=== PATIENT | female | born 1980 | race Caucasian/White ===

== ENCOUNTER → 2020-07-01 18:57 | Outpatient (CLI) | payer BC, SELFPAY ==
[2020-07-03 16:15] LABS: Covid-19 Nasal PCR Sendout UK Not Detected
== END ==
PROVIDERS: PCP Nurse Practitioner; Visit Provider Nurse Practitioner
DX: Z03.818 Encounter for observation for suspected exposure to other biological agents ruled out (principal)
CPT/HCPCS: U0003

== ENCOUNTER → 2020-08-29 10:41 | Outpatient (CLI) | payer BC, SELFPAY ==
[2020-08-29 11:18] LABS: Basophils % 0.4 % (0.1-2.0); Eosinophils # 0.1 K/mm3 (0.0-0.4); Eosinophils % 2.3 % (0.1-12.0); Hematocrit 31.6 % (37.0-47.0); Hemoglobin 10.5 g/dL (12.2-16.2); Lymphocytes # 1.4 K/mm3 (0.7-4.5); Lymphocytes % 35.5 % (10-50); Mean Corpuscular HGB Conc 33.3 g/dL (31.8-35.4); Mean Corpuscular Hemoglobin 38.8 pg (27.0-31.2); Mean Corpuscular Volume 116.6 fl (81-99); Mean Platelet Volume 9.8 fl (7.4-10.4); Monocytes # 0.3 K/mm3 (0.1-1.0); Monocytes % 6.9 % (1.7-9.3); Neutrophils # 2.1 K/mm3 (1.8-7.8); Neutrophils % 54.9 % (37.0-80.0); Platelet Count 67 K/mm3 (142-424); Red Blood Count 2.71 M/mm3 (4.20-5.40); Red Cell Distribution Width 16.5 % (11.5-17.5); White Blood Count 3.8 K/mm3 (4.8-10.8)
== END ==
PROVIDERS: PCP Family Medicine; Visit Provider Family Medicine
DX: Z03.818 Encounter for observation for suspected exposure to other biological agents ruled out (principal)
CPT/HCPCS: 36415; 85025; U0003

== ENCOUNTER → 2020-09-09 18:20 | Outpatient (CLI) | payer BC, SELFPAY | PROVIDERS: PCP Nurse Practitioner; Visit Provider Nurse Practitioner | DX: Z03.818 Encounter for observation for suspected exposure to other biological agents ruled out (principal) | CPT/HCPCS: U0003 ==

== ENCOUNTER → 2020-09-13 12:14 | Outpatient (CLI) | payer BC, SELFPAY ==
[2020-09-13 15:19] LABS: Basophils % 0.3 % (0.1-2.0); Eosinophils % 0.9 % (0.1-12.0); Hematocrit 29.1 % (37.0-47.0); Lymphocytes # 1.2 K/mm3 (0.7-4.5); Lymphocytes % 61.6 % (10-50); Mean Corpuscular HGB Conc 34.4 g/dL (31.8-35.4); Mean Corpuscular Hemoglobin 39.4 pg (27.0-31.2); Mean Corpuscular Volume 114.4 fl (81-99); Monocytes # 0.3 K/mm3 (0.1-1.0); Monocytes % 12.8 % (1.7-9.3); Neutrophils # 0.5 K/mm3 (1.8-7.8); Neutrophils % 24.4 % (37.0-80.0); Platelet Count 54 K/mm3 (142-424); Red Blood Count 2.55 M/mm3 (4.20-5.40); Red Cell Distribution Width 16.7 % (11.5-17.5)
[2020-09-13 15:44] LABS: MANUAL DIFFERENTIAL MANUAL DIFFERENTIAL (MANUAL DIFF)
[2020-09-13 16:22] LABS: Eosinophils % 2 % (0-3); Lymphocytes % 62 % (10-50); Macrocytosis 2+; Monocytes % 11 % (2-9); Neutrophils % 25 % (42-76); Platelet Estimate Marked Decrease; Total Cells Counted 100
== END ==
PROVIDERS: PCP Nurse Practitioner; Visit Provider Nurse Practitioner
DX: Z20.828 Contact with and (suspected) exposure to other viral communicable diseases (principal); U07.1 COVID-19
CPT/HCPCS: 36415; 85007; 85025; 87275; 87276; U0003

== ENCOUNTER → 2020-11-04 10:25 | Outpatient (CLI) | payer BC, SELFPAY ==
--- NOTE | 2020-11-04 10:32 | XR_ITS ---
PROCEDURE: XR LUMBAR SPINE MIN 4V CLINICAL INDICATION: RT SIDED LOW BAKC PAIN W/ RIGHT SIDED SCIATICA COMPARISON: No exams were available for comparison FINDINGS: No fracture or dislocation. No lytic or blastic change. There is normal mineralization. There is mild lumbar curvature convex right. The disc spaces are well preserved. No significant degenerative change. Other findings:None. IMPRESSION: Minimal lumbar curvature convex right otherwise negative Dictated by: Pepe Fernandez MD 11/04/2020 16:58 Pepe Fernandez MD in [place] 11/04/2020 16:58
== END ==
PROVIDERS: PCP Nurse Practitioner; Visit Provider Nurse Practitioner
DX: M54.41 Lumbago with sciatica, right side (principal)
CPT/HCPCS: 72110

== ENCOUNTER → 2021-01-23 16:59 | Outpatient (CLI) | payer BC, SELFPAY ==
[2021-01-23 18:31] LABS: Basophils % 0.3 % (0.1-2.0); Eosinophils % 1.2 % (0.1-12.0); Lymphocytes # 1.6 K/mm3 (0.7-4.5); Lymphocytes % 58.5 % (10-50); Mean Corpuscular HGB Conc 34.2 g/dL (31.8-35.4); Mean Platelet Volume 9.1 fl (7.4-10.4); Monocytes # 0.1 K/mm3 (0.1-1.0); Monocytes % 3.7 % (1.7-9.3); Neutrophils % 36.3 % (37.0-80.0); Red Cell Distribution Width 18.7 % (11.5-17.5); White Blood Count 2.8 K/mm3 (4.8-10.8)
[2021-01-23 18:32] LABS: Mean Corpuscular Hemoglobin 41.1 pg (27.0-31.2)
[2021-01-23 18:38] LABS: Hematocrit 15.5 % (37.0-47.0); MANUAL DIFFERENTIAL MANUAL DIFFERENTIAL (MANUAL DIFF); Platelet Count 35 K/mm3 (142-424)
[2021-01-23 18:43] LABS: Hemoglobin 5.3 g/dL (12.2-16.2)
[2021-01-23 19:57] LABS: Eosinophils % 1 % (0-3); Lymphocytes % 54 % (10-50); Macrocytosis 2+; Monocytes % 7 % (2-9); Neutrophils % 37 % (42-76); Platelet Estimate Marked Decrease; Total Cells Counted 100
== END ==
PROVIDERS: PCP Nurse Practitioner; Visit Provider Nurse Practitioner
DX: Z20.822 Contact with and (suspected) exposure to COVID-19 (principal); D64.9 Anemia, unspecified
CPT/HCPCS: 36415; 85007; 85025; U0003

== ENCOUNTER 2021-01-23 19:29 | Inpatient (IN) | payer BC, SELFPAY ==
[2021-01-23 19:31] VITALS: BP 155/75; PULSE 93; RESP 16; TEMP 37; O2SAT 97; BMI 34.7
[2021-01-23 20:05] LABS: Basophils % 0.1 % (0.1-2.0); Eosinophils # 0.1 K/mm3 (0.0-0.4); Eosinophils % 1.8 % (0.1-12.0); Lymphocytes # 1.7 K/mm3 (0.7-4.5); Lymphocytes % 50.7 % (10-50); Mean Corpuscular HGB Conc 35.8 g/dL (31.8-35.4); Monocytes # 0.1 K/mm3 (0.1-1.0); Monocytes % 3.4 % (1.7-9.3); Neutrophils # 1.5 K/mm3 (1.8-7.8); Neutrophils % 43.9 % (37.0-80.0); Red Blood Count 1.32 M/mm3 (4.20-5.40); Red Cell Distribution Width 18.6 % (11.5-17.5); White Blood Count 3.3 K/mm3 (4.8-10.8)
[2021-01-23 20:06] LABS: Chloride 109 mmol/L (98-107); Potassium 4.1 mmoL/L (3.5-5.1); Sodium 138 mmol/L (136-145)
[2021-01-23 20:07] LABS: Mean Corpuscular Hemoglobin 42.6 pg (27.0-31.2)
[2021-01-23 20:08] LABS: Hematocrit 15.7 % (37.0-47.0); Platelet Count 31 K/mm3 (142-424)
[2021-01-23 20:09] LABS: Alanine Aminotransferase 33 U/L (12-78); Albumin Level 4.5 g/dl (3.5-5.0); Albumin/Globulin Ratio 1.7 (1.1-1.8); Alkaline Phosphatase 75 U/L (38-126); Anion Gap 9.1 mEq/L (5-15); Aspartate Amino Transferase 32 U/L (14-36); Bilirubin,Total 0.5 mg/dl (0.2-1.3); Blood Urea Nitrogen 19 mg/dl (7-17); Carbon Dioxide 24 mmol/L (22.0-30.0); Creatinine Clearance Estimated 102 mL/min (50-200); Estimated Glomerular Filt Rate 61 ml/min (>60); GFR (African American) 74 ML/MIN (>60); Globulin 2.6 g/dL (1.3-3.2); Total Protein,Serum 7.1 g/dl (6.3-8.2)
[2021-01-23 20:10] LABS: Calcium 9.4 mg/dl (8.4-10.2); Glucose 114 mg/dl (74-100)
[2021-01-23 20:13] LABS: Hemoglobin 5.6 g/dL (12.2-16.2)
--- NOTE | 2021-01-23 20:14 | PC.NURSE ---
Dr. Cai notified of critical Hg, Hct, and platelet.
--- NOTE | 2021-01-23 20:15 | HMH.EDRECH ---
ED Disposition Clinical Impression: Pancytopenia Anemia Qualifiers: Anemia type: unspecified type Qualified Code(s): D64.9 - Anemia, unspecified Disposition: Admitted as Observation Condition on Discharge: Good - Critical Care Critical Care Time: No Attestation: On 01/23/21, the high probability of a clinically significant, sudden or life threatening deterioration of the following system(s) required my full and direct attention, intervention and personal management. The time I documented below is in addition to time spent performing reported procedures but includes the following listed in this critical care notation. Medical Decision Making - Medical Records Medical records reviewed: Yes: I reviewed the patient's medical records. - Jaren Inquiry Pt receiving controlled substance: No Vital Signs: 01/23/21 19:31 01/23/21 20:20 01/23/21 22:03 Temperature 98.6 F Temperature Source Oral Pulse Rate 86 Pulse Rate [Right] 93 H Respiratory Rate 16 16 Blood Pressure 122/44 L Blood Pressure [Right Arm] 155/75 H Blood Pressure Mean 77 Blood Pressure Mean [Right Arm] 101 02 Sat by Pulse Oximetry 97 94 L 100 Oxygen Delivery Method Room Air Room Air - Lab Data Lab results reviewed: Yes: I reviewed the patient's lab results. Lab Results 01/23/21 19:50: WBC 3.3 L, RBC 1.32 L*, Hgb 5.6 L*, Hct 15.7 L*, MCV 119.0 H, MCH 42.6 H*, MCHC 35.8 H, RDW 18.6 H, Plt Count 31 L*, MPV 11.0 H, Neut % (Auto) 43.9, Lymph % (Auto) 50.7 H, [place] % (Auto) 3.4, Eos % (Auto) 1.8, Baso % (Auto) 0.1, Neut # (Auto) 1.5 L, Lymph # (Auto) 1.7, [place] # (Auto) 0.1, Eos # (Auto) 0.1, Baso # (Auto) 0.0 01/23/21 19:50: Sodium 138, Potassium 4.1, Chloride 109 H, Carbon Dioxide 24, Anion Gap 9.1, BUN 19 H, Creatinine 1.00, Estimated Creat Clear 102, Estimated GFR 61, Est GFR ( Amer) 74, Glucose 114 H, Calcium 9.4, Total Bilirubin 0.5, AST 32, ALT 33, Alkaline Phosphatase 75, Total Protein 7.1, Albumin 4.5, Globulin 2.6, Albumin/Globulin Ratio 1.7 01/23/21 19:50: Serum HCG, Qual Negative 01/23/21 19:50: ESR > 140 H 01/23/21 19:50: C-Reactive Protein 2.3, Procalcitonin 0.122 01/23/21 21:50: Urine Color Yellow, Urine Appearance Clear, Urine pH 6.5, Ur Specific [place] 1.010, Urine Protein Negative, Urine Glucose (UA) Negative, Urine Ketones Negative, Urine Blood Negative, Urine Nitrate Negative, Urine Bilirubin Negative, Urine Urobilinogen 0.2, Ur Leukocyte Esterase Negative Result diagrams: 01/23/21 19:50 01/23/21 19:50 Orders (Tests/Meds): ED MEDICATIONS Generic Name Dose Route Start Last Admin Trade Name Freq PRN Reason Stop Dose Admin Sodium Chloride 1,000 mls @ 999 mls/hr 01/23/21 20:00 01/23/21 19:55 Sod Chlor 0.9% 1000ml Bag IV 01/23/21 21:00 999 mls/hr .[id number] KEVIN Administration Discontinued Medications Generic Name Dose Route Start Last Admin Trade Name Freq PRN Reason Stop Dose Admin Iopamidol 75 ml 01/23/21 21:19 01/23/21 21:20 Iopamidol-370 (76%);100ml Bottle IV 01/23/21 21:20 75 ml ONCE ONE Administration Sodium Chloride 10 ml 01/23/21 21:19 01/23/21 21:20 Sodium Chloride 0.9% 10ml Syr (Rad Only) IV 01/23/21 21:20 10 ml ONCE ONE Administration ORDERS Category Date Time Status CT abdomen pelvis w con Stat Cat Scan 01/23/21 20:[address] chest w con Stat Cat Scan 01/23/21 20:34 Taken Folate Routine Lab 01/23/21 19:50 Received Peripheral Smear Review Routine Lab 01/23/21 19:50 Received UA [Urinalysis and Microscopic] Stat Lab 01/23/21 21:50 Results Vitamin B12 Routine Lab 01/23/21 19:50 Received - CT Data CT Scan: Abdomen, Pelvis, Chest Time Received: 22:[address] Reviewed: Yes: I have reviewed the patient's CT results Preliminary Findings: Normal/NAD - Physician Consults Physician Consulted: ana Reason -: Admission Medical Decision Narrative: has abn cbc and elevated esr and will need eval by dr harrison and transfusion Recheck HPI
[2021-01-23 20:20] VITALS: O2SAT 94
--- NOTE | 2021-01-23 20:32 | CT_ITS ---
PROCEDURE: CT ABDOMEN PELVIS W CON CLINICAL INDICATION: low H H COMPARISON: No exams were available for comparison TECHNIQUE: IV Contrast: 75ML Isovue 370 Oral Contrast None Axial images obtained with sagittal and coronal reformats. All CT scans at the facility use one or more dose reduction, viz: automated exposure control, ma/kV adjustment per patient size (including targeted exams where dose is matched to indication, i.e. head), or iterative reconstruction technique. FINDINGS: LOWER THORAX: Visualized lung bases are clear. ABDOMEN & PELVIS: The liver, spleen, pancreas, adrenal glands, and kidneys show no acute finding. No intestinal obstruction or free air. No evidence of appendicitis or diverticulitis. Bilateral adnexal hypodense lesions noted measuring 4.9 x 2.6 centimeters on the left and 3.1 times 2.8 centimeters on the right, likely represents ovarian in origin. There is evidence of increased vascularity of the pelvis with the multiple tortuous vessels noted. The uterus appears unremarkable. No free fluid or free intraperitoneal air. No other pelvic mass, abnormal fluid collection, or focal inflammatory change of the pelvis. No acute bony anomalies. The abdominal aorta and its branches are unremarkable. Visualized lumbar spine is unremarkable. IMPRESSION: No acute intra-abdominal abnormality. Multiple focal bilateral adnexal hypodense lesions are noted, measuring up to 4.9 centimeters on the right, may represent bilateral adrenal cysts. Other pathologies including hydrosalpinx cannot be excluded. Increased vascularity is noted in the pelvis with multiple surgical tortuous vessels, raises the concern for pelvic congestion in correct clinical context. If clinically indicated, ultrasound of the pelvis should be considered for further evaluation. Dictated by: Mahogany Mora 01/24/2021 09:01 Mahogany Mroa in [place] 01/24/2021 09:01
--- NOTE | 2021-01-23 20:34 | CT_ITS ---
PROCEDURE: CT CHEST W CON CLINCAL INDICATION: low H H COMPARISON: CT CT ABDOMEN PELVIS W CON from 01/23/2021 TECHNIQUE: IV Contrast: 75ml Isovue 370 Axial images obtained with sagittal and coronal reformats. All CT scans at the facility use one or more dose reduction, viz: automated exposure control, ma/kV adjustment per patient size (including targeted exams where dose is matched to indication, i.e. head), or iterative reconstruction technique. FINDINGS: HEART AND MEDIASTINAL STRUCTURES: The heart size is normal. No pericardial effusions. The thoracic aorta is unremarkable. Minor stranding is noted in the anterior mediastinum, may represent thymic remnant. No significant mediastinal or hilar adenopathy. LUNGS AND PLEURAL SPACES: No focal consolidation, pleural effusions or pneumothorax. The lungs are clear. The central tracheobronchial tree is patent. No suspicious lung nodules are noted. BONY STRUCTURES: No acute bony abnormalities apparent. UPPER ABDOMEN: Visualized upper abdominal solid organs demonstrate no focal abnormality. There is heterogeneous enhancement of the spleen, likely secondary to the phase of IV contrast. No focal lesions are noted. Small hiatus hernia is noted. ADDITIONAL FINDINGS: The visualized thyroid gland is unremarkable. IMPRESSION: No acute intrathoracic findings. Small hiatus hernia. Dictated by: Mahogany Mora 01/24/2021 09:12 Mahogany Mora in [place] 01/24/2021 09:12
[2021-01-23 20:43] LABS: HCG Qualitative, Serum Negative (Negative)
--- NOTE | 2021-01-23 20:53 | PC.NURSE ---
pt to radiology
[2021-01-23 21:08] LABS: C-Reactive Protein 2.3 mg/L (0-4)
--- NOTE | 2021-01-23 21:13 | PC.NURSE ---
return from radiology
[2021-01-23 21:21] LABS: Procalcitonin 0.122 ng/mL (0.0-2.0)
[2021-01-23 21:30] LABS: Erythrocyte Sedimentation Rate > 140 mm/hr (0-20)
--- NOTE | 2021-01-23 21:57 | PC.NURSE ---
paged dr perez @ this time
[2021-01-23 21:59] LABS: Microscopic, Urine URINE MICROSCOPIC (MICROSCOPIC)
[2021-01-23 22:00] LABS: Appearance,Urine CLEAR (Clear); Bilirubin,Urine Negative (Negative); Blood, Urine Negative (Negative); Color,Urine YELLOW (Yellow); Glucose,Urine (UA) Negative (Negative); Ketones,Urine Negative (Negative); Leukocyte Esterase,Urine Negative (Negative); Nitrate,Urine Negative (Negative); PH,Urine 6.5 (5.0-8.5); Protein,Urine Negative (Negative); Urobilinogen,Urine 0.2 EU/dl (0.2)
--- NOTE | 2021-01-23 22:00 | PC.NURSE ---
dr ortiz on phone with dr perez @ this time
[2021-01-23 22:03] VITALS: BP 122/44; PULSE 86; PULSE 87; RESP 16; O2SAT 100; O2SAT 97
[2021-01-23 22:28] VITALS: BP 122/74; PULSE 100; RESP 16; TEMP 36.7; O2SAT 97
[2021-01-23 22:30] VITALS: PULSE 109; O2SAT 98
[2021-01-23 22:46] VITALS: BP 116/46; PULSE 83; RESP 16; TEMP 36.8; O2SAT 100; BMI 34.9
--- NOTE | 2021-01-23 22:48 | PC.NURSE ---
PT ARRIVED TO FLOOR VIA WHEELCHAIR @ 2003
[2021-01-23 23:19] LABS: Bacteria,Urine Trace /lpf; WBC,Urine Occasional #/hpf (0-3)
[2021-01-23 23:21] LABS: Vitamin B12 330 pg/mL (239-931)
[2021-01-24] VITALS (49 sets, daily range): BP systolic 91–128; BP diastolic 37–87; PULSE 56–93; RESP 12–20; TEMP 36.7–37.1; O2SAT 93–100; BMI 35.2
--- NOTE | 2021-01-24 05:49 | PC.NURSE ---
Pt. denies dizziness and pain. Reported soa with activity and occasionally when lying flat. One episode of nausea noted; tx with zofran; effectiveness reported. Pt. tolerating blood administration well, receiving third unit at this time.
--- NOTE | 2021-01-24 07:20 | P.CONPHA_ITS ---
[facility] Pharmacy VTE Monitoring - Patient Demographics Admission date: 01/24/21 Report Date: 01/24/21 Time: 07:20 Allergies/Adverse Reactions: Patient Allergies codeine Allergy (Verified 01/23/21 22:55) latex Allergy (Verified 01/23/21 22:55) Height: 1.57 m Weight: 191.5 kg Patient Problems: Current Active Problems Pancytopenia (Acute) Anemia (Acute) - VTE Risk Labs: VTE Related Lab Results Hgb 5.6 g/dL (12.2-16.2) L* 01/23/21 19:50 Hct 15.7 % (37.0-47.0) L* 01/23/21 19:50 Plt Count 31 K/mm3 (142-424) L* 01/23/21 19:50 BUN 19 mg/dl (7-17) H 01/23/21 19:50 Creatinine 1.00 mg/dl (0.52-1.04) 01/23/21 19:50 Estimated Creat Clear 102 mL/min (50-200) 01/23/21 19:50 Was VTE Risk Assessment Performed: Yes VTE Score: 5 VTE Risk Level: Low Risk Clinical Trial Participant: No - Prophylaxis VTE Prophylaxis Ordered?: Yes Types of VTE Prophylaxis: TEDS Knee High
[2021-01-24 07:51] LABS: Basophils % 0.2 % (0.1-2.0); Eosinophils % 1.2 % (0.1-12.0); Lymphocytes # 1.7 K/mm3 (0.7-4.5); Lymphocytes % 64.7 % (10-50); Mean Corpuscular HGB Conc 34.8 g/dL (31.8-35.4); Mean Corpuscular Hemoglobin 35.2 pg (27.0-31.2); Mean Corpuscular Volume 100.9 fl (81-99); Mean Platelet Volume 10.3 fl (7.4-10.4); Monocytes # 0.1 K/mm3 (0.1-1.0); Monocytes % 4.9 % (1.7-9.3); Neutrophils # 0.8 K/mm3 (1.8-7.8); Red Blood Count 2.21 M/mm3 (4.20-5.40); White Blood Count 2.6 K/mm3 (4.8-10.8)
[2021-01-24 07:53] LABS: Hematocrit 22.3 % (37.0-47.0); MANUAL DIFFERENTIAL MANUAL DIFFERENTIAL (MANUAL DIFF); Platelet Count 22 K/mm3 (142-424)
[2021-01-24 08:20] LABS: Anion Gap 8.1 mEq/L (5-15); Blood Urea Nitrogen 12 mg/dl (7-17); Carbon Dioxide 22 mmol/L (22.0-30.0); Chloride 111 mmol/L (98-107); Creatinine Clearance Estimated 81 mL/min (50-200); Estimated Glomerular Filt Rate 93 ml/min (>60); GFR (African American) 112 ML/MIN (>60); Glucose 90 mg/dl (74-100); Potassium 4.1 mmoL/L (3.5-5.1); Sodium 137 mmol/L (136-145)
[2021-01-24 08:22] LABS: Calcium 8.4 mg/dl (8.4-10.2)
--- NOTE | 2021-01-24 08:28 | HMH.HP ---
*Admission Date: 01/24/21 <AustinRaeShannan - 01/24/21 09:00> *Chief complaint: Fatigue <Shannan Austin - 01/24/21 09:00> *History of present illness: Ms. Ayala is a 40-year-old female with a history of allergies, restless leg syndrome, GERD, and vitamin D deficiency who has not felt well since having Covid infection in August 2020. She states she felt tired all the time but felt this was due to her illness but also due to taking care of all her family members who also had Covid. She has not felt much better. She is sometimes short of breath. She had a telehealth visit yesterday 01/23/2021 complaining of right ear pain. She states she had had a flight to [place] for a and felt this had something to do with her ear discomfort. She could hear her heart beating in her ears. She also noted shortness of breath and a headache with pressure sensation. She denies any nausea, vomiting, diarrhea, constipation, hematemesis, hematochezia, and melena. She does state that her last few periods have been late and heavy. With this telehealth visit she was sent to the ER for lab work CBC revealed hemoglobin of 5.6 and hematocrit of 15.7 with a white blood cell count of 3300 and a platelet count of 31,000. Blood chemistries revealed normal renal function and potassium of 4.1. Vitamin B-12 is low normal at 330. Folate is 11.2. Liver function studies are all normal. Patient has received 3 units of packed red blood cells during the night. She does feel a little bit better this a.m.. Hgb is 7.8 and hct reported at 22.3 with a platelet count of 22,000. White blood cell count remains low at 2.6. Chest CT abdominal/pelvis CT results are pending <Shannan Austin - 01/24/21 09:11> [facility] History Medical History: Reports:: Gastroesophageal Reflux Disease(GERD) Denies:: Anxiety, Cancer, Chronic Obstructive Pulmonary Disease (COPD), Diabetes Mellitus Type 1, Diabetes Mellitus Type 2, MRSA, Palpitations <Shannan Austin 01/24/21 09:00> *Have you ever received a pneumonia vaccine?: No <Shannan Austin 01/24/21 09:00> *Have you received a flu vaccine this season?: Yes <NormanShannan 01/24/21 09:00> Other Medical History: Reports: Anemia, Sinus Problems <Shannan Austin 01/24/21 09:00> Other Surgeries: Yes: Colonoscopy <Shannan Austin 01/24/21 09:00> Amputation: No <Shannan Austin 01/24/21 09:00> - *Social History Last grade of school completed: Advanced degree <Shannan Austin 01/24/21 09:00> Smoking Status: Never smoker <Shannan Austin 01/24/21 09:00> Alcohol Intake: never <Shannan Austin 01/24/21 09:00> *Occupational Status:: employed <Shannan Austin 01/24/21 09:00> Household Members: spouse, family, children <Shannan Austin 01/24/21 09:00> *Travel in the last 8 weeks: Inside the [place] <Shannan Austin 01/24/21 09:00> Family Hx:: Coronary Artery Disease, Heart Attack, Hyperlipidemia, Hypertension <Shannan Austin 01/24/21 09:00> RN IV THERAPY history: no Abnormal Uterine Bleeding, no dysfunctional uterine bleed <Shannan Austin 01/24/21 09:00> Review of Systems - Constitutional Reports fatigue, Reports headache(s), Reports weakness, Denies fever(s) <Shannan Austin 01/24/21 09:00> - Eyes Denies change in vision <Shannan Austin 01/24/21 09:00> - ENT Reports ear pain (Right), Denies sore throat <Shannan Austin 01/24/21 09:00> - *Cardiovascular Reports shortness of breath, Denies chest pain, Denies generalized swelling, Denies irregular heart rhythm, Denies leg swelling <Shannan Austin 01/24/21 09:00> Comments: She has noted an increase in her heart rate <Shannan Asutin 01/24/21 09:00> - *Respiratory Reports shortness of breath, Denies chest congestion, Denies cough <Shannan Austin 01/24/21 09:00> - *Gastrointestinal Reports heartburn, Denies abdominal pain, Denies bloating, Denies change in bowel habits, Denies change in stools, Denies coffee ground vomit, Denies constipation, Denies vomiting blood, Denies
[2021-01-24 08:45] LABS: Anisocytosis 1+; Lymphocytes % 67 % (10-50); Macrocytosis 1+; Monocytes % 4 % (2-9); Neutrophils % 29 % (42-76); Platelet Estimate Marked Decrease; Total Cells Counted 100
[2021-01-24 08:59] LABS: Hemoglobin 7.8 g/dL (12.2-16.2)
[2021-01-24 09:25] LABS: Reticulocyte % (Auto) 2.3 % (0.9-3.2)
[2021-01-24 09:44] LABS: Lactate Dehydrogenase 266 U/L (313-618); Uric Acid 4.1 mg/dl (2.5-6.2)
[2021-01-24 11:02] LABS: INR 0.87 (0.9-1.1); Prothrombin Time 10.4 seconds (10.1-12.5)
[2021-01-24 11:03] LABS: Activated Partial Thrombo Time 24.3 seconds (22.8-30.6)
--- NOTE | 2021-01-24 16:47 | PC.NURSE ---
Pt has been pleasant this shift. Lung sounds CTA. Active bowel sounds in all 4 quads. Pt has had x2 units of PRBC's this shift and has tolerated well w/ no SOA, pain, or changes in vital signs. VSS. Family has remained at bedside this shift. No other acute changes or complaints at this time.
[2021-01-24 17:06] LABS: Hematocrit 29.9 % (37.0-47.0)
[2021-01-24 17:40] LABS: Hemoglobin 10.2 g/dL (12.2-16.2)
[2021-01-25 04:00] VITALS: BP 114/67; PULSE 57; RESP 16; TEMP 36.6; O2SAT 99
[2021-01-25 05:28] VITALS: BMI 35.7
[2021-01-25 06:34] LABS: Basophils % 0.3 % (0.1-2.0); Eosinophils # 0.1 K/mm3 (0.0-0.4); Eosinophils % 1.7 % (0.1-12.0); Hematocrit 29.4 % (37.0-47.0); Lymphocytes # 1.5 K/mm3 (0.7-4.5); Lymphocytes % 51.3 % (10-50); Mean Corpuscular Hemoglobin 33.3 pg (27.0-31.2); Mean Platelet Volume 9.6 fl (7.4-10.4); Monocytes # 0.1 K/mm3 (0.1-1.0); Monocytes % 4.7 % (1.7-9.3); Neutrophils # 1.2 K/mm3 (1.8-7.8); Neutrophils % 41.9 % (37.0-80.0); Red Cell Distribution Width 23.3 % (11.5-17.5)
[2021-01-25 07:07] LABS: Platelet Count 23 K/mm3 (142-424)
[2021-01-25 07:08] LABS: MANUAL DIFFERENTIAL MANUAL DIFFERENTIAL (MANUAL DIFF)
[2021-01-25 08:00] VITALS: BP 115/71; PULSE 58; RESP 16; TEMP 36.9; O2SAT 99
--- NOTE | 2021-01-25 08:05 | HMH.ACPN2 ---
<Shannan Austin - Last Filed: 01/25/21 08:05> Internal Medicine - PN: Subj *Date: 01/25/21 *Time: 08:05 Interval history: Has received a total of 5 units of packed red blood cells. She states she slept some during the night. She is eating okay. Bowels have moved. She is voiding QS. She denies shortness of breath, chest pain and dizziness. She is ambulating in the room. She has had no nausea, vomiting or diarrhea. She states she is due to start her period today., Hemoglobin this morning is 10 with hematocrit of 24.9. Platelet count remains low at 23,000. White blood cell count is 3000. Exam Vital signs and Labs for Last 24 Hours: Temp Pulse Resp BP Pulse Ox 97.8 F 57 L 16 114/67 99 01/25/21 04:00 01/25/21 04:00 01/25/21 04:00 01/25/21 04:00 01/25/21 04:00 Laboratory Results - last 24 hr 01/23/21 22:25: Blood Type O Positive, Antibody Screen Negative, Crossmatch (AHG) See Detail 01/24/21 07:32: Hgb 7.8 L* D, Total Counted 100, Neutrophils % (Manual) 29 L, Lymphocytes % (Manual) 67 H, Monocytes % (Manual) 4, Platelet Estimate Marked decrease, Anisocytosis 1+, Macrocytosis 1+ 01/24/21 07:32: Sodium 137, Potassium 4.1, Chloride 111 H, Carbon Dioxide 22, Anion Gap 8.1, BUN 12 D, Creatinine 0.70 D, Estimated Creat Clear 81, Estimated GFR 93, Est GFR ( Amer) 112 D, Glucose 90 D, Calcium 8.4 D 01/24/21 07:32: Retic Count (auto) 2.3 01/24/21 07:32: Uric Acid 4.1, Lactate Dehydrogenase 266 L 01/24/21 10:04: PT 10.4, INR 0.87 L, APTT 24.3 01/24/21 16:58: Hgb 10.2 L D, Hct 29.9 L 01/25/21 06:24: WBC 3.0 L, RBC 3.00 L D, Hgb 10.0 L, Hct 29.4 L, MCV 98.0, MCH 33.3 H, MCHC 34.0, RDW 23.3 H, Plt Count 23 L*, MPV 9.6, Neut % (Auto) 41.9, Lymph % (Auto) 51.3 H, [place] % (Auto) 4.7, Eos % (Auto) 1.7, Baso % (Auto) 0.3, Neut # (Auto) 1.2 L, Lymph # (Auto) 1.5, [place] # (Auto) 0.1, Eos # (Auto) 0.1, Baso # (Auto) 0.0 I & O for Last 24 hours: Intake & Output 01/22/21 01/23/21 01/24/21 01/25/21 11:59 11:59 11:59 11:59 Intake Total 2608 / 2608 3127 / 3127 Output Total 300 / 300 Balance 2308 / 2308 3127 / 3127 Weight 191 lb 5 oz 194 lb 6 oz - Constitutional no acute distress Comments: Appears comfortable - *Routine Respiratory Exam Present: CTA bilaterally (Anteriorly and posteriorly) - *Routine Cardiovascular Exam Present: RRR (60/min) - *Routine Abdominal Exam Present: soft, normoactive bowel sounds. Absent: tenderness, distended - *Routine Extremities Exam Absent: edema, calf tenderness - *Routine Skin Exam Present: dry, warm. Absent: pallor (Improved color today) - *Routine Neurological Exam Present: alert, oriented X3 Assessment and Plan (1) Pancytopenia Status: Acute Category: Medical Code(s): D61.818 - Other pancytopenia (2) GERD (gastroesophageal reflux disease) Status: Acute Category: Medical Code(s): K21.9 - Gastro-esophageal reflux disease without esophagitis - Assessment and plan all Dx Assessment and Plan for all problems:: Scheduled to see hematology. We will continue to monitor. <Jeremy Daniel - Last Filed: 01/25/21 13:35> Internal Medicine - PN: Subj *Date: 01/25/21 *Time: 13:32 Exam Vital signs and Labs for Last 24 Hours: Temp Pulse Resp BP Pulse Ox 98.4 F 58 L 16 115/71 99 01/25/21 08:00 01/25/21 08:00 01/25/21 08:00 01/25/21 08:00 01/25/21 08:00 Laboratory Results - last 24 hr 01/23/21 22:25: Blood Type O Positive, Antibody Screen Negative, Crossmatch (AH) See Detail 01/24/21 16:58: Hgb 10.2 L D, Hct 29.9 L 01/25/21 06:24: WBC 3.0 L, RBC 3.00 L D, Hgb 10.0 L, Hct 29.4 L, MCV 98.0, MCH 33.3 H, MCHC 34.0, RDW 23.3 H, Plt Count 23 L*, MPV 9.6, Neut % (Auto) 41.9, Lymph % (Auto) 51.3 H, [place] % (Auto) 4.7, Eos % (Auto) 1.7, Baso % (Auto) 0.3, Neut # (Auto) 1.2 L, Lymph # (Auto) 1.5, [place] # (Auto) 0.1, Eos # (Auto) 0.1, Baso # (Auto) 0.0, Total Counted 100, Neutrophils % (Manual) 60, Lymphocytes % (Manual) 38
[2021-01-25 08:27] LABS: Anisocytosis 1+; Lymphocytes % 38 % (10-50); Monocytes % 2 % (2-9); Neutrophils % 60 % (42-76); Platelet Estimate Marked Decrease; Total Cells Counted 100
--- NOTE | 2021-01-25 08:41 | US_ITS ---
PROCEDURE: US TRANSVAGINAL CLINICAL INDICATION: adenexal masses COMPARISON: CT CT ABDOMEN PELVIS W CON from 01/23/2021 FINDINGS: Bilateral adnexal tortuous anechoic and hypoechoic lesions are noted, raises the concern for hydrosalpinx. Septated complex cysts should be considered. The largest of these on the left measures approximately 3.9 x 2.3 centimeters. The left ovary is not identified separate to the anechoic lesion. UTERUS: 8.2 x 5cmx 4cm with a combined endometrial thickness of 11.8mm RIGHT OVARY: 3cmx [id number] with a volume of 13.2ml. There is a focal anechoic lesion with internal septations noted in the right adnexa measuring up to 3.4 centimeters. No evidence of free fluid in the pelvis. IMPRESSION: Tortuous anechoic and hypoechoic lesions in the bilateral adnexa, worse on the left, concerning for hydrosalpinx. Complex ovarian cysts should be considered. Close follow-up is recommended. Dictated by: Mahogany Mora 01/25/2021 12:01 Mahogany Mora in [place] 01/25/2021 12:01
--- NOTE | 2021-01-25 10:16 | PC.NURSE ---
Called and spoke to Rhonda at Dr. Daniel's office and requested something for GERD, as pt does have a hx of gerd and is having c/o of it now. Awaiting cb at this time as Dr. Campos is application designer for Dr. Daniel. [id number].
--- NOTE | 2021-01-25 11:09 | PC.NURSE ---
Pt down for ultrasound at this time.
[2021-01-25 13:09] VITALS: BMI 35.6
--- NOTE | 2021-01-25 13:45 | PC.NURSE ---
Pt is off floor at 1315 and back at this time.
--- NOTE | 2021-01-25 14:44 | PC.NURSE ---
Called and spoke with Dena in RE to request for occult stool.
[2021-01-25 16:00] VITALS: BP 109/50; PULSE 62; RESP 16; TEMP 36.8; O2SAT 95
--- NOTE | 2021-01-25 16:05 | PC.NURSE ---
Received order for occult stool per Sadie donis APRN. Sent specimen to lab.
[2021-01-25 18:00] LABS: Occult Blood,Stool Positive (Negative)
--- NOTE | 2021-01-25 18:56 | PC.NURSE ---
Pt alert and oriented x 4. NAD at this time. RR even and unlabored. Only c/o has been a trent and prn tylenol was given and successful. Abd lg and distended, pt denies pain at this time. Have paged Dr. Campos at this time, r/t positive occult stool. No acute notable bleeding. S1,S2. CB in reach. VSS.
--- NOTE | 2021-01-25 19:25 | PC.NURSE ---
Made Dr. Campos aware of positive occult stool. NNO.
[2021-01-25 20:00] VITALS: BP 121/65; PULSE 62; RESP 20; TEMP 36.9; O2SAT 98
[2021-01-25 22:01] LABS: Peripheral Smear Review Scanned Result
[2021-01-26 04:00] VITALS: BP 118/65; PULSE 56; RESP 16; TEMP 36.6; O2SAT 98
[2021-01-26 05:02] VITALS: BMI 35.9
--- NOTE | 2021-01-26 05:26 | PC.NURSE ---
Pt rested comfortably throughout the night, however woke up suddenly with GALVAN, patient also labile and tearful citing wants to go home and be with family. GAve Tylenol 650 mg for GALVAN 0-10 = 7. Patient has Consult with Dr. Servin this am. Will continue to monitor for any acute changes
[2021-01-26 06:48] LABS: Basophils % 0.2 % (0.1-2.0); Eosinophils % 1.2 % (0.1-12.0); Hematocrit 28.7 % (37.0-47.0); Hemoglobin 9.7 g/dL (12.2-16.2); Lymphocytes # 1.2 K/mm3 (0.7-4.5); Lymphocytes % 42.9 % (10-50); Mean Corpuscular HGB Conc 33.9 g/dL (31.8-35.4); Mean Corpuscular Hemoglobin 33.7 pg (27.0-31.2); Mean Corpuscular Volume 99.5 fl (81-99); Mean Platelet Volume 10.5 fl (7.4-10.4); Monocytes # 0.2 K/mm3 (0.1-1.0); Monocytes % 6.4 % (1.7-9.3); Neutrophils # 1.4 K/mm3 (1.8-7.8); Neutrophils % 49.2 % (37.0-80.0); Red Blood Count 2.89 M/mm3 (4.20-5.40); Red Cell Distribution Width 22.9 % (11.5-17.5); White Blood Count 2.8 K/mm3 (4.8-10.8)
[2021-01-26 07:02] LABS: Platelet Count 22 K/mm3 (142-424)
[2021-01-26 07:19] VITALS: BP 119/59; PULSE 59; RESP 17; TEMP 36.7; O2SAT 99
--- NOTE | 2021-01-26 08:35 | HMH.ACPN2 ---
<Lashell Bowen - Last Filed: 01/26/21 08:35> Internal Medicine - PN: Subj *Date: 01/26/21 *Time: 08:35 Interval history: Patient denies any pain today. She states she slept better last night. She was able to tolerate a diet. Her H&H is down slightly today at 9.7 and 28.7. Her stool for blood is positive. Exam Vital signs and Labs for Last 24 Hours: Temp Pulse Resp BP Pulse Ox 98.0 F 59 L 17 119/59 L 99 01/26/21 07:19 01/26/21 07:19 01/26/21 07:19 01/26/21 07:19 01/26/21 07:19 Laboratory Results - last 24 hr 01/25/21 11:53: Stool Occult Blood Positive A 01/26/21 06:00: WBC 2.8 L, RBC 2.89 L, Hgb 9.7 L, Hct 28.7 L, MCV 99.5 H, MCH 33.7 H, MCHC 33.9, RDW 22.9 H, Plt Count 22 L*, MPV 10.5 H, Neut % (Auto) 49.2, Lymph % (Auto) 42.9, [place] % (Auto) 6.4, Eos % (Auto) 1.2, Baso % (Auto) 0.2, Neut # (Auto) 1.4 L, Lymph # (Auto) 1.2, [place] # (Auto) 0.2, Eos # (Auto) 0.0, Baso # (Auto) 0.0 I & O for Last 24 hours: Intake & Output 01/23/21 01/24/21 01/25/21 01/26/21 11:59 11:59 11:59 11:59 Intake Total 2608 / 2608 3487 / 3487 2378 / 2378 Output Total 300 / 300 Balance 2308 / 2308 3487 / 3487 2378 / 2378 Weight 191 lb 5 oz 194 lb 6 oz 195 lb 2 oz - Constitutional no acute distress - *Routine Respiratory Exam Present: CTA bilaterally - *Routine Cardiovascular Exam Present: RRR - *Routine Abdominal Exam Present: soft, normoactive bowel sounds. Absent: tenderness - *Routine Extremities Exam Absent: cyanosis, clubbing, edema - *Routine Skin Exam Present: warm. Absent: rash - *Routine Neurological Exam Present: alert, oriented X3 Assessment and Plan (1) Pancytopenia Status: Acute Category: Medical Code(s): D61.818 - Other pancytopenia (2) GERD (gastroesophageal reflux disease) Status: Acute Category: Medical Code(s): K21.9 - Gastro-esophageal reflux disease without esophagitis (3) Adnexal mass Status: Acute Category: Medical Code(s): N94.89 - Other specified conditions associated with female genital organs and menstrual cycle - Assessment and plan all Dx Assessment and Plan for all problems:: Transvaginal U/S showed tortuous anechoic and hypoechoic lesions in the bilateral adnexa, worse on the left, concerning for hydrosalpinx. Complex ovarian cysts should be considered. Close follow-up is recommended. She is scheduled to see hematology today. Will discuss further care with Dr. Daniel. <Jeremy Daniel - Last Filed: 01/27/21 08:15> Internal Medicine - PN: Subj *Date: 01/27/21 *Time: 08:15 Exam Vital signs and Labs for Last 24 Hours: Temp Pulse Resp BP Pulse Ox 98.0 F 59 L 17 119/59 L 99 01/26/21 07:19 01/26/21 07:19 01/26/21 07:19 01/26/21 07:19 01/26/21 07:19 I & O for Last 24 hours: Intake & Output 01/24/21 01/25/21 01/26/21 01/27/21 11:59 11:59 11:59 11:59 Intake Total 2608 / 2608 3487 / 3487 2378 / 2378 Output Total 300 / 300 Balance 2308 / 2308 3487 / 3487 2378 / 2378 Weight 191 lb 5 oz 194 lb 6 oz 195 lb 2 oz Assessment and Plan (1) Pancytopenia Status: Acute Category: Medical Code(s): D61.818 - Other pancytopenia (2) GERD (gastroesophageal reflux disease) Status: Acute Category: Medical Code(s): K21.9 - Gastro-esophageal reflux disease without esophagitis (3) Adnexal mass Status: Acute Category: Medical Code(s): N94.89 - Other specified conditions associated with female genital organs and menstrual cycle - Assessment and plan all Dx Assessment and Plan for all problems:: Patient seen and examined this AM. Awaiting Hem/Onc recommendations.
--- NOTE | 2021-01-26 11:15 | PC.NURSE ---
Called and spoke with [facility]'s EMS and requested [facility] per Dr. harrison, EMS is going to call me back with status. Will call report to [facility]. Pt is alert and oriented x 4. RR even and unlabored. CB in reach and at bedside. Pt is very emotional and tearful. Pt states she is also in the middle of the adoption process and is very emotional when speaking about it. Pt states she is also on period and is bleeding heavily- requiring super plus tampon changes frequently. Dr. Harrison made aware of this as well. VSS currently.
--- NOTE | 2021-01-26 11:42 | PC.NURSE ---
Pt is requesting to go to [facility] via private vehicle, is able to transport, called and spoke with Nabor in Dr. Servin's office to confirm she was ok with that. Pt does have an accepting bed and this RN has called report to Baldemar at [facility].
--- NOTE | 2021-01-26 12:18 | HMH.CONS ---
*Admission Date: 01/24/21 *History of present illness: 40 yo wf presented to hospital on 01/23/2021 with fatigue. noted to have pancytopenia. hgb was 5.2, wbc ws around 3 and plts were in 30K range. she has received about 5 units of prbc. peripheral smear does not demonstrate blasts. she started her period yesterday and today it is very heavy. prior was not bleeding. she has felt fatigued and sob. on review of prior labs she was noted to have milder pancytopenia in jun. she had covid in august. denies si/sx of infection. she does not drink alcohol. is present. [facility] History Medical History: Reports:: Gastroesophageal Reflux Disease(GERD) Denies:: Anxiety, Cancer, Chronic Obstructive Pulmonary Disease (COPD), Diabetes Mellitus Type 1, Diabetes Mellitus Type 2, MRSA, Palpitations *Have you ever received a pneumonia vaccine?: No *Have you received a flu vaccine this season?: Yes Other Medical History: Reports: Anemia, Sinus Problems Other Surgeries: Yes: Colonoscopy Amputation: No - *Social History Last grade of school completed: Advanced degree Smoking Status: Never smoker Alcohol Intake: never *Occupational Status:: employed Household Members: spouse, family, children *Travel in the last 8 weeks: Inside the [place] - Psychiatric History Pschychiatric History:: Denies:: Anxiety Family Hx:: Coronary Artery Disease, Heart Attack, Hyperlipidemia, Hypertension SOCIAL WORK JOB TITLES history: no Abnormal Uterine Bleeding, no dysfunctional uterine bleed Review of Systems - Constitutional Reports headache(s), Reports lack of energy - *Neurologic Reports headache(s), Reports weakness, Denies abnormal walking, Denies seizure-like activity, Denies dizziness, Denies localized weakness, Denies tingling/numbness/burning sensations Meds Home Medications Medication Instructions Recorded Confirmed Type Omeprazole/Sodium Bicarbonate 1 each PO DAILY PRN 01/23/21 01/23/21 History [Zegerid Otc 20-1,100 mg Cap] Fluticasone Propionate 1 spr NOSTRIL-B DAILY 01/24/21 01/24/21 History Montelukast Sodium [Singulair 10mg 10 mg PO PM 01/24/21 01/24/21 History tablet] Allergies Allergy/AdvReac Type Severity Reaction Status Date / Time codeine Allergy Verified 01/23/21 22:55 latex Allergy Verified 01/23/21 22:55 Exam Vital signs and Labs for Last 24 Hours: Temp Pulse Resp BP Pulse Ox 98.0 F 59 L 17 119/59 L 99 01/26/21 07:19 01/26/21 07:19 01/26/21 07:19 01/26/21 07:19 01/26/21 07:19 Laboratory Results - last 24 hr 01/25/21 11:53: Stool Occult Blood Positive A 01/26/21 06:00: WBC 2.8 L, RBC 2.89 L, Hgb 9.7 L, Hct 28.7 L, MCV 99.5 H, MCH 33.7 H, MCHC 33.9, RDW 22.9 H, Plt Count 22 L*, MPV 10.5 H, Neut % (Auto) 49.2, Lymph % (Auto) 42.9, [place] % (Auto) 6.4, Eos % (Auto) 1.2, Baso % (Auto) 0.2, Neut # (Auto) 1.4 L, Lymph # (Auto) 1.2, [place] # (Auto) 0.2, Eos # (Auto) 0.0, Baso # (Auto) 0.0 I & O for Last 24 hours: Intake & Output 01/24/21 01/25/21 01/26/21 01/27/21 11:59 11:59 11:59 11:59 Intake Total 2608 / 2608 3487 / 3487 2378 / 2378 Output Total 300 / 300 Balance 2308 / 2308 3487 / 3487 2378 / 2378 Weight 191 lb 5 oz 194 lb 6 oz 195 lb 2 oz Internal Medicine - CN: Reslt - Labs CBC & Chem 7: 01/26/21 06:00 01/24/21 07:32 Labs: Short CBC 01/26/21 Range/Units 06:00 WBC 2.8 L (4.8-10.8) K/mm3 Hgb 9.7 L (12.2-16.2) g/dL Hct 28.7 L (37.0-47.0) % Plt Count 22 L* (142-424) K/mm3 Assessment and Plan (1) Pancytopenia Status: Acute Category: Medical Code(s): D61.818 - Other pancytopenia (2) GERD (gastroesophageal reflux disease) Status: Acute Category: Medical Code(s): K21.9 - Gastro-esophageal reflux disease without esophagitis (3) Adnexal mass Status: Acute Category: Medical Code(s): N94.89 - Other specified conditions associated with female genital organs and menstrual cycle - Assessment and plan all Dx Assessment and
--- NOTE | 2021-01-27 13:02 | HMH.DCSUM ---
General - General Admission date:: 01/23/21 Discharge date: 01/26/21 HPI HPI: Ms. Ayala is a 40-year-old female with a history of allergies, restless leg syndrome, GERD, and vitamin D deficiency who has not felt well since having Covid infection in August 2020. She states she felt tired all the time but felt this was due to her illness but also due to taking care of all her family members who also had Covid. She has not felt much better. She is sometimes short of breath. She had a telehealth visit yesterday 01/23/2021 complaining of right ear pain. She states she had had a flight to [place] for a and felt this had something to do with her ear discomfort. She could hear her heart beating in her ears. She also noted shortness of breath and a headache with pressure sensation. She denies any nausea, vomiting, diarrhea, constipation, hematemesis, hematochezia, and melena. She does state that her last few periods have been late and heavy. With this telehealth visit she was sent to the ER for lab work. CBC revealed hemoglobin of 5.6 and hematocrit of 15.7 with a white blood cell count of 3300 and a platelet count of 31,000. Blood chemistries revealed normal renal function and potassium of 4.1. Vitamin B-12 is low normal at 330. Folate is 11.2. Liver function studies are all normal. Patient has received 3 units of packed red blood cells during the night. She does feel a little bit better this a.m.. Hgb is 7.8 and hct reported at 22.3 with a platelet count of 22,000. White blood cell count remains low at 2.6. Chest CT abdominal/pelvis CT results are pending Hospital Course Hospital Course: The patient's abdominal/pelvic CT showed multiple focal bilateral adnexal hypodense lesions representing bilateral cysts. There was increased vascularity in the pelvis with multiple surgical tortuous vessels raising the concern for pelvic congestion. Radiology recommended a pelvic ultrasound. She also had a chest CT which showed nothing acute. She had a pelvic ultrasound showing torturous lesions in the bilateral adnexa worse on the left concerning for hydrosalpinx. Complex ovarian cyst were considered and radiology recommended close follow-up. The patient felt better after her transfusion. She was given 2 additional units of packed red blood cells and Dr. Servin was consulted. Her hemoglobin increased to 10 and her hematocrit increased to 24.9 with 5 units of packed red blood cells. Her platelet count remains low at 23,000. Her H&H did decrease slightly by 01/26/2021 and her stool for blood was positive. She was seen in consultation by Dr. Servin who was concerned about a primary bone marrow process. She recommended transfer to a larger center with 24/7 hematology care as she felt she would need an immediate bone marrow biopsy. She preferred to be transferred to [facility] and these arrangements were made and she was transferred. Objective Vital signs: Temp Pulse Resp BP Pulse Ox 98.0 F 59 L 17 119/59 L 99 01/26/21 07:19 01/26/21 07:19 01/26/21 07:19 01/26/21 07:19 01/26/21 07:19 Narrative: - Constitutional no acute distress - *Routine Respiratory Exam Present: CTA bilaterally - *Routine Cardiovascular Exam Present: RRR - *Routine Abdominal Exam Present: soft, normoactive bowel sounds. Absent: tenderness - *Routine Extremities Exam Absent: cyanosis, clubbing, edema - *Routine Skin Exam Present: warm. Absent: rash - *Routine Neurological Exam Present: alert, oriented X3 DS: Diagnosis - Discharge Diagnosis (1) Pancytopenia Status: Acute (2) GERD (gastroesophageal reflux disease) Status: Acute (3) Adnexal mass Status: Acute Discharge Plan - Patient Discharge Instructions ACTIVITY: Continue current activity DIET: continue same diet Patient Instructions: Anemia, DI for Bone Marrow Biopsy, DI for Pancytopenia Forms: Transfer Record - Follow up Plan Disposition: [facility]
== END 2021-01-26 12:30 | disposition short-term general hospital (02) | DRG 810 ==
LOC: ER 21:57 → 2ND 22:18
PROVIDERS: Emergency Medicine; Nurse Practitioner Family; Admitting Provider Family Medicine; Emergency Provider Emergency Medicine; PCP Family Medicine; Visit Provider Family Medicine
DX: D61.818 Other pancytopenia (principal); K21.9 Gastro-esophageal reflux disease without esophagitis; R19.00 Intra-abdominal and pelvic swelling, mass and lump, unspecified site; R19.5 Other fecal abnormalities; Z86.16 Personal history of COVID-19; Z88.5 Allergy status to narcotic agent; Z91.040 Latex allergy status
CPT/HCPCS: 36415; 71260; 74177; 76830; 80048; 80053; 81001; 82272; 82607; 82746; 83615; 84145; 84550; 84703; 85007; 85014; 85018; 85025; 85044; 85610; 85651; 85730; 86140; 86850; 99284; G0328; J2405; P9016; Q9967

== ENCOUNTER → 2021-08-27 11:30 | Outpatient (CLI) | payer BC, SELFPAY ==
[2021-08-27 11:53] LABS: Adenovirus,PCR Not Detected (NotDetected); Bordetella Pertussis Not Detected (NotDetected); Chlamydophila Pneumoniae, PCR Not Detected (NotDetected); Coronavirus 19, PCR Not Detected (NotDetected); Coronavirus 229E Not Detected (NotDetected); Coronavirus NL63 Not Detected (NotDetected); Coronavirus OC43 Not Detected (NotDetected); Coronovirus HKU1,PCR Not Detected (NotDetected); Human Metapneumovirus Not Detected (NotDetected); Influenza A, PCR Not Detected (NotDetected); Influenza AH1, 2009 Not Detected (NotDetected); Influenza AH1, PCR Not Detected (NotDetected); Influenza AH3,PCR Not Detected (NotDetected); Influenza B, PCR Not Detected (NotDetected); Mycoplasma Pneumoniae, PCR Not Detected (NotDetected); Parainfluenza 1, PCR Not Detected (NotDetected); Parainfluenza 2, PCR Not Detected (NotDetected); Parainfluenza 3, PCR Not Detected (NotDetected); Parainfluenza 4, PCR Not Detected (NotDetected); Respiratory Syncytial Virus Not Detected (NotDetected); Rhinovirus/Enterovirus Not Detected (NotDetected)
== END ==
PROVIDERS: PCP Family Medicine; Visit Provider Family Medicine
DX: Z20.822 Contact with and (suspected) exposure to COVID-19 (principal)
CPT/HCPCS: 87581; 87632; 87798; C9803; U0003; U0005

== ENCOUNTER → 2021-11-04 10:23 | Outpatient (CLI) | payer BC, SELFPAY | PROVIDERS: PCP Family Medicine; Visit Provider Nurse Practitioner | DX: Z20.822 Contact with and (suspected) exposure to COVID-19 (principal) | CPT/HCPCS: C9803; U0003; U0005 ==

== ENCOUNTER 2021-11-25 19:02 | Emergency (ER) | payer BC, SELFPAY ==
[2021-11-25 19:25] VITALS: BP 123/66; PULSE 110; RESP 24; TEMP 37.3; O2SAT 96; BMI 36.7
--- NOTE | 2021-11-25 19:30 | HMH.EDUTC ---
[facility] Disposition Clinical Impression: Viral syndrome, Exposure to COVID-19 virus Disposition: Home, Self-Care Condition on Discharge: Good Instructions: DI for Viral Syndrome, DI for COVID-19 (Suspected or Confirmed ), Preventing the Spread of Coronavirus Discharge Instructions Additional Instructions: Drink plenty of fluids. Follow up with your regular doctor. GO TO THE ER FOR ANY WORSENING SYMPTOMS Quarantine until you know the results of your covid-19 test. Notify your school or workplace of your results and follow their instructions regarding return to work/school. Referrals: Jeremy Daniel MD [Primary Care Provider] - Time of Disposition: 19:37 Medical Decision Making - Medical Records Medical records reviewed: No: I reviewed the patient's medical records. - Jaren Inquiry Pt receiving controlled substance: No Vital Signs: 11/25/21 19:25 Temperature 99.2 F Temperature Source Oral Pulse Rate [Left] 110 H Respiratory Rate 24 Blood Pressure [Right Arm] 123/66 Blood Pressure Mean [Right Arm] 85 02 Sat by Pulse Oximetry 96 - Lab Data Lab results reviewed: Yes: I reviewed the patient's lab results. Orders (Tests/Meds): ORDERS Category Date Time Status Full Resp Panel w/COVID ([facility]) Routine Lab 11/25/21 19:19 Received Medical Decision Narrative: She states that she is here to get a pcr covid-19 test. She wants to be treated by her pcp at [facility] or her physicians at [facility]. She refuses any more work up at this time. She states that she has no immunity, so she wants to get out of this hospital [facility]ardo before she catches something else. [facility] HPI - General Stated complaint: covid test, soa Time Seen by Provider: 11/25/21 19:30 - History of Present Illness Provider Complaint: She states that she has been feeling bad since yesterday. She has a history of aplastic anemia. She is followed by her primary care physician at [facility] and she sees a hemotologist at [facility]. She states that she has called the physician ironworker foreman for her pcp and she was told to come in to get a covid-19 test. She denies any shortness of breath. She does have a slight cough. She has nasal congestion and nasal drainage also. - Related Data Home Medications Medication Instructions Recorded Confirmed Omeprazole/Sodium Bicarbonate 1 each PO DAILY PRN 01/23/21 01/23/21 [Zegerid Otc 20-1,100 mg Cap] Fluticasone Propionate 1 spr NOSTRIL-B DAILY 01/24/21 01/24/21 Montelukast Sodium [Singulair 10mg 10 mg PO PM 01/24/21 01/24/21 tablet] Allergies Allergy/AdvReac Type Severity Reaction Status Date / Time aspartame Allergy Verified 11/25/21 19:32 codeine Allergy Verified 01/23/21 22:55 latex Allergy Verified 01/23/21 22:55 steroids Allergy Uncoded 11/25/21 19:32 [facility] History - Hepatitis A Screen Attestation statement:: This patient has been screened for Hepatitis A risk factors. I have reviewed the patient's past medical history: Yes Medical History: Reports:: Gastroesophageal Reflux Disease(GERD) Denies:: Anxiety, Cancer, Chronic Obstructive Pulmonary Disease (COPD), Diabetes Mellitus Type 1, Diabetes Mellitus Type 2, MRSA, Palpitations Other Medical History: Reports: Anemia, Sinus Problems Other Surgeries: Yes: Colonoscopy Amputation: No - Social History Smoking Status: Never smoker Alcohol Intake: never Occupational Status: employed Household Members: spouse, family, children - Psychiatric History Pschychiatric History:: Denies:: Anxiety Family Hx:: Coronary Artery Disease, Heart Attack, Hyperlipidemia, Hypertension GEOMETRY PROFESSOR history: no Abnormal Uterine Bleeding, no dysfunctional uterine bleed ROS Obtained: Yes All systems reviewed & no additional complaints - Constitutional Constitutional: Denies chills, Denies fever(s), Reports poor appetite, Reports malaise - Eyes Eyes: Denies eye discharge - ENT Ears, Nose, Mouth, and
[2021-11-25 19:40] LABS: Adenovirus,PCR Not Detected (NotDetected); Bordetella Pertussis Not Detected (NotDetected); Chlamydophila Pneumoniae, PCR Not Detected (NotDetected); Coronavirus 229E Not Detected (NotDetected); Coronavirus NL63 Not Detected (NotDetected); Coronavirus OC43 Not Detected (NotDetected); Coronovirus HKU1,PCR Not Detected (NotDetected); Human Metapneumovirus Not Detected (NotDetected); Influenza A, PCR Not Detected (NotDetected); Influenza AH1, 2009 Not Detected (NotDetected); Influenza AH1, PCR Not Detected (NotDetected); Influenza AH3,PCR Not Detected (NotDetected); Influenza B, PCR Not Detected (NotDetected); Mycoplasma Pneumoniae, PCR Not Detected (NotDetected); Parainfluenza 1, PCR Not Detected (NotDetected); Parainfluenza 2, PCR Not Detected (NotDetected); Parainfluenza 3, PCR Not Detected (NotDetected); Parainfluenza 4, PCR Not Detected (NotDetected); Respiratory Syncytial Virus Not Detected (NotDetected); Rhinovirus/Enterovirus Not Detected (NotDetected)
[2021-11-25 19:56] VITALS: BP 123/66; PULSE 110; RESP 24; TEMP 37.3
[2021-11-25 20:59] LABS: Coronavirus 19, PCR Detected (NotDetected)
--- NOTE | 2021-11-26 09:05 | PC.NURSE ---
informed patient that she is positive
== END 2021-11-25 19:57 | disposition home or self-care (01) ==
PROVIDERS: Emergency Provider Nurse Practitioner Family; PCP Family Medicine
DX: U07.1 COVID-19 (principal); B34.9 Viral infection, unspecified; K21.9 Gastro-esophageal reflux disease without esophagitis
CPT/HCPCS: 87581; 87632; 87798; 99202; C9803; G0463; U0003; U0005

== ENCOUNTER → 2021-12-11 10:53 | Outpatient (CLI) | payer BC, SELFPAY ==
--- NOTE | 2021-12-11 10:59 | XR_ITS ---
FINAL REPORT CLINICAL HISTORY: COVID 2 weeks ago. felt worse this weekend. coughing, soa FINDINGS: The heart size is normal. The mediastinum is normal. There is no focal infiltrate or edema. There are no pleural effusions. There is no pneumothorax. There is no osseous abnormality. IMPRESSION: No acute cardiopulmonary process Reviewed, Interpreted and Dictated by Jorge Mitchell III, MD Transcribed by Bj Manzano Authenticated by Jorge Mitchell III, MD on 12/11/2021 12:19:56 PM [facility]
[2021-12-11 11:22] LABS: Adenovirus,PCR Not Detected (NotDetected); Bordetella Pertussis Not Detected (NotDetected); Chlamydophila Pneumoniae, PCR Not Detected (NotDetected); Coronavirus 229E Not Detected (NotDetected); Coronavirus NL63 Not Detected (NotDetected); Coronovirus HKU1,PCR Not Detected (NotDetected); Human Metapneumovirus Not Detected (NotDetected); Influenza A, PCR Not Detected (NotDetected); Influenza AH1, 2009 Not Detected (NotDetected); Influenza AH1, PCR Not Detected (NotDetected); Influenza AH3,PCR Not Detected (NotDetected); Influenza B, PCR Not Detected (NotDetected); Mycoplasma Pneumoniae, PCR Not Detected (NotDetected); Parainfluenza 1, PCR Not Detected (NotDetected); Parainfluenza 2, PCR Not Detected (NotDetected); Parainfluenza 3, PCR Not Detected (NotDetected); Parainfluenza 4, PCR Not Detected (NotDetected); Respiratory Syncytial Virus Not Detected (NotDetected); Rhinovirus/Enterovirus Not Detected (NotDetected)
[2021-12-11 13:41] LABS: Strep Scrn Group A (Rapid) Negative (Negative)
[2021-12-11 16:43] LABS: Coronavirus OC43 Detected (NotDetected)
[2021-12-11 19:13] LABS: Basophils # 0.1 K/mm3 (0-0.2); Basophils % 2.9 % (0.1-2.0); Eosinophils # 0.1 K/mm3 (0.0-0.4); Eosinophils % 2.2 % (0.1-12.0); Hemoglobin 8.2 g/dL (12.2-16.2); Lymphocytes # 0.9 K/mm3 (0.7-4.5); Lymphocytes % 30.7 % (10-50); Mean Corpuscular HGB Conc 34.3 g/dL (31.8-35.4); Mean Corpuscular Hemoglobin 38.9 pg (27.0-31.2); Mean Corpuscular Volume 113.2 fl (81-99); Mean Platelet Volume 12.2 fl (7.4-10.4); Monocytes # 0.2 K/mm3 (0.1-1.0); Monocytes % 5.4 % (1.7-9.3); Neutrophils # 1.8 K/mm3 (1.8-7.8); Neutrophils % 58.8 % (37.0-80.0); Platelet Count 51 K/mm3 (142-424); Red Blood Count 2.12 M/mm3 (4.20-5.40); Red Cell Distribution Width 22.8 % (11.5-17.5)
== END ==
PROVIDERS: PCP Family Medicine; Visit Provider Nurse Practitioner
DX: U07.1 COVID-19 (principal); J02.9 Acute pharyngitis, unspecified
CPT/HCPCS: 36415; 71045; 85025; 87430; 87486; 87581; 87632; 87798

== ENCOUNTER → 2022-01-15 11:31 | Outpatient (CLI) | payer BC, SELFPAY ==
[2022-01-15 12:06] LABS: Adenovirus,PCR Not Detected (NotDetected); Coronavirus NL63 Not Detected (NotDetected); Coronavirus OC43 Not Detected (NotDetected); Coronovirus HKU1,PCR Not Detected (NotDetected); Human Metapneumovirus Not Detected (NotDetected); Influenza A, PCR Not Detected (NotDetected); Influenza AH1, 2009 Not Detected (NotDetected); Influenza AH1, PCR Not Detected (NotDetected); Influenza AH3,PCR Not Detected (NotDetected); Influenza B, PCR Not Detected (NotDetected); Parainfluenza 1, PCR Not Detected (NotDetected); Parainfluenza 2, PCR Not Detected (NotDetected); Rhinovirus/Enterovirus Not Detected (NotDetected)
[2022-01-15 12:07] LABS: Bordetella Pertussis Not Detected (NotDetected); Chlamydophila Pneumoniae, PCR Not Detected (NotDetected); Coronavirus 19, PCR Not Detected (NotDetected); Mycoplasma Pneumoniae, PCR Not Detected (NotDetected); Parainfluenza 3, PCR Not Detected (NotDetected); Parainfluenza 4, PCR Not Detected (NotDetected); Respiratory Syncytial Virus Not Detected (NotDetected)
[2022-01-15 15:22] LABS: Basophils % 0.6 % (0.1-2.0); Eosinophils % 1.4 % (0.1-12.0); Hematocrit 25.6 % (37.0-47.0); Hemoglobin 8.9 g/dL (12.2-16.2); Lymphocytes # 1.1 K/mm3 (0.7-4.5); Mean Corpuscular HGB Conc 34.9 g/dL (31.8-35.4); Mean Corpuscular Hemoglobin 37.2 pg (27.0-31.2); Mean Corpuscular Volume 106.5 fl (81-99); Mean Platelet Volume 11.4 fl (7.4-10.4); Monocytes # 0.2 K/mm3 (0.1-1.0); Monocytes % 9.4 % (1.7-9.3); Neutrophils # 0.5 K/mm3 (1.8-7.8); Neutrophils % 27.7 % (37.0-80.0); Red Cell Distribution Width 23.8 % (11.5-17.5); White Blood Count 1.7 K/mm3 (4.8-10.8)
[2022-01-15 15:30] LABS: Platelet Count 48 K/mm3 (142-424)
[2022-01-15 15:33] LABS: MANUAL DIFFERENTIAL MANUAL DIFFERENTIAL (MANUAL DIFF)
[2022-01-15 15:36] LABS: Lymphocytes % 70 % (10-50); Monocytes % 4 % (2-9); Neutrophils % 26 % (42-76); Platelet Estimate Marked Decrease; Total Cells Counted 100
[2022-01-15 15:37] LABS: Anisocytosis 3+; Macrocytosis 2+; Stomatocytes 2+
[2022-01-15 16:09] LABS: Coronavirus 229E Detected (NotDetected)
== END ==
PROVIDERS: PCP Family Medicine; Visit Provider Nurse Practitioner
DX: U07.1 COVID-19 (principal)
CPT/HCPCS: 36415; 85007; 85025; 87581; 87632; 87798; C9803; U0003; U0005

== ENCOUNTER → 2022-03-29 11:25 | Outpatient (CLI) | payer BC, SELFPAY ==
[2022-03-29 11:55] LABS: Microscopic, Urine URINE MICROSCOPIC (MICROSCOPIC)
[2022-03-29 12:41] LABS: Appearance,Urine CLEAR (Clear); Bilirubin,Urine Negative (Negative); Blood, Urine Negative (Negative); Color,Urine YELLOW (Yellow); Glucose,Urine (UA) Negative (Negative); Ketones,Urine Negative (Negative); Leukocyte Esterase,Urine Negative (Negative); Nitrate,Urine Negative (Negative); PH,Urine 5.5 (5.0-8.5); Protein,Urine Negative (Negative); Urobilinogen,Urine 0.2 EU/dl (0.2)
[2022-03-29 12:54] LABS: WBC,Urine Occasional #/hpf (0-3)
[2022-03-29 12:55] LABS: Bacteria,Urine Trace /lpf
== END ==
PROVIDERS: PCP Family Medicine; Visit Provider Nurse Practitioner
DX: R19.7 Diarrhea, unspecified (principal); N39.0 Urinary tract infection, site not specified; B96.20 Unspecified Escherichia coli [E. coli] as the cause of diseases classified elsewhere
CPT/HCPCS: 81001; 87086; 87088; 87186

== ENCOUNTER → 2022-04-23 14:01 | Outpatient (CLI) | payer BC, SELFPAY | PROVIDERS: PCP Family Medicine; Visit Provider Nurse Practitioner | DX: Z71.3 Dietary counseling and surveillance (principal); R63.5 Abnormal weight gain ==

== ENCOUNTER 2022-06-12 09:12 | Outpatient (CLI) | payer BC, SELFPAY ==
[2022-06-12 09:17] VITALS: BMI 35.9
[2022-06-12 09:40] LABS: Basophils % 1.2 % (0.1-2.0); Eosinophils # 0.1 K/mm3 (0.0-0.4); Hematocrit 29.3 % (37.0-47.0); Hemoglobin 9.3 g/dL (12.2-16.2); Lymphocytes # 1.2 K/mm3 (0.7-4.5); Lymphocytes % 32.8 % (10-50); Mean Corpuscular HGB Conc 31.7 g/dL (31.8-35.4); Mean Corpuscular Hemoglobin 39.7 pg (27.0-31.2); Mean Platelet Volume 10.7 fl (7.4-10.4); Monocytes # 0.4 K/mm3 (0.1-1.0); Monocytes % 10.8 % (1.7-9.3); Neutrophils % 53.2 % (37.0-80.0); Platelet Count 80 K/mm3 (142-424); Red Blood Count 2.34 M/mm3 (4.20-5.40); White Blood Count 3.7 K/mm3 (4.8-10.8)
[2022-06-12 09:48] LABS: Chloride 106 mmol/L (98-107); Potassium 4.5 mmoL/L (3.5-5.1); Sodium 134 mmol/L (136-145)
[2022-06-12 09:51] LABS: Alanine Aminotransferase 273 U/L (12-78); Albumin Level 4.3 g/dl (3.5-5.0); Albumin/Globulin Ratio 1.4 (1.1-1.8); Alkaline Phosphatase 53 U/L (38-126); Anion Gap 9.5 mEq/L (5-15); Aspartate Amino Transferase 117 U/L (14-36); Bilirubin,Total 1.5 mg/dl (0.2-1.3); Blood Urea Nitrogen 18 mg/dl (7-17); Carbon Dioxide 23 mmol/L (22.0-30.0); Creatinine Clearance Estimated 107 mL/min (50-200); Estimated Glomerular Filt Rate 61 ml/min (>60); GFR (African American) 74 ML/MIN (>60); Total Protein,Serum 7.3 g/dl (6.3-8.2)
--- NOTE | 2022-06-12 09:51 | PC.NURSE ---
CBC drawn at 09, no replacement blood products needed. pt given f/u appt.
[2022-06-12 09:52] LABS: Calcium 9.2 mg/dl (8.4-10.2); Glucose 103 mg/dl (74-100)
[2022-06-12 11:50] LABS: Reticulocyte % (Auto) 2.8 % (0.9-3.2)
== END 2022-06-12 09:48 | disposition home or self-care (01) ==
LOC: INF 09:13
PROVIDERS: PCP Family Medicine; Visit Provider Internal Medicine Medical Oncology
DX: C75.0 Malignant neoplasm of parathyroid gland (principal)
CPT/HCPCS: 36415; 80053; 85025; 85044

== ENCOUNTER 2022-06-21 13:34 | Outpatient (CLI) | payer BC, SELFPAY ==
[2022-06-21 13:42] VITALS: BMI 35.7
[2022-06-21 14:23] LABS: Alanine Aminotransferase 237 U/L (12-78); Albumin Level 3.9 g/dl (3.5-5.0); Albumin/Globulin Ratio 1.4 (1.1-1.8); Alkaline Phosphatase 54 U/L (38-126); Anion Gap 9.1 mEq/L (5-15); Aspartate Amino Transferase 121 U/L (14-36); Blood Urea Nitrogen 14 mg/dl (7-17); Carbon Dioxide 23 mmol/L (22.0-30.0); Chloride 108 mmol/L (98-107); Creatinine Clearance Estimated 118 mL/min (50-200); Estimated Glomerular Filt Rate 69 ml/min (>60); GFR (African American) 83 ML/MIN (>60); Globulin 2.7 g/dL (1.3-3.2); Glucose 120 mg/dl (74-100); Potassium 4.1 mmoL/L (3.5-5.1); Sodium 136 mmol/L (136-145); Total Protein,Serum 6.6 g/dl (6.3-8.2)
[2022-06-21 14:31] LABS: Basophils % 0.3 % (0.1-2.0); Hematocrit 23.9 % (37.0-47.0); Hemoglobin 7.9 g/dL (12.2-16.2); Lymphocytes # 1.2 K/mm3 (0.7-4.5); Lymphocytes % 38.4 % (10-50); Mean Corpuscular HGB Conc 32.9 g/dL (31.8-35.4); Mean Corpuscular Volume 122.6 fl (81-99); Mean Platelet Volume 10.8 fl (7.4-10.4); Monocytes # 0.2 K/mm3 (0.1-1.0); Monocytes % 6.8 % (1.7-9.3); Neutrophils # 1.6 K/mm3 (1.8-7.8); Neutrophils % 53.5 % (37.0-80.0); Platelet Count 76 K/mm3 (142-424); Red Blood Count 1.95 M/mm3 (4.20-5.40); Red Cell Distribution Width 19.9 % (11.5-17.5); Reticulocyte % (Auto) 3.6 % (0.9-3.2)
[2022-06-21 14:33] LABS: Mean Corpuscular Hemoglobin 40.4 pg (27.0-31.2)
== END 2022-06-21 13:50 | disposition home or self-care (01) ==
LOC: INF 13:35
PROVIDERS: PCP Family Medicine; Visit Provider Internal Medicine Medical Oncology
DX: D64.9 Anemia, unspecified (principal); D61.818 Other pancytopenia
CPT/HCPCS: 36415; 80053; 85025; 85044

== ENCOUNTER 2022-06-28 15:16 | Outpatient (CLI) | payer BC, SELFPAY ==
[2022-06-28 15:20] VITALS: BMI 35.9
--- NOTE | 2022-06-28 15:25 | PC.NURSE ---
1525-collected labs via peripheral stick; pt will wait for results.
[2022-06-28 15:37] LABS: Basophils % 0.2 % (0.1-2.0); Eosinophils % 1.4 % (0.1-12.0); Hematocrit 22.8 % (37.0-47.0); Hemoglobin 7.6 g/dL (12.2-16.2); Lymphocytes # 1.3 K/mm3 (0.7-4.5); Lymphocytes % 43.2 % (10-50); Mean Corpuscular HGB Conc 33.1 g/dL (31.8-35.4); Mean Corpuscular Volume 123.5 fl (81-99); Mean Platelet Volume 10.9 fl (7.4-10.4); Monocytes # 0.2 K/mm3 (0.1-1.0); Neutrophils # 1.5 K/mm3 (1.8-7.8); Neutrophils % 48.3 % (37.0-80.0); Platelet Count 68 K/mm3 (142-424); Red Blood Count 1.85 M/mm3 (4.20-5.40); Red Cell Distribution Width 19.5 % (11.5-17.5); Reticulocyte % (Auto) 3.4 % (0.9-3.2); White Blood Count 3.1 K/mm3 (4.8-10.8)
[2022-06-28 15:39] LABS: Mean Corpuscular Hemoglobin 40.9 pg (27.0-31.2)
--- NOTE | 2022-06-28 15:45 | PC.NURSE ---
1545-left message for to see if she wants to give 1 unit of blood to symptomatic patient.will wait for call back.
[2022-06-28 15:48] LABS: Chloride 107 mmol/L (98-107); Potassium 4.5 mmoL/L (3.5-5.1); Sodium 138 mmol/L (136-145)
[2022-06-28 15:51] LABS: Alanine Aminotransferase 198 U/L (12-78); Albumin Level 4.1 g/dl (3.5-5.0); Albumin/Globulin Ratio 1.5 (1.1-1.8); Alkaline Phosphatase 49 U/L (38-126); Aspartate Amino Transferase 114 U/L (14-36); Bilirubin,Total 0.7 mg/dl (0.2-1.3); Blood Urea Nitrogen 19 mg/dl (7-17); Creatinine Clearance Estimated 107 mL/min (50-200); Estimated Glomerular Filt Rate 61 ml/min (>60); GFR (African American) 74 ML/MIN (>60); Globulin 2.7 g/dL (1.3-3.2); Glucose 100 mg/dl (74-100); Total Protein,Serum 6.8 g/dl (6.3-8.2)
[2022-06-28 16:30] LABS: Anion Gap 12.5 mEq/L (5-15); Carbon Dioxide 23 mmol/L (22.0-30.0)
--- NOTE | 2022-06-28 16:34 | PC.NURSE ---
1634-notified my ok to give 1 unit prbc irradiated.
--- NOTE | 2022-06-28 16:35 | PC.NURSE ---
1435-daniel dow from lab here to witness type and cross.
== END 2022-06-28 16:36 | disposition home or self-care (01) ==
LOC: INF 15:17
PROVIDERS: PCP Family Medicine; Visit Provider Internal Medicine Medical Oncology
DX: D61.818 Other pancytopenia (principal)
CPT/HCPCS: 36415; 80053; 85025; 85044; 86850

== ENCOUNTER 2022-06-30 09:01 | Outpatient (CLI) | payer BC, SELFPAY ==
[2022-06-30] VITALS (11 sets, daily range): BP systolic 117–161; BP diastolic 52–78; PULSE 75–85; RESP 18–20; TEMP 36.9–37.1; O2SAT 99–100
== END 2022-06-30 12:40 | disposition home or self-care (01) ==
LOC: INF 09:02
PROVIDERS: PCP Family Medicine; Visit Provider Internal Medicine Medical Oncology
DX: D61.818 Other pancytopenia (principal); D64.9 Anemia, unspecified
CPT/HCPCS: 36430; P9016

== ENCOUNTER 2022-07-05 15:25 | Outpatient (CLI) | payer BC, SELFPAY ==
[2022-07-05 15:28] VITALS: BMI 35.9
--- NOTE | 2022-07-05 15:33 | PC.NURSE ---
john abird collected labs via peripheral stick;will wait on results.
[2022-07-05 15:41] LABS: Basophils % 0.6 % (0.1-2.0); Eosinophils # 0.1 K/mm3 (0.0-0.4); Eosinophils % 1.4 % (0.1-12.0); Hematocrit 27.8 % (37.0-47.0); Hemoglobin 9.4 g/dL (12.2-16.2); Lymphocytes # 1.4 K/mm3 (0.7-4.5); Lymphocytes % 43.5 % (10-50); Mean Corpuscular Hemoglobin 38.8 pg (27.0-31.2); Mean Corpuscular Volume 114.2 fl (81-99); Mean Platelet Volume 10.8 fl (7.4-10.4); Monocytes # 0.3 K/mm3 (0.1-1.0); Monocytes % 8.2 % (1.7-9.3); Neutrophils # 1.5 K/mm3 (1.8-7.8); Neutrophils % 46.3 % (37.0-80.0); Platelet Count 69 K/mm3 (142-424); Red Blood Count 2.43 M/mm3 (4.20-5.40); White Blood Count 3.3 K/mm3 (4.8-10.8)
--- NOTE | 2022-07-05 15:48 | PC.NURSE ---
1548-labs good per standing order;pt ok to d/c home
[2022-07-05 15:50] LABS: Alanine Aminotransferase 201 U/L (12-78); Albumin/Globulin Ratio 1.5 (1.1-1.8); Alkaline Phosphatase 53 U/L (38-126); Anion Gap 8.3 mEq/L (5-15); Aspartate Amino Transferase 105 U/L (14-36); Bilirubin,Total 0.6 mg/dl (0.2-1.3); Blood Urea Nitrogen 17 mg/dl (7-17); Calcium 8.9 mg/dl (8.4-10.2); Carbon Dioxide 26 mmol/L (22.0-30.0); Chloride 106 mmol/L (98-107); Creatinine Clearance Estimated 107 mL/min (50-200); Estimated Glomerular Filt Rate 61 ml/min (>60); GFR (African American) 74 ML/MIN (>60); Globulin 2.7 g/dL (1.3-3.2); Glucose 86 mg/dl (74-100); Potassium 4.3 mmoL/L (3.5-5.1); Reticulocyte % (Auto) 2.6 % (0.9-3.2); Sodium 136 mmol/L (136-145); Total Protein,Serum 6.7 g/dl (6.3-8.2)
== END 2022-07-05 15:48 | disposition home or self-care (01) ==
LOC: INF 15:26
PROVIDERS: PCP Family Medicine; Visit Provider Internal Medicine Medical Oncology
DX: D61.818 Other pancytopenia (principal)
CPT/HCPCS: 36415; 80053; 85025; 85044

== ENCOUNTER 2022-07-12 15:12 | Outpatient (CLI) | payer BC, SELFPAY ==
[2022-07-12 15:15] VITALS: BMI 35.9
--- NOTE | 2022-07-12 15:30 | PC.NURSE ---
Pt here for weekly lab draw. Venipuncture performed to pt's rt ac, blood obtained for labs and specimens sent to lab for analysis. Pt to await results of labs prior to d/c to determine poc.
[2022-07-12 15:41] LABS: Basophils % 0.4 % (0.1-2.0); Chloride 106 mmol/L (98-107); Eosinophils % 1.3 % (0.1-12.0); Hematocrit 26.1 % (37.0-47.0); Hemoglobin 8.9 g/dL (12.2-16.2); Lymphocytes # 1.4 K/mm3 (0.7-4.5); Lymphocytes % 46.3 % (10-50); Mean Corpuscular Hemoglobin 39.4 pg (27.0-31.2); Mean Corpuscular Volume 115.9 fl (81-99); Mean Platelet Volume 10.6 fl (7.4-10.4); Monocytes # 0.3 K/mm3 (0.1-1.0); Monocytes % 8.4 % (1.7-9.3); Neutrophils # 1.3 K/mm3 (1.8-7.8); Neutrophils % 43.6 % (37.0-80.0); Platelet Count 72 K/mm3 (142-424); Red Blood Count 2.25 M/mm3 (4.20-5.40); Red Cell Distribution Width 20.6 % (11.5-17.5); Reticulocyte % (Auto) 2.9 % (0.9-3.2); Sodium 136 mmol/L (136-145)
[2022-07-12 15:42] LABS: Potassium 4.7 mmoL/L (3.5-5.1)
[2022-07-12 15:44] LABS: Alanine Aminotransferase 201 U/L (12-78); Albumin/Globulin Ratio 1.6 (1.1-1.8); Alkaline Phosphatase 55 U/L (38-126); Anion Gap 9.7 mEq/L (5-15); Aspartate Amino Transferase 122 U/L (14-36); Bilirubin,Total 0.4 mg/dl (0.2-1.3); Blood Urea Nitrogen 17 mg/dl (7-17); Calcium 8.6 mg/dl (8.4-10.2); Carbon Dioxide 25 mmol/L (22.0-30.0); Creatinine Clearance Estimated 107 mL/min (50-200); Estimated Glomerular Filt Rate 61 ml/min (>60); GFR (African American) 74 ML/MIN (>60); Globulin 2.5 g/dL (1.3-3.2); Glucose 91 mg/dl (74-100); Total Protein,Serum 6.5 g/dl (6.3-8.2)
== END 2022-07-12 15:50 | disposition home or self-care (01) ==
PROVIDERS: PCP Family Medicine; Visit Provider Internal Medicine Medical Oncology
DX: D61.818 Other pancytopenia (principal); Z45.2 Encounter for adjustment and management of vascular access device
CPT/HCPCS: 36415; 80053; 85025; 85044

== ENCOUNTER 2022-07-19 14:25 | Outpatient (CLI) | payer BC, SELFPAY ==
[2022-07-19 14:30] VITALS: BMI 35.9
[2022-07-19 14:44] LABS: Basophils % 0.9 % (0.1-2.0); Eosinophils % 1.3 % (0.1-12.0); Hematocrit 25.6 % (37.0-47.0); Hemoglobin 8.7 g/dL (12.2-16.2); Lymphocytes # 1.2 K/mm3 (0.7-4.5); Lymphocytes % 37.2 % (10-50); Mean Corpuscular HGB Conc 33.9 g/dL (31.8-35.4); Mean Corpuscular Hemoglobin 39.4 pg (27.0-31.2); Mean Corpuscular Volume 116.1 fl (81-99); Mean Platelet Volume 10.1 fl (7.4-10.4); Monocytes # 0.3 K/mm3 (0.1-1.0); Neutrophils # 1.7 K/mm3 (1.8-7.8); Neutrophils % 52.5 % (37.0-80.0); Platelet Count 76 K/mm3 (142-424); Red Cell Distribution Width 20.3 % (11.5-17.5); Reticulocyte % (Auto) 3.1 % (0.9-3.2); White Blood Count 3.3 K/mm3 (4.8-10.8)
[2022-07-19 14:49] LABS: Chloride 103 mmol/L (98-107); Potassium 4.2 mmoL/L (3.5-5.1); Sodium 137 mmol/L (136-145)
[2022-07-19 14:52] LABS: Alanine Aminotransferase 256 U/L (12-78); Albumin Level 4.1 g/dl (3.5-5.0); Albumin/Globulin Ratio 1.6 (1.1-1.8); Alkaline Phosphatase 57 U/L (38-126); Anion Gap 13.2 mEq/L (5-15); Aspartate Amino Transferase 171 U/L (14-36); Bilirubin,Total 0.3 mg/dl (0.2-1.3); Blood Urea Nitrogen 14 mg/dl (7-17); Calcium 8.7 mg/dl (8.4-10.2); Carbon Dioxide 25 mmol/L (22.0-30.0); Creatinine Clearance Estimated 107 mL/min (50-200); Estimated Glomerular Filt Rate 61 ml/min (>60); GFR (African American) 74 ML/MIN (>60); Globulin 2.5 g/dL (1.3-3.2); Glucose 94 mg/dl (74-100); Total Protein,Serum 6.6 g/dl (6.3-8.2)
--- NOTE | 2022-07-19 15:05 | PC.NURSE ---
Addendum entered by Krupa Posadas RN 07/19/22 15:06: 1435-collected labs via peripheral stick; pt to oncology appointment. Original Note: [id number]
== END 2022-07-19 14:35 | disposition home or self-care (01) ==
LOC: INF 14:26
PROVIDERS: PCP Family Medicine; Visit Provider Internal Medicine Medical Oncology
DX: D61.818 Other pancytopenia (principal)
CPT/HCPCS: 36415; 80053; 85025; 85044

== ENCOUNTER 2022-07-26 15:29 | Outpatient (CLI) | payer BC, SELFPAY ==
[2022-07-26 15:34] VITALS: BMI 35.9
--- NOTE | 2022-07-26 15:35 | PC.NURSE ---
1535-collected labs via peripheral stick;pt will wait on results to make sure she doesn't need a blood transfusion.
[2022-07-26 15:49] LABS: Chloride 105 mmol/L (98-107); Potassium 4.5 mmoL/L (3.5-5.1); Sodium 139 mmol/L (136-145)
[2022-07-26 15:50] LABS: Basophils % 1.1 % (0.1-2.0); Eosinophils % 1.1 % (0.1-12.0); Hematocrit 25.2 % (37.0-47.0); Hemoglobin 8.6 g/dL (12.2-16.2); Lymphocytes # 1.1 K/mm3 (0.7-4.5); Lymphocytes % 41.5 % (10-50); Mean Corpuscular Hemoglobin 39.7 pg (27.0-31.2); Mean Corpuscular Volume 116.5 fl (81-99); Mean Platelet Volume 9.7 fl (7.4-10.4); Monocytes # 0.2 K/mm3 (0.1-1.0); Monocytes % 8.5 % (1.7-9.3); Neutrophils # 1.3 K/mm3 (1.8-7.8); Neutrophils % 47.8 % (37.0-80.0); Platelet Count 70 K/mm3 (142-424); Red Blood Count 2.16 M/mm3 (4.20-5.40); Red Cell Distribution Width 20.1 % (11.5-17.5); White Blood Count 2.7 K/mm3 (4.8-10.8)
[2022-07-26 15:52] LABS: Alanine Aminotransferase 298 U/L (12-78); Albumin Level 4.1 g/dl (3.5-5.0); Albumin/Globulin Ratio 1.8 (1.1-1.8); Alkaline Phosphatase 53 U/L (38-126); Anion Gap 12.5 mEq/L (5-15); Aspartate Amino Transferase 190 U/L (14-36); Bilirubin,Total 0.2 mg/dl (0.2-1.3); Blood Urea Nitrogen 14 mg/dl (7-17); Calcium 8.3 mg/dl (8.4-10.2); Carbon Dioxide 26 mmol/L (22.0-30.0); Creatinine Clearance Estimated 152 mL/min (50-200); Estimated Glomerular Filt Rate 92 ml/min (>60); GFR (African American) 111 ML/MIN (>60); Globulin 2.3 g/dL (1.3-3.2); Glucose 86 mg/dl (74-100); Total Protein,Serum 6.4 g/dl (6.3-8.2)
--- NOTE | 2022-07-26 15:53 | PC.NURSE ---
1553-pt ok to d/c home lab work is good per standing order.
== END 2022-07-26 15:53 | disposition home or self-care (01) ==
LOC: INF 15:30
PROVIDERS: PCP Family Medicine; Visit Provider Internal Medicine Medical Oncology
DX: D64.9 Anemia, unspecified (principal)
CPT/HCPCS: 36415; 80053; 85025; 85044

== ENCOUNTER 2022-08-02 15:26 | Outpatient (CLI) | payer BC, SELFPAY ==
[2022-08-02 15:31] VITALS: BMI 35.9
--- NOTE | 2022-08-02 15:35 | PC.NURSE ---
1535-collected labs via venipuncture stick; will wait on results.
[2022-08-02 15:44] LABS: Basophils % 0.7 % (0.1-2.0); Eosinophils % 1.1 % (0.1-12.0); Hematocrit 23.8 % (37.0-47.0); Lymphocytes # 1.3 K/mm3 (0.7-4.5); Lymphocytes % 39.8 % (10-50); Mean Corpuscular HGB Conc 33.7 g/dL (31.8-35.4); Mean Corpuscular Hemoglobin 39.5 pg (27.0-31.2); Mean Corpuscular Volume 117.2 fl (81-99); Mean Platelet Volume 11.6 fl (7.4-10.4); Monocytes # 0.3 K/mm3 (0.1-1.0); Monocytes % 7.5 % (1.7-9.3); Neutrophils # 1.7 K/mm3 (1.8-7.8); Neutrophils % 50.9 % (37.0-80.0); Platelet Count 68 K/mm3 (142-424); Red Blood Count 2.03 M/mm3 (4.20-5.40); Red Cell Distribution Width 20.1 % (11.5-17.5); Reticulocyte % (Auto) 2.6 % (0.9-3.2); White Blood Count 3.3 K/mm3 (4.8-10.8)
[2022-08-02 15:50] LABS: Chloride 103 mmol/L (98-107); Sodium 136 mmol/L (136-145)
[2022-08-02 15:53] LABS: Alanine Aminotransferase 164 U/L (12-78); Albumin Level 4.1 g/dl (3.5-5.0); Albumin/Globulin Ratio 1.6 (1.1-1.8); Alkaline Phosphatase 53 U/L (38-126); Aspartate Amino Transferase 87 U/L (14-36); Bilirubin,Total 0.2 mg/dl (0.2-1.3); Blood Urea Nitrogen 14 mg/dl (7-17); Calcium 8.9 mg/dl (8.4-10.2); Carbon Dioxide 25 mmol/L (22.0-30.0); Creatinine Clearance Estimated 152 mL/min (50-200); Estimated Glomerular Filt Rate 92 ml/min (>60); GFR (African American) 111 ML/MIN (>60); Globulin 2.5 g/dL (1.3-3.2); Glucose 94 mg/dl (74-100); Total Protein,Serum 6.6 g/dl (6.3-8.2)
--- NOTE | 2022-08-02 15:54 | PC.NURSE ---
1554- pt d/c home she does not require any blood products; hgb 8.0
== END 2022-08-02 15:54 | disposition home or self-care (01) ==
LOC: INF 15:27
PROVIDERS: PCP Family Medicine; Visit Provider Internal Medicine Medical Oncology
DX: D64.9 Anemia, unspecified (principal)
CPT/HCPCS: 36415; 80053; 85025; 85044

== ENCOUNTER 2022-08-07 14:53 | Outpatient (CLI) | payer BC, SELFPAY ==
[2022-08-07 14:56] VITALS: BMI 35.9
--- NOTE | 2022-08-07 15:02 | PC.NURSE ---
1502-COLLECTED LABS VIA PERIPHERAL STICK;PT WILL WAIT ON RESULTS
[2022-08-07 15:31] LABS: Basophils % 0.3 % (0.1-2.0); Eosinophils % 0.9 % (0.1-12.0); Hematocrit 22.7 % (37.0-47.0); Lymphocytes # 1.2 K/mm3 (0.7-4.5); Lymphocytes % 36.3 % (10-50); Mean Corpuscular HGB Conc 35.1 g/dL (31.8-35.4); Mean Corpuscular Volume 118.4 fl (81-99); Mean Platelet Volume 9.9 fl (7.4-10.4); Monocytes # 0.3 K/mm3 (0.1-1.0); Monocytes % 7.8 % (1.7-9.3); Neutrophils # 1.8 K/mm3 (1.8-7.8); Neutrophils % 54.6 % (37.0-80.0); Platelet Count 70 K/mm3 (142-424); Red Blood Count 1.92 M/mm3 (4.20-5.40); White Blood Count 3.3 K/mm3 (4.8-10.8)
[2022-08-07 15:32] LABS: Mean Corpuscular Hemoglobin 41.5 pg (27.0-31.2)
[2022-08-07 15:33] LABS: Alanine Aminotransferase 99 U/L (12-78); Albumin Level 3.9 g/dl (3.5-5.0); Albumin/Globulin Ratio 1.7 (1.1-1.8); Alkaline Phosphatase 66 U/L (38-126); Anion Gap 11.1 mEq/L (5-15); Aspartate Amino Transferase 61 U/L (14-36); Bilirubin,Total 0.3 mg/dl (0.2-1.3); Blood Urea Nitrogen 16 mg/dl (7-17); Calcium 8.6 mg/dl (8.4-10.2); Carbon Dioxide 24 mmol/L (22.0-30.0); Chloride 103 mmol/L (98-107); Creatinine Clearance Estimated 133 mL/min (50-200); Estimated Glomerular Filt Rate 79 ml/min (>60); GFR (African American) 95 ML/MIN (>60); Globulin 2.3 g/dL (1.3-3.2); Glucose 90 mg/dl (74-100); Potassium 4.1 mmoL/L (3.5-5.1); Sodium 134 mmol/L (136-145); Total Protein,Serum 6.2 g/dl (6.3-8.2)
[2022-08-07 15:41] LABS: Reticulocyte % (Auto) 2.7 % (0.9-3.2)
--- NOTE | 2022-08-07 16:00 | PC.NURSE ---
NEFTALI ALAN HERE TO WITNESS TYPE AND SCREEN.
--- NOTE | 2022-08-07 16:05 | PC.NURSE ---
1605-PT D/C HOME AND TO RETURN TOMORROW FOR 1 UNIT OF PRBCS FOR SYMPTOMATIC ANEMIA WITH SHORTNESS OF BREATH AND WEAKNESS
== END 2022-08-07 16:05 | disposition home or self-care (01) ==
LOC: INF 14:54
PROVIDERS: PCP Family Medicine; Visit Provider Internal Medicine Medical Oncology
DX: D64.9 Anemia, unspecified (principal)
CPT/HCPCS: 36415; 80053; 85025; 85044; 86850

== ENCOUNTER 2022-08-08 09:21 | Outpatient (CLI) | payer BC, SELFPAY ==
[2022-08-08] VITALS (11 sets, daily range): BP systolic 108–144; BP diastolic 55–71; PULSE 77–86; RESP 18–85; TEMP 36.2–36.4; O2SAT 97–99
--- NOTE | 2022-08-08 10:10 | PC.NURSE ---
1010-tar froze during original start time;had to contact mis;in order to chart on tar had to change times.
== END 2022-08-08 12:48 | disposition home or self-care (01) ==
PROVIDERS: PCP Family Medicine; Visit Provider Internal Medicine Medical Oncology
DX: D64.9 Anemia, unspecified (principal)
CPT/HCPCS: 36430; P9016

== ENCOUNTER 2022-08-13 15:57 | Outpatient (CLI) | payer BC, SELFPAY ==
[2022-08-13 16:03] VITALS: BMI 35.9
--- NOTE | 2022-08-13 16:06 | PC.NURSE ---
1604-collected labs via peripheral stick; pt d/c home and will call with results
[2022-08-13 19:36] LABS: Basophils % 0.3 % (0.1-2.0); Eosinophils % 0.8 % (0.1-12.0); Hematocrit 26.3 % (37.0-47.0); Lymphocytes # 1.4 K/mm3 (0.7-4.5); Lymphocytes % 39.8 % (10-50); Mean Corpuscular HGB Conc 34.2 g/dL (31.8-35.4); Mean Corpuscular Hemoglobin 38.3 pg (27.0-31.2); Mean Corpuscular Volume 112.1 fl (81-99); Mean Platelet Volume 11.3 fl (7.4-10.4); Monocytes # 0.3 K/mm3 (0.1-1.0); Monocytes % 7.4 % (1.7-9.3); Neutrophils # 1.8 K/mm3 (1.8-7.8); Neutrophils % 51.7 % (37.0-80.0); Platelet Count 75 K/mm3 (142-424); Red Blood Count 2.35 M/mm3 (4.20-5.40); Red Cell Distribution Width 22.4 % (11.5-17.5); Reticulocyte % (Auto) 3.8 % (0.9-3.2); White Blood Count 3.5 K/mm3 (4.8-10.8)
[2022-08-13 19:37] LABS: Chloride 104 mmol/L (98-107)
[2022-08-13 19:38] LABS: Potassium 3.9 mmoL/L (3.5-5.1); Sodium 135 mmol/L (136-145)
[2022-08-13 19:40] LABS: Blood Urea Nitrogen 15 mg/dl (7-17); Creatinine Clearance Estimated 152 mL/min (50-200); Estimated Glomerular Filt Rate 92 ml/min (>60); GFR (African American) 111 ML/MIN (>60)
[2022-08-13 19:41] LABS: Alanine Aminotransferase 80 U/L (12-78); Albumin Level 3.8 g/dl (3.5-5.0); Albumin/Globulin Ratio 1.5 (1.1-1.8); Alkaline Phosphatase 54 U/L (38-126); Anion Gap 9.9 mEq/L (5-15); Aspartate Amino Transferase 66 U/L (14-36); Bilirubin,Total 0.2 mg/dl (0.2-1.3); Calcium 8.6 mg/dl (8.4-10.2); Carbon Dioxide 25 mmol/L (22.0-30.0); Globulin 2.6 g/dL (1.3-3.2); Glucose 96 mg/dl (74-100); Total Protein,Serum 6.4 g/dl (6.3-8.2)
== END 2022-08-13 16:09 | disposition home or self-care (01) ==
LOC: LAB 15:58
PROVIDERS: PCP Family Medicine; Visit Provider Internal Medicine Medical Oncology
DX: D64.9 Anemia, unspecified (principal)
CPT/HCPCS: 36415; 80053; 85025; 85044

== ENCOUNTER 2022-08-22 15:50 | Outpatient (CLI) | payer BC, SELFPAY ==
[2022-08-22 15:54] VITALS: BMI 35.9
--- NOTE | 2022-08-22 15:58 | PC.NURSE ---
1558-collected labs via peripheral stick.
[2022-08-22 16:12] LABS: Basophils % 0.3 % (0.1-2.0); Eosinophils % 0.4 % (0.1-12.0); Hematocrit 25.9 % (37.0-47.0); Hemoglobin 8.9 g/dL (12.2-16.2); Lymphocytes # 1.5 K/mm3 (0.7-4.5); Lymphocytes % 41.9 % (10-50); Mean Corpuscular HGB Conc 34.2 g/dL (31.8-35.4); Mean Corpuscular Hemoglobin 38.5 pg (27.0-31.2); Mean Corpuscular Volume 112.5 fl (81-99); Mean Platelet Volume 10.7 fl (7.4-10.4); Monocytes # 0.2 K/mm3 (0.1-1.0); Monocytes % 5.7 % (1.7-9.3); Neutrophils # 1.9 K/mm3 (1.8-7.8); Neutrophils % 51.8 % (37.0-80.0); Platelet Count 64 K/mm3 (142-424); Red Cell Distribution Width 22.1 % (11.5-17.5); Reticulocyte % (Auto) 3.5 % (0.9-3.2); White Blood Count 3.6 K/mm3 (4.8-10.8)
--- NOTE | 2022-08-22 16:15 | PC.NURSE ---
1615-pt ready for d/c home for hgb 8.9; to return next week for repeat blood draw.
[2022-08-22 16:16] LABS: Alanine Aminotransferase 64 U/L (12-78); Albumin Level 3.7 g/dl (3.5-5.0); Albumin/Globulin Ratio 1.5 (1.1-1.8); Alkaline Phosphatase 65 U/L (38-126); Anion Gap 13.3 mEq/L (5-15); Aspartate Amino Transferase 60 U/L (14-36); Bilirubin,Total 0.3 mg/dl (0.2-1.3); Blood Urea Nitrogen 17 mg/dl (7-17); Calcium 8.4 mg/dl (8.4-10.2); Carbon Dioxide 24 mmol/L (22.0-30.0); Chloride 103 mmol/L (98-107); Creatinine Clearance Estimated 152 mL/min (50-200); Estimated Glomerular Filt Rate 92 ml/min (>60); GFR (African American) 111 ML/MIN (>60); Globulin 2.5 g/dL (1.3-3.2); Glucose 89 mg/dl (74-100); Potassium 4.3 mmoL/L (3.5-5.1); Sodium 136 mmol/L (136-145); Total Protein,Serum 6.2 g/dl (6.3-8.2)
== END 2022-08-22 16:15 | disposition home or self-care (01) ==
LOC: INF 15:51
PROVIDERS: PCP Family Medicine; Visit Provider Internal Medicine Medical Oncology
DX: D64.9 Anemia, unspecified (principal)
CPT/HCPCS: 36415; 80053; 85025; 85044

== ENCOUNTER → 2022-09-03 13:21 | Outpatient (CLI) | payer BC, SELFPAY ==
[2022-09-03 13:48] LABS: Adenovirus,PCR Not Detected (NotDetected); Bordetella Pertussis Not Detected (NotDetected); Chlamydophila Pneumoniae, PCR Not Detected (NotDetected); Coronavirus 19, PCR Not Detected (NotDetected); Coronavirus 229E Not Detected (NotDetected); Coronavirus NL63 Not Detected (NotDetected); Coronavirus OC43 Not Detected (NotDetected); Coronovirus HKU1,PCR Not Detected (NotDetected); Human Metapneumovirus Not Detected (NotDetected); Influenza A, PCR Not Detected (NotDetected); Influenza AH1, 2009 Not Detected (NotDetected); Influenza AH1, PCR Not Detected (NotDetected); Influenza AH3,PCR Not Detected (NotDetected); Influenza B, PCR Not Detected (NotDetected); Mycoplasma Pneumoniae, PCR Not Detected (NotDetected); Parainfluenza 1, PCR Not Detected (NotDetected); Parainfluenza 2, PCR Not Detected (NotDetected); Parainfluenza 3, PCR Not Detected (NotDetected); Parainfluenza 4, PCR Not Detected (NotDetected); Respiratory Syncytial Virus Not Detected (NotDetected)
[2022-09-03 14:03] LABS: Basophils % 0.3 % (0.1-2.0); Eosinophils % 0.3 % (0.1-12.0); Hematocrit 23.9 % (37.0-47.0); Hemoglobin 8.1 g/dL (12.2-16.2); Lymphocytes # 1.1 K/mm3 (0.7-4.5); Lymphocytes % 37.8 % (10-50); Mean Corpuscular HGB Conc 33.8 g/dL (31.8-35.4); Mean Corpuscular Hemoglobin 38.2 pg (27.0-31.2); Mean Corpuscular Volume 113.1 fl (81-99); Mean Platelet Volume 10.2 fl (7.4-10.4); Monocytes # 0.2 K/mm3 (0.1-1.0); Monocytes % 8.1 % (1.7-9.3); Neutrophils # 1.5 K/mm3 (1.8-7.8); Neutrophils % 53.5 % (37.0-80.0); Platelet Count 66 K/mm3 (142-424); Red Blood Count 2.11 M/mm3 (4.20-5.40); Red Cell Distribution Width 22.1 % (11.5-17.5); White Blood Count 2.8 K/mm3 (4.8-10.8)
[2022-09-03 16:55] LABS: Rhinovirus/Enterovirus Detected (NotDetected)
== END ==
PROVIDERS: PCP Family Medicine; Visit Provider Family Medicine
DX: Z20.822 Contact with and (suspected) exposure to COVID-19 (principal); B34.1 Enterovirus infection, unspecified
CPT/HCPCS: 36415; 85025; 87581; 87632; 87798; C9803; U0003; U0005

== ENCOUNTER 2022-09-04 10:54 | Outpatient (CLI) | payer BC, SELFPAY ==
[2022-09-04 10:57] VITALS: BMI 35.7
[2022-09-04 11:20] LABS: Alanine Aminotransferase 55 U/L (12-78); Albumin Level 3.9 g/dl (3.5-5.0); Albumin/Globulin Ratio 1.5 (1.1-1.8); Alkaline Phosphatase 57 U/L (38-126); Anion Gap 14.2 mEq/L (5-15); Aspartate Amino Transferase 55 U/L (14-36); Bilirubin,Total 0.4 mg/dl (0.2-1.3); Blood Urea Nitrogen 11 mg/dl (7-17); Calcium 9.7 mg/dl (8.4-10.2); Carbon Dioxide 23 mmol/L (22.0-30.0); Chloride 102 mmol/L (98-107); Creatinine Clearance Estimated 151 mL/min (50-200); Estimated Glomerular Filt Rate 92 ml/min (>60); GFR (African American) 111 ML/MIN (>60); Globulin 2.6 g/dL (1.3-3.2); Glucose 111 mg/dl (74-100); Lactate Dehydrogenase 235 U/L (313-618); Potassium 4.2 mmoL/L (3.5-5.1); Sodium 135 mmol/L (136-145); Total Protein,Serum 6.5 g/dl (6.3-8.2)
[2022-09-04 11:21] LABS: Eosinophils % 0.6 % (0.1-12.0); Hematocrit 24.8 % (37.0-47.0); Hemoglobin 8.4 g/dL (12.2-16.2); Lymphocytes % 32.5 % (10-50); Mean Corpuscular HGB Conc 33.8 g/dL (31.8-35.4); Mean Corpuscular Volume 115.4 fl (81-99); Mean Platelet Volume 10.2 fl (7.4-10.4); Monocytes # 0.2 K/mm3 (0.1-1.0); Monocytes % 7.1 % (1.7-9.3); Neutrophils # 1.9 K/mm3 (1.8-7.8); Neutrophils % 59.7 % (37.0-80.0); Platelet Count 64 K/mm3 (142-424); Red Blood Count 2.15 M/mm3 (4.20-5.40); Red Cell Distribution Width 21.8 % (11.5-17.5); Reticulocyte % (Auto) 2.9 % (0.9-3.2); White Blood Count 3.2 K/mm3 (4.8-10.8)
== END 2022-09-04 11:15 | disposition home or self-care (01) ==
LOC: INF 10:54
PROVIDERS: PCP Family Medicine; Visit Provider Internal Medicine Medical Oncology
DX: D61.818 Other pancytopenia (principal)
CPT/HCPCS: 36415; 80053; 83615; 85025; 85044

== ENCOUNTER 2022-09-13 16:02 | Outpatient (CLI) | payer BC, SELFPAY ==
[2022-09-13 16:07] VITALS: BMI 35.7
--- NOTE | 2022-09-13 16:12 | PC.NURSE ---
PT ARRIVED TODAY FOR LABS TO BE DRAWN FOR APPT TOMORROW WITH DANIEL; LABS DRAWN AND SENT TO LAB; WE WILL FOLLOW UP ON LABS TOMORROW AT APPT
[2022-09-13 16:20] LABS: Basophils % 0.2 % (0.1-2.0); Eosinophils % 1.1 % (0.1-12.0); Hematocrit 23.1 % (37.0-47.0); Hemoglobin 7.4 g/dL (12.2-16.2); Lymphocytes # 1.6 K/mm3 (0.7-4.5); Lymphocytes % 44.7 % (10-50); Mean Corpuscular HGB Conc 31.8 g/dL (31.8-35.4); Mean Corpuscular Hemoglobin 37.6 pg (27.0-31.2); Monocytes # 0.2 K/mm3 (0.1-1.0); Monocytes % 5.4 % (1.7-9.3); Neutrophils # 1.8 K/mm3 (1.8-7.8); Neutrophils % 48.7 % (37.0-80.0); Platelet Count 84 K/mm3 (142-424); Red Blood Count 1.96 M/mm3 (4.20-5.40); Red Cell Distribution Width 22.4 % (11.5-17.5); Reticulocyte % (Auto) 3.9 % (0.9-3.2); White Blood Count 3.6 K/mm3 (4.8-10.8)
[2022-09-13 16:24] LABS: Chloride 103 mmol/L (98-107)
[2022-09-13 16:25] LABS: Potassium 3.9 mmoL/L (3.5-5.1); Sodium 135 mmol/L (136-145)
[2022-09-13 16:27] LABS: Alanine Aminotransferase 50 U/L (12-78); Alkaline Phosphatase 46 U/L (38-126); Aspartate Amino Transferase 52 U/L (14-36); Bilirubin,Total 0.4 mg/dl (0.2-1.3); Blood Urea Nitrogen 15 mg/dl (7-17); Creatinine Clearance Estimated 177 mL/min (50-200); Estimated Glomerular Filt Rate 110 ml/min (>60); GFR (African American) 133 ML/MIN (>60)
[2022-09-13 16:28] LABS: Albumin Level 3.9 g/dl (3.5-5.0); Albumin/Globulin Ratio 1.6 (1.1-1.8); Anion Gap 11.9 mEq/L (5-15); Calcium 9.1 mg/dl (8.4-10.2); Carbon Dioxide 24 mmol/L (22.0-30.0); Globulin 2.5 g/dL (1.3-3.2); Glucose 98 mg/dl (74-100); Total Protein,Serum 6.4 g/dl (6.3-8.2)
== END 2022-09-13 16:16 | disposition home or self-care (01) ==
LOC: INF 16:03
PROVIDERS: PCP Family Medicine; Visit Provider Internal Medicine Medical Oncology
DX: D61.818 Other pancytopenia (principal)
CPT/HCPCS: 36415; 80053; 85025; 85044

== ENCOUNTER 2022-09-14 14:18 | Outpatient (CLI) | payer BC, SELFPAY ==
[2022-09-14 14:56] VITALS: BMI 35.4
== END 2022-09-14 14:24 | disposition home or self-care (01) ==
LOC: INF 14:19
PROVIDERS: PCP Family Medicine; Visit Provider Internal Medicine Medical Oncology
DX: D61.818 Other pancytopenia (principal)
CPT/HCPCS: 36415; 86850

== ENCOUNTER 2022-09-15 07:28 | Outpatient (CLI) | payer BC, SELFPAY ==
[2022-09-15] VITALS (8 sets, daily range): BP systolic 111–129; BP diastolic 40–65; PULSE 79–86; RESP 18–20; TEMP 36.6–36.9; O2SAT 99–100; BMI 35.8
--- NOTE | 2022-09-15 09:38 | PC.NURSE ---
Pt not agreeable to stay for the 1 hour post infusion v/s.
== END 2022-09-15 09:35 | disposition home or self-care (01) ==
LOC: LAB 07:30 → INF 08:36
PROVIDERS: PCP Family Medicine; Visit Provider Internal Medicine Medical Oncology
DX: D61.818 Other pancytopenia (principal); D64.9 Anemia, unspecified
CPT/HCPCS: 36430; P9016

== ENCOUNTER → 2022-09-15 09:10 | Outpatient (CLI) | payer BC, SELFPAY | PROVIDERS: Visit Provider Internal Medicine Medical Oncology | DX: D61.818 Other pancytopenia (principal) ==

== ENCOUNTER 2022-09-27 15:51 | Outpatient (CLI) | payer BC, SELFPAY ==
[2022-09-27 15:54] VITALS: BMI 35.4
--- NOTE | 2022-09-27 15:57 | PC.NURSE ---
pt here today to have blood drawn for labs as ordered per md. venipunture performed using butterfly needle per Elizabeth Casanova RN to pt's lt ac. site secured with 2x2 gauze and coban once needle was withdrawn.
[2022-09-27 16:15] LABS: Basophils % 0.3 % (0.1-2.0); Eosinophils % 0.2 % (0.1-12.0); Hemoglobin 8.1 g/dL (12.2-16.2); Lymphocytes # 1.5 K/mm3 (0.7-4.5); Lymphocytes % 48.3 % (10-50); Mean Corpuscular HGB Conc 33.5 g/dL (31.8-35.4); Mean Corpuscular Hemoglobin 38.2 pg (27.0-31.2); Mean Corpuscular Volume 113.9 fl (81-99); Mean Platelet Volume 10.1 fl (7.4-10.4); Monocytes # 0.2 K/mm3 (0.1-1.0); Monocytes % 5.1 % (1.7-9.3); Neutrophils # 1.4 K/mm3 (1.8-7.8); Neutrophils % 46.3 % (37.0-80.0); Platelet Count 79 K/mm3 (142-424); Red Blood Count 2.11 M/mm3 (4.20-5.40); Red Cell Distribution Width 21.2 % (11.5-17.5); Reticulocyte % (Auto) 2.5 % (0.9-3.2); White Blood Count 3.1 K/mm3 (4.8-10.8)
[2022-09-27 16:33] LABS: Chloride 107 mmol/L (98-107); Potassium 3.8 mmoL/L (3.5-5.1); Sodium 136 mmol/L (136-145)
[2022-09-27 16:36] LABS: Alanine Aminotransferase 56 U/L (12-78); Albumin Level 3.8 g/dl (3.5-5.0); Albumin/Globulin Ratio 1.6 (1.1-1.8); Alkaline Phosphatase 50 U/L (38-126); Anion Gap 7.8 mEq/L (5-15); Aspartate Amino Transferase 48 U/L (14-36); Bilirubin,Total 0.3 mg/dl (0.2-1.3); Blood Urea Nitrogen 13 mg/dl (7-17); Carbon Dioxide 25 mmol/L (22.0-30.0); Creatinine Clearance Estimated 117 mL/min (50-200); Estimated Glomerular Filt Rate 69 ml/min (>60); GFR (African American) 83 ML/MIN (>60); Globulin 2.4 g/dL (1.3-3.2); Total Protein,Serum 6.2 g/dl (6.3-8.2)
[2022-09-27 16:37] LABS: Calcium 9.3 mg/dl (8.4-10.2); Glucose 74 mg/dl (74-100)
== END 2022-09-27 16:15 | disposition home or self-care (01) ==
LOC: INF 15:52
PROVIDERS: PCP Family Medicine; Visit Provider Internal Medicine Medical Oncology
DX: D61.818 Other pancytopenia (principal)
CPT/HCPCS: 36415; 80053; 85025; 85044

== ENCOUNTER 2022-10-02 15:24 | Outpatient (CLI) | payer BC, SELFPAY ==
[2022-10-02 15:30] VITALS: BMI 35.4
[2022-10-02 15:50] LABS: Basophils % 0.3 % (0.1-2.0); Chloride 108 mmol/L (98-107); Eosinophils % 0.4 % (0.1-12.0); Hematocrit 22.3 % (37.0-47.0); Hemoglobin 7.5 g/dL (12.2-16.2); Lymphocytes # 1.3 K/mm3 (0.7-4.5); Lymphocytes % 44.6 % (10-50); Mean Corpuscular HGB Conc 33.5 g/dL (31.8-35.4); Mean Corpuscular Hemoglobin 38.3 pg (27.0-31.2); Mean Corpuscular Volume 114.3 fl (81-99); Mean Platelet Volume 10.5 fl (7.4-10.4); Monocytes # 0.2 K/mm3 (0.1-1.0); Monocytes % 5.7 % (1.7-9.3); Neutrophils # 1.4 K/mm3 (1.8-7.8); Platelet Count 74 K/mm3 (142-424); Potassium 3.6 mmoL/L (3.5-5.1); Red Blood Count 1.96 M/mm3 (4.20-5.40); Red Cell Distribution Width 20.8 % (11.5-17.5); Reticulocyte % (Auto) 3.1 % (0.9-3.2); Sodium 133 mmol/L (136-145); White Blood Count 2.9 K/mm3 (4.8-10.8)
[2022-10-02 15:53] LABS: Alanine Aminotransferase 58 U/L (12-78); Albumin Level 3.6 g/dl (3.5-5.0); Albumin/Globulin Ratio 1.4 (1.1-1.8); Alkaline Phosphatase 46 U/L (38-126); Anion Gap 4.6 mEq/L (5-15); Aspartate Amino Transferase 56 U/L (14-36); Bilirubin,Total 0.2 mg/dl (0.2-1.3); Blood Urea Nitrogen 14 mg/dl (7-17); Carbon Dioxide 24 mmol/L (22.0-30.0); Creatinine Clearance Estimated 150 mL/min (50-200); Estimated Glomerular Filt Rate 92 ml/min (>60); GFR (African American) 111 ML/MIN (>60); Globulin 2.5 g/dL (1.3-3.2); Total Protein,Serum 6.1 g/dl (6.3-8.2)
[2022-10-02 15:54] LABS: Glucose 106 mg/dl (74-100)
== END 2022-10-02 15:35 | disposition home or self-care (01) ==
LOC: INF 15:25
PROVIDERS: PCP Family Medicine; Visit Provider Internal Medicine Medical Oncology
DX: D61.818 Other pancytopenia (principal); D64.9 Anemia, unspecified
CPT/HCPCS: 36415; 80053; 85025; 85044; 86850

== ENCOUNTER 2022-10-04 08:52 | Outpatient (CLI) | payer BC, SELFPAY ==
[2022-10-04] VITALS (10 sets, daily range): BP systolic 116–143; BP diastolic 63–77; PULSE 74–86; RESP 16–18; TEMP 36.3–36.6; O2SAT 98–100
== END 2022-10-04 12:15 | disposition home or self-care (01) ==
LOC: INF 08:53
PROVIDERS: PCP Family Medicine; Visit Provider Internal Medicine Medical Oncology
DX: D61.818 Other pancytopenia (principal); D64.9 Anemia, unspecified
CPT/HCPCS: 36430; P9016

== ENCOUNTER 2022-10-11 14:23 | Outpatient (CLI) | payer BC, SELFPAY ==
[2022-10-11 14:30] VITALS: BMI 35.4
[2022-10-11 14:58] LABS: Alanine Aminotransferase 54 U/L (12-78); Albumin/Globulin Ratio 1.7 (1.1-1.8); Alkaline Phosphatase 52 U/L (38-126); Anion Gap 8.8 mEq/L (5-15); Aspartate Amino Transferase 50 U/L (14-36); Bilirubin,Total 0.3 mg/dl (0.2-1.3); Blood Urea Nitrogen 19 mg/dl (7-17); Calcium 9.2 mg/dl (8.4-10.2); Carbon Dioxide 26 mmol/L (22.0-30.0); Chloride 107 mmol/L (98-107); Creatinine Clearance Estimated 117 mL/min (50-200); Estimated Glomerular Filt Rate 69 ml/min (>60); GFR (African American) 83 ML/MIN (>60); Globulin 2.4 g/dL (1.3-3.2); Glucose 101 mg/dl (74-100); Potassium 3.8 mmoL/L (3.5-5.1); Sodium 138 mmol/L (136-145); Total Protein,Serum 6.4 g/dl (6.3-8.2)
[2022-10-11 15:01] LABS: Basophils % 0.6 % (0.1-2.0); Eosinophils % 0.5 % (0.1-12.0); Hematocrit 25.6 % (37.0-47.0); Hemoglobin 8.9 g/dL (12.2-16.2); Lymphocytes # 1.4 K/mm3 (0.7-4.5); Lymphocytes % 45.1 % (10-50); Mean Corpuscular HGB Conc 34.7 g/dL (31.8-35.4); Mean Corpuscular Hemoglobin 36.4 pg (27.0-31.2); Mean Platelet Volume 9.2 fl (7.4-10.4); Monocytes # 0.2 K/mm3 (0.1-1.0); Neutrophils # 1.5 K/mm3 (1.8-7.8); Neutrophils % 47.8 % (37.0-80.0); Platelet Count 82 K/mm3 (142-424); Red Blood Count 2.44 M/mm3 (4.20-5.40); Red Cell Distribution Width 22.6 % (11.5-17.5); Reticulocyte % (Auto) 3.4 % (0.9-3.2); White Blood Count 3.1 K/mm3 (4.8-10.8)
== END 2022-10-11 14:48 | disposition home or self-care (01) ==
LOC: INF 14:23
PROVIDERS: PCP Family Medicine; Visit Provider Internal Medicine Medical Oncology
DX: D61.818 Other pancytopenia (principal)
CPT/HCPCS: 36415; 80053; 85025; 85044

== ENCOUNTER 2022-10-18 11:45 | Outpatient (CLI) | payer BC, SELFPAY ==
[2022-10-18 11:52] VITALS: BMI 35.8
[2022-10-18 12:04] LABS: Basophils % 0.3 % (0.1-2.0); Eosinophils % 0.4 % (0.1-12.0); Hematocrit 24.9 % (37.0-47.0); Hemoglobin 8.4 g/dL (12.2-16.2); Lymphocytes # 1.1 K/mm3 (0.7-4.5); Mean Corpuscular HGB Conc 33.6 g/dL (31.8-35.4); Mean Corpuscular Hemoglobin 36.5 pg (27.0-31.2); Mean Corpuscular Volume 108.5 fl (81-99); Mean Platelet Volume 11.6 fl (7.4-10.4); Monocytes # 0.1 K/mm3 (0.1-1.0); Monocytes % 5.5 % (1.7-9.3); Neutrophils # 1.3 K/mm3 (1.8-7.8); Neutrophils % 50.8 % (37.0-80.0); Platelet Count 76 K/mm3 (142-424); Red Cell Distribution Width 22.5 % (11.5-17.5); White Blood Count 2.6 K/mm3 (4.8-10.8)
[2022-10-18 12:12] LABS: Chloride 109 mmol/L (98-107); Potassium 3.8 mmoL/L (3.5-5.1); Reticulocyte % (Auto) 3.4 % (0.9-3.2); Sodium 136 mmol/L (136-145)
[2022-10-18 12:15] LABS: Alanine Aminotransferase 46 U/L (12-78); Albumin Level 3.6 g/dl (3.5-5.0); Albumin/Globulin Ratio 1.5 (1.1-1.8); Alkaline Phosphatase 42 U/L (38-126); Anion Gap 8.8 mEq/L (5-15); Aspartate Amino Transferase 47 U/L (14-36); Bilirubin,Total 0.4 mg/dl (0.2-1.3); Blood Urea Nitrogen 11 mg/dl (7-17); Calcium 8.8 mg/dl (8.4-10.2); Carbon Dioxide 22 mmol/L (22.0-30.0); Creatinine Clearance Estimated 177 mL/min (50-200); Estimated Glomerular Filt Rate 110 ml/min (>60); GFR (African American) 133 ML/MIN (>60); Globulin 2.4 g/dL (1.3-3.2); Glucose 101 mg/dl (74-100)
--- NOTE | 2022-10-18 13:34 | PC.NURSE ---
1150-BLOOD DRAWN USING BUTTERFLY NEEDLE TO CHECK LABS AT THIS TIME.
== END 2022-10-18 11:55 | disposition home or self-care (01) ==
LOC: INF 11:46
PROVIDERS: PCP Family Medicine; Visit Provider Internal Medicine Medical Oncology
DX: D61.818 Other pancytopenia (principal)
CPT/HCPCS: 36415; 80053; 85025; 85044

== ENCOUNTER 2022-10-25 13:50 | Outpatient (CLI) | payer BC, SELFPAY ==
[2022-10-25 14:03] VITALS: BMI 35.7
[2022-10-25 14:22] LABS: Chloride 105 mmol/L (98-107); Potassium 4.1 mmoL/L (3.5-5.1); Sodium 135 mmol/L (136-145)
[2022-10-25 14:25] LABS: Alanine Aminotransferase 57 U/L (12-78); Albumin Level 3.7 g/dl (3.5-5.0); Albumin/Globulin Ratio 1.5 (1.1-1.8); Alkaline Phosphatase 40 U/L (38-126); Anion Gap 9.1 mEq/L (5-15); Aspartate Amino Transferase 59 U/L (14-36); Bilirubin,Total 0.4 mg/dl (0.2-1.3); Blood Urea Nitrogen 13 mg/dl (7-17); Carbon Dioxide 25 mmol/L (22.0-30.0); Creatinine Clearance Estimated 151 mL/min (50-200); Estimated Glomerular Filt Rate 92 ml/min (>60); GFR (African American) 111 ML/MIN (>60); Globulin 2.5 g/dL (1.3-3.2); Total Protein,Serum 6.2 g/dl (6.3-8.2)
[2022-10-25 14:26] LABS: Calcium 8.5 mg/dl (8.4-10.2); Glucose 121 mg/dl (74-100)
[2022-10-25 14:27] LABS: Eosinophils % 0.4 % (0.1-12.0); Hemoglobin 8.1 g/dL (12.2-16.2); Lymphocytes # 1.1 K/mm3 (0.7-4.5); Lymphocytes % 37.3 % (10-50); Mean Corpuscular HGB Conc 33.7 g/dL (31.8-35.4); Mean Corpuscular Volume 109.7 fl (81-99); Mean Platelet Volume 9.2 fl (7.4-10.4); Monocytes # 0.2 K/mm3 (0.1-1.0); Monocytes % 6.9 % (1.7-9.3); Neutrophils # 1.6 K/mm3 (1.8-7.8); Neutrophils % 55.3 % (37.0-80.0); Platelet Count 87 K/mm3 (142-424); Red Blood Count 2.18 M/mm3 (4.20-5.40); Red Cell Distribution Width 22.4 % (11.5-17.5); Reticulocyte % (Auto) 3.2 % (0.9-3.2); White Blood Count 2.9 K/mm3 (4.8-10.8)
--- NOTE | 2022-10-25 16:36 | PC.NURSE ---
1405-BLOOD DRAWN FROM LEFT AC USING BUTTERFLY NEEDLE TO CHECK WEEKLY LABS AT THIS TIME.
== END 2022-10-25 14:38 | disposition home or self-care (01) ==
LOC: INF 13:51
PROVIDERS: PCP Family Medicine; Visit Provider Internal Medicine Medical Oncology
DX: D61.818 Other pancytopenia (principal); Z45.2 Encounter for adjustment and management of vascular access device
CPT/HCPCS: 36415; 80053; 85025; 85044

== ENCOUNTER 2022-10-30 15:27 | Outpatient (CLI) | payer BC, SELFPAY ==
[2022-10-30 15:30] VITALS: BMI 35.7
--- NOTE | 2022-10-30 15:33 | PC.NURSE ---
1533-COLLECTED LABS VIA PERIPHERAL STICK WILL WAIT FOR LABS
[2022-10-30 15:47] LABS: Basophils % 0.7 % (0.1-2.0); Eosinophils % 0.4 % (0.1-12.0); Hematocrit 22.4 % (37.0-47.0); Hemoglobin 7.7 g/dL (12.2-16.2); Lymphocytes # 1.2 K/mm3 (0.7-4.5); Lymphocytes % 39.1 % (10-50); Mean Corpuscular HGB Conc 34.2 g/dL (31.8-35.4); Mean Corpuscular Hemoglobin 36.8 pg (27.0-31.2); Mean Corpuscular Volume 107.5 fl (81-99); Monocytes # 0.1 K/mm3 (0.1-1.0); Monocytes % 4.5 % (1.7-9.3); Neutrophils # 1.6 K/mm3 (1.8-7.8); Neutrophils % 55.3 % (37.0-80.0); Platelet Count 81 K/mm3 (142-424); Red Blood Count 2.08 M/mm3 (4.20-5.40); Red Cell Distribution Width 22.5 % (11.5-17.5); Reticulocyte % (Auto) 3.5 % (0.9-3.2)
[2022-10-30 15:56] LABS: Chloride 108 mmol/L (98-107); Potassium 4.1 mmoL/L (3.5-5.1); Sodium 137 mmol/L (136-145)
[2022-10-30 15:58] LABS: Blood Urea Nitrogen 13 mg/dl (7-17); Creatinine Clearance Estimated 151 mL/min (50-200); Estimated Glomerular Filt Rate 92 ml/min (>60); GFR (African American) 111 ML/MIN (>60)
[2022-10-30 15:59] LABS: Alanine Aminotransferase 51 U/L (12-78); Albumin Level 3.7 g/dl (3.5-5.0); Albumin/Globulin Ratio 1.5 (1.1-1.8); Alkaline Phosphatase 48 U/L (38-126); Anion Gap 10.1 mEq/L (5-15); Aspartate Amino Transferase 58 U/L (14-36); Bilirubin,Total 0.4 mg/dl (0.2-1.3); Calcium 8.5 mg/dl (8.4-10.2); Carbon Dioxide 23 mmol/L (22.0-30.0); Globulin 2.5 g/dL (1.3-3.2); Glucose 108 mg/dl (74-100); Total Protein,Serum 6.2 g/dl (6.3-8.2)
--- NOTE | 2022-10-30 16:16 | PC.NURSE ---
1616-collected type and screen via peripheral stick with daniel dow from lab as witness.
== END 2022-10-30 16:19 | disposition home or self-care (01) ==
LOC: INF 15:28
PROVIDERS: PCP Family Medicine; Visit Provider Internal Medicine Medical Oncology
DX: D64.9 Anemia, unspecified (principal)
CPT/HCPCS: 36415; 80053; 85025; 85044; 86850

== ENCOUNTER 2022-11-01 08:29 | Outpatient (CLI) | payer BC, SELFPAY ==
[2022-11-01] VITALS (10 sets, daily range): BP systolic 113–143; BP diastolic 57–72; PULSE 79–97; RESP 16–18; TEMP 36.3–36.6; O2SAT 98–100
--- NOTE | 2022-11-01 11:10 | PC.NURSE ---
Pt insisting that she is not able to stay for completion vitals d/t needing to be at a doctors appointment. Educated on s/s of transfusion reaction, pt verbalized understanding.
--- NOTE | 2022-11-01 11:12 | PC.NURSE ---
0930 11/01/22 Report given to Maxwell Romero RN/ patient transferred to PACU area for completion of blood transfusion/GABRIELE Ulloa assuming care for patient at this time. Patient is stable with no problems noted/denies complaints/ no s/s of transfusion reaction. Please refer to 0930 blood vital sign intervention in TAR.
== END 2022-11-01 11:10 | disposition home or self-care (01) ==
LOC: INF 08:30
PROVIDERS: PCP Family Medicine; Visit Provider Internal Medicine Medical Oncology
DX: D64.9 Anemia, unspecified (principal)
CPT/HCPCS: 36430; P9016

== ENCOUNTER → 2022-11-08 14:24 | Outpatient (CLI) | payer BC, SELFPAY ==
[2022-11-08 14:27] VITALS: BMI 35.9
[2022-11-08 14:59] LABS: Basophils % 1.1 % (0.1-2.0); Eosinophils % 0.2 % (0.1-12.0); Hematocrit 26.9 % (37.0-47.0); Lymphocytes # 1.9 K/mm3 (0.7-4.5); Lymphocytes % 50.6 % (10-50); Mean Corpuscular HGB Conc 33.6 g/dL (31.8-35.4); Mean Corpuscular Volume 110.2 fl (81-99); Mean Platelet Volume 10.8 fl (7.4-10.4); Monocytes # 0.2 K/mm3 (0.1-1.0); Monocytes % 4.7 % (1.7-9.3); Neutrophils # 1.6 K/mm3 (1.8-7.8); Neutrophils % 43.5 % (37.0-80.0); Platelet Count 80 K/mm3 (142-424); Red Blood Count 2.44 M/mm3 (4.20-5.40); Red Cell Distribution Width 21.8 % (11.5-17.5); Reticulocyte % (Auto) 2.8 % (0.9-3.2); White Blood Count 3.7 K/mm3 (4.8-10.8)
[2022-11-08 15:00] LABS: Chloride 106 mmol/L (98-107); Potassium 4.1 mmoL/L (3.5-5.1); Sodium 136 mmol/L (136-145)
[2022-11-08 15:02] LABS: Blood Urea Nitrogen 14 mg/dl (7-17); Creatinine Clearance Estimated 152 mL/min (50-200); Estimated Glomerular Filt Rate 92 ml/min (>60); GFR (African American) 111 ML/MIN (>60)
[2022-11-08 15:03] LABS: Alanine Aminotransferase 31 U/L (12-78); Albumin Level 3.8 g/dl (3.5-5.0); Albumin/Globulin Ratio 1.4 (1.1-1.8); Alkaline Phosphatase 50 U/L (38-126); Anion Gap 10.1 mEq/L (5-15); Aspartate Amino Transferase 40 U/L (14-36); Bilirubin,Total 0.6 mg/dl (0.2-1.3); Calcium 8.8 mg/dl (8.4-10.2); Carbon Dioxide 24 mmol/L (22.0-30.0); Globulin 2.7 g/dL (1.3-3.2); Glucose 120 mg/dl (74-100); MANUAL DIFFERENTIAL MANUAL DIFFERENTIAL (MANUAL DIFF); Total Protein,Serum 6.5 g/dl (6.3-8.2)
--- NOTE | 2022-11-08 15:59 | PC.NURSE ---
1445 Labs obtained per R AC with butterfly needle. Patient here for labs prior to appt with Dr. Servin
[2022-11-08 16:06] LABS: Lymphocytes % 51 % (10-50); Monocytes % 4 % (2-9); Neutrophils % 45 % (42-76); Platelet Estimate Normal; Total Cells Counted 100
[2022-11-08 16:07] LABS: Anisocytosis 1+; Macrocytosis 1+
== END ==
PROVIDERS: PCP Family Medicine; Visit Provider Internal Medicine Medical Oncology
DX: D61.818 Other pancytopenia (principal)
CPT/HCPCS: 36415; 80053; 85007; 85025; 85044

== ENCOUNTER 2022-11-15 13:07 | Outpatient (CLI) | payer BC, SELFPAY ==
[2022-11-15 13:10] VITALS: BMI 36.1
--- NOTE | 2022-11-15 13:15 | PC.NURSE ---
pt here for weekly lab check. Mildred Tan RN accessed pt using butterfly needle via venipuncture to pt's lt ac. site secured with 2x2 gauze and coban once needle was withdrawn.
[2022-11-15 13:24] LABS: Basophils % 0.5 % (0.1-2.0); Eosinophils % 0.4 % (0.1-12.0); Hematocrit 25.2 % (37.0-47.0); Hemoglobin 8.8 g/dL (12.2-16.2); Lymphocytes # 1.7 K/mm3 (0.7-4.5); Lymphocytes % 48.5 % (10-50); Mean Corpuscular HGB Conc 34.7 g/dL (31.8-35.4); Mean Corpuscular Hemoglobin 36.4 pg (27.0-31.2); Mean Corpuscular Volume 104.7 fl (81-99); Mean Platelet Volume 10.6 fl (7.4-10.4); Monocytes # 0.3 K/mm3 (0.1-1.0); Neutrophils # 1.5 K/mm3 (1.8-7.8); Neutrophils % 43.6 % (37.0-80.0); Platelet Count 94 K/mm3 (142-424); Red Blood Count 2.41 M/mm3 (4.20-5.40); Red Cell Distribution Width 22.2 % (11.5-17.5); Reticulocyte % (Auto) 2.5 % (0.9-3.2); White Blood Count 3.5 K/mm3 (4.8-10.8)
[2022-11-15 13:32] LABS: Chloride 105 mmol/L (98-107)
[2022-11-15 13:33] LABS: Potassium 4.3 mmoL/L (3.5-5.1); Sodium 135 mmol/L (136-145)
[2022-11-15 13:35] LABS: Alanine Aminotransferase 38 U/L (12-78); Alkaline Phosphatase 47 U/L (38-126); Aspartate Amino Transferase 50 U/L (14-36); Bilirubin,Total 0.7 mg/dl (0.2-1.3); Blood Urea Nitrogen 15 mg/dl (7-17); Creatinine Clearance Estimated 107 mL/min (50-200); Estimated Glomerular Filt Rate 61 ml/min (>60); GFR (African American) 74 ML/MIN (>60)
[2022-11-15 13:36] LABS: Albumin/Globulin Ratio 1.4 (1.1-1.8); Anion Gap 11.3 mEq/L (5-15); Calcium 8.5 mg/dl (8.4-10.2); Carbon Dioxide 23 mmol/L (22.0-30.0); Globulin 2.8 g/dL (1.3-3.2); Glucose 99 mg/dl (74-100); Total Protein,Serum 6.8 g/dl (6.3-8.2)
== END 2022-11-15 13:23 | disposition home or self-care (01) ==
LOC: INF 13:08
PROVIDERS: PCP Family Medicine; Visit Provider Internal Medicine Medical Oncology
DX: D61.818 Other pancytopenia (principal)
CPT/HCPCS: 36415; 80053; 85025; 85044

== ENCOUNTER → 2022-11-22 15:24 | Outpatient (CLI) | payer BC, SELFPAY ==
[2022-11-22 15:31] VITALS: BMI 35.4
--- NOTE | 2022-11-22 15:35 | PC.NURSE ---
1528 Labs obtained as ordered per L AC x1 stick with butterfly needle per GABRIELE Chaudhry. Patient here for labwork prior to appointment with Dr. Servin this afternoon.
[2022-11-22 15:50] LABS: Basophils % 0.4 % (0.1-2.0); Chloride 107 mmol/L (98-107); Eosinophils % 0.3 % (0.1-12.0); Hematocrit 22.8 % (37.0-47.0); Lymphocytes % 53.7 % (10-50); Mean Corpuscular HGB Conc 35.1 g/dL (31.8-35.4); Mean Corpuscular Hemoglobin 36.5 pg (27.0-31.2); Mean Platelet Volume 9.9 fl (7.4-10.4); Monocytes # 0.2 K/mm3 (0.1-1.0); Monocytes % 6.4 % (1.7-9.3); Neutrophils # 1.4 K/mm3 (1.8-7.8); Neutrophils % 39.4 % (37.0-80.0); Platelet Count 85 K/mm3 (142-424); Potassium 4.1 mmoL/L (3.5-5.1); Red Blood Count 2.19 M/mm3 (4.20-5.40); Red Cell Distribution Width 22.6 % (11.5-17.5); Reticulocyte % (Auto) 2.2 % (0.9-3.2); Sodium 137 mmol/L (136-145); White Blood Count 3.7 K/mm3 (4.8-10.8)
[2022-11-22 15:52] LABS: Blood Urea Nitrogen 17 mg/dl (7-17); Creatinine Clearance Estimated 131 mL/min (50-200); Estimated Glomerular Filt Rate 79 ml/min (>60); GFR (African American) 95 ML/MIN (>60)
[2022-11-22 15:53] LABS: Alanine Aminotransferase 33 U/L (12-78); Albumin Level 3.9 g/dl (3.5-5.0); Albumin/Globulin Ratio 1.4 (1.1-1.8); Alkaline Phosphatase 42 U/L (38-126); Anion Gap 9.1 mEq/L (5-15); Aspartate Amino Transferase 41 U/L (14-36); Bilirubin,Total 0.6 mg/dl (0.2-1.3); Carbon Dioxide 25 mmol/L (22.0-30.0); Globulin 2.8 g/dL (1.3-3.2); Glucose 100 mg/dl (74-100); Total Protein,Serum 6.7 g/dl (6.3-8.2)
[2022-11-22 16:03] LABS: MANUAL DIFFERENTIAL MANUAL DIFFERENTIAL (MANUAL DIFF)
[2022-11-22 17:05] LABS: Lymphocytes % 52 % (10-50); Monocytes % 2 % (2-9); Neutrophils % 46 % (42-76); Total Cells Counted 100
[2022-11-22 17:06] LABS: Macrocytosis 1+; Platelet Estimate Marked Decrease
== END ==
PROVIDERS: PCP Family Medicine; Visit Provider Internal Medicine Medical Oncology
DX: D61.818 Other pancytopenia (principal)
CPT/HCPCS: 36415; 80053; 85007; 85025; 85044

== ENCOUNTER 2022-11-26 10:13 | Outpatient (CLI) | payer BC, SELFPAY ==
[2022-11-26 10:20] VITALS: BMI 35.4
--- NOTE | 2022-11-26 10:35 | PC.NURSE ---
labs drawn per order by Barbie martinez RN at 1022 via butterfly needle in left ac. needle removed and pressure dressing applied. pt tolerated well.
[2022-11-26 10:44] LABS: Basophils % 0.6 % (0.1-2.0); Eosinophils % 0.5 % (0.1-12.0); Hemoglobin 7.8 g/dL (12.2-16.2); Lymphocytes # 1.3 K/mm3 (0.7-4.5); Lymphocytes % 43.3 % (10-50); Mean Corpuscular Hemoglobin 36.7 pg (27.0-31.2); Mean Platelet Volume 10.6 fl (7.4-10.4); Monocytes # 0.1 K/mm3 (0.1-1.0); Monocytes % 4.7 % (1.7-9.3); Neutrophils # 1.5 K/mm3 (1.8-7.8); Neutrophils % 50.8 % (37.0-80.0); Platelet Count 82 K/mm3 (142-424); Red Blood Count 2.13 M/mm3 (4.20-5.40); Red Cell Distribution Width 22.5 % (11.5-17.5); Reticulocyte % (Auto) 3.3 % (0.9-3.2); White Blood Count 2.9 K/mm3 (4.8-10.8)
[2022-11-26 10:48] LABS: Chloride 111 mmol/L (98-107); Potassium 4.8 mmoL/L (3.5-5.1); Sodium 137 mmol/L (136-145)
[2022-11-26 10:50] LABS: Blood Urea Nitrogen 15 mg/dl (7-17); Creatinine Clearance Estimated 131 mL/min (50-200); Estimated Glomerular Filt Rate 79 ml/min (>60); GFR (African American) 95 ML/MIN (>60)
[2022-11-26 10:51] LABS: Alanine Aminotransferase 37 U/L (12-78); Albumin Level 3.7 g/dl (3.5-5.0); Albumin/Globulin Ratio 1.3 (1.1-1.8); Alkaline Phosphatase 44 U/L (38-126); Anion Gap 8.8 mEq/L (5-15); Aspartate Amino Transferase 44 U/L (14-36); Bilirubin,Total 0.8 mg/dl (0.2-1.3); Calcium 8.8 mg/dl (8.4-10.2); Carbon Dioxide 22 mmol/L (22.0-30.0); Globulin 2.8 g/dL (1.3-3.2); Glucose 98 mg/dl (74-100); Total Protein,Serum 6.5 g/dl (6.3-8.2)
--- NOTE | 2022-11-26 12:56 | PC.NURSE ---
pt order to type and screen and transfuse for Hgb less than 7.5 or symptomatic. Pt stated she was symptomatic and was going to have a small procedure this week and wanted to get a unit of blood in preparation. Gareth JACKSON notified and was ok with pt getting blood.
== END 2022-11-26 11:20 ==
LOC: INF 10:14
PROVIDERS: PCP Family Medicine; Visit Provider Internal Medicine Medical Oncology
DX: D61.818 Other pancytopenia (principal); D64.9 Anemia, unspecified
CPT/HCPCS: 36415; 80053; 85025; 85044; 86850

== ENCOUNTER 2022-11-27 09:41 | Outpatient (CLI) | payer BC, SELFPAY ==
[2022-11-27] VITALS (10 sets, daily range): BP systolic 110–160; BP diastolic 47–97; PULSE 75–92; RESP 18; TEMP 36.4–36.6; O2SAT 98–99; BMI 36.1
[2022-11-27 12:43] LABS: Hematocrit 24.7 % (37.0-47.0); Hemoglobin 8.5 g/dL (12.2-16.2)
== END 2022-11-27 12:35 | disposition home or self-care (01) ==
LOC: INF 09:42
PROVIDERS: PCP Family Medicine; Visit Provider Internal Medicine Medical Oncology
DX: D61.818 Other pancytopenia (principal)
CPT/HCPCS: 36430; 85014; 85018; P9016

== ENCOUNTER 2022-12-06 14:57 | Outpatient (CLI) | payer BC, SELFPAY ==
[2022-12-06 15:00] VITALS: BMI 36.3
[2022-12-06 15:12] LABS: Basophils % 0.8 % (0.1-2.0); Eosinophils % 0.2 % (0.1-12.0); Hematocrit 26.8 % (37.0-47.0); Hemoglobin 9.7 g/dL (12.2-16.2); Lymphocytes # 1.7 K/mm3 (0.7-4.5); Mean Corpuscular HGB Conc 36.1 g/dL (31.8-35.4); Mean Corpuscular Hemoglobin 36.6 pg (27.0-31.2); Mean Corpuscular Volume 101.5 fl (81-99); Mean Platelet Volume 11.3 fl (7.4-10.4); Monocytes # 0.1 K/mm3 (0.1-1.0); Monocytes % 4.5 % (1.7-9.3); Neutrophils # 1.3 K/mm3 (1.8-7.8); Neutrophils % 40.4 % (37.0-80.0); Platelet Count 93 K/mm3 (142-424); Red Blood Count 2.64 M/mm3 (4.20-5.40); Red Cell Distribution Width 24.5 % (11.5-17.5); Reticulocyte % (Auto) 3.4 % (0.9-3.2); White Blood Count 3.1 K/mm3 (4.8-10.8)
[2022-12-06 15:14] LABS: MANUAL DIFFERENTIAL MANUAL DIFFERENTIAL (MANUAL DIFF)
[2022-12-06 15:25] LABS: Alanine Aminotransferase 156 U/L (12-78); Albumin Level 4.1 g/dl (3.5-5.0); Albumin/Globulin Ratio 1.5 (1.1-1.8); Alkaline Phosphatase 54 U/L (38-126); Anion Gap 8.2 mEq/L (5-15); Aspartate Amino Transferase 113 U/L (14-36); Bilirubin,Total 0.7 mg/dl (0.2-1.3); Blood Urea Nitrogen 20 mg/dl (7-17); Calcium 9.3 mg/dl (8.4-10.2); Carbon Dioxide 26 mmol/L (22.0-30.0); Chloride 108 mmol/L (98-107); Creatinine Clearance Estimated 120 mL/min (50-200); Estimated Glomerular Filt Rate 69 ml/min (>60); GFR (African American) 83 ML/MIN (>60); Globulin 2.8 g/dL (1.3-3.2); Glucose 115 mg/dl (74-100); Potassium 4.2 mmoL/L (3.5-5.1); Sodium 138 mmol/L (136-145); Total Protein,Serum 6.9 g/dl (6.3-8.2)
[2022-12-06 16:24] LABS: Anisocytosis 1+; Lymphocytes % 53 % (10-50); Microcytosis 2+; Monocytes % 5 % (2-9); Neutrophils % 42 % (42-76); Platelet Estimate Normal; Total Cells Counted 100
== END 2022-12-06 15:06 | disposition home or self-care (01) ==
LOC: INF 14:58
PROVIDERS: PCP Family Medicine; Visit Provider Internal Medicine Medical Oncology
DX: D61.818 Other pancytopenia (principal)
CPT/HCPCS: 36415; 80053; 85007; 85025; 85044

== ENCOUNTER 2022-12-12 15:27 | Outpatient (CLI) | payer BC, SELFPAY ==
[2022-12-12 15:30] VITALS: BMI 36.1
--- NOTE | 2022-12-12 15:30 | PC.NURSE ---
1530-collected labs via peripheral stick
[2022-12-12 16:03] LABS: Basophils % 0.8 % (0.1-2.0); Eosinophils % 0.2 % (0.1-12.0); Hematocrit 26.2 % (37.0-47.0); Hemoglobin 9.1 g/dL (12.2-16.2); Lymphocytes # 1.5 K/mm3 (0.7-4.5); Lymphocytes % 46.7 % (10-50); Mean Corpuscular HGB Conc 34.6 g/dL (31.8-35.4); Mean Corpuscular Hemoglobin 35.3 pg (27.0-31.2); Mean Corpuscular Volume 101.9 fl (81-99); Mean Platelet Volume 10.1 fl (7.4-10.4); Monocytes # 0.2 K/mm3 (0.1-1.0); Monocytes % 5.4 % (1.7-9.3); Neutrophils # 1.5 K/mm3 (1.8-7.8); Platelet Count 118 K/mm3 (142-424); Red Blood Count 2.57 M/mm3 (4.20-5.40); Red Cell Distribution Width 24.8 % (11.5-17.5); Reticulocyte % (Auto) 4.3 % (0.9-3.2); White Blood Count 3.2 K/mm3 (4.8-10.8)
[2022-12-12 16:10] LABS: Alanine Aminotransferase 275 U/L (12-78); Albumin Level 4.3 g/dl (3.5-5.0); Albumin/Globulin Ratio 1.5 (1.1-1.8); Alkaline Phosphatase 69 U/L (38-126); Anion Gap 7.7 mEq/L (5-15); Aspartate Amino Transferase 151 U/L (14-36); Bilirubin,Total 0.8 mg/dl (0.2-1.3); Blood Urea Nitrogen 23 mg/dl (7-17); Calcium 9.2 mg/dl (8.4-10.2); Carbon Dioxide 26 mmol/L (22.0-30.0); Chloride 109 mmol/L (98-107); Creatinine Clearance Estimated 119 mL/min (50-200); Estimated Glomerular Filt Rate 69 ml/min (>60); GFR (African American) 83 ML/MIN (>60); Globulin 2.8 g/dL (1.3-3.2); Glucose 109 mg/dl (74-100); Potassium 4.7 mmoL/L (3.5-5.1); Sodium 138 mmol/L (136-145); Total Protein,Serum 7.1 g/dl (6.3-8.2)
== END 2022-12-12 16:07 | disposition home or self-care (01) ==
LOC: INF 15:28
PROVIDERS: PCP Family Medicine; Visit Provider Internal Medicine Medical Oncology
DX: D61.818 Other pancytopenia (principal)
CPT/HCPCS: 36415; 80053; 85025; 85044

== ENCOUNTER 2022-12-13 15:29 | Emergency (ER) | payer BC, SELFPAY ==
[2022-12-13 15:30] VITALS: BP 145/85; PULSE 89; RESP 18; TEMP 36.8; O2SAT 98; BMI 35.4
--- NOTE | 2022-12-13 15:53 | ECG_ITS ---
APPROVED REPORT Exam: Resting ECG HR:81 bpm ECG Measurements Heart Rate 81 AXES UT 145 P 40 QRSd 82 QRS -12 QT 350 T 29 QTc 387 Conclusion SINUS RHYTHM POSSIBLE LEFT ATRIAL ENLARGEMENT [-0.1mV P-WAVE IN V1/V2] POSSIBLE RIGHT VENTRICULAR CONDUCTION DELAY [RSR (QR) IN V1/V2] BORDERLINE ECG UNCONFIRMED REPORT Electronically signed by : Nemesio Velasquez MD 12/14/2022 08:57:26
--- NOTE | 2022-12-13 16:35 | PC.NURSE ---
2822 ED MD AT BEDSIDE
--- NOTE | 2022-12-13 16:40 | HMH.EDGENADL ---
Discharge Plan Disposition Patient Disposition: Home, Self-Care Condition: Good Prescriptions Prescriptions: No Action Doptelet (30 tab pack) 20 mg tablet 20 mg PO DAILY cyanocobalamin (vitamin B-12) 1,000 mcg tablet 1,000 mcg PO DAILY Label Comments: TAKE 1 TABLET BY MOUTH EVERY DAY diazepam 2 mg tablet 2 mg PO DAILY Mirena 21 mcg/24 hours (8 yrs) 52 mg intrauterine device intrauterine fluticasone propionate 50 mcg/actuation spray,suspension 1 spray intranasal DAILY Qty: 16 0RF omeprazole-sodium bicarbonate 1 EACH capsule 1 each PO DAILY PRN (Reason: Acid Reflux) montelukast 10 MG tablet 10 mg PO PM Referrals Follow up/Referrals: Jeremy Daniel MD [Primary Care Provider] - See instructions Activity Restrictions/Add. Instructions Additional Instructions/Restrictions: Do not take carisoprodol. Follow-up with Dr. Daniel Saturday if dizziness not improving. Follow-up with Dr. Servin for further care of pancytopenia and for monitoring of elevated liver enzymes. Clinical Impressions Clinical Impression: Dizziness, Elevated liver enzymes, Pancytopenia Stand Alone Forms Stand Alone Forms: Work/School Release Instructions Patient Instructions: DI for Dizziness-Nonvertigo Discharge ED Provider: Maurilio Mccann General Adult HPI General Chief complaint: Weakness Stated complaint: fr Dr Servin to be check Time Seen by Provider: 12/13/22 16:42 Mode of Arrival: Wheelchair Limitations: No Limitations Description of Symptoms (Recalled from ER Triage Doc. by RN): PT WITH C/O DIZZINES THAT STARTED TODAY AT 1230. REPORTS HER LIPS WERE TINGLING ABOUT 1430, NOW RESOLVED. PT REPORTS HEADACHE THAT STARTED YESTERDAY, RESOLVED THIS AM. REPORTS BEING MORE TIRED FOR 2 DAYS. 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 She says that she had a headache all day yesterday, improved today but now seems to be coming back. She says her scalp feels tender. She says that she developed dizziness that started at 1230. She says it does not feel like spinning or the room moving it feels like lightheadedness or feeling of drunkenness. She she feels fatigued. Her lips also were tingling today. She has hemolytic anemia and is on treatment for that. She says that Dr. Daniel, her PCP, started her on carisoprodol 6 days ago for restless legs. She saw him in the office today and asked him to switch to another medication because she thought it might be causing her problems. She was given a prescription for diazepam today, but has not yet taken any. Related Data Home Medications Medication Instructions Recorded Confirmed omeprazole 20 mg-sodium 1 each PO DAILY PRN Acid Reflux 01/23/21 12/06/22 bicarbonate 1.1 gram capsule montelukast 10 mg tablet 10 mg PO PM Allergy symptoms 01/24/21 12/06/22 avatrombopag 20 mg tablet 20 mg PO DAILY thrombocytopenia 06/21/22 12/06/22 (Doptelet (30 tab pack)) cyanocobalamin (vitamin B-12) 1,000 mcg PO DAILY Diet supplement 06/21/22 12/06/22 1,000 mcg tablet diazepam 2 mg tablet 2 mg PO DAILY 12/13/22 12/13/22 levonorgestrel 21 mcg/24 hours (8 ea intrauterine 12/13/22 12/13/22 yrs) 52 mg intrauterine device (Mirena) Previous Rx's Medication Instructions Recorded fluticasone propionate 50 1 spray intranasal DAILY Allergy 11/05/22 mcg/actuation nasal symptoms #16 grams spray,suspension Allergies Allergy/AdvReac Type Severity Reaction Status Date / Time aspartame Allergy Verified 12/13/22 14:52 codeine Allergy Verified 12/13/22 14:52 latex Allergy Verified 12/13/22 14:52 Androgenic Anabolic Steroid AdvReac Verified 12/13/22 14:52 [facility] Disclaimer: The information contained in this section may have been updated after the patient was seen, as this information can be updated by other users. Medical History (Reviewed 12/13/22 @
[2022-12-13 16:42] LABS: Microscopic, Urine URINE MICROSCOPIC (MICROSCOPIC)
[2022-12-13 16:44] LABS: Appearance,Urine CLEAR (Clear); Bilirubin,Urine Negative (Negative); Blood, Urine 3+ (Negative); Color,Urine YELLOW (Yellow); Glucose,Urine (UA) Negative (Negative); Ketones,Urine Negative (Negative); Leukocyte Esterase,Urine Negative (Negative); Nitrate,Urine Negative (Negative); Protein,Urine Negative (Negative); Specific Gravity, Urine >= 1.030 (1.005-1.030); Urobilinogen,Urine 0.2 EU/dl (0.2)
--- NOTE | 2022-12-13 16:50 | CT_ITS ---
PROCEDURE INFORMATION: Exam: CT Head Without Contrast Exam date and time: 12/13/2022 6:21 PM Age: 42 years old Clinical indication: Pain; Dizziness; Headache not specified; Additional info: Headache, dizzy TECHNIQUE: Imaging protocol: Computed tomography of the head without contrast. Radiation optimization: All CT scans at this facility use at least one of these dose optimization techniques: automated exposure control; mA and/or kV adjustment per patient size (includes targeted exams where dose is matched to clinical indication); or iterative reconstruction. Other protocol: This patient has received 0 known CTs and 0 known cardiac nuclear medicine studies in the 12 months prior to the current study. COMPARISON: No relevant prior studies available. FINDINGS: Brain: No evidence of acute parenchymal hemorrhage, extra-axial collection or local regional mass effect. Cerebral ventricles: The ventricles, sulci and cisterns are normal in size and configuration. No hydrocephalus or midline structure shift Pituitary gland and sella: Partially empty sella noted, likely anatomical variant. Sellar/parasellar structures, orbits and craniocervical junction are otherwise unremarkable Paranasal sinuses: Visualized sinuses are unremarkable. No fluid levels. Mastoid air cells: Visualized mastoid air cells are well aerated. Bones/joints: No calvarial fracture Soft tissues: Unremarkable. IMPRESSION: No acute intracranial abnormality. No calvarial fracture.
[2022-12-13 17:09] LABS: RBC,Urine Occasional #/hpf (0-3)
[2022-12-13 17:10] LABS: Bacteria,Urine 2+ /lpf
--- NOTE | 2022-12-13 17:29 | PC.NURSE ---
notified lab of new order on pt
[2022-12-13 17:30] LABS: Basophils % 0.6 % (0.1-2.0); Eosinophils % 0.4 % (0.1-12.0); Hemoglobin 9.1 g/dL (12.2-16.2); Lymphocytes # 1.8 K/mm3 (0.7-4.5); Lymphocytes % 51.6 % (10-50); Mean Corpuscular HGB Conc 34.7 g/dL (31.8-35.4); Mean Corpuscular Hemoglobin 35.7 pg (27.0-31.2); Mean Corpuscular Volume 102.7 fl (81-99); Mean Platelet Volume 9.3 fl (7.4-10.4); Monocytes # 0.3 K/mm3 (0.1-1.0); Monocytes % 7.4 % (1.7-9.3); Neutrophils # 1.4 K/mm3 (1.8-7.8); Neutrophils % 40.1 % (37.0-80.0); Platelet Count 107 K/mm3 (142-424); Red Blood Count 2.55 M/mm3 (4.20-5.40); Red Cell Distribution Width 24.8 % (11.5-17.5); White Blood Count 3.5 K/mm3 (4.8-10.8)
[2022-12-13 17:44] LABS: Chloride 105 mmol/L (98-107); Potassium 4.2 mmoL/L (3.5-5.1); Sodium 137 mmol/L (136-145)
[2022-12-13 17:46] LABS: Alanine Aminotransferase 317 U/L (12-78); Aspartate Amino Transferase 176 U/L (14-36); Blood Urea Nitrogen 21 mg/dl (7-17); Creatinine Clearance Estimated 131 mL/min (50-200); Estimated Glomerular Filt Rate 79 ml/min (>60); GFR (African American) 95 ML/MIN (>60)
[2022-12-13 17:47] LABS: Albumin Level 4.1 g/dl (3.5-5.0); Albumin/Globulin Ratio 1.4 (1.1-1.8); Alkaline Phosphatase 68 U/L (38-126); Anion Gap 10.2 mEq/L (5-15); Bilirubin,Total 0.7 mg/dl (0.2-1.3); Calcium 9.1 mg/dl (8.4-10.2); Carbon Dioxide 26 mmol/L (22.0-30.0); Globulin 2.9 g/dL (1.3-3.2); Glucose 102 mg/dl (74-100)
[2022-12-13 17:52] LABS: MANUAL DIFFERENTIAL MANUAL DIFFERENTIAL (MANUAL DIFF)
[2022-12-13 18:10] LABS: Urine Pregnancy, HCG Qual. Negative (Negative)
[2022-12-13 18:11] LABS: Hematocrit 26.4 % (37.0-47.0)
[2022-12-13 18:25] VITALS: BP 123/62; PULSE 72; O2SAT 98
[2022-12-13 18:30] VITALS: BP 128/67; PULSE 78; O2SAT 97
[2022-12-13 18:44] LABS: Troponin I 0.02 ng/ml (0.00-0.034)
[2022-12-13 18:56] LABS: Lymphocytes % 48 % (10-50); Monocytes % 10 % (2-9); Neutrophils % 32 % (42-76); Total Cells Counted 100
[2022-12-13 18:57] LABS: Anisocytosis 2+; Macrocytosis 1+; Microcytosis 1+; Platelet Estimate Slight Decrease
[2022-12-13 18:58] LABS: Poikilocytosis 1+; Polychromasia 2+; Target Cells 1+
[2022-12-13 18:59] LABS: Stomatocytes 1+
[2022-12-13 19:12] LABS: Coronavirus 19, PCR Not Detected (NotDetected); Influenza A, PCR Not Detected (NotDetected); Influenza B, PCR Not Detected (NotDetected)
[2022-12-13 20:42] VITALS: BP 132/72; PULSE 82; RESP 18; TEMP 36.6; O2SAT 99
--- NOTE | 2022-12-13 20:47 | PC.NURSE ---
Upon discharge patient asked the best way to flush a muscle relaxer out of her system. Advised patient to increase her po intake of fluids at home and to return to er with worsening symptoms. Patient was upset upon dc because she said that she has been here for hours and now she has to go home and drink fluids when she could have been given iv fluids. Patient states that she had only had one bottle of water while in the ER. Patient had exhibited no vomiting per split shift nurse so she was appropriate to drink fluids.
[2022-12-18 11:51] LABS: Cyclosporine 179 ng/mL (100-400)
== END 2022-12-13 20:44 | disposition home or self-care (01) ==
PROVIDERS: Emergency Provider Emergency Medicine; PCP Family Medicine; Referring Provider Internal Medicine Medical Oncology
DX: R42 Dizziness and giddiness (principal); R94.5 Abnormal results of liver function studies; D61.818 Other pancytopenia; F41.9 Anxiety disorder, unspecified; G25.81 Restless legs syndrome; Z90.49 Acquired absence of other specified parts of digestive tract; Z20.822 Contact with and (suspected) exposure to COVID-19
CPT/HCPCS: 70450; 80053; 80158; 81001; 81025; 84484; 85007; 85025; 87086; 87088; 87186; 93005; 99285; C9803; U0003; U0005

== ENCOUNTER 2022-12-19 15:04 | Outpatient (CLI) | payer BC, SELFPAY ==
[2022-12-19 15:10] VITALS: BMI 36.1
--- NOTE | 2022-12-19 15:30 | PC.NURSE ---
1514 - BLOOD DRAWN FROM LEFT AC USING BUTTERFLY NEEDLE TO CHECK WEEKLY LABS AT THIS TIME.
[2022-12-19 15:32] LABS: Chloride 108 mmol/L (98-107)
[2022-12-19 15:33] LABS: Potassium 4.3 mmoL/L (3.5-5.1); Sodium 138 mmol/L (136-145)
[2022-12-19 15:35] LABS: Alanine Aminotransferase 438 U/L (12-78); Aspartate Amino Transferase 262 U/L (14-36); Blood Urea Nitrogen 21 mg/dl (7-17); Creatinine Clearance Estimated 134 mL/min (50-200); Estimated Glomerular Filt Rate 79 ml/min (>60); GFR (African American) 95 ML/MIN (>60)
[2022-12-19 15:36] LABS: Albumin Level 4.1 g/dl (3.5-5.0); Albumin/Globulin Ratio 1.5 (1.1-1.8); Alkaline Phosphatase 76 U/L (38-126); Anion Gap 7.3 mEq/L (5-15); Bilirubin,Total 0.7 mg/dl (0.2-1.3); Calcium 8.8 mg/dl (8.4-10.2); Carbon Dioxide 27 mmol/L (22.0-30.0); Globulin 2.8 g/dL (1.3-3.2); Glucose 91 mg/dl (74-100); Total Protein,Serum 6.9 g/dl (6.3-8.2)
[2022-12-19 15:42] LABS: Basophils % 0.9 % (0.1-2.0); Eosinophils % 1.3 % (0.1-12.0); Hematocrit 26.2 % (37.0-47.0); Hemoglobin 8.7 g/dL (12.2-16.2); Lymphocytes # 1.4 K/mm3 (0.7-4.5); Lymphocytes % 50.4 % (10-50); Mean Corpuscular HGB Conc 33.2 g/dL (31.8-35.4); Mean Corpuscular Hemoglobin 34.6 pg (27.0-31.2); Mean Platelet Volume 9.5 fl (7.4-10.4); Monocytes # 0.2 K/mm3 (0.1-1.0); Monocytes % 8.2 % (1.7-9.3); Neutrophils # 1.1 K/mm3 (1.8-7.8); Neutrophils % 39.2 % (37.0-80.0); Platelet Count 119 K/mm3 (142-424); Red Blood Count 2.52 M/mm3 (4.20-5.40); Reticulocyte % (Auto) 4.9 % (0.9-3.2); White Blood Count 2.9 K/mm3 (4.8-10.8)
[2022-12-19 15:56] LABS: Red Cell Distribution Width 25.2 % (11.5-17.5)
[2022-12-19 15:58] LABS: MANUAL DIFFERENTIAL MANUAL DIFFERENTIAL (MANUAL DIFF)
[2022-12-19 16:58] LABS: Lymphocytes % 54 % (10-50); Monocytes % 5 % (2-9); Neutrophils % 41 % (42-76); Platelet Estimate Slight Decrease; Poikilocytosis 1+; Stomatocytes 1+; Total Cells Counted 100
== END 2022-12-19 15:20 | disposition home or self-care (01) ==
LOC: INF 15:06
PROVIDERS: PCP Family Medicine; Visit Provider Internal Medicine Medical Oncology
DX: D61.818 Other pancytopenia (principal)
CPT/HCPCS: 36415; 80053; 85007; 85025; 85044

== ENCOUNTER 2022-12-27 15:29 | Outpatient (CLI) | payer BC, SELFPAY ==
[2022-12-27 15:33] VITALS: BMI 35.4
--- NOTE | 2022-12-27 15:41 | PC.NURSE ---
1535-BLOOD DRAWN FROM LEFT AC USING BUTTERFLY NEEDLE TO CHECK CBC, CMP, AND RETIC COUNT.
[2022-12-27 16:18] LABS: Basophils % 0.8 % (0.1-2.0); Eosinophils % 0.9 % (0.1-12.0); Hematocrit 25.7 % (37.0-47.0); Hemoglobin 8.9 g/dL (12.2-16.2); Lymphocytes # 1.5 K/mm3 (0.7-4.5); Mean Corpuscular HGB Conc 34.5 g/dL (31.8-35.4); Mean Corpuscular Hemoglobin 36.1 pg (27.0-31.2); Mean Corpuscular Volume 104.5 fl (81-99); Mean Platelet Volume 9.5 fl (7.4-10.4); Monocytes # 0.3 K/mm3 (0.1-1.0); Monocytes % 8.4 % (1.7-9.3); Neutrophils # 1.3 K/mm3 (1.8-7.8); Neutrophils % 41.9 % (37.0-80.0); Platelet Count 116 K/mm3 (142-424); Red Blood Count 2.46 M/mm3 (4.20-5.40); Reticulocyte % (Auto) 5.1 % (0.9-3.2); White Blood Count 3.1 K/mm3 (4.8-10.8)
[2022-12-27 16:19] LABS: Chloride 105 mmol/L (98-107)
[2022-12-27 16:20] LABS: Potassium 4.3 mmoL/L (3.5-5.1); Sodium 138 mmol/L (136-145)
[2022-12-27 16:22] LABS: Alanine Aminotransferase 362 U/L (12-78); Aspartate Amino Transferase 186 U/L (14-36); Blood Urea Nitrogen 25 mg/dl (7-17); Creatinine Clearance Estimated 105 mL/min (50-200); Estimated Glomerular Filt Rate 61 ml/min (>60); GFR (African American) 74 ML/MIN (>60)
[2022-12-27 16:23] LABS: Albumin Level 4.2 g/dl (3.5-5.0); Albumin/Globulin Ratio 1.4 (1.1-1.8); Alkaline Phosphatase 83 U/L (38-126); Anion Gap 8.3 mEq/L (5-15); Bilirubin,Total 0.7 mg/dl (0.2-1.3); Calcium 9.3 mg/dl (8.4-10.2); Carbon Dioxide 29 mmol/L (22.0-30.0); Globulin 2.9 g/dL (1.3-3.2); Glucose 96 mg/dl (74-100); Total Protein,Serum 7.1 g/dl (6.3-8.2)
== END 2022-12-27 15:39 | disposition home or self-care (01) ==
LOC: INF 15:30
PROVIDERS: PCP Family Medicine; Visit Provider Internal Medicine Medical Oncology
DX: D61.818 Other pancytopenia (principal)
CPT/HCPCS: 36415; 80053; 85025; 85044

== ENCOUNTER 2023-01-03 15:17 | Outpatient (CLI) | payer BC, SELFPAY ==
[2023-01-03 15:20] VITALS: BMI 35.4
--- NOTE | 2023-01-03 15:23 | PC.NURSE ---
1523-collected labs via peripheral stick;will wait on results
[2023-01-03 15:38] LABS: Chloride 105 mmol/L (98-107)
[2023-01-03 15:39] LABS: Potassium 4.1 mmoL/L (3.5-5.1); Sodium 137 mmol/L (136-145)
[2023-01-03 15:41] LABS: Alanine Aminotransferase 250 U/L (12-78); Alkaline Phosphatase 77 U/L (38-126); Anion Gap 9.1 mEq/L (5-15); Aspartate Amino Transferase 131 U/L (14-36); Bilirubin,Total 0.7 mg/dl (0.2-1.3); Blood Urea Nitrogen 25 mg/dl (7-17); Carbon Dioxide 27 mmol/L (22.0-30.0); Creatinine Clearance Estimated 105 mL/min (50-200); Estimated Glomerular Filt Rate 61 ml/min (>60); GFR (African American) 74 ML/MIN (>60)
[2023-01-03 15:42] LABS: Albumin Level 4.2 g/dl (3.5-5.0); Albumin/Globulin Ratio 1.6 (1.1-1.8); Calcium 8.9 mg/dl (8.4-10.2); Globulin 2.6 g/dL (1.3-3.2); Glucose 92 mg/dl (74-100); Total Protein,Serum 6.8 g/dl (6.3-8.2)
[2023-01-03 16:01] LABS: Eosinophils % 0.8 % (0.1-12.0); Hematocrit 24.1 % (37.0-47.0); Hemoglobin 8.4 g/dL (12.2-16.2); Lymphocytes # 1.4 K/mm3 (0.7-4.5); Lymphocytes % 44.6 % (10-50); Mean Corpuscular Hemoglobin 36.4 pg (27.0-31.2); Mean Corpuscular Volume 104.1 fl (81-99); Mean Platelet Volume 9.8 fl (7.4-10.4); Monocytes # 0.2 K/mm3 (0.1-1.0); Neutrophils # 1.5 K/mm3 (1.8-7.8); Neutrophils % 46.5 % (37.0-80.0); Platelet Count 106 K/mm3 (142-424); Red Blood Count 2.31 M/mm3 (4.20-5.40); Red Cell Distribution Width 24.6 % (11.5-17.5); Reticulocyte % (Auto) 4.7 % (0.9-3.2); White Blood Count 3.2 K/mm3 (4.8-10.8)
== END 2023-01-03 16:06 | disposition home or self-care (01) ==
LOC: INF 15:18
PROVIDERS: PCP Family Medicine; Visit Provider Internal Medicine Medical Oncology
DX: D64.9 Anemia, unspecified (principal)
CPT/HCPCS: 36415; 80053; 85025; 85044

== ENCOUNTER 2023-01-10 14:33 | Outpatient (CLI) | payer BC, SELFPAY ==
[2023-01-10 14:36] VITALS: BMI 36.1
[2023-01-10 14:55] LABS: Basophils % 0.5 % (0.1-2.0); Eosinophils % 0.3 % (0.1-12.0); Hematocrit 23.8 % (37.0-47.0); Hemoglobin 8.1 g/dL (12.2-16.2); Lymphocytes # 1.4 K/mm3 (0.7-4.5); Lymphocytes % 40.1 % (10-50); Mean Corpuscular HGB Conc 34.1 g/dL (31.8-35.4); Mean Corpuscular Hemoglobin 36.2 pg (27.0-31.2); Mean Corpuscular Volume 106.1 fl (81-99); Mean Platelet Volume 10.5 fl (7.4-10.4); Monocytes # 0.3 K/mm3 (0.1-1.0); Monocytes % 8.2 % (1.7-9.3); Neutrophils # 1.7 K/mm3 (1.8-7.8); Neutrophils % 50.9 % (37.0-80.0); Platelet Count 96 K/mm3 (142-424); Red Blood Count 2.24 M/mm3 (4.20-5.40); Red Cell Distribution Width 24.2 % (11.5-17.5); White Blood Count 3.4 K/mm3 (4.8-10.8)
[2023-01-10 15:00] LABS: Chloride 102 mmol/L (98-107); Sodium 134 mmol/L (136-145)
[2023-01-10 15:01] LABS: Potassium 4.3 mmoL/L (3.5-5.1)
[2023-01-10 15:03] LABS: Alanine Aminotransferase 227 U/L (12-78); Alkaline Phosphatase 84 U/L (38-126); Anion Gap 10.3 mEq/L (5-15); Aspartate Amino Transferase 115 U/L (14-36); Bilirubin,Total 0.8 mg/dl (0.2-1.3); Blood Urea Nitrogen 26 mg/dl (7-17); Carbon Dioxide 26 mmol/L (22.0-30.0); Creatinine Clearance Estimated 119 mL/min (50-200); Estimated Glomerular Filt Rate 69 ml/min (>60); GFR (African American) 83 ML/MIN (>60)
[2023-01-10 15:04] LABS: Albumin Level 4.1 g/dl (3.5-5.0); Albumin/Globulin Ratio 1.7 (1.1-1.8); Calcium 8.9 mg/dl (8.4-10.2); Globulin 2.4 g/dL (1.3-3.2); Glucose 101 mg/dl (74-100); Total Protein,Serum 6.5 g/dl (6.3-8.2)
--- NOTE | 2023-01-10 15:41 | PC.NURSE ---
1444 - BLOOD DRAWN FROM LEFT AC USING BUTTERFLY NEEDLE TO CHECK LABS PRIOR TO DR SANCHEZ APPOINTMENT.
== END 2023-01-10 14:50 | disposition home or self-care (01) ==
LOC: INF 14:34
PROVIDERS: PCP Family Medicine; Visit Provider Internal Medicine Medical Oncology
DX: D64.9 Anemia, unspecified (principal)
CPT/HCPCS: 36415; 80053; 85025

== ENCOUNTER 2023-01-14 13:04 | Outpatient (CLI) | payer BC, SELFPAY ==
[2023-01-14 13:07] VITALS: BMI 36.5
[2023-01-14 13:31] LABS: Basophils % 0.2 % (0.1-2.0); Eosinophils % 0.5 % (0.1-12.0); Hematocrit 24.4 % (37.0-47.0); Hemoglobin 8.1 g/dL (12.2-16.2); Lymphocytes # 1.2 K/mm3 (0.7-4.5); Lymphocytes % 39.8 % (10-50); Mean Corpuscular HGB Conc 33.2 g/dL (31.8-35.4); Mean Corpuscular Hemoglobin 36.4 pg (27.0-31.2); Mean Corpuscular Volume 109.6 fl (81-99); Monocytes # 0.2 K/mm3 (0.1-1.0); Monocytes % 7.1 % (1.7-9.3); Neutrophils # 1.6 K/mm3 (1.8-7.8); Neutrophils % 52.5 % (37.0-80.0); Platelet Count 106 K/mm3 (142-424); Red Blood Count 2.23 M/mm3 (4.20-5.40); Red Cell Distribution Width 24.1 % (11.5-17.5); Reticulocyte % (Auto) 4.5 % (0.9-3.2)
[2023-01-14 13:34] LABS: Alanine Aminotransferase 248 U/L (12-78); Albumin Level 4.1 g/dl (3.5-5.0); Albumin/Globulin Ratio 1.6 (1.1-1.8); Alkaline Phosphatase 85 U/L (38-126); Anion Gap 11.3 mEq/L (5-15); Aspartate Amino Transferase 129 U/L (14-36); Bilirubin,Total 1.1 mg/dl (0.2-1.3); Blood Urea Nitrogen 22 mg/dl (7-17); Calcium 8.9 mg/dl (8.4-10.2); Carbon Dioxide 26 mmol/L (22.0-30.0); Chloride 102 mmol/L (98-107); Creatinine Clearance Estimated 108 mL/min (50-200); Estimated Glomerular Filt Rate 61 ml/min (>60); GFR (African American) 74 ML/MIN (>60); Globulin 2.5 g/dL (1.3-3.2); Glucose 115 mg/dl (74-100); Potassium 4.3 mmoL/L (3.5-5.1); Sodium 135 mmol/L (136-145); Total Protein,Serum 6.6 g/dl (6.3-8.2)
== END 2023-01-14 14:21 | disposition home or self-care (01) ==
LOC: INF 13:05
PROVIDERS: PCP Family Medicine; Visit Provider Internal Medicine Medical Oncology
DX: D64.9 Anemia, unspecified (principal)
CPT/HCPCS: 36415; 80053; 85025; 85044; 86850

== ENCOUNTER 2023-01-15 09:08 | Outpatient (CLI) | payer BC, SELFPAY ==
[2023-01-15] VITALS (12 sets, daily range): BP systolic 109–145; BP diastolic 56–85; PULSE 81–87; RESP 18; TEMP 36.2–36.4; O2SAT 98–99
== END 2023-01-15 12:10 | disposition home or self-care (01) ==
LOC: INF 09:09
PROVIDERS: PCP Family Medicine; Visit Provider Internal Medicine Medical Oncology
DX: D64.9 Anemia, unspecified (principal)
CPT/HCPCS: 36430; P9016

== ENCOUNTER 2023-01-24 15:23 | Outpatient (CLI) | payer BC, SELFPAY ==
[2023-01-24 15:30] VITALS: BMI 36.5
--- NOTE | 2023-01-24 15:30 | PC.NURSE ---
1530-collected labs via peripheral stick with butterfluy needle;pt d/c home
[2023-01-24 15:41] LABS: Basophils % 0.6 % (0.1-2.0); Eosinophils % 0.5 % (0.1-12.0); Hematocrit 26.2 % (37.0-47.0); Hemoglobin 8.8 g/dL (12.2-16.2); Lymphocytes # 1.4 K/mm3 (0.7-4.5); Lymphocytes % 39.9 % (10-50); Mean Corpuscular HGB Conc 33.6 g/dL (31.8-35.4); Mean Corpuscular Hemoglobin 36.5 pg (27.0-31.2); Mean Corpuscular Volume 108.9 fl (81-99); Mean Platelet Volume 11.1 fl (7.4-10.4); Monocytes # 0.3 K/mm3 (0.1-1.0); Monocytes % 7.6 % (1.7-9.3); Neutrophils # 1.8 K/mm3 (1.8-7.8); Neutrophils % 51.4 % (37.0-80.0); Platelet Count 84 K/mm3 (142-424); Red Cell Distribution Width 22.9 % (11.5-17.5); Reticulocyte % (Auto) 4.1 % (0.9-3.2); White Blood Count 3.5 K/mm3 (4.8-10.8)
[2023-01-24 15:48] LABS: Chloride 102 mmol/L (98-107); Potassium 4.4 mmoL/L (3.5-5.1); Sodium 134 mmol/L (136-145)
[2023-01-24 15:50] LABS: Blood Urea Nitrogen 23 mg/dl (7-17); Creatinine Clearance Estimated 90 mL/min (50-200); Estimated Glomerular Filt Rate 49 ml/min (>60); GFR (African American) 60 ML/MIN (>60)
[2023-01-24 15:51] LABS: Alanine Aminotransferase 251 U/L (12-78); Albumin Level 4.2 g/dl (3.5-5.0); Albumin/Globulin Ratio 1.7 (1.1-1.8); Alkaline Phosphatase 90 U/L (38-126); Anion Gap 9.4 mEq/L (5-15); Aspartate Amino Transferase 123 U/L (14-36); Calcium 8.8 mg/dl (8.4-10.2); Carbon Dioxide 27 mmol/L (22.0-30.0); Globulin 2.5 g/dL (1.3-3.2); Glucose 88 mg/dl (74-100); Total Protein,Serum 6.7 g/dl (6.3-8.2)
== END 2023-01-24 15:31 | disposition home or self-care (01) ==
LOC: INF 15:24
PROVIDERS: PCP Family Medicine; Visit Provider Internal Medicine Medical Oncology
DX: D64.9 Anemia, unspecified (principal)
CPT/HCPCS: 36415; 80053; 85025; 85044

== ENCOUNTER 2023-02-01 13:37 | Outpatient (CLI) | payer BC, SELFPAY ==
[2023-02-01 13:40] VITALS: BMI 35.4
--- NOTE | 2023-02-01 13:52 | PC.NURSE ---
cbc,cmp and retic count drawn via butterfly needle in left ac. needle removed and site covered with 2x2 and coban. pt tolerated well.
[2023-02-01 14:02] LABS: Chloride 104 mmol/L (98-107); Potassium 4.7 mmoL/L (3.5-5.1); Sodium 137 mmol/L (136-145)
[2023-02-01 14:05] LABS: Alanine Aminotransferase 249 U/L (12-78); Albumin Level 4.3 g/dl (3.5-5.0); Albumin/Globulin Ratio 1.5 (1.1-1.8); Alkaline Phosphatase 100 U/L (38-126); Anion Gap 11.7 mEq/L (5-15); Aspartate Amino Transferase 133 U/L (14-36); Bilirubin,Total 0.9 mg/dl (0.2-1.3); Blood Urea Nitrogen 23 mg/dl (7-17); Carbon Dioxide 26 mmol/L (22.0-30.0); Creatinine Clearance Estimated 105 mL/min (50-200); Estimated Glomerular Filt Rate 61 ml/min (>60); GFR (African American) 74 ML/MIN (>60); Globulin 2.8 g/dL (1.3-3.2); Total Protein,Serum 7.1 g/dl (6.3-8.2)
[2023-02-01 14:06] LABS: Glucose 105 mg/dl (74-100)
[2023-02-01 14:18] LABS: Basophils % 0.6 % (0.1-2.0); Eosinophils % 0.7 % (0.1-12.0); Hematocrit 27.5 % (37.0-47.0); Hemoglobin 9.4 g/dL (12.2-16.2); Lymphocytes # 1.2 K/mm3 (0.7-4.5); Mean Corpuscular HGB Conc 34.1 g/dL (31.8-35.4); Mean Corpuscular Hemoglobin 36.3 pg (27.0-31.2); Mean Corpuscular Volume 106.4 fl (81-99); Mean Platelet Volume 10.3 fl (7.4-10.4); Monocytes # 0.3 K/mm3 (0.1-1.0); Monocytes % 7.7 % (1.7-9.3); Platelet Count 91 K/mm3 (142-424); Red Blood Count 2.59 M/mm3 (4.20-5.40); Red Cell Distribution Width 22.6 % (11.5-17.5); White Blood Count 3.5 K/mm3 (4.8-10.8)
[2023-02-01 15:05] LABS: Reticulocyte % (Auto) 4.2 % (0.9-3.2)
== END 2023-02-01 13:52 | disposition home or self-care (01) ==
LOC: INF 13:37
PROVIDERS: PCP Family Medicine; Visit Provider Internal Medicine Medical Oncology
DX: D64.9 Anemia, unspecified (principal)
CPT/HCPCS: 36415; 80053; 85025; 85044

== ENCOUNTER 2023-02-07 15:12 | Outpatient (CLI) | payer BC, SELFPAY ==
[2023-02-07 15:18] VITALS: BMI 36.5
--- NOTE | 2023-02-07 15:22 | PC.NURSE ---
1522-collected labs via venipuncture with butterfly needle;pt will wait on results
[2023-02-07 15:32] LABS: Basophils % 0.4 % (0.1-2.0); Eosinophils % 0.4 % (0.1-12.0); Hematocrit 24.2 % (37.0-47.0); Hemoglobin 8.3 g/dL (12.2-16.2); Lymphocytes % 39.3 % (10-50); Mean Corpuscular HGB Conc 34.5 g/dL (31.8-35.4); Mean Corpuscular Hemoglobin 37.5 pg (27.0-31.2); Mean Platelet Volume 10.6 fl (7.4-10.4); Monocytes # 0.2 K/mm3 (0.1-1.0); Monocytes % 7.2 % (1.7-9.3); Neutrophils # 1.4 K/mm3 (1.8-7.8); Neutrophils % 52.7 % (37.0-80.0); Platelet Count 81 K/mm3 (142-424); Red Blood Count 2.22 M/mm3 (4.20-5.40); Red Cell Distribution Width 21.8 % (11.5-17.5); Reticulocyte % (Auto) 3.4 % (0.9-3.2); White Blood Count 2.6 K/mm3 (4.8-10.8)
[2023-02-07 15:42] LABS: Chloride 106 mmol/L (98-107); Potassium 4.4 mmoL/L (3.5-5.1); Sodium 138 mmol/L (136-145)
[2023-02-07 15:45] LABS: Alanine Aminotransferase 228 U/L (12-78); Albumin/Globulin Ratio 1.6 (1.1-1.8); Alkaline Phosphatase 92 U/L (38-126); Anion Gap 11.4 mEq/L (5-15); Aspartate Amino Transferase 105 U/L (14-36); Bilirubin,Total 0.8 mg/dl (0.2-1.3); Blood Urea Nitrogen 25 mg/dl (7-17); Carbon Dioxide 25 mmol/L (22.0-30.0); Creatinine Clearance Estimated 98 mL/min (50-200); Estimated Glomerular Filt Rate 54 ml/min (>60); GFR (African American) 66 ML/MIN (>60); Globulin 2.5 g/dL (1.3-3.2); Glucose 102 mg/dl (74-100); Total Protein,Serum 6.5 g/dl (6.3-8.2)
== END 2023-02-07 15:52 | disposition home or self-care (01) ==
LOC: INF 15:14
PROVIDERS: PCP Family Medicine; Visit Provider Internal Medicine Medical Oncology
DX: D61.818 Other pancytopenia (principal)
CPT/HCPCS: 36415; 80053; 85025; 85044

== ENCOUNTER 2023-02-14 14:16 | Outpatient (CLI) | payer BC, SELFPAY ==
[2023-02-14 14:22] VITALS: BMI 36.5
--- NOTE | 2023-02-14 14:28 | PC.NURSE ---
1428-collected labs via venipuncture stick in left ac;pt to md appointment.
[2023-02-14 14:45] LABS: Basophils % 0.2 % (0.1-2.0); Eosinophils % 0.2 % (0.1-12.0); Hematocrit 24.1 % (37.0-47.0); Hemoglobin 8.5 g/dL (12.2-16.2); Lymphocytes # 1.1 K/mm3 (0.7-4.5); Lymphocytes % 30.5 % (10-50); Mean Corpuscular HGB Conc 35.3 g/dL (31.8-35.4); Mean Corpuscular Hemoglobin 38.1 pg (27.0-31.2); Mean Corpuscular Volume 107.8 fl (81-99); Monocytes # 0.3 K/mm3 (0.1-1.0); Monocytes % 9.1 % (1.7-9.3); Neutrophils # 2.1 K/mm3 (1.8-7.8); Platelet Count 100 K/mm3 (142-424); Red Blood Count 2.23 M/mm3 (4.20-5.40); Red Cell Distribution Width 21.7 % (11.5-17.5); Reticulocyte % (Auto) 3.9 % (0.9-3.2); White Blood Count 3.5 K/mm3 (4.8-10.8)
[2023-02-14 14:51] LABS: Chloride 103 mmol/L (98-107); Potassium 4.2 mmoL/L (3.5-5.1); Sodium 136 mmol/L (136-145)
[2023-02-14 14:54] LABS: Alanine Aminotransferase 220 U/L (12-78); Albumin Level 4.2 g/dl (3.5-5.0); Albumin/Globulin Ratio 1.7 (1.1-1.8); Alkaline Phosphatase 85 U/L (38-126); Anion Gap 10.2 mEq/L (5-15); Aspartate Amino Transferase 113 U/L (14-36); Bilirubin,Total 0.7 mg/dl (0.2-1.3); Blood Urea Nitrogen 27 mg/dl (7-17); Calcium 9.2 mg/dl (8.4-10.2); Carbon Dioxide 27 mmol/L (22.0-30.0); Creatinine Clearance Estimated 98 mL/min (50-200); Estimated Glomerular Filt Rate 54 ml/min (>60); GFR (African American) 66 ML/MIN (>60); Globulin 2.5 g/dL (1.3-3.2); Glucose 106 mg/dl (74-100); Total Protein,Serum 6.7 g/dl (6.3-8.2)
== END 2023-02-14 14:30 | disposition home or self-care (01) ==
PROVIDERS: PCP Family Medicine; Visit Provider Internal Medicine Medical Oncology
DX: D61.818 Other pancytopenia (principal); G47.33 Obstructive sleep apnea (adult) (pediatric); G47.10 Hypersomnia, unspecified; R06.83 Snoring; E66.9 Obesity, unspecified; Z68.36 Body mass index [BMI] 36.0-36.9, adult
CPT/HCPCS: 36415; 80053; 85025; 85044; G0399

== ENCOUNTER 2023-02-21 14:55 | Outpatient (CLI) | payer BC, SELFPAY ==
[2023-02-21 15:00] VITALS: BMI 36.6
--- NOTE | 2023-02-21 15:07 | PC.NURSE ---
1507-collected labs via venipuncture with butterfly in left ac;pt d/c home.
[2023-02-21 15:25] LABS: Basophils % 0.2 % (0.1-2.0); Eosinophils % 0.4 % (0.1-12.0); Hematocrit 23.3 % (37.0-47.0); Hemoglobin 8.2 g/dL (12.2-16.2); Lymphocytes # 1.2 K/mm3 (0.7-4.5); Lymphocytes % 41.8 % (10-50); Mean Corpuscular HGB Conc 35.2 g/dL (31.8-35.4); Mean Corpuscular Hemoglobin 38.7 pg (27.0-31.2); Mean Corpuscular Volume 110.1 fl (81-99); Monocytes # 0.2 K/mm3 (0.1-1.0); Neutrophils # 1.5 K/mm3 (1.8-7.8); Neutrophils % 50.6 % (37.0-80.0); Platelet Count 97 K/mm3 (142-424); Red Blood Count 2.11 M/mm3 (4.20-5.40); Red Cell Distribution Width 21.2 % (11.5-17.5); Reticulocyte % (Auto) 3.2 % (0.9-3.2)
[2023-02-21 15:34] LABS: Alanine Aminotransferase 186 U/L (12-78); Albumin Level 4.1 g/dl (3.5-5.0); Albumin/Globulin Ratio 1.6 (1.1-1.8); Alkaline Phosphatase 88 U/L (38-126); Anion Gap 10.2 mEq/L (5-15); Aspartate Amino Transferase 99 U/L (14-36); Bilirubin,Total 0.8 mg/dl (0.2-1.3); Blood Urea Nitrogen 28 mg/dl (7-17); Carbon Dioxide 26 mmol/L (22.0-30.0); Chloride 104 mmol/L (98-107); Creatinine Clearance Estimated 91 mL/min (50-200); Estimated Glomerular Filt Rate 49 ml/min (>60); GFR (African American) 60 ML/MIN (>60); Globulin 2.6 g/dL (1.3-3.2); Glucose 94 mg/dl (74-100); Potassium 4.2 mmoL/L (3.5-5.1); Sodium 136 mmol/L (136-145); Total Protein,Serum 6.7 g/dl (6.3-8.2)
== END 2023-02-21 15:10 | disposition home or self-care (01) ==
LOC: INF 14:55
PROVIDERS: PCP Family Medicine; Visit Provider Internal Medicine Medical Oncology
DX: D61.818 Other pancytopenia (principal)
CPT/HCPCS: 36415; 80053; 85025; 85044

== ENCOUNTER 2023-02-28 14:21 | Outpatient (CLI) | payer BC, SELFPAY ==
[2023-02-28 14:26] VITALS: BMI 36.8
--- NOTE | 2023-02-28 14:30 | PC.NURSE ---
1430-collected labs via venipuncture stick with butterfly. pt d/c home.
[2023-02-28 14:44] LABS: Chloride 100 mmol/L (98-107); Potassium 4.2 mmoL/L (3.5-5.1); Sodium 139 mmol/L (136-145)
[2023-02-28 14:47] LABS: Alanine Aminotransferase 243 U/L (12-78); Albumin Level 4.3 g/dl (3.5-5.0); Albumin/Globulin Ratio 1.7 (1.1-1.8); Alkaline Phosphatase 87 U/L (38-126); Anion Gap 16.2 mEq/L (5-15); Aspartate Amino Transferase 122 U/L (14-36); Bilirubin,Total 0.8 mg/dl (0.2-1.3); Blood Urea Nitrogen 29 mg/dl (7-17); Carbon Dioxide 27 mmol/L (22.0-30.0); Creatinine Clearance Estimated 61 mL/min (50-200); Estimated Glomerular Filt Rate 31 ml/min (>60); GFR (African American) 37 ML/MIN (>60); Globulin 2.5 g/dL (1.3-3.2); Total Protein,Serum 6.8 g/dl (6.3-8.2)
[2023-02-28 14:48] LABS: Calcium 9.2 mg/dl (8.4-10.2); Glucose 87 mg/dl (74-100)
[2023-02-28 15:12] LABS: Eosinophils % 1.5 % (0.1-12.0); Hematocrit 23.4 % (37.0-47.0); Hemoglobin 7.7 g/dL (12.2-16.2); Lymphocytes # 1.2 K/mm3 (0.7-4.5); Lymphocytes % 40.2 % (10-50); Mean Corpuscular Hemoglobin 36.5 pg (27.0-31.2); Mean Corpuscular Volume 110.4 fl (81-99); Mean Platelet Volume 8.7 fl (7.4-10.4); Monocytes # 0.2 K/mm3 (0.1-1.0); Monocytes % 6.1 % (1.7-9.3); Neutrophils # 1.5 K/mm3 (1.8-7.8); Neutrophils % 52.2 % (37.0-80.0); Platelet Count 96 K/mm3 (142-424); Red Blood Count 2.12 M/mm3 (4.20-5.40); Red Cell Distribution Width 20.6 % (11.5-17.5); Reticulocyte % (Auto) 4.9 % (0.9-3.2); White Blood Count 2.9 K/mm3 (4.8-10.8)
[2023-02-28 22:14] LABS: Ferritin 3580 ng/ml (6.24-137)
== END 2023-02-28 14:32 | disposition home or self-care (01) ==
LOC: INF 14:21
PROVIDERS: Specialist; PCP Family Medicine; Visit Provider Internal Medicine Medical Oncology
DX: E83.10 Disorder of iron metabolism, unspecified (principal)
CPT/HCPCS: 36415; 80053; 82728; 85025; 85044

== ENCOUNTER 2023-03-01 12:45 | Outpatient (CLI) | payer BC, SELFPAY ==
[2023-03-01 12:51] VITALS: BMI 36.8
[2023-03-01 13:14] LABS: Chloride 98 mmol/L (98-107)
[2023-03-01 13:17] LABS: Alanine Aminotransferase 249 U/L (12-78); Albumin Level 4.1 g/dl (3.5-5.0); Albumin/Globulin Ratio 1.6 (1.1-1.8); Alkaline Phosphatase 87 U/L (38-126); Aspartate Amino Transferase 136 U/L (14-36); Bilirubin,Total 0.9 mg/dl (0.2-1.3); Blood Urea Nitrogen 28 mg/dl (7-17); Carbon Dioxide 27 mmol/L (22.0-30.0); Creatinine Clearance Estimated 84 mL/min (50-200); Estimated Glomerular Filt Rate 45 ml/min (>60); GFR (African American) 54 ML/MIN (>60); Globulin 2.5 g/dL (1.3-3.2); Total Protein,Serum 6.6 g/dl (6.3-8.2)
[2023-03-01 13:18] LABS: Calcium 9.1 mg/dl (8.4-10.2); Glucose 118 mg/dl (74-100)
[2023-03-01 13:30] LABS: Sodium 135 mmol/L (136-145)
--- NOTE | 2023-03-01 15:20 | PC.NURSE ---
0822- Pt contacted this RN with c/o SOA, weakness, fatigue and racing heartbeat. Contacted Dr. Servin and will order one unit of PRBC for symptomatic anemia.
== END 2023-03-01 13:10 | disposition home or self-care (01) ==
LOC: INF 12:46
PROVIDERS: PCP Family Medicine; Visit Provider Family Medicine
DX: N28.9 Disorder of kidney and ureter, unspecified (principal)
CPT/HCPCS: 36415; 80053; 86850

== ENCOUNTER → 2023-03-03 12:02 | Outpatient (CLI) | payer BC, SELFPAY ==
[2023-03-03] VITALS (9 sets, daily range): BP systolic 114–142; BP diastolic 48–78; PULSE 70–85; RESP 18–19; TEMP 36.6–36.8; O2SAT 92–100; BMI 36.3
--- NOTE | 2023-03-03 13:32 | PC.NURSE ---
Pt tolerating blood transfusion. No complaints stated.
--- NOTE | 2023-03-03 14:35 | PC.NURSE ---
Pt refused to stay for one hour post vital sign.
== END ==
PROVIDERS: PCP Family Medicine; Visit Provider Internal Medicine Medical Oncology
DX: R06.02 Shortness of breath (principal); R53.83 Other fatigue; R53.1 Weakness
CPT/HCPCS: 36430; P9016

== ENCOUNTER 2023-03-07 15:00 | Outpatient (CLI) | payer BC, SELFPAY ==
[2023-03-07 15:05] VITALS: BMI 36.8
[2023-03-07 15:19] LABS: Basophils % 0.4 % (0.1-2.0); Eosinophils % 0.2 % (0.1-12.0); Hematocrit 27.4 % (37.0-47.0); Hemoglobin 9.5 g/dL (12.2-16.2); Mean Corpuscular HGB Conc 34.6 g/dL (31.8-35.4); Mean Corpuscular Hemoglobin 36.6 pg (27.0-31.2); Mean Platelet Volume 10.8 fl (7.4-10.4); Monocytes # 0.2 K/mm3 (0.1-1.0); Monocytes % 7.6 % (1.7-9.3); Neutrophils # 1.4 K/mm3 (1.8-7.8); Neutrophils % 53.7 % (37.0-80.0); Platelet Count 93 K/mm3 (142-424); Red Blood Count 2.59 M/mm3 (4.20-5.40); Red Cell Distribution Width 20.1 % (11.5-17.5); White Blood Count 2.6 K/mm3 (4.8-10.8)
[2023-03-07 15:27] LABS: Chloride 99 mmol/L (98-107); Potassium 3.7 mmoL/L (3.5-5.1); Sodium 138 mmol/L (136-145)
[2023-03-07 15:29] LABS: Alanine Aminotransferase 331 U/L (12-78); Alkaline Phosphatase 94 U/L (38-126); Aspartate Amino Transferase 173 U/L (14-36); Bilirubin,Total 0.7 mg/dl (0.2-1.3); Blood Urea Nitrogen 27 mg/dl (7-17); Creatinine Clearance Estimated 91 mL/min (50-200); Estimated Glomerular Filt Rate 49 ml/min (>60); GFR (African American) 60 ML/MIN (>60)
[2023-03-07 15:30] LABS: Albumin/Globulin Ratio 1.5 (1.1-1.8); Anion Gap 16.7 mEq/L (5-15); Calcium 9.2 mg/dl (8.4-10.2); Carbon Dioxide 26 mmol/L (22.0-30.0); Globulin 2.7 g/dL (1.3-3.2); Glucose 128 mg/dl (74-100); Total Protein,Serum 6.7 g/dl (6.3-8.2)
== END 2023-03-07 15:45 | disposition home or self-care (01) ==
LOC: INF 15:01
PROVIDERS: PCP Family Medicine; Visit Provider Internal Medicine Medical Oncology
DX: D61.818 Other pancytopenia (principal)
CPT/HCPCS: 36415; 80053; 85025; 85044

== ENCOUNTER 2023-03-09 14:57 | Emergency (ER) | payer BC, SELFPAY ==
--- NOTE | 2023-03-09 15:07 | PC.NURSE ---
NATHALIA JACKSON at
[2023-03-09 15:22] VITALS: BP 137/59; PULSE 78; O2SAT 98
[2023-03-09 15:27] VITALS: BP 137/59; PULSE 83; RESP 16; TEMP 36.7; O2SAT 99; BMI 36.3
[2023-03-09 15:36] VITALS: PULSE 84; O2SAT 97
[2023-03-09 15:56] LABS: Basophils % 0.2 % (0.1-2.0); Eosinophils % 0.4 % (0.1-12.0); Hematocrit 27.5 % (37.0-47.0); Hemoglobin 9.5 g/dL (12.2-16.2); Lymphocytes # 1.1 K/mm3 (0.7-4.5); Lymphocytes % 37.4 % (10-50); Mean Corpuscular HGB Conc 34.5 g/dL (31.8-35.4); Mean Corpuscular Hemoglobin 36.7 pg (27.0-31.2); Mean Corpuscular Volume 106.1 fl (81-99); Mean Platelet Volume 9.4 fl (7.4-10.4); Monocytes # 0.3 K/mm3 (0.1-1.0); Monocytes % 9.4 % (1.7-9.3); Neutrophils # 1.6 K/mm3 (1.8-7.8); Neutrophils % 52.6 % (37.0-80.0); Platelet Count 103 K/mm3 (142-424); Red Cell Distribution Width 19.7 % (11.5-17.5)
[2023-03-09 16:01] LABS: Alanine Aminotransferase 334 U/L (12-78); Albumin Level 4.4 g/dl (3.5-5.0); Albumin/Globulin Ratio 1.7 (1.1-1.8); Alkaline Phosphatase 120 U/L (38-126); Anion Gap 16.1 mEq/L (5-15); Aspartate Amino Transferase 158 U/L (14-36); Blood Urea Nitrogen 24 mg/dl (7-17); Carbon Dioxide 27 mmol/L (22.0-30.0); Chloride 97 mmol/L (98-107); Creatinine Clearance Estimated 98 mL/min (50-200); Estimated Glomerular Filt Rate 54 ml/min (>60); GFR (African American) 66 ML/MIN (>60); Globulin 2.6 g/dL (1.3-3.2); Glucose 127 mg/dl (74-100); Potassium 4.1 mmoL/L (3.5-5.1); Sodium 136 mmol/L (136-145)
[2023-03-09 16:06] LABS: Activated Partial Thrombo Time 25.9 seconds (22.8-30.6); INR 0.95 (0.9-1.1); Prothrombin Time 10.3 seconds (10.1-12.5)
--- NOTE | 2023-03-09 16:07 | PC.NURSE ---
er at bedside
[2023-03-09 16:26] VITALS: BP 115/55; PULSE 82; RESP 18; TEMP 36.7; O2SAT 98
--- NOTE | 2023-03-09 20:28 | HMH.EDGENADL ---
Discharge Plan Disposition Patient Disposition: Home, Self-Care Condition: Good Prescriptions Prescriptions: No Action Doptelet (30 tab pack) 20 mg tablet 20 mg PO DAILY cyanocobalamin (vitamin B-12) 1,000 mcg tablet 1,000 mcg PO DAILY Label Comments: TAKE 1 TABLET BY MOUTH EVERY DAY cyclosporine modified 100 mg capsule 100 mg PO cyclosporine modified 25 mg capsule 25 mg PO BID Mirena 21 mcg/24 hours (8 yrs) 52 mg intrauterine device 1 device intrauterine Referrals Follow up/Referrals: Jeremy Daniel MD [Primary Care Provider] - See instructions Clinical Impressions Clinical Impression: Pancytopenia, Hematochezia Instructions Patient Instructions: DI for Gastrointestinal Bleeding Discharge ED Provider: Alfredo Howell General Adult HPI General Chief complaint: GI Bleed Stated complaint: Rectal bleeding Time Seen by Provider: 03/09/23 15:10 Mode of Arrival: Ambulatory Source of Information: Patient Limitations: No Limitations Description of Symptoms (Recalled from ER Triage Doc. by RN): 42 F presents with rectal bleeding. pt reports bleeding began saturday and saturday that stopped. this am pt went to bathroom to have BM and noticed blood on the toilet paper and in the toilet. pt does get frequent blood transfusions of note. History of Present Illness HPI narrative: This is a very pleasant 42-year-old lady with a past medical history of pancytopenia of unknown etiology who presents with rectal bleeding. Patient states first began Saturday and stopped. However when she wiped today she had bright red blood. She denies any abdominal pain, she has no melena, she has no hematemesis. States she has a history of hemorrhoids. Related Data Home Medications Medication Instructions Recorded Confirmed avatrombopag 20 mg tablet 20 mg PO DAILY thrombocytopenia 06/21/22 02/28/23 (Doptelet (30 tab pack)) cyanocobalamin (vitamin B-12) 1,000 mcg PO DAILY Diet supplement 06/21/22 02/28/23 1,000 mcg tablet cyclosporine modified 100 mg 100 mg PO 01/10/23 02/28/23 capsule cyclosporine modified 25 mg capsule 25 mg PO BID 01/10/23 02/28/23 levonorgestrel 21 mcg/24 hours (8 1 device intrauterine 02/28/23 02/28/23 yrs) 52 mg intrauterine device (Mirena) Allergies Allergy/AdvReac Type Severity Reaction Status Date / Time aspartame Allergy Verified 02/28/23 12:58 codeine Allergy Verified 02/28/23 12:58 latex Allergy Verified 02/28/23 12:58 Androgenic Anabolic Steroid AdvReac Verified 02/28/23 12:58 carisoprodol [From Soma] AdvReac Verified 02/28/23 12:58 PFS PFS Disclaimer: The information contained in this section may have been updated after the patient was seen, as this information can be updated by other users. Medical History (Updated 03/09/23 @ 16:13 by Alfredo Howell MD) Anemia Anxiety Aplastic anemia History of infertility Hx of abnormality of cervix Restless leg syndrome Surgical History H/O adenoidectomy History of tonsillectomy and adenoidectomy Family History Other Family history non-contributory No significant family history Social History (Updated 03/03/23 @ 12:18 by Cristiana Emerson RN) Smoking Status: Never smoker alcohol intake: never current occupational status: employed Travel in the last 8 weeks: Inside the [place] household members: spouse, family and children caffeine: Yes ROS Obtained: Yes All systems reviewed & no additional complaints except as documented Physical Exam General General appearance: alert Head Head exam: atraumatic Eye Eye exam: Present normal appearance ENT ENT exam: Present normal exam Neck Neck exam: Present normal inspection Chest Chest inspection: Present normal inspection Respiratory Respiratory exam: Present normal lung sounds b
== END 2023-03-09 16:26 | disposition home or self-care (01) ==
PROVIDERS: Emergency Provider Emergency Medicine; PCP Family Medicine
DX: D61.818 Other pancytopenia (principal); K62.5 Hemorrhage of anus and rectum
CPT/HCPCS: 80053; 85025; 85610; 85730; 99285

== ENCOUNTER → 2023-03-14 14:09 | Outpatient (CLI) | payer BC, SELFPAY ==
[2023-03-14 14:13] VITALS: BMI 36.8
[2023-03-14 14:50] LABS: Basophils % 0.2 % (0.1-2.0); Eosinophils % 0.4 % (0.1-12.0); Hematocrit 24.7 % (37.0-47.0); Hemoglobin 8.7 g/dL (12.2-16.2); Lymphocytes # 1.1 K/mm3 (0.7-4.5); Lymphocytes % 40.3 % (10-50); Mean Corpuscular HGB Conc 35.2 g/dL (31.8-35.4); Mean Corpuscular Hemoglobin 38.1 pg (27.0-31.2); Mean Corpuscular Volume 108.1 fl (81-99); Mean Platelet Volume 10.1 fl (7.4-10.4); Monocytes # 0.3 K/mm3 (0.1-1.0); Monocytes % 9.4 % (1.7-9.3); Neutrophils # 1.3 K/mm3 (1.8-7.8); Neutrophils % 49.6 % (37.0-80.0); Platelet Count 116 K/mm3 (142-424); Red Blood Count 2.28 M/mm3 (4.20-5.40); Red Cell Distribution Width 19.6 % (11.5-17.5); Reticulocyte % (Auto) 2.7 % (0.9-3.2); White Blood Count 2.7 K/mm3 (4.8-10.8)
[2023-03-14 14:58] LABS: Chloride 100 mmol/L (98-107); Potassium 4.5 mmoL/L (3.5-5.1); Sodium 136 mmol/L (136-145)
[2023-03-14 15:00] LABS: Blood Urea Nitrogen 25 mg/dl (7-17); Creatinine Clearance Estimated 91 mL/min (50-200); Estimated Glomerular Filt Rate 49 ml/min (>60); GFR (African American) 60 ML/MIN (>60)
[2023-03-14 15:01] LABS: Alanine Aminotransferase 243 U/L (12-78); Albumin Level 3.8 g/dl (3.5-5.0); Albumin/Globulin Ratio 1.6 (1.1-1.8); Alkaline Phosphatase 101 U/L (38-126); Anion Gap 13.5 mEq/L (5-15); Aspartate Amino Transferase 114 U/L (14-36); Bilirubin,Total 0.8 mg/dl (0.2-1.3); Calcium 9.1 mg/dl (8.4-10.2); Carbon Dioxide 27 mmol/L (22.0-30.0); Globulin 2.4 g/dL (1.3-3.2); Glucose 94 mg/dl (74-100); Total Protein,Serum 6.2 g/dl (6.3-8.2)
[2023-03-14 15:25] LABS: Lactate Dehydrogenase 352 U/L (313-618)
[2023-03-14 16:14] LABS: Vitamin B12 712 pg/mL (239-931)
== END ==
PROVIDERS: PCP Internal Medicine Adolescent Medicine; Visit Provider Internal Medicine Medical Oncology
DX: D61.818 Other pancytopenia (principal)
CPT/HCPCS: 36415; 80053; 82607; 83615; 85025; 85044

== ENCOUNTER 2023-03-22 10:30 | Outpatient (CLI) | payer BC, SELFPAY ==
[2023-03-22 10:35] VITALS: BMI 36.6
[2023-03-22 10:55] LABS: Basophils % 0.2 % (0.1-2.0); Eosinophils % 0.7 % (0.1-12.0); Hematocrit 25.6 % (37.0-47.0); Hemoglobin 8.7 g/dL (12.2-16.2); Lymphocytes # 0.8 K/mm3 (0.7-4.5); Lymphocytes % 30.6 % (10-50); Mean Corpuscular HGB Conc 34.2 g/dL (31.8-35.4); Mean Corpuscular Hemoglobin 37.1 pg (27.0-31.2); Mean Corpuscular Volume 108.7 fl (81-99); Mean Platelet Volume 10.8 fl (7.4-10.4); Monocytes # 0.2 K/mm3 (0.1-1.0); Monocytes % 8.2 % (1.7-9.3); Neutrophils # 1.6 K/mm3 (1.8-7.8); Neutrophils % 60.3 % (37.0-80.0); Platelet Count 116 K/mm3 (142-424); Red Blood Count 2.35 M/mm3 (4.20-5.40); Red Cell Distribution Width 19.8 % (11.5-17.5); Reticulocyte % (Auto) 3.2 % (0.9-3.2); White Blood Count 2.7 K/mm3 (4.8-10.8)
[2023-03-22 10:57] LABS: Alanine Aminotransferase 281 U/L (12-78); Albumin Level 4.1 g/dl (3.5-5.0); Albumin/Globulin Ratio 1.6 (1.1-1.8); Alkaline Phosphatase 99 U/L (38-126); Anion Gap 11.7 mEq/L (5-15); Aspartate Amino Transferase 133 U/L (14-36); Blood Urea Nitrogen 23 mg/dl (7-17); Calcium 9.2 mg/dl (8.4-10.2); Carbon Dioxide 28 mmol/L (22.0-30.0); Chloride 104 mmol/L (98-107); Creatinine Clearance Estimated 99 mL/min (50-200); Estimated Glomerular Filt Rate 54 ml/min (>60); GFR (African American) 66 ML/MIN (>60); Globulin 2.6 g/dL (1.3-3.2); Glucose 85 mg/dl (74-100); Potassium 4.7 mmoL/L (3.5-5.1); Sodium 139 mmol/L (136-145); Total Protein,Serum 6.7 g/dl (6.3-8.2)
== END 2023-03-22 10:52 | disposition home or self-care (01) ==
LOC: INF 10:31
PROVIDERS: PCP Internal Medicine Medical Oncology; Visit Provider Internal Medicine Medical Oncology
DX: D61.818 Other pancytopenia (principal)
CPT/HCPCS: 36415; 80053; 85025; 85044

== ENCOUNTER 2023-03-28 15:09 | Outpatient (CLI) | payer BC, SELFPAY ==
[2023-03-28 15:16] VITALS: BMI 36.5
[2023-03-28 15:28] LABS: Basophils % 0.2 % (0.1-2.0); Eosinophils % 0.7 % (0.1-12.0); Hemoglobin 8.7 g/dL (12.2-16.2); Lymphocytes # 1.1 K/mm3 (0.7-4.5); Lymphocytes % 28.7 % (10-50); Mean Corpuscular HGB Conc 33.8 g/dL (31.8-35.4); Mean Corpuscular Hemoglobin 37.1 pg (27.0-31.2); Mean Corpuscular Volume 109.7 fl (81-99); Mean Platelet Volume 9.4 fl (7.4-10.4); Monocytes # 0.3 K/mm3 (0.1-1.0); Monocytes % 6.8 % (1.7-9.3); Neutrophils # 2.4 K/mm3 (1.8-7.8); Neutrophils % 63.6 % (37.0-80.0); Platelet Count 129 K/mm3 (142-424); Red Blood Count 2.35 M/mm3 (4.20-5.40); Red Cell Distribution Width 19.8 % (11.5-17.5); Reticulocyte % (Auto) 4.2 % (0.9-3.2); White Blood Count 3.8 K/mm3 (4.8-10.8)
[2023-03-28 15:32] LABS: Chloride 103 mmol/L (98-107)
--- NOTE | 2023-03-28 15:32 | PC.NURSE ---
1515 - BLOOD DRAWN FROM LEFT AC USING BUTTERFLY NEEDLE TO CHECK WEEKLY LABS AT THIS TIME.
[2023-03-28 15:33] LABS: Potassium 4.3 mmoL/L (3.5-5.1); Sodium 137 mmol/L (136-145)
[2023-03-28 15:34] LABS: Hematocrit 25.9 % (37.0-47.0)
[2023-03-28 15:35] LABS: Alanine Aminotransferase 261 U/L (12-78); Aspartate Amino Transferase 121 U/L (14-36); Blood Urea Nitrogen 25 mg/dl (7-17); Creatinine Clearance Estimated 90 mL/min (50-200); Estimated Glomerular Filt Rate 49 ml/min (>60); GFR (African American) 60 ML/MIN (>60)
[2023-03-28 15:36] LABS: Albumin Level 3.9 g/dl (3.5-5.0); Albumin/Globulin Ratio 1.5 (1.1-1.8); Alkaline Phosphatase 118 U/L (38-126); Anion Gap 11.3 mEq/L (5-15); Bilirubin,Total 0.9 mg/dl (0.2-1.3); Calcium 9.3 mg/dl (8.4-10.2); Carbon Dioxide 27 mmol/L (22.0-30.0); Globulin 2.6 g/dL (1.3-3.2); Glucose 98 mg/dl (74-100); Total Protein,Serum 6.5 g/dl (6.3-8.2)
== END 2023-03-28 15:20 | disposition home or self-care (01) ==
LOC: INF 15:11
PROVIDERS: PCP Family Medicine; Visit Provider Internal Medicine Medical Oncology
DX: D61.818 Other pancytopenia (principal)
CPT/HCPCS: 36415; 80053; 85025; 85044

== ENCOUNTER 2023-04-05 11:11 | Outpatient (CLI) | payer BC, SELFPAY ==
[2023-04-05 11:17] VITALS: BMI 36.6
--- NOTE | 2023-04-05 11:23 | PC.NURSE ---
1123-collected labs via venipuncture stick in left ac; pt d/c home.
[2023-04-05 11:35] LABS: Basophils % 0.1 % (0.1-2.0); Eosinophils % 0.7 % (0.1-12.0); Hematocrit 23.9 % (37.0-47.0); Hemoglobin 7.8 g/dL (12.2-16.2); Lymphocytes # 0.8 K/mm3 (0.7-4.5); Lymphocytes % 27.8 % (10-50); Mean Corpuscular HGB Conc 32.9 g/dL (31.8-35.4); Mean Corpuscular Hemoglobin 36.1 pg (27.0-31.2); Mean Corpuscular Volume 109.9 fl (81-99); Mean Platelet Volume 10.6 fl (7.4-10.4); Monocytes # 0.2 K/mm3 (0.1-1.0); Monocytes % 8.4 % (1.7-9.3); Neutrophils # 1.8 K/mm3 (1.8-7.8); Platelet Count 114 K/mm3 (142-424); Red Blood Count 2.17 M/mm3 (4.20-5.40); Red Cell Distribution Width 19.7 % (11.5-17.5); Reticulocyte % (Auto) 4.7 % (0.9-3.2); White Blood Count 2.8 K/mm3 (4.8-10.8)
[2023-04-05 11:44] LABS: Chloride 105 mmol/L (98-107); Potassium 4.3 mmoL/L (3.5-5.1); Sodium 138 mmol/L (136-145)
[2023-04-05 11:47] LABS: Alanine Aminotransferase 183 U/L (12-78); Albumin Level 3.9 g/dl (3.5-5.0); Albumin/Globulin Ratio 1.4 (1.1-1.8); Alkaline Phosphatase 95 U/L (38-126); Anion Gap 12.3 mEq/L (5-15); Aspartate Amino Transferase 102 U/L (14-36); Blood Urea Nitrogen 21 mg/dl (7-17); Calcium 9.2 mg/dl (8.4-10.2); Carbon Dioxide 25 mmol/L (22.0-30.0); Creatinine Clearance Estimated 91 mL/min (50-200); Estimated Glomerular Filt Rate 49 ml/min (>60); GFR (African American) 60 ML/MIN (>60); Globulin 2.7 g/dL (1.3-3.2); Glucose 96 mg/dl (74-100); Total Protein,Serum 6.6 g/dl (6.3-8.2)
== END 2023-04-05 11:30 | disposition home or self-care (01) ==
LOC: INF 11:12
PROVIDERS: PCP Family Medicine; Visit Provider Internal Medicine Medical Oncology
DX: D61.818 Other pancytopenia (principal)
CPT/HCPCS: 36415; 80053; 85025; 85044

== ENCOUNTER 2023-04-09 08:10 | Outpatient (CLI) | payer BC, SELFPAY ==
[2023-04-09 08:15] VITALS: BMI 36.6
--- NOTE | 2023-04-09 08:49 | PC.NURSE ---
0825- type and screen drawn via butterfly in left ac. witnessed by steve zimmerman in lab. needle removed and dressing placed overtop.
== END 2023-04-09 08:32 | disposition home or self-care (01) ==
LOC: INF 08:10
PROVIDERS: PCP Family Medicine; Visit Provider Specialist
DX: D64.81 Anemia due to antineoplastic chemotherapy (principal)
CPT/HCPCS: 36415; 86850

== ENCOUNTER 2023-04-10 08:26 | Outpatient (CLI) | payer BC, SELFPAY ==
[2023-04-10] VITALS (11 sets, daily range): BP systolic 112–136; BP diastolic 52–86; PULSE 68–85; RESP 17–18; TEMP 36.6–37.1; O2SAT 96–100
--- NOTE | 2023-04-10 08:49 | PC.NURSE ---
0849-pt here for blood transfusion of 1 unit prbcs for symptomatic anemia with shortness of breath and weakness;pt also to receive unit of blood for pre-procedural precautions.
== END 2023-04-10 11:50 | disposition home or self-care (01) ==
LOC: INF 08:26
PROVIDERS: PCP Family Medicine; Visit Provider Specialist
DX: D64.81 Anemia due to antineoplastic chemotherapy (principal)
CPT/HCPCS: 36430; P9016

== ENCOUNTER 2023-04-11 13:51 | Outpatient (CLI) | payer BC, SELFPAY ==
[2023-04-11 13:59] VITALS: BMI 36.6
--- NOTE | 2023-04-11 14:05 | PC.NURSE ---
1405-collected labs via peripheral stick with butterfly in left ac. pt ok to d/c.
[2023-04-11 14:17] LABS: Basophils % 0.2 % (0.1-2.0); Eosinophils % 0.6 % (0.1-12.0); Hematocrit 27.1 % (37.0-47.0); Hemoglobin 9.1 g/dL (12.2-16.2); Lymphocytes # 1.1 K/mm3 (0.7-4.5); Lymphocytes % 31.8 % (10-50); Mean Corpuscular HGB Conc 33.5 g/dL (31.8-35.4); Mean Corpuscular Hemoglobin 35.7 pg (27.0-31.2); Mean Corpuscular Volume 106.5 fl (81-99); Mean Platelet Volume 10.1 fl (7.4-10.4); Monocytes # 0.2 K/mm3 (0.1-1.0); Monocytes % 6.8 % (1.7-9.3); Neutrophils # 2.1 K/mm3 (1.8-7.8); Neutrophils % 60.7 % (37.0-80.0); Platelet Count 99 K/mm3 (142-424); Red Blood Count 2.54 M/mm3 (4.20-5.40); Red Cell Distribution Width 19.5 % (11.5-17.5); Reticulocyte % (Auto) 3.6 % (0.9-3.2); White Blood Count 3.5 K/mm3 (4.8-10.8)
[2023-04-11 14:42] LABS: Chloride 105 mmol/L (98-107); Potassium 4.7 mmoL/L (3.5-5.1); Sodium 137 mmol/L (136-145)
[2023-04-11 14:45] LABS: Alanine Aminotransferase 174 U/L (12-78); Albumin Level 3.8 g/dl (3.5-5.0); Albumin/Globulin Ratio 1.4 (1.1-1.8); Alkaline Phosphatase 103 U/L (38-126); Anion Gap 11.7 mEq/L (5-15); Aspartate Amino Transferase 98 U/L (14-36); Blood Urea Nitrogen 25 mg/dl (7-17); Calcium 8.8 mg/dl (8.4-10.2); Carbon Dioxide 25 mmol/L (22.0-30.0); Creatinine Clearance Estimated 84 mL/min (50-200); Estimated Glomerular Filt Rate 45 ml/min (>60); GFR (African American) 54 ML/MIN (>60); Globulin 2.7 g/dL (1.3-3.2); Glucose 126 mg/dl (74-100); Total Protein,Serum 6.5 g/dl (6.3-8.2)
== END 2023-04-11 14:10 | disposition home or self-care (01) ==
LOC: INF 13:53
PROVIDERS: PCP Family Medicine; Visit Provider Internal Medicine Medical Oncology
DX: D64.81 Anemia due to antineoplastic chemotherapy (principal)
CPT/HCPCS: 36415; 80053; 85025; 85044

== ENCOUNTER 2023-04-19 09:16 | Outpatient (CLI) | payer BC, SELFPAY ==
[2023-04-19 09:20] VITALS: BMI 36.6
--- NOTE | 2023-04-19 09:24 | PC.NURSE ---
0924-collected labs via venipuncture stick with butterfly needle in left ac; pt d/c to appointment.
[2023-04-19 09:53] LABS: Basophils % 0.1 % (0.1-2.0); Eosinophils % 1.2 % (0.1-12.0); Hemoglobin 8.7 g/dL (12.2-16.2); Lymphocytes # 0.9 K/mm3 (0.7-4.5); Lymphocytes % 27.5 % (10-50); Mean Corpuscular HGB Conc 33.5 g/dL (31.8-35.4); Mean Corpuscular Hemoglobin 35.6 pg (27.0-31.2); Mean Corpuscular Volume 106.3 fl (81-99); Mean Platelet Volume 9.6 fl (7.4-10.4); Monocytes # 0.3 K/mm3 (0.1-1.0); Monocytes % 7.4 % (1.7-9.3); Neutrophils # 2.2 K/mm3 (1.8-7.8); Neutrophils % 63.7 % (37.0-80.0); Platelet Count 109 K/mm3 (142-424); Red Blood Count 2.44 M/mm3 (4.20-5.40); Red Cell Distribution Width 19.3 % (11.5-17.5); Reticulocyte % (Auto) 3.3 % (0.9-3.2); White Blood Count 3.4 K/mm3 (4.8-10.8)
[2023-04-19 09:58] LABS: Alanine Aminotransferase 143 U/L (12-78); Albumin Level 3.8 g/dl (3.5-5.0); Albumin/Globulin Ratio 1.5 (1.1-1.8); Alkaline Phosphatase 128 U/L (38-126); Anion Gap 12.1 mEq/L (5-15); Aspartate Amino Transferase 71 U/L (14-36); Bilirubin,Total 0.8 mg/dl (0.2-1.3); Blood Urea Nitrogen 21 mg/dl (7-17); Carbon Dioxide 25 mmol/L (22.0-30.0); Chloride 104 mmol/L (98-107); Creatinine Clearance Estimated 109 mL/min (50-200); Estimated Glomerular Filt Rate 61 ml/min (>60); GFR (African American) 74 ML/MIN (>60); Globulin 2.5 g/dL (1.3-3.2); Glucose 150 mg/dl (74-100); Potassium 4.1 mmoL/L (3.5-5.1); Sodium 137 mmol/L (136-145); Total Protein,Serum 6.3 g/dl (6.3-8.2)
== END 2023-04-19 09:26 | disposition home or self-care (01) ==
LOC: INF 09:16
PROVIDERS: PCP Family Medicine; Visit Provider Internal Medicine Medical Oncology
DX: D61.818 Other pancytopenia (principal)
CPT/HCPCS: 36415; 80053; 85025; 85044

== ENCOUNTER 2023-04-25 08:46 | Outpatient (CLI) | payer BC, SELFPAY ==
[2023-04-25 09:12] VITALS: BMI 36.6
[2023-04-25 09:30] LABS: Basophils % 0.2 % (0.1-2.0); Eosinophils % 0.9 % (0.1-12.0); Hematocrit 26.1 % (37.0-47.0); Hemoglobin 8.7 g/dL (12.2-16.2); Lymphocytes # 0.9 K/mm3 (0.7-4.5); Lymphocytes % 27.3 % (10-50); Mean Corpuscular HGB Conc 33.1 g/dL (31.8-35.4); Mean Corpuscular Hemoglobin 36.2 pg (27.0-31.2); Mean Corpuscular Volume 109.4 fl (81-99); Mean Platelet Volume 10.4 fl (7.4-10.4); Monocytes # 0.2 K/mm3 (0.1-1.0); Monocytes % 6.7 % (1.7-9.3); Neutrophils # 2.1 K/mm3 (1.8-7.8); Platelet Count 97 K/mm3 (142-424); Red Blood Count 2.39 M/mm3 (4.20-5.40); Red Cell Distribution Width 19.1 % (11.5-17.5); White Blood Count 3.2 K/mm3 (4.8-10.8)
[2023-04-25 09:42] LABS: Alanine Aminotransferase 207 U/L (12-78); Albumin Level 4.1 g/dl (3.5-5.0); Albumin/Globulin Ratio 1.5 (1.1-1.8); Alkaline Phosphatase 132 U/L (38-126); Anion Gap 11.6 mEq/L (5-15); Aspartate Amino Transferase 122 U/L (14-36); Blood Urea Nitrogen 28 mg/dl (7-17); Carbon Dioxide 26 mmol/L (22.0-30.0); Chloride 106 mmol/L (98-107); Creatinine Clearance Estimated 84 mL/min (50-200); Estimated Glomerular Filt Rate 45 ml/min (>60); GFR (African American) 54 ML/MIN (>60); Globulin 2.7 g/dL (1.3-3.2); Glucose 103 mg/dl (74-100); Potassium 4.6 mmoL/L (3.5-5.1); Sodium 139 mmol/L (136-145); Total Protein,Serum 6.8 g/dl (6.3-8.2)
[2023-04-25 10:20] LABS: Iron 256 ug/dL (37-170)
[2023-04-25 10:30] LABS: Total Iron Binding Capacity 270 ug/dL (265-497)
[2023-05-16 00:13] LABS: Cyclosporine 188
== END 2023-04-25 09:25 | disposition home or self-care (01) ==
LOC: INF 08:47
PROVIDERS: PCP Family Medicine; Visit Provider Internal Medicine Medical Oncology
DX: D61.9 Aplastic anemia, unspecified (principal)
CPT/HCPCS: 36415; 80053; 80158; 83540; 83550; 85025

== ENCOUNTER 2023-05-02 14:08 | Outpatient (CLI) | payer BC, SELFPAY ==
[2023-05-02 14:12] VITALS: BMI 36.1
--- NOTE | 2023-05-02 14:13 | PC.NURSE ---
1413-GABRIELE NG COLLECTED LABS VIA VENIPUNCTURE STICK WITH BUTTERFLY NEEDLE IN LEFT AC; PT D/C HOME
[2023-05-02 14:30] LABS: Chloride 104 mmol/L (98-107); Sodium 139 mmol/L (136-145)
[2023-05-02 14:31] LABS: Basophils % 0.1 % (0.1-2.0); Eosinophils # 0.1 K/mm3 (0.0-0.4); Eosinophils % 1.7 % (0.1-12.0); Hematocrit 24.1 % (37.0-47.0); Hemoglobin 8.2 g/dL (12.2-16.2); Lymphocytes # 0.8 K/mm3 (0.7-4.5); Lymphocytes % 30.9 % (10-50); Mean Corpuscular HGB Conc 33.9 g/dL (31.8-35.4); Mean Corpuscular Hemoglobin 35.7 pg (27.0-31.2); Mean Corpuscular Volume 105.4 fl (81-99); Mean Platelet Volume 10.4 fl (7.4-10.4); Monocytes # 0.2 K/mm3 (0.1-1.0); Monocytes % 7.2 % (1.7-9.3); Neutrophils # 1.6 K/mm3 (1.8-7.8); Neutrophils % 60.1 % (37.0-80.0); Platelet Count 132 K/mm3 (142-424); Red Blood Count 2.28 M/mm3 (4.20-5.40); Red Cell Distribution Width 19.5 % (11.5-17.5); Reticulocyte % (Auto) 2.7 % (0.9-3.2); White Blood Count 2.7 K/mm3 (4.8-10.8)
[2023-05-02 14:32] LABS: Alanine Aminotransferase 273 U/L (12-78); Aspartate Amino Transferase 162 U/L (14-36); Blood Urea Nitrogen 27 mg/dl (7-17); Creatinine Clearance Estimated 76 mL/min (50-200); Estimated Glomerular Filt Rate 41 ml/min (>60); GFR (African American) 50 ML/MIN (>60); Potassium 4.3 mmoL/L (3.5-5.1)
[2023-05-02 14:33] LABS: Albumin Level 4.2 g/dl (3.5-5.0); Albumin/Globulin Ratio 1.5 (1.1-1.8); Alkaline Phosphatase 120 U/L (38-126); Anion Gap 13.3 mEq/L (5-15); Carbon Dioxide 26 mmol/L (22.0-30.0); Globulin 2.8 g/dL (1.3-3.2); Glucose 126 mg/dl (74-100)
== END 2023-05-02 14:17 | disposition home or self-care (01) ==
PROVIDERS: PCP Family Medicine; Visit Provider Internal Medicine Medical Oncology
DX: D64.9 Anemia, unspecified (principal)
CPT/HCPCS: 36415; 80053; 85025; 85044

== ENCOUNTER 2023-05-16 13:16 | Outpatient (CLI) | payer BC, SELFPAY ==
[2023-05-16 13:19] VITALS: BMI 36.3
--- NOTE | 2023-05-16 13:27 | PC.NURSE ---
1325-collected labs via venipuncture with butterfly needle in left ac.
[2023-05-16 14:03] LABS: Alanine Aminotransferase 152 U/L (12-78); Albumin Level 4.2 g/dl (3.5-5.0); Albumin/Globulin Ratio 1.6 (1.1-1.8); Alkaline Phosphatase 147 U/L (38-126); Anion Gap 10.3 mEq/L (5-15); Aspartate Amino Transferase 85 U/L (14-36); Bilirubin,Total 0.8 mg/dl (0.2-1.3); Blood Urea Nitrogen 19 mg/dl (7-17); Calcium 9.2 mg/dl (8.4-10.2); Carbon Dioxide 26 mmol/L (22.0-30.0); Chloride 107 mmol/L (98-107); Creatinine Clearance Estimated 106 mL/min (50-200); Estimated Glomerular Filt Rate 61 ml/min (>60); GFR (African American) 73 ML/MIN (>60); Globulin 2.7 g/dL (1.3-3.2); Glucose 121 mg/dl (74-100); Potassium 4.3 mmoL/L (3.5-5.1); Sodium 139 mmol/L (136-145); Total Protein,Serum 6.9 g/dl (6.3-8.2)
[2023-05-16 15:54] LABS: Hematocrit 23.6 % (37.0-47.0); Mean Corpuscular HGB Conc 33.9 g/dL (31.8-35.4); Mean Corpuscular Hemoglobin 37.9 pg (27.0-31.2); Mean Corpuscular Volume 111.8 fl (81-99); Mean Platelet Volume 11.7 fl (7.4-10.4); Neutrophils % 59.7 % (37.0-80.0); Platelet Count 109 K/mm3 (142-424); Red Blood Count 2.11 M/mm3 (4.20-5.40); Red Cell Distribution Width 18.7 % (11.5-17.5); White Blood Count 3.8 K/mm3 (4.8-10.8)
[2023-05-16 15:55] LABS: Basophils % 0.3 % (0.1-2.0); Eosinophils % 0.8 % (0.1-12.0); Lymphocytes # 0.9 K/mm3 (0.7-4.5); Lymphocytes % 24.5 % (10-50); Monocytes # 0.4 K/mm3 (0.1-1.0); Monocytes % 10.8 % (1.7-9.3); Neutrophils # 2.3 K/mm3 (1.8-7.8); Reticulocyte % (Auto) 8.2 % (0.9-3.2)
== END 2023-05-16 13:27 | disposition home or self-care (01) ==
LOC: INF 13:16
PROVIDERS: PCP Family Medicine; Visit Provider Internal Medicine Medical Oncology
DX: D64.9 Anemia, unspecified (principal)
CPT/HCPCS: 36415; 80053; 85025; 85044

== ENCOUNTER 2023-05-24 11:01 | Outpatient (CLI) | payer BC, SELFPAY ==
[2023-05-24 11:14] VITALS: BMI 36.5
[2023-05-24 11:48] LABS: Chloride 107 mmol/L (98-107); Potassium 4.4 mmoL/L (3.5-5.1); Sodium 138 mmol/L (136-145)
[2023-05-24 11:51] LABS: Alanine Aminotransferase 159 U/L (12-78); Albumin Level 4.1 g/dl (3.5-5.0); Albumin/Globulin Ratio 1.4 (1.1-1.8); Alkaline Phosphatase 132 U/L (38-126); Anion Gap 10.4 mEq/L (5-15); Aspartate Amino Transferase 99 U/L (14-36); Blood Urea Nitrogen 19 mg/dl (7-17); Carbon Dioxide 25 mmol/L (22.0-30.0); Creatinine Clearance Estimated 119 mL/min (50-200); Estimated Glomerular Filt Rate 68 ml/min (>60); GFR (African American) 83 ML/MIN (>60); Globulin 2.9 g/dL (1.3-3.2)
[2023-05-24 11:52] LABS: Calcium 9.5 mg/dl (8.4-10.2); Glucose 88 mg/dl (74-100)
[2023-05-24 11:55] LABS: Basophils % 0.1 % (0.1-2.0); Eosinophils % 0.6 % (0.1-12.0); Hematocrit 22.9 % (37.0-47.0); Hemoglobin 7.7 g/dL (12.2-16.2); Lymphocytes # 0.9 K/mm3 (0.7-4.5); Lymphocytes % 30.2 % (10-50); Mean Corpuscular HGB Conc 33.5 g/dL (31.8-35.4); Mean Corpuscular Hemoglobin 36.9 pg (27.0-31.2); Mean Corpuscular Volume 110.1 fl (81-99); Mean Platelet Volume 9.5 fl (7.4-10.4); Monocytes # 0.2 K/mm3 (0.1-1.0); Monocytes % 7.9 % (1.7-9.3); Neutrophils # 1.8 K/mm3 (1.8-7.8); Neutrophils % 61.2 % (37.0-80.0); Platelet Count 129 K/mm3 (142-424); Red Blood Count 2.08 M/mm3 (4.20-5.40); Red Cell Distribution Width 19.9 % (11.5-17.5)
[2023-05-24 12:01] LABS: Reticulocyte % (Auto) 4.3 % (0.9-3.2)
== END 2023-05-24 11:45 | disposition home or self-care (01) ==
LOC: INF 11:02
PROVIDERS: PCP Family Medicine; Visit Provider Internal Medicine Medical Oncology
DX: D61.818 Other pancytopenia (principal)
CPT/HCPCS: 36415; 80053; 85025; 85044

== ENCOUNTER 2023-05-30 14:15 | Outpatient (CLI) | payer BC, SELFPAY ==
--- NOTE | 2023-05-30 14:20 | PC.NURSE ---
1420-collected labs via peripheral stick with butterfly needle in left ac;pt to wait on lab results
[2023-05-30 14:21] VITALS: BMI 36.8
[2023-05-30 14:38] LABS: Basophils % 0.2 % (0.1-2.0); Eosinophils % 0.6 % (0.1-12.0); Hemoglobin 7.7 g/dL (12.2-16.2); Lymphocytes % 32.9 % (10-50); Mean Corpuscular HGB Conc 33.1 g/dL (31.8-35.4); Mean Corpuscular Hemoglobin 36.2 pg (27.0-31.2); Mean Corpuscular Volume 109.4 fl (81-99); Monocytes # 0.2 K/mm3 (0.1-1.0); Monocytes % 5.9 % (1.7-9.3); Neutrophils # 1.8 K/mm3 (1.8-7.8); Neutrophils % 60.5 % (37.0-80.0); Platelet Count 112 K/mm3 (142-424); Red Blood Count 2.14 M/mm3 (4.20-5.40); Red Cell Distribution Width 19.5 % (11.5-17.5); Reticulocyte % (Auto) 5.7 % (0.9-3.2)
[2023-05-30 14:49] LABS: Hematocrit 23.3 % (37.0-47.0)
[2023-05-30 14:52] LABS: Alanine Aminotransferase 285 U/L (12-78); Albumin Level 4.2 g/dl (3.5-5.0); Albumin/Globulin Ratio 1.6 (1.1-1.8); Alkaline Phosphatase 126 U/L (38-126); Aspartate Amino Transferase 172 U/L (14-36); Bilirubin,Total 0.8 mg/dl (0.2-1.3); Blood Urea Nitrogen 22 mg/dl (7-17); Calcium 9.1 mg/dl (8.4-10.2); Carbon Dioxide 27 mmol/L (22.0-30.0); Chloride 104 mmol/L (98-107); Creatinine Clearance Estimated 98 mL/min (50-200); Estimated Glomerular Filt Rate 54 ml/min (>60); GFR (African American) 66 ML/MIN (>60); Globulin 2.6 g/dL (1.3-3.2); Glucose 169 mg/dl (74-100); Sodium 137 mmol/L (136-145); Total Protein,Serum 6.8 g/dl (6.3-8.2)
== END 2023-05-30 14:58 | disposition home or self-care (01) ==
LOC: INF 14:16
PROVIDERS: PCP Family Medicine; Visit Provider Internal Medicine Medical Oncology
DX: D61.818 Other pancytopenia (principal)
CPT/HCPCS: 36415; 80053; 85025; 85044

== ENCOUNTER 2023-06-06 10:24 | Outpatient (CLI) | payer BC, SELFPAY ==
[2023-06-06 10:27] VITALS: BMI 36.8
--- NOTE | 2023-06-06 10:50 | PC.NURSE ---
1030- type and screen drawn via butterfly needle in left ac, per MD order. 1 unit PRBC ordered to be transfused tomorrow 06/07/23.
== END 2023-06-06 10:40 | disposition home or self-care (01) ==
LOC: INF 10:24
PROVIDERS: PCP Family Medicine; Visit Provider Internal Medicine Medical Oncology
DX: D61.9 Aplastic anemia, unspecified (principal)
CPT/HCPCS: 36415; 86850

== ENCOUNTER 2023-06-07 09:41 | Outpatient (CLI) | payer BC, SELFPAY ==
[2023-06-07] VITALS (10 sets, daily range): BP systolic 107–129; BP diastolic 40–70; PULSE 72–83; RESP 18; TEMP 36.6–37; O2SAT 98–100
== END 2023-06-07 13:25 | disposition home or self-care (01) ==
LOC: INF 09:41
PROVIDERS: PCP Family Medicine; Visit Provider Internal Medicine Medical Oncology
DX: D61.9 Aplastic anemia, unspecified (principal)
CPT/HCPCS: 36430; P9016

== ENCOUNTER 2023-06-13 15:10 | Outpatient (CLI) | payer BC, SELFPAY ==
[2023-06-13 15:21] VITALS: BMI 36.3
--- NOTE | 2023-06-13 15:21 | PC.NURSE ---
1521-collected labs via veinpuncture stick in left ac with butterfly needle; pt to d/c home
[2023-06-13 15:40] LABS: Basophils % 0.1 % (0.1-2.0); Eosinophils % 0.5 % (0.1-12.0); Hematocrit 26.8 % (37.0-47.0); Lymphocytes # 1.1 K/mm3 (0.7-4.5); Lymphocytes % 29.3 % (10-50); Mean Corpuscular HGB Conc 33.6 g/dL (31.8-35.4); Mean Corpuscular Hemoglobin 36.2 pg (27.0-31.2); Mean Corpuscular Volume 107.8 fl (81-99); Mean Platelet Volume 10.3 fl (7.4-10.4); Monocytes # 0.3 K/mm3 (0.1-1.0); Monocytes % 7.6 % (1.7-9.3); Neutrophils # 2.3 K/mm3 (1.8-7.8); Neutrophils % 62.5 % (37.0-80.0); Platelet Count 112 K/mm3 (142-424); Red Blood Count 2.49 M/mm3 (4.20-5.40); Red Cell Distribution Width 20.2 % (11.5-17.5); Reticulocyte % (Auto) 4.2 % (0.9-3.2); White Blood Count 3.7 K/mm3 (4.8-10.8)
[2023-06-13 15:56] LABS: Alanine Aminotransferase 211 U/L (12-78); Albumin Level 4.1 g/dl (3.5-5.0); Albumin/Globulin Ratio 1.4 (1.1-1.8); Alkaline Phosphatase 132 U/L (38-126); Anion Gap 10.4 mEq/L (5-15); Aspartate Amino Transferase 108 U/L (14-36); Bilirubin,Total 0.7 mg/dl (0.2-1.3); Blood Urea Nitrogen 21 mg/dl (7-17); Calcium 8.8 mg/dl (8.4-10.2); Carbon Dioxide 25 mmol/L (22.0-30.0); Chloride 104 mmol/L (98-107); Creatinine Clearance Estimated 106 mL/min (50-200); Estimated Glomerular Filt Rate 61 ml/min (>60); GFR (African American) 73 ML/MIN (>60); Globulin 2.9 g/dL (1.3-3.2); Glucose 92 mg/dl (74-100); Potassium 4.4 mmoL/L (3.5-5.1); Sodium 135 mmol/L (136-145)
== END 2023-06-13 15:25 | disposition home or self-care (01) ==
LOC: INF 15:11
PROVIDERS: PCP Family Medicine; Visit Provider Internal Medicine Medical Oncology
DX: D61.818 Other pancytopenia (principal)
CPT/HCPCS: 36415; 80053; 85025; 85044

== ENCOUNTER 2023-06-17 15:14 | Outpatient (CLI) | payer BC, SELFPAY ==
[2023-06-17 15:19] VITALS: BMI 36.8
--- NOTE | 2023-06-17 15:23 | PC.NURSE ---
1523-collected labs via venipuncture stick with butterfly needle in left ac
[2023-06-17 15:33] LABS: Basophils % 0.2 % (0.1-2.0); Eosinophils % 0.6 % (0.1-12.0); Hematocrit 24.9 % (37.0-47.0); Hemoglobin 8.4 g/dL (12.2-16.2); Lymphocytes # 1.2 K/mm3 (0.7-4.5); Lymphocytes % 40.1 % (10-50); Mean Corpuscular HGB Conc 33.8 g/dL (31.8-35.4); Mean Corpuscular Hemoglobin 36.4 pg (27.0-31.2); Mean Corpuscular Volume 107.7 fl (81-99); Mean Platelet Volume 11.4 fl (7.4-10.4); Monocytes # 0.2 K/mm3 (0.1-1.0); Monocytes % 7.2 % (1.7-9.3); Neutrophils # 1.5 K/mm3 (1.8-7.8); Neutrophils % 51.9 % (37.0-80.0); Platelet Count 98 K/mm3 (142-424); Red Blood Count 2.32 M/mm3 (4.20-5.40); Red Cell Distribution Width 20.3 % (11.5-17.5); White Blood Count 2.9 K/mm3 (4.8-10.8)
[2023-06-17 15:54] LABS: Alanine Aminotransferase 202 U/L (12-78); Albumin/Globulin Ratio 1.4 (1.1-1.8); Alkaline Phosphatase 123 U/L (38-126); Anion Gap 10.2 mEq/L (5-15); Aspartate Amino Transferase 110 U/L (14-36); Bilirubin,Total 0.7 mg/dl (0.2-1.3); Blood Urea Nitrogen 23 mg/dl (7-17); Carbon Dioxide 25 mmol/L (22.0-30.0); Chloride 107 mmol/L (98-107); Creatinine Clearance Estimated 98 mL/min (50-200); Estimated Glomerular Filt Rate 54 ml/min (>60); GFR (African American) 66 ML/MIN (>60); Globulin 2.8 g/dL (1.3-3.2); Glucose 95 mg/dl (74-100); Potassium 4.2 mmoL/L (3.5-5.1); Sodium 138 mmol/L (136-145); Total Protein,Serum 6.8 g/dl (6.3-8.2)
== END 2023-06-17 15:25 | disposition home or self-care (01) ==
LOC: INF 15:15
PROVIDERS: PCP Family Medicine; Visit Provider Internal Medicine Medical Oncology
DX: D61.818 Other pancytopenia (principal)
CPT/HCPCS: 36415; 80053; 85025; 85044

== ENCOUNTER 2023-06-27 15:52 | Outpatient (CLI) | payer BC, SELFPAY ==
[2023-06-27 15:56] VITALS: BMI 36.3
--- NOTE | 2023-06-27 16:00 | PC.NURSE ---
1400-collected labs via venipuncture stick in left ac;pt d/c home.
[2023-06-27 16:55] LABS: Eosinophils % 0.5 % (0.1-12.0); Hematocrit 25.1 % (37.0-47.0); Hemoglobin 8.7 g/dL (12.2-16.2); Lymphocytes # 0.9 K/mm3 (0.7-4.5); Lymphocytes % 33.7 % (10-50); Mean Corpuscular HGB Conc 34.6 g/dL (31.8-35.4); Mean Corpuscular Volume 106.9 fl (81-99); Mean Platelet Volume 9.6 fl (7.4-10.4); Monocytes # 0.2 K/mm3 (0.1-1.0); Monocytes % 7.8 % (1.7-9.3); Neutrophils # 1.6 K/mm3 (1.8-7.8); Platelet Count 129 K/mm3 (142-424); Red Blood Count 2.35 M/mm3 (4.20-5.40); Red Cell Distribution Width 20.5 % (11.5-17.5); Reticulocyte % (Auto) 4.2 % (0.9-3.2); White Blood Count 2.8 K/mm3 (4.8-10.8)
[2023-06-27 18:10] LABS: Chloride 105 mmol/L (98-107); Potassium 4.1 mmoL/L (3.5-5.1); Sodium 139 mmol/L (136-145)
[2023-06-27 18:13] LABS: Alanine Aminotransferase 201 U/L (12-78); Albumin Level 3.8 g/dl (3.5-5.0); Albumin/Globulin Ratio 1.5 (1.1-1.8); Alkaline Phosphatase 126 U/L (38-126); Anion Gap 11.1 mEq/L (5-15); Aspartate Amino Transferase 107 U/L (14-36); Bilirubin,Total 0.8 mg/dl (0.2-1.3); Blood Urea Nitrogen 33 mg/dl (7-17); Carbon Dioxide 27 mmol/L (22.0-30.0); Creatinine Clearance Estimated 82 mL/min (50-200); Estimated Glomerular Filt Rate 45 ml/min (>60); GFR (African American) 54 ML/MIN (>60); Globulin 2.5 g/dL (1.3-3.2); Total Protein,Serum 6.3 g/dl (6.3-8.2)
[2023-06-27 18:14] LABS: Calcium 9.6 mg/dl (8.4-10.2); Glucose 95 mg/dl (74-100)
== END 2023-06-27 16:02 | disposition home or self-care (01) ==
LOC: INF 15:53
PROVIDERS: PCP Family Medicine; Visit Provider Internal Medicine Medical Oncology
DX: D61.818 Other pancytopenia (principal)
CPT/HCPCS: 36415; 80053; 85025; 85044

== ENCOUNTER → 2023-06-28 11:45 | Outpatient (CLI) | payer BC, SELFPAY ==
[2023-06-28 12:46] LABS: Coronavirus 19, PCR Not Detected (NotDetected); Influenza A, PCR Not Detected (NotDetected); Influenza B, PCR Not Detected (NotDetected)
== END ==
PROVIDERS: PCP Family Medicine; Visit Provider Physician Assistant
DX: Z20.822 Contact with and (suspected) exposure to COVID-19 (principal)
CPT/HCPCS: 87635; 87636

== ENCOUNTER 2023-07-05 13:20 | Outpatient (CLI) | payer BC, SELFPAY ==
[2023-07-05 13:26] VITALS: BMI 36.3
[2023-07-05 13:49] LABS: Basophils % 0.1 % (0.1-2.0); Eosinophils % 0.5 % (0.1-12.0); Hematocrit 25.9 % (37.0-47.0); Hemoglobin 8.3 g/dL (12.2-16.2); Lymphocytes # 0.8 K/mm3 (0.7-4.5); Lymphocytes % 18.9 % (10-50); Mean Corpuscular HGB Conc 32.1 g/dL (31.8-35.4); Mean Corpuscular Hemoglobin 35.4 pg (27.0-31.2); Mean Corpuscular Volume 110.5 fl (81-99); Mean Platelet Volume 9.9 fl (7.4-10.4); Monocytes # 0.2 K/mm3 (0.1-1.0); Monocytes % 4.8 % (1.7-9.3); Neutrophils % 75.7 % (37.0-80.0); Platelet Count 127 K/mm3 (142-424); Red Blood Count 2.34 M/mm3 (4.20-5.40); Red Cell Distribution Width 20.4 % (11.5-17.5); Reticulocyte % (Auto) 5.5 % (0.9-3.2)
[2023-07-05 13:59] LABS: Alanine Aminotransferase 182 U/L (12-78); Albumin Level 4.3 g/dl (3.5-5.0); Albumin/Globulin Ratio 1.5 (1.1-1.8); Alkaline Phosphatase 116 U/L (38-126); Aspartate Amino Transferase 96 U/L (14-36); Bilirubin,Total 0.8 mg/dl (0.2-1.3); Blood Urea Nitrogen 23 mg/dl (7-17); Calcium 9.4 mg/dl (8.4-10.2); Carbon Dioxide 24 mmol/L (22.0-30.0); Chloride 103 mmol/L (98-107); Creatinine Clearance Estimated 89 mL/min (50-200); Estimated Glomerular Filt Rate 49 ml/min (>60); GFR (African American) 59 ML/MIN (>60); Globulin 2.9 g/dL (1.3-3.2); Glucose 150 mg/dl (74-100); Sodium 136 mmol/L (136-145); Total Protein,Serum 7.2 g/dl (6.3-8.2)
--- NOTE | 2023-07-05 14:32 | PC.NURSE ---
1335 - BLOOD DRAWN FROM RIGHT AC USING BUTTERFLY NEEDLE TO CHECK WEEKLY LABS AT THIS TIME.
== END 2023-07-05 14:05 | disposition home or self-care (01) ==
LOC: INF 13:22
PROVIDERS: PCP Family Medicine; Visit Provider Internal Medicine Medical Oncology
DX: D61.818 Other pancytopenia (principal)
CPT/HCPCS: 36415; 80053; 85025; 85044

== ENCOUNTER → 2023-07-18 12:19 | Outpatient (CLI) | payer BC, SELFPAY | PROVIDERS: PCP Family Medicine; Visit Provider Internal Medicine Medical Oncology | DX: E83.10 Disorder of iron metabolism, unspecified (principal) ==

== ENCOUNTER 2023-07-23 15:19 | Outpatient (CLI) | payer BC, SELFPAY ==
[2023-07-23 15:34] VITALS: BMI 36.3
[2023-07-23 15:42] LABS: Basophils % 0.2 % (0.1-2.0); Eosinophils % 0.6 % (0.1-12.0); Hematocrit 23.5 % (37.0-47.0); Hemoglobin 7.9 g/dL (12.2-16.2); Lymphocytes # 0.8 K/mm3 (0.7-4.5); Lymphocytes % 31.9 % (10-50); Mean Corpuscular HGB Conc 33.5 g/dL (31.8-35.4); Mean Corpuscular Hemoglobin 36.4 pg (27.0-31.2); Mean Corpuscular Volume 108.6 fl (81-99); Monocytes # 0.1 K/mm3 (0.1-1.0); Monocytes % 5.5 % (1.7-9.3); Neutrophils # 1.5 K/mm3 (1.8-7.8); Neutrophils % 61.8 % (37.0-80.0); Platelet Count 138 K/mm3 (142-424); Red Blood Count 2.17 M/mm3 (4.20-5.40); Red Cell Distribution Width 20.4 % (11.5-17.5); White Blood Count 2.4 K/mm3 (4.8-10.8)
--- NOTE | 2023-07-23 16:08 | PC.NURSE ---
1532- cbc, cmp, retic drawn per MD order via butterfly in left ac. needle removed and coban applied. pt tolerated well.
[2023-07-23 16:09] LABS: Chloride 108 mmol/L (98-107); Sodium 139 mmol/L (136-145)
[2023-07-23 16:10] LABS: Potassium 4.1 mmoL/L (3.5-5.1)
[2023-07-23 16:12] LABS: Alanine Aminotransferase 157 U/L (12-78); Albumin Level 3.9 g/dl (3.5-5.0); Albumin/Globulin Ratio 1.4 (1.1-1.8); Alkaline Phosphatase 115 U/L (38-126); Anion Gap 10.1 mEq/L (5-15); Aspartate Amino Transferase 104 U/L (14-36); Bilirubin,Total 0.8 mg/dl (0.2-1.3); Blood Urea Nitrogen 28 mg/dl (7-17); Carbon Dioxide 25 mmol/L (22.0-30.0); Creatinine Clearance Estimated 76 mL/min (50-200); Estimated Glomerular Filt Rate 41 ml/min (>60); GFR (African American) 50 ML/MIN (>60); Globulin 2.7 g/dL (1.3-3.2); Total Protein,Serum 6.6 g/dl (6.3-8.2)
[2023-07-23 16:13] LABS: Calcium 8.8 mg/dl (8.4-10.2); Glucose 105 mg/dl (74-100)
== END 2023-07-23 16:05 | disposition home or self-care (01) ==
PROVIDERS: PCP Family Medicine; Visit Provider Internal Medicine Medical Oncology
DX: D61.818 Other pancytopenia (principal)
CPT/HCPCS: 36415; 80053; 85025; 85044

== ENCOUNTER → 2023-09-10 11:46 | Outpatient (CLI) | payer BC, SELFPAY | PROVIDERS: PCP Family Medicine; Visit Provider Family Medicine | DX: Z20.822 Contact with and (suspected) exposure to COVID-19 (principal) | CPT/HCPCS: 87635 ==

== ENCOUNTER → 2023-09-25 16:04 | Outpatient (CLI) | payer BC, SELFPAY ==
[2023-09-25 16:11] LABS: Adenovirus,PCR Not Detected (NotDetected); Coronavirus 19, PCR Not Detected (NotDetected); Coronavirus 229E Not Detected (NotDetected); Coronavirus NL63 Not Detected (NotDetected); Coronavirus OC43 Not Detected (NotDetected); Coronovirus HKU1,PCR Not Detected (NotDetected); Human Metapneumovirus Not Detected (NotDetected); Influenza A, PCR Not Detected (NotDetected); Influenza AH1, 2009 Not Detected (NotDetected); Influenza AH1, PCR Not Detected (NotDetected); Influenza AH3,PCR Not Detected (NotDetected); Influenza B, PCR Not Detected (NotDetected); Parainfluenza 1, PCR Not Detected (NotDetected); Parainfluenza 2, PCR Not Detected (NotDetected); Parainfluenza 3, PCR Not Detected (NotDetected); Parainfluenza 4, PCR Not Detected (NotDetected); Respiratory Syncytial Virus Not Detected (NotDetected); Rhinovirus/Enterovirus Not Detected (NotDetected)
[2023-09-25 16:23] LABS: Basophils % 0.2 % (0.1-2.0); Eosinophils % 0.4 % (0.1-12.0); Hematocrit 25.6 % (37.0-47.0); Hemoglobin 8.6 g/dL (12.2-16.2); Lymphocytes % 29.3 % (10-50); Mean Corpuscular HGB Conc 33.4 g/dL (31.8-35.4); Mean Corpuscular Hemoglobin 37.6 pg (27.0-31.2); Mean Corpuscular Volume 112.4 fl (81-99); Mean Platelet Volume 10.5 fl (7.4-10.4); Monocytes # 0.3 K/mm3 (0.1-1.0); Monocytes % 8.4 % (1.7-9.3); Neutrophils % 61.7 % (37.0-80.0); Platelet Count 114 K/mm3 (142-424); Red Blood Count 2.28 M/mm3 (4.20-5.40); Red Cell Distribution Width 22.2 % (11.5-17.5); White Blood Count 3.3 K/mm3 (4.8-10.8)
== END ==
PROVIDERS: PCP Family Medicine; Visit Provider Physician Assistant
DX: J06.9 Acute upper respiratory infection, unspecified (principal)
CPT/HCPCS: 36415; 85025; 87632; 87635

== ENCOUNTER 2025-02-02 09:31 | Outpatient (CLI) | payer BC, SELFPAY ==
[2025-02-02 09:48] LABS: Basophils % 0.3 % (0.1-2.0); Eosinophils % 0.6 % (0.1-12.0); Hematocrit 29.1 % (37.0-47.0); Hemoglobin 9.6 g/dL (12.2-16.2); Lymphocytes # 0.8 K/mm3 (0.7-4.5); Lymphocytes % 21.3 % (10-50); Mean Corpuscular Hemoglobin 39.7 pg (27.0-31.2); Mean Corpuscular Volume 120.2 fl (81-99); Mean Platelet Volume 11.6 fl (7.4-10.4); Monocytes # 0.5 K/mm3 (0.1-1.0); Monocytes % 12.6 % (1.7-9.3); Neutrophils # 2.3 K/mm3 (1.8-7.8); Neutrophils % 64.1 % (37.0-80.0); Platelet Count 104 K/mm3 (142-424); Red Blood Count 2.42 M/mm3 (4.20-5.40); Red Cell Distribution Width 15.9 % (11.5-17.5); White Blood Count 3.6 K/mm3 (4.8-10.8)
== END 2025-02-02 23:59 | disposition home or self-care (01) ==
LOC: LAB 09:31
PROVIDERS: PCP Family Medicine; Visit Provider Family Medicine
DX: J06.9 Acute upper respiratory infection, unspecified (principal)
CPT/HCPCS: 36415; 85025

== ENCOUNTER 2025-09-11 22:00 | Emergency (ER) | payer BC, SELFPAY ==
--- OUTSIDE RECORDS SUMMARY | 2021-03-13 07:16 | XMS_ITS | Encounter Summary ---
Author [place] [address] Care Team Providers Care Financial Service Professional Name Role Phone Fredy Lorenza Saud Primary Care Provider [phone] Gabe Hanna MD Unavailable Unavailable GarethUrszula chandler MD Unavailable [phone] Encounter Details Date Type Department Care Team (Late st Contact Info) Description 03/13/2021 8:16 AM EDT Hospital Encounter [facility] [address] Excused Social History Tobacco Use Types Packs/Day Years Used Date Smoking Tobacco: Never Smokeless Tobacco: Never Alcohol Use Standard Drinks/Week Comments No 0 (1 standard drink = 0.6 oz pur e alcohol) PHQ-2 Answer Date Recorded PHQ-2 Total Score 0 08/21/2024 Sexually Active Control Partners Comments Not Currently Comments No Sex and Gender Information Value Date Recorded Sex Assigned at Not on file Legal Sex Female 3:50 AM EDT Gender Identity Not on file Sexual Orientation Not on file COVID-19 Exposure Response Date Recorded In the last 10 days, have yo u been in contact with someone who was confirmed or suspected to have Coronavirus/COVID-19? No / Unsure 03/13/2024 3:28 PM EDT documented as of this encounter Functional Status * Is the person deaf or does he/she have serious difficulty hearing? Answer Date of Assessment Author No 01/28/2021 2:04 PM EDT Lorenza Hanson RN * Is the person blind or does he/she have serious difficulty seeing even when wearing glasses? Answer Date of Assessment Author No 01/28/2021 2:04 PM Lorenza Garsia RN * Does this person have serious difficulty walking or climbing stairs? Answer Date of Assessment Author No 01/28/2021 2:04 PM Lorenza Garsia RN * Does this person have difficulty dressing or bathing? Answer Date of Assessment Author No 01/28/2021 2:04 PM Lorenza Garsia RN * Because of a physical, mental or emotional condition, does this person have difficulty doing errands alone such as visiting a doctor's office or shopping? Answer Date of Assessment Author No 01/28/2021 2:04 PM Lorenza Garsia RN * PHQ-9 Total Score Answer Date of Assessment Author 0 08/21/2024 8:33 AM Maria Elena Locke MA * Question Answer Date of Assessment Author Little interest or pleasure in doing things 0 08/21/2024 8:33 AM Zoe Locke M A Feeling down, depressed, or hopeless 0 07/29 8:33 AM Zoe Locke MA PHQ-2 Total Score 0 08/21/2024 8:33 AM Zoe Locke MA * Suicide Severity Rating Answer Date of Assessment Author No Risk 02/24/2025 8:00 AM Maria Elena Locke MA * [place] Suicide Severity Rating Scale (Q shift for moderate and high) Question Answer Date of Assessment Author 1. In the past month, have y ou wished you were or wished you could go to sleep and not wake up? 0 02/24/2025 8:00 AM Zoe Macdonald nd, MA 2. In the past month, have y ou actually had any thoughts of killing yourself? (If no, skip to question 6) 0 02/24/2025 8:00 AM Zoe Locke M A 6. Have you ever done anythi ng, started to do anything, or prepared to do anything to end your life? 0 02/24/2025 8:00 AM EDT Zoe Dias MA documented as of this encounter Mental Status * Because of a physical, mental or emotional condition, does this person have serious difficulty concentrating, remembering or making decisions? Answer Entry Date Author No 01/28/2021 2:04 PM EDT Lorenza Hanson RN documented in this encounter Plan of Treatment Upcoming Encounters Date Type Department Care Team (Late st Contact Info) Description 09/16/2025 3:00 PM EST Appointment [place] [address] 09/16/2025 3:20 PM EST [facility]ment [facility] [place] [address] Urszula Servin MD 1 [facility] [place], [place] [id number] 10/05/2025 3:00 PM EST Appointment [facility] [place], [place] [id number] 10/05/2025 3:20 PM EST Appointment [facility] [place], [place] [id number] Urszula Servin MD 1 [place] [address] documented as of this encounter Goals Goal Patient Goal Type Associated Problems Recent Progress Patient-Stated? Author Knowledge Deficit General No Pinky Avina, RN Note: Knowledge Deficient Related to Disease Process/Treatment Patient and family will be knowledgeable of disease process and/or treatment regimen PROGRESSING: Consult: Patient and family will understand the reason for the visit. First Treatment Visit: Patient will verbalize understanding of disease process, treatment regimen, potential side effects, and behaviors to manage/prevent side effects. Recurring Treatments: Patient and family will ask appropriate questions and demonstrate behaviors conducive to maintaining health. INTERVENTIONS: 1. Assess patient and family s readiness to learn. (Initial Consult and PRN) 2. Educate patient/family on treatment regimen, potential side effects, and behaviors to prevent complications from treatment. (Prior to first treatment and PRN) 3. Reinforce education provided by physician about the disease process and/or treatment regimen. (Initial Consult and PRN) 4. Evaluate the effectiveness of education using the teach-back method (PRN) 5. Education patient/family about available resources (Initial Consult and PRN) A. Review Health Manger content with patient (an organizational binder for the patient to use during their oncology visits) B. Review new patient folder (contains pertinent info about the center) C. Review available resources through the [place] cancer program and the community. 6. State objectives clearly and provide environment conducive to learning (PRN) documented as of this encounter Visit Diagnoses Not on filedocumented in this encounter Additional Health Concerns Infection Onset Date Last Indicated Resolved Time R/O COVID-19 08/06/2024 08/06/2024 08/06/2024 4:39 PM EDT R/O COVID-19 12/23/2024 12/23/2024 12/23/2024 4:31 PM EST INFLUENZA 12/23/2024 12/23/2024 01/06/2025 10:1 2 PM EDT documented as of this encounter Care Teams Financial Service Professional Relationship Specialty Start Date End Date Fredy, Lorenza Saud [address] [facility] [place] [address] PCP - General Family Medicine 10/20/12 Gabe Hanna MD [facility] [address] [place] [address] Internal Medicine-Gastroenterolog y 09/28/13 Urszula Servin MD [address] [place] [address] [place] [address] Medical Oncologist Internal Medicine-Medical Oncology 01/27/21 documented as of this encounter
--- OUTSIDE RECORDS SUMMARY | 2021-08-15 10:30 | XMS_ITS | Encounter Summary ---
Author Organization [place] [address] Care Team Providers Care Authorization Rep Name Role Phone Fredy Lorenza Saud Primary Care Provider [phone] Gabe Hanna MD Unavailable Unavailable GarethUrszula chandler MD Unavailable [phone] Encounter Details Date Type Department Care Team (Latest Contact Info) Description 08/15/2021 11:30 AM EDT Hospital Encounter [facility] [place] [address] Left without seen Social History Tobacco Use Types Packs/Day Years [...] 8:00 AM Maria Elena Locke MA * [place] Suicide Severity Rating Scale (Q shift for [...] PM EST Appointment [facility] [place] [address] 09/16/2025 3:20 PM EST Appointment [facility] [place] [address] Urszula Servin MD 1 [facility] [place], [place] [id number] 10/05/2025 3:00 PM EST Appointment [facility] [place], [place] [id number] 10/05/2025 3:20 PM EST Appointment [facility] [place], [place] [id number] Urszula Servin MD 1 [facility] [place] [address] documented as of this encounter Goals Goal [...] center) C. Review available resources through the [place] cancer program and the community. 6. State [...] documented as of this encounter Care Teams Authorization Rep Relationship Specialty Start Date End Date Fredy, Lorenza Saud [address] [facility] [place] [address] PCP - General Family Medicine 10/20/12 Gabe Hanna MD [facility]0 [address] [place] [address] Internal Medicine-Gastroenterolog y 09/28/13 Urszula Servin MD [address] [place] [address] [place] [address] Medical Oncologist Internal Medicine-Medical Oncology 01/27/21 documented as of this encounter
--- OUTSIDE RECORDS SUMMARY | 2021-09-27 08:00 | XMS_ITS | Encounter Summary ---
Author Organization [place] [address] Care Team Providers Care Medical Claims Representative Name Role Phone Fredy, R Saud Primary Care Provider [phone] Gabe Hanna MD Unavailable Unavailable GarethUrszula chandler MD Unavailable [phone] Encounter Details Date Type Department Care Team (Latest Contact Info) Description 09/27/2021 8:00 AM EST Hospital Encounter [place] [address] Left without seen Social History [...] 8:00 AM Maria Elena Locke MA * [place] Suicide Severity Rating Scale (Q shift for [...] PM EST Appointment [facility] [place], [place] [id number] 09/16/2025 3:20 PM EST Appointment [facility] [place] [address] Urszula Servin MD 1 [facility] [place], [place] [id number] 10/05/2025 3:00 PM EST Appointment [facility] [place], [place] [id number] 10/05/2025 3:20 PM EST Appointment [facility] [place], [place] [address] Urszula Servin MD 1 [facility] [place], [place] [id number] documented as of this encounter Goals Goal [...] center) C. Review available resources through the [facility] cancer program and the community. 6. State [...] documented as of this encounter Care Teams Medical Claims Representative Relationship Specialty Start Date End Date Fredy Lorenza Saud [address] [facility] [place] [address] PCP - General Family Medicine 10/20/12 Gabe Hanna MD [facility] [address] [place] [address] Internal Medicine-Gastroenterolog y 09/28/13 Urszula Servin MD [address] [place] [address] [place] [address] Medical Oncologist Internal Medicine-Medical Oncology 01/27/21 documented as of this encounter
--- OUTSIDE RECORDS SUMMARY | 2021-10-13 13:00 | XMS_ITS | Encounter Summary ---
Author Organization [place] [address] Care Team Providers Care Reception Clerk Name Role Phone FredyLorenza nielsen Primary Care Provider [phone] Gabe Hanna MD Unavailable Unavailable GarethUrszula chandler MD Unavailable [phone] Encounter Details Date Type Department Care Team (Latest Contact Info) Description 10/13/2021 1:00 PM EST Hospital Encounter [place] [address] Left without seen Social History [...] 8:00 AM Maria Elena Locke MA * [place] Suicide Severity Rating Scale (Q shift for moderate and high) Question Answer Date of Assessment Author 1. In the past month, have y ou wished you were or wished you could go to sleep and not wake up? 0 02/24/2025 8:00 AM Zoe Macdoanld nd, MA 2. In the past month, [...] PM EST Appointment [facility] [place], [place] [id number] 09/16/2025 3:20 PM EST Appointment [facility] [place] [address] Urszula Servin MD 1 [facility] [place], [place] [id number] 10/05/2025 3:00 PM EST Appointment [facility] [place], [place] [id number] 10/05/2025 3:20 PM EST Appointment [facility] [place], [place] [id number] Urszula Servin MD 1 [facility] [place], [place] [id number] documented as of this encounter Goals Goal [...] center) C. Review available resources through the [place] cancer program and the community. 6. State [...] documented as of this encounter Care Teams Reception Clerk Relationship Specialty Start Date End Date Fredy Lorenza Saud [address] [facility] [place] [address] PCP - General Family Medicine 10/20/12 Gabe Hanna MD [facility] [address] [place] [address] Internal Medicine-Gastroenterolog y 09/28/13 Urszula Servin MD [address] [place] [address] [place] [address] Medical Oncologist Internal Medicine-Medical Oncology 01/27/21 documented as of this encounter
--- OUTSIDE RECORDS SUMMARY | 2021-11-17 09:30 | XMS_ITS | Encounter Summary ---
Author Organization [place] [address] Care Team Providers Care Fuse Cup Expander Name Role Phone Fredy, R Saud Primary Care Provider Gabe Hanna MD Unavailable Unavailable GarethUrszula chandler MD Unavailable [phone] Encounter Details Date Type Department Care Team (Latest Contact Info) Description 11/17/2021 9:30 AM EST Hospital Encounter [place] [address] Left without seen Social History [...] A Feeling down, depressed, or hopeless 0 08/21/2024 8:33 AM Zoe Locke M A PHQ-2 Total Score 0 08/21/2024 8:33 AM Zoe Locke MA * Suicide Severity Rating Answer Date of Assessment Author No Risk 02/24/2025 8:00 AM Maria Elena [place] MA * [place] Suicide Severity Rating Scale (Q shift for [...] PM EST Appointment [facility] [place], [place] [id number] 09/16/2025 3:20 PM EST Appointment [facility] [place] [address] Urszula Servin MD 1 [facility] [place], [place] [id number] 10/05/2025 3:00 PM EST Appointment [facility] [place], [place] [id number] 10/05/2025 3:20 PM EST Appointment [facility] [place], [place] [id number] Urszula Servin MD 1 [facility] [place], [place] [id number] documented as of this encounter Goals Goal [...] center) C. Review available resources through the [place] cancer program and the community. 6. State [...] documented as of this encounter Care Teams Fuse Cup Expander Relationship Specialty Start Date End Date Fredy Lorenza Saud [address] [place] [address] PCP - General Family Medicine 10/20/12 Gabe Hanna MD [facility] [address] [place] [address] Internal Medicine-Gastroenterolog y 09/28/13 Urszula Servin MD [address] [place] [address] [place] [address] Medical Oncologist Internal Medicine-Medical Oncology 01/27/21 documented as of this encounter
--- OUTSIDE RECORDS SUMMARY | 2021-12-22 09:30 | XMS_ITS | Encounter Summary ---
Author Organization [place] [address] Care Team Providers Care Counter Manager Name Role Phone Fredy, R Saud Primary Care Provider [phone] Gabe Hanna MD Unavailable Unavailable GarethUrszula chandler MD Unavailable [phone] Encounter Details Date Type Department Care Team (Latest Contact Info) Description 12/22/2021 9:30 AM EST Hospital Encounter [facility] [place] [address] Left without seen Social History [...] 8:00 AM Maria Elena Locke MA * [place] Suicide Severity Rating Scale (Q shift for [...] PM EST Appointment [facility] [place], [place] [id number] 09/16/2025 3:20 PM EST [facility]ment [facility] [place] [address] Urszula Servin MD 1 [facility] [place], [place] [id number] 10/05/2025 3:00 PM EST Appointment [facility] [place], [place] [id number] 10/05/2025 3:20 PM EST Appointment [facility] [place], [place] [id number] Urszula Servin MD 1 [facility] [place], [place] [id number] documented as of this encounter Goals Goal [...] center) C. Review available resources through the [facility] cancer program and the community. 6. State [...] documented as of this encounter Care Teams Counter Manager Relationship Specialty Start Date End Date Fredy Lorenza Saud [address] [place] [address] PCP - General Family Medicine 10/20/12 Gabe Hanna MD [facility] [address] [place] [address] Internal Medicine-Gastroenterolog y 09/28/13 Urszula Servin MD [address] [place] [address] [place] [address] Medical Oncologist Internal Medicine-Medical Oncology 01/27/21 documented as of this encounter
--- OUTSIDE RECORDS SUMMARY | 2022-01-05 10:30 | XMS_ITS | Encounter Summary ---
Author Organization [place] [address] Care Team Providers Care Sap Analyst Name Role Phone FredyLorenza jovel Primary Care Provider [phone] Gabe Hanna MD Unavailable Unavailable GraethUrszula chandler MD Unavailable [phone] Encounter Details Date Type Department Care Team (Latest Contact Info) Description 01/05/2022 10:30 AM EST Hospital Encounter [facility] [place] [address] Left without seen Social History [...] 8:00 AM Maria Elena Locke MA * [place] Suicide Severity Rating Scale (Q shift for [...] PM EST Appointment [facility] [place], [place] [id number] 09/16/2025 3:20 PM EST [facility]ment [facility] [place] [address] Urszula Servin MD 1 [facility] [place], [place] [id number] 10/05/2025 3:00 PM EST Appointment [facility] [place], [place] [id number] 10/05/2025 3:20 PM EST Appointment [facility] [place], [place] [id number] Urszula Servin MD 1 [facility] [place], [place] [id number] documented as of this encounter Goals Goal [...] center) C. Review available resources through the [facility] cancer program and the community. 6. State [...] documented as of this encounter Care Teams Sap Analyst Relationship Specialty Start Date End Date Fredy Lorenza Saud [address] [place] [address] PCP - General Family Medicine 10/20/12 Gabe Hanna MD [facility] [place] [address] [place] [address] Internal Medicine-Gastroenterolog y 09/28/13 Urszula Servin MD [address] [place] [address] [place] [address] Medical Oncologist Internal Medicine-Medical Oncology 01/27/21 documented as of this encounter
--- OUTSIDE RECORDS SUMMARY | 2022-03-16 08:30 | XMS_ITS | Encounter Summary ---
Author Organization [place] [address] Care Team Providers Care Juvenile Justice Officer Name Role Phone Lorenza Daniel Primary Care Provider [phone] Gabe Hanna MD Unavailable Unavailable Urszula Servin MD Unavailable [phone] Pinky Avina RN Unavailable Unavailable Encounter Details Date Type Department Care Team (Latest Contact Info) Description 03/16/2022 9:30 AM EDT Hospital Encounter [place] [address] Left without seen Social History [...] of Assessment Author No 01/28/2021 2:04 PM EDLorenza Mason RN * Is the person blind or [...] of Assessment Author 0 08/21/2024 8:33 AM Enoch Locke MA * Question Answer Date of [...] 8:00 AM Maria Elena [place] MA * [place] Suicide Severity Rating Scale (Q shift for [...] life? 0 02/24/2025 8:00 AM EDT Zoe Beltre MA documented as of this encounter Mental [...] PM EST Appointment [place] [address] 09/16/2025 3:20 PM EST [facility]ment [facility] [place] [address] Urszula Servin MD [address] [place] [address] 10/05/2025 3:00 PM EST Appointment [place] [address] 10/05/2025 3:20 PM EST [facility]ointment [facility] [place] [address] Urszula Servin MD [address] [place] [address] documented as of this encounter Goals Goal [...] center) C. Review available resources through the [facility] cancer program and the community. 6. State [...] documented as of this encounter Care Teams Juvenile Justice Officer Relationship Specialty Start Date End Date Lorenza Daniel [address] [place] [address] PCP - General Family Medicine 10/20/12 Gabe Hanna MD [facility] [address] [place] [address] Internal Medicine-Gastroenterolog y 09/28/13 Urszula Servin MD [address] [place] [address] Medical Oncologist Internal Medicine-Medical Oncology 01/27/21 Pinky Avina, RN Registered Nurse Internal Medicine-Hematology and Oncology 02/26/22 07/30/22 documented as of this encounter
--- OUTSIDE RECORDS SUMMARY | 2024-05-30 04:00 | XMS_ITS ---
Author Organization [facility] Address [address] [place] [address] Care Team Providers Care Customer Counter Representative Name Role Phone Jeremy Nam Unavailable [phone] Migration, Provider Unavailable Unavailable Allergies Allergen (clinical drug ingredient) Drug/Non Drug Allergy documented on EMR Reaction Allergy Type Onset Date Status Environmental: Dust Mite (uncoded) Unspecified Allergy Active Environmental: Molds (uncoded) Unspecified Allergy Active Medications: Hydrocodone Compound (uncoded) Unspecified Allergy Active Medications: Oxycodone (uncoded) Unspecified Allergy Active codeine Other: codeine (uncoded) Unspecified Allergy Active Medications Medication SIG (Take, Route, Fr equency, Duration) Notes Start Date End Date Status ZyrTEC Allergy oral Activ e Social History Tobacco Use: Social History Observation Description Date Smoking Status WARNING: Information temporarily unavailable Sex Assigned At : Social History Observation Description Sex Assigned At Female Social History Drugs/Alcohol: Social Info Question Answer Notes Alcohol Screen Did you have a drink containing alcohol in the past year? Never Tobacco Use: Social Info Question Answer Notes Tobacco Control (Standard) Tobacco use: Never 1 11/28/2014 - Additional Details Category Social Info Options Details Miscellaneous: Exercise: Heavy Amount of Exercise (4 or more times weekly) Travel outside of the [place]: Travel History: Uses seat belts Encounters Encounter Location Date Provider Diagnosis [facility] [address] [place] [address] 05/30/2024 Provider Migration Plan Of Treatment No Information Progress Notes * Yi LIRADOB: 0 (45 yo F)Acc No.[id number]:05/30/2024 Patient: Yi WEIR :1980 A ge:44 Y S ex:Female Address: [address] [place], [place], [facility] Subjective: * Chief Complaints: * Medical History: 7 [place]: Last Pap Smear 12/05/11 wnl Aplastic Anemia Pneumonia: as a child Infertility *NO SIGNIFICANT GENETIC HISTORY FHQ administered - positive cyclosporine, oral, Notes: 150. zinc, oral, Notes: 50. Doptelet, Notes: 20. D3 magnesium, oral, Notes: 500. vitamin B12, Notes: 1. 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 * OB History: P regnancy History (GPA) F ull Term 0 , P remature 0 , A B. Induced 0 , A B. Spontaneous 0 , E ctopics 0 , M ultiple Births 0 , L iving 1 . G P P daniella: 0 . P regnancy # 1: C omment : Weight: Adopted PTL :N Sex :F.? * Surgical History: Dx Hysteroscopy with D&C Dilation for cervical stenosis Class I 10/24/12 Tonsils and Adenoids 1999 * Family History: F amily History Verified.. Aunt: Stroke (cerebrovascular), Maternal, Heart Disease. * Social History: T obacco Use: T obacco Control (Standard) T obacco use: N ever 09/27/2015 -. D rugs/Alcohol: A lcohol Screen D id you have a drink containing alcohol in the past year? N ever.? M iscellaneous: E xercise: Heavy Amount of Exercise (4 or more times weekly). Travel outside of the [place]: Travel History: Uses seat belts. * Medications: T akingZyrTEC Allergy(Cetirizine HCl) oral Taking ZyrTEC Allergy(Cetirizine HCl) oral * Allergies: E nvironmental: Dust Mite: Unspecified - AllergyEnvironmental: Molds: Unspecified - AllergyMedications: Oxycodone: Unspecified - AllergyOther: codeine: Unspecified - AllergyMedications: Hydrocodone Compound: Unspecified - AllergyyesAllergies Verified. * * Date:
--- OUTSIDE RECORDS SUMMARY | 2024-10-08 11:15 | XMS_ITS ---
Author Organization [facility] Address [address] [facility] [address] [place] [address] Care Team Providers Care Tractor Distributor Name Role Phone Jeremy Nam [facility] [phone] REASON FOR VISIT Screening Mammogram Medications Medication SIG (Take, Route, Fr equency, Duration) Notes Start Date End Date Status ZyrTEC Allergy oral Activ e Social History Sex Assigned At : Social History Observation Description Sex Assigned At Female Encounters Encounter Location Date Provider Diagnosis [facility] [address] [place] [address] [place] [address] 10/08/2024 Jeremy Nam Plan Of Treatment No Information Progress Notes * Yi LIRADOB: 0 (45 yo F)Acc No.[id number]:10/08/2024 Patient: Yi Gonzales Provider: Lorenza Nam M.D. :1980 A ge:44 Y S ex:Female Date:10/08/2024 Address: [address] [id number] Subjective: * Chief Complaints: * S creening Mammogram * Medications: T akingZyrTEC Allergy(Cetirizine HCl) oral Taking ZyrTEC Allergy(Cetirizine HCl) oral Billing Information: * Procedure Codes: * Electronic signature of Margarito Nam M.D. on 09/11/2025 at 10:34 PM EST Sign off status: Pending Visit Status: C HK (Check Out) * Provider: Lorenza Nam M.D. Date: 12/09/2023 Generated for Nati pena/Scot/Jovan on: 1 11/11/2024 10:34 PM EST
--- OUTSIDE RECORDS SUMMARY | 2025-02-02 04:15 | XMS_ITS ---
Author Organization [facility] Address [address] [facility] [address] [place] [id number] Care Team Providers Care Grubber Name Role Phone Lorenaz Daniel Primary Care Provider Giovanni Uriasian Unavailable [phone] Allergies Allergen (clinical drug ingredient) Drug/Non Drug Allergy documented on EMR Reaction Allergy Type Onset Date Status methylprednisolone methylPREDNISolone facial flushing Drug Allergy Active codeine Codeine Unknown Drug Allergy Active ropinirole rOPINIRole insomnia Drug Allergy Active Results Component Value Reference Range Notes H-CBC Reviewed date:02/02/2025 01:03:53 PM Interpretation: Performing Lab: Notes/Report: WBC 3.6 4.8-10.8 K/mm3 RBC 2.42 4.20-5.40 M/mm3 HGB 9.6 12.2-16.2 g/dL HCT 29.1 37.0-47.0 % MCV 120.2 81-99 fl MCH 39.7 27.0-31.2 pg MCHC 33.0 31.8-35.4 g/dL RDW 15.9 11.5-17.5 % PLT 104 142-424 K/mm3 MPV 11.6 7.4-10.4 fl NE% 64.1 37.0-80.0 % LY% 21.3 10-50 % MO% 12.6 1.7-9.3 % EO% 0.6 0.1-12.0 % BA% 0.3 0.1-2.0 % NE# 2.3 1.8-7.8 K/mm3 LY# 0.8 0.7-4.5 K/mm3 MO# 0.5 0.1-1.0 K/mm3 EO# 0.0 0.0-0.4 K/mm3 BA# 0.0 0-0.2 K/mm3 REASON FOR VISIT sinuses Medications Medication SIG (Take, Route, Frequency, Duration) Notes Start Date End Date Status Zithromax Z-Tevin 250 MG as directed Orall y once daily; Duration: 5 day(s) 02/02/2025 Active ZyrTEC Allergy 10 MG 1 tab(s) orally onc e a day Active CareTouch CPAP & BIPAP Hose 1 DIRECTED 02/23/20 23 Active Vitamin D3 50 MCG (1999) 1/2 tab(s) o rally once a day 03/24/2014 Active Doptelet 20 MG 1 cap(s) orally once a day Active Triamcinolone Acetonide 0.1 % 1 application Externally Three times a day 09/18/2023 Active diphenhydrAMINE-Zinc Acetate 2-0.1 % 1 application as needed Externally Three times a day 01/22/2025 Active Zinc 50 MG 1 tablet Orally Once a day; Duration: 30 day(s) Active Magnesium - as directed Orally Active riTUXimab 500 MG/50ML as directed Intrav enous weekly Active Vitamin B-12 1000 MCG TAKE 1 TABLET BY M OUTH EVERY DAY; Duration: 30 Active Azelastine HCl 137 MCG/SPRAY 2 sprays in each nostril Nasally Twice a day Active Vital Signs Weight 197.9 lbs 02/02/2025 Blood pressure systolic 122 mm Hg 02/03/20 25 Blood pressure diastolic 84 mm Hg 025 Heart Rate 97 /min 02/02/2025 Height 62.50 in 02/02/2025 BMI 35.62 kg/m2 02/02/2025 Encounters Encounter Location Date Provider Diagnosis [facility] [address] [facility] [address] [place], [place] [id number] 02/02/2025 Mandeep Urias Acute URI J06.9 Assessments Encounter Date Diagnosis (ICD Code) Assessment Notes Treatment Notes Treatment Clinical Notes Section Notes 02/02/2025 Acute URI (ICD-10 - J06.9) Plan Of Treatment Medication Medication Name Sig Start Date Stop Date Notes Zithromax Z-Tevin 250 MG as directed Orall y once daily; Duration: 5 day(s) 02/02/2025 Next Appt Details Follow Up: via phone to repo rt test results, Reason: Progress Notes * Yi LIRADOB: 0 (45 yo F)Acc No.[id number]:02/02/2025 Progress Notes Patient: Yi WEIR Provider: Yosvany Urias M.D. :1980 A ge:44 Y S ex:Female Date:02/02/2025 Address: [address] [facility], [id number] Pcp:Lorenza Daniel Subjective: * Chief Complaints: * 1 . Sinuses. * HPI: E NT/respiratory: 44 year old female presents with c/o cough P t complains of small amount of white sputum cough for 3-4 days. Associated with nasal congestion and wheezing. Pt states she is coughing so much and it is waking her up at night. Denies : Fever. D enies : body aches. * ROS: D ERMATOLOGY: no R christina. n o H sherin. G ASTROENTEROLOGY: no N ausea. n o V omiting. U ROLOGY: no D ifficulty urinating. n o B lood in urine. * Medical History: R estless legs syndrome, Vitamin D deficiency, Allergic rhinitis, Esophageal reflux, Pancytopenia - follows with Dr. Servin and [facility], Mammogram - 2020, Pancytopenia, s/p evaluation at [facility], Aplastic anemia, Restless legs syndrome - Dr. Alexandre. * Surgical History: T onsillectomy , Adenoidectomy , D&C , IUD 11/2022. * Hospitalization/Major Diagno stic Procedure: D enies Past Hospitalization. * Family History: F ather: alive. M other: alive. 1 brother(s) . . * Social History: C URRENT TOBACCO USE S moking Status: Patient does NOT smoke, Former Smoker: No. C affeine: yes, frequency:. Marital Status: . Past smoking status: no, Smoking status: Does not smoke, Former Smoker: No. * Medications: T aking riTUXimab 500 MG/50ML Solution as directed Intravenous weekly , Taking Magnesium - Capsule as directed Orally , Taking Zinc 50 MG Tablet 1 tablet Orally Once a day , Taking Doptelet 20 MG Tablet 1 cap(s) orally once a day , Taking Vitamin D3 50 MCG (2000 UT) Tablet 1/2 tab(s) orally once a day , Taking CareTouch CPAP & BIPAP Hose MACHINE AND SUPPLIES 1 DIRECTED , Taking ZyrTEC Allergy 10 MG Tablet 1 tab(s) orally once a day , Taking Azelastine HCl 137 MCG/SPRAY Solution 2 sprays in each nostril Nasally Twice a day , Taking Vitamin B-12 1000 MCG Tablet TAKE 1 TABLET BY MOUTH EVERY DAY , Taking diphenhydrAMINE-Zinc Acetate 2-0.1 % Cream 1 application as needed Externally Three times a day , Taking Triamcinolone Acetonide 0.1 % Cream 1 application Externally Three times a day , Medication List reviewed and reconciled with the patient * Allergies: C odeine, rOPINIRole: insomnia - Side Effects, methylPREDNISolone: facial flushing - Side Effects. Objective: * Vitals: W t:197.9, Temp:98.0, BP:122/84, HR:97, Nurse:elise, Ht: 62.50, BMI:35.62. * Examination: E NT/Respiratory: General Appearance: N AD. E yes: P ERRLA, sclera clear. N ose : nares patent, cloudy rhinorrhea. O ral cavity : n o erythema or exudate seen on pharynx. N david : n o cervical lymphadenopathy. H eart : R RR, normal S1 S2. L ungs: c lear to auscultation bilaterally. Assessment: * Assessment: 1. Demetrio bermudez URI - J06.9 (Primary) Plan: * Treatment: Value Reference Range W BC 3.6 L 4.8-10.8 - K/mm3 * R BC 2.42 L 4.20-5.40 - M/mm3 * H GB 9.6 L 12.2-16.2 - g/dL * H CT 29.1 L 37.0-47.0 - % * M CV 120.2 H 81-99 - fl * M CH 39.7 H 27.0-31.2 - pg * M CHC 33.0 31.8-35.4 - g/dL * R DW 15.9 11.5-17.5 - % * P LT 104 L 142-424 - K/mm3 * M PV 11.6 H 7.4-10.4 - fl * N E% 64.1 37.0-80.0 - % * L Y% 21.3 10-50 - % * M O% 12.6 H 1.7-9.3 - % * E O% 0.6 0.1-12.0 - % * B A% 0.3 0.1-2.0 - % * N E# 2.3 1.8-7.8 - K/mm3 * L Y# 0.8 0.7-4.5 - K/mm3 * M O# 0.5 0.1-1.0 - K/mm3 * E O# 0.0 0.0-0.4 - K/mm3 * B A# 0.0 0-0.2 - K/mm3 * Manisha De La Rosa 02/02/2025 01:03 :47 PM > See phone encounter * Procedure Codes: 3 074F SYST BP LT 130 MM HG, 3079F DIAST BP 80-89 MM HG * Follow Up: v ia phone to report test results * Images: Billing Information: * Visit Code: 92914 Office Visit, Est Pt., Level 3. * Procedure Codes: 3074F SYST BP LT 130 MM HG. 3079F DIAST BP 80-89 MM HG. * Electronic signature of Maryann Urias MD on 09/11/2025 at 10:42 PM EST Sign off status: Pending * Provider: Yosvany Urias M.D. Date: 0 02/02/2025 Generated for Nati pena/Scot/eTransmitting on: 1 11/11/2024 10:42 PM EST History and Physical Notes * HPI (History of Present Illness) Category Sub-Category Detail Notes Category Not es ENT/respiratory cough Pt complains of small amount of white sputum cough for 3-4 days. Associated with nasal congestion and wheezing. Pt states she is coughing so much and it is waking her up at night Fever body aches Examination Category Sub-Category Detail Notes Category Not es ENT/Respiratory Oral cavity : no erythema or exudate s een on pharynx Neck : no cervical lymphade nopathy Heart : RRR, normal S1 S2 Lungs: clear to auscultatio n bilaterally General Appearance: NAD Nose : nares patent, cloudy rhinorrhea Eyes: PERRLA, sclera clear
--- OUTSIDE RECORDS SUMMARY | 2025-02-09 05:30 | XMS_ITS ---
Author Organization [facility] Address [address] [facility] [address] [place] [id number] Care Team Providers Care Green Ware Caster Name Role Phone Lorenza Daniel Primary Care Provider Erin Austin Unavailable [phone] Allergies Allergen (clinical drug ingredient) Drug/Non Drug Allergy documented on EMR Reaction Allergy Type Onset Date Status methylprednisolone methylPREDNISolone facial flushing Drug Allergy Active codeine Codeine Unknown Drug Allergy Active ropinirole rOPINIRole insomnia Drug Allergy Active Results Component Value Reference Range Notes CBC Fingerstick (in house) Reviewed date:02/09/2025 11:57:54 AM Interpretation: Performing Lab: Notes/Report: wbc 4.6 3.5 - 10 lym 13.7 15 - 50 mid 4.0 2 - 15 gran 82.3 35 - 80 rbc 2.16 3.5 - 5.5 hgb 9.4 11.5 - 16.5 hct 25.1 35 - 55 mcv 116.1 75 - 100 mch 43.6 25 - 35 mchc 37.5 31 - 38 plat 112 100 - 400 REASON FOR VISIT sore throat ,drainage Medications Medication SIG (Take, Route, Frequency, Duration) Notes Start Date End Date Status Doptelet 20 MG 1 cap(s) orally once a day Active Zinc 50 MG 1 tablet Orally Once a day; Duration: 30 day(s) Active Vitamin D3 50 MCG (1999) 1/2 tab(s) o rally once a day 03/24/2014 Active ZyrTEC Allergy 10 MG 1 tab(s) orally onc e a day Active CareTouch CPAP & BIPAP Hose 1 DIRECTED 02/23/20 23 Active Triamcinolone Acetonide 0.1 % 1 application Externally Three times a day 09/18/2023 Active Magnesium - as directed Orally Active riTUXimab 500 MG/50ML as directed Intrav enous weekly Active Benzonatate 200 MG 1 capsule as needed Orally Three times a day prn 02/09/2025 Active diphenhydrAMINE-Zinc Acetate 2-0.1 % 1 application as needed Externally Three times a day 01/22/2025 Active Vitamin B-12 1000 MCG TAKE 1 TABLET BY M OUTH EVERY DAY; Duration: 30 Active Azelastine HCl 137 MCG/SPRAY 2 sprays in each nostril Nasally Twice a day Active Cefuroxime Axetil 500 MG 1 tablet Orally every 12 hrs; Duration: 5 day(s) 02/09/2025 Active Vital Signs Weight 197.4 lbs 02/09/2025 Blood pressure systolic 120 mm Hg 02/10/20 25 Blood pressure diastolic 78 mm Hg 025 Heart Rate 91 /min 02/09/2025 Height 62.50 in 02/09/2025 BMI 35.53 kg/m2 02/09/2025 Encounters Encounter Location Date Provider Diagnosis [facility] [address] [place] [id number] 02/09/2025 Erin Madrigalond URI (upper respirato ry infection) J06.9 and Pancytopenia D61.818 Assessments Encounter Date Diagnosis (ICD Code) Assessment Notes Treatment Notes Treatment Clinical Notes Section Notes 02/09/2025 URI (upper respiratory infection) (ICD-10 - J06.9) will add Ceftin; zithromax still in her system, fluids, rest, supportive measures for fever/symptom relief 02/09/2025 Pancytopenia (ICD-10 - D61.818) Plan Of Treatment Medication Medication Name Sig Start Date Stop Date Notes Benzonatate 200 MG 1 capsule as needed Orally Three times a day prn 02/09/2025 Cefuroxime Axetil 500 MG 1 tablet Orally every 12 hrs; Duration: 5 day(s) 02/09/2025 Treatment Notes Assessment Notes URI (upper respiratory infection) will a dd Ceftin; zithromax still in her system, fluids, rest, supportive measures for fever/symptom relief Next Appt Details Follow Up: prn, Reason: Progress Notes * Luana LIRA: 0 (45 yo F)Acc No.[id number]:02/09/2025 Progress Notes Patient: Yi WEIR Provider: MELONIE Blanc :1980 A ge:44 Y S ex:Female Date:02/09/2025 Address:[address] [place] [address] , [place], [id number] Pcp:Lorenza Daniel Subjective: * Chief Complaints: * 1 . Sore throat ,drainage. * HPI: E NT/respiratory: 44 year old female presents with c/o sore throat. c/o nasal congestion P t presents today with c/o nasal congestion, drainage and sore throat from drainage. Pt sts that she did have sharp pains in her throat yesterday. Pt sts that she has just recently finished a z-pack. Pt sts that she know those are probably still in her system but sts that she is feeling worse now than she was when she was seen on 02/02. Pt sts that she was not able to sleep well last night and couldn't breath with her CPAP. c/o Fever. c/o rhinorrhea. c/o post nasal drainage. c/o facial pain/pressure h ot and red. c/o Short of Breath a lways SOB. Denies : headache. D enies : chest congestion. D enies : smoking. D enies : body aches. was better for first few days after started Zithromax; then 02/07/ with symptoms of RN, and productive cough; eating and drinking OK. * ROS: D ERMATOLOGY: no R christina. n o H sherin. G ASTROENTEROLOGY: no N ausea. n o V omiting. U ROLOGY: no D ifficulty urinating. n o B lood in urine. * Medical History: R estless legs syndrome, Vitamin D deficiency, Allergic rhinitis, Esophageal reflux, Pancytopenia - follows with Dr. Servin and [facility], Mammogram - 2020, Pancytopenia, s/p evaluation at [facility], Aplastic anemia, Restless legs syndrome - Dr. Alexadnre. * Surgical History: T onsillectomy , Adenoidectomy , D&C , IUD 11/2022. * Family History: F ather: alive. M [...] application Externally Three times a day , Discontinued Zithromax Z-Tevin 250 MG Tablet as directed Orally once daily , Medication List reviewed and reconciled with the patient * Allergies: C odeine, rOPINIRole: insomnia - Side Effects, methylPREDNISolone: facial flushing - Side Effects. Objective: * Vitals: W t: 197.4, Temp: 98.8, BP: 120/78, HR: 91, Nurse: SHANNON, Ht: 62.50, BMI:35.53. * Examination: E NT/Respiratory: General Appearance: well nourished and hydrated, NAD, alert, active. E yes: sclera and conjunctiva clear. E ars: auditory canals normal bilaterally, tympanic membranes normal bilaterally. N ose : congested. S inuses : non tender bilaterally. O ral cavity : no erythema or exudate seen on pharynx. N david : supple, no cervical lymphadenopathy. H eart : RRR. L ungs: CTAB A&P.? Assessment: * Assessment: 1. U RI (upper respiratory infection) - J06.9 (Primary) 2 . P ancytopenia - D61.818 Plan: * Treatment: Value Reference Range w bc 4.6 3.5 - 10 * l ym 13.7 15 - 50 * m id 4.0 2 - 15 * g ran 82.3 35 - 80 * r bc 2.16 3.5 - 5.5 * h gb 9.4 11.5 - 16.5 * h ct 25.1 35 - 55 * m cv 116.1 75 - 100 * m ch 43.6 25 - 35 * m chc 37.5 31 - 38 * p lat 112 100 - 400 * Eloise Vallejo 02/09/2025 11: 57:42 AM > reviewed w/ pt in office Notes: will add Ceftin; zithromax still in her system, fluids, rest, supportive measures for fever/symptom relief?? * Procedure Codes: 3 6416 CAPILLARY BLOOD DRAW, 27833 CBC WITH AUTO DIFF, 3074F SYST BP LT 130 MM HG, 3078F DIAST BP < 80 MM HG * Follow Up: p rn * Images: Billing Information: * Visit Code: 02047 Office Visit, Est Pt., Level 3. * Procedure Codes: 04888 CAPILLARY BLOOD DRAW. 94968 CBC WITH AUTO DIFF. 3074F SYST BP LT 130 MM HG. 3078F DIAST BP < 80 MM HG. * Electronic signature of Bianca Austin APRN on 09/11/2025 at 10:39 PM EST Sign off status: Pending * Provider: MELONIE Blanc Date: 0 02/09/2025 Generated for Nati pena/Scot/Rogersitting on: 1 11/11/2024 10:39 PM EST History and Physical Notes * HPI (History of Present Illness) Category Sub-Category Detail Notes Category Not es ENT/respiratory sore throat was better f or first few days after started Zithromax; then 02/07/ started with symptoms of RN, and productive cough; eating and drinking OK facial pain/pressure hot and red Short of Breath always SOB Fever post nasal drainage headache chest congestion rhinorrhea nasal congestion Pt presents today wi th c/o nasal congestion, drainage and sore throat from drainage. Pt sts that she did have sharp pains in her throat yesterday. Pt sts that she has just recently finished a z-pack. Pt sts that she know those are probably still in her system but sts that she is feeling worse now than she was when she was seen on 02/02. Pt sts that she was not able to sleep well last night and couldn't breath with her CPAP smoking body aches Examination Category Sub-Category Detail Notes Category Not es ENT/Respiratory Oral cavity : no erythema or exudate s een on pharynx Sinuses : non tender bilateral ly Ears: auditory canals norm al bilaterally, tympanic membranes normal bilaterally Neck : supple, no cervical lymphadenopathy Heart : RRR Lungs: CTAB A&P General Appearance: well nourished and h ydrated, NAD, alert, active Nose : congested Eyes: sclera and conjuncti va clear
--- OUTSIDE RECORDS SUMMARY | 2025-03-10 10:15 | XMS_ITS ---
Author Organization [facility] Address [address] [facility] [address] [place] [id number] Care Team Providers Care Pathology Laboratory Technologist Name Role Phone Lorenza Daniel Primary Care Provider Lashell Bowen Unavailable [phone] Allergies Allergen (clinical drug ingredient) Drug/Non Drug Allergy documented on EMR Reaction Allergy Type Onset Date Status methylprednisolone methylPREDNISolone facial flushing Drug Allergy Active codeine Codeine Unknown Drug Allergy Active ropinirole rOPINIRole insomnia Drug Allergy Active Results Component Value Reference Range Notes CBC Venipuncture (in house) Reviewed date:03/10/2025 04:40:42 PM Interpretation: Performing Lab: Notes/Report: wbc 3.1 3.5 - 10 lymph 8.1 15 - 50 mid 2.4 2 - 15 gran 89.5 35 - 80 rbc 3.24 3.5 - 5.5 hgb 12.7 11.5 - 16.5 hct 37.5 35 - 55 mcv 115.8 75 - 100 mch 39.4 25 - 35 mchc 34.0 31 - 38 platlet 85 100 - 400 P-Amylase Reviewed date:03/11/2025 03:28:39 PM Interpretation: Normal Performing Lab: Notes/Report: Test performed by [facility] [address] [place], [place] [address] [place] , [address], [place] [address] Cornelio Caceres MD, Electronic Imager CLIA: [id number] Amylase 76 28-100 U/L P-Comprehensive Metabolic Pa man (CMP) Reviewed date:03/11/2025 03:28:39 PM Interpretation:ALT 168, AST 76 Performing Lab: Notes/Report: Test performed by [facility] [address] [place] [address] , [address], [place] [address] Cornelio Caceres MD, Electronic Imager CLIA: [id number] Sodium 138 135-145 mmol/L Potassium 4.1 3.5-5.3 mmol/L Chloride 104 97-108 mmol/L CO2 25 22-32 mmol/L Glucose 96 65-99 mg/dL BUN 13 6-20 mg/dL Creatinine 0.73 0.50-1.00 mg/dL Calcium 9.0 8.6-10.4 mg/dL eGFR by Creatinine 103 >59 mL/min/1.73m2 Protein 6.5 6.0-8.3 g/dL Albumin 4.4 3.5-5.3 g/dL Alkaline Phosphatase 121 35-121 IU/L ALT (SGPT) 168 <5-47 IU/L AST (SGOT) 76 <5-40 IU/L Bilirubin, Total 0.8 <0.2-1.2 mg/dL A/G Ratio 2.1 1.1-2.5 P-Lipase Reviewed date:03/11/2025 03:28:39 PM Interpretation: Normal Performing Lab: Notes/Report: Test performed by [facility] [address] [facility] , [address], [place] [address] Cornelio Caceres MD, Electronic Imager CLIA: [id number] Lipase 35.3 13.0-60.0 u/L REASON FOR VISIT blood pressure, bloodwork Medications Medication SIG (Take, Route, Frequency, Duration) Notes Start Date End Date Status CareTouch CPAP & BIPAP Hose 1 DIRECTED 02/22/2023 Active Vitamin D3 50 MCG (1999 UT) 1/2 tab(s) orally once a day 03/24/2014 Active Doptelet 20 MG 1 cap(s) orally once a day Active Zinc 50 MG 1 tablet Orally Once a day; Duration: 30 day(s) Active Magnesium - as directed Orally Active riTUXimab 500 MG/50ML as directed Intrav enous weekly Active Cefuroxime Axetil 500 MG 1 tablet Orally every 12 hrs; Duration: 5 day(s) 02/09/2025 Not-Taking Triamcinolone Acetonide 0.1 % 1 application Externally Three times a day 09/18/2023 Active Zithromax Z-Tevin 250 MG 2 pills first day then one daily for 4 days orally as directed; Duration: 5 days 03/10/2025 Active Benzonatate 200 MG 1 capsule as needed Orally Three times a day prn 02/09/2025 Not-Taking diphenhydrAMINE-Zinc Acetate 2-0.1 % 1 application as needed Externally Three times a day 01/22/2025 Active Vitamin B-12 1000 MCG TAKE 1 TABLET BY OUT EVERY DAY; Duration: 30 Active Azelastine HCl 137 MCG/SPRAY 2 sprays in each nostril Nasally Twice a day Active ZyrTEC Allergy 10 MG 1 tab(s) orally onc e a day Active Vital Signs Weight 195.2 lbs 03/10/2025 Blood pressure systolic 128 mm Hg 03/10/20 25 Blood pressure diastolic 74 mm Hg 025 Heart Rate 94 /min 03/10/2025 Height 62.50 in 03/10/2025 BMI 35.13 kg/m2 03/10/2025 Encounters Encounter Location Date Provider Diagnosis [facility] [address] [phone] 03/10/2025 Lashell Bowen Epigastric pain R10. 13 ; Nausea R11.0 and Acute diarrhea R19.7 Assessments Encounter Date Diagnosis (ICD Code) Assessment Notes Treatment Notes Treatment Clinical Notes Section Notes 03/10/2025 Epigastric pain (ICD-10 - R10.13) 03/10/2025 Nausea (ICD-10 - R11.0) 03/10/2025 Acute diarrhea (ICD-10 - R19.7) Plan Of Treatment Medication Medication Name Sig Start Date Stop Date Notes Zithromax Z-Tevin 250 MG 2 pills first day then one daily for 4 days orally as directed; Duration: 5 days 03/10/2025 Next Appt Details Follow Up: via phone to repo rt test results, Reason: Progress Notes * iY LIRADOB: 0 (45 yo F)Acc No.[id number]:03/10/2025 Progress Notes Patient: Yi WEIR Provider: YUNI Garcia :1980 A ge:44 Y S ex:Female Date:03/10/2025 Address: [address], [facility], [id number] Pcp:Lorenza Daniel Subjective: * Chief Complaints: * 1 . Blood pressure, bloodwork. * HPI: H PI: Pt presents today with c/o elevated BP. Pt sts that she would like to have her labs done today. Pt sts that she feels flushed but isn't hot. Pt sts that she is not doing the Rituximab because it is not helping. Pt sts that she is concerned about her blood levels also. Pt sts that she feels nauseous, and her stomach feels hard. Pt sts that she does not feel right and almost feels like her glucose is low, but she has not had much to eat today and no appetite. Pt sts that she is also having cramps in the left foot that come into the left calf. She has some congestion. Her is sick with a bacterial respiratory infection. * ROS: D ERMATOLOGY: no R christina. n o H sherin. G ASTROENTEROLOGY: no N ausea. n o V omiting. U ROLOGY: no D ifficulty urinating. n o B lood in urine. * Medical History: R estless legs syndrome, Vitamin D deficiency, Allergic rhinitis, Esophageal reflux, Pancytopenia - follows with Dr. Servin and [facility], Mammogram - 2020, Pancytopenia, s/p evaluation at [facility], Aplastic anemia, Restless legs syndrome - Dr. [...] day , Taking Vitamin D3 50 MCG (1999 UT) Tablet 1/2 tab(s) orally once a [...] application Externally Three times a day , Not-Taking Cefuroxime Axetil 500 MG Tablet 1 tablet Orally every 12 hrs , Not-Taking Benzonatate 200 MG Capsule 1 capsule as needed Orally Three times a day prn , Medication List reviewed and reconciled with the patient * Allergies: C odeine, rOPINIRole: insomnia - Side Effects, methylPREDNISolone: facial flushing - Side Effects. Objective: * Vitals: W t: 195.2, Temp: 98.6, BP: 128/74, HR: 94, Nurse: SHANNON, Ht: 62.50, BMI:35.13. * Examination: G eneral Examination: General Appearance: N AD. H EENT: s clera and conjunctiva clear, PERRLA, TM's normal, translucent, nose congested. O ral cavity: m inimal erythema. N david: s upple, no lymphadenopathy. C hest: n ormal shape and expansion. H eart: R SR. L ungs: c lear to auscultation. A bdomen: b owel sounds present, soft, diffuse tenderness. Assessment: * Assessment: 1. E pigastric pain - R10.13 (Primary) 2 . N ausea - R11.0 3 . A cute diarrhea - R19.7 Plan: * Treatment: Value Reference Range A mylase 76 28-100 - U/L * Eloise Vallejo 03/11/2025 03: 28:32 PM > See phone encounter ?LAB: P-Comprehensive Metabolic Panel (CMP) (Collection Date & Time - 03/10/2025 03:11 PM)?ALT 168, AST 76* Value Reference Range A /G Ratio 2.1 1.1-2.5 - * A lbumin 4.4 3.5-5.3 - g/dL * A lkaline Phosphatase 121 35-121 - IU/L * A LT (SGPT) 168 H <5-47 - IU/L * A ST (SGOT) 76 H <5-40 - IU/L * B ilirubin, Total 0.8 <0.2-1.2 - mg/dL * B UN 13 6-20 - mg/dL * C alcium 9.0 8.6-10.4 - mg/dL * C hloride 104 97-108 - mmol/L * C O2 25 22-32 - mmol/L * C reatinine 0.73 0.50-1.00 - mg/dL * G lucose 96 65-99 - mg/dL * P otassium 4.1 3.5-5.3 - mmol/L * S odium 138 135-145 - mmol/L * P rotein 6.5 6.0-8.3 - g/dL * e GFR by Creatinine 103 >59 - mL/min/1.73m2 * Eloise Vallejo 03/11/2025 03: 28:32 PM > See phone encounter ?LAB: P-Lipase (Collection Date & Time - 03/10/2025 03:11 PM)?Normal* Value Reference Range L ipase 35.3 13.0-60.0 - u/L * Eloise Vallejo 03/11/2025 03: 28:32 PM > See phone encounter ?LAB: CBC Venipuncture (in house) (Collection Date & Time - 03/10/2025)* Value Reference Range w bc 3.1 3.5 - 10 * l ymph 8.1 15 - 50 * m id 2.4 2 - 15 * g ran 89.5 35 - 80 * r bc 3.24 3.5 - 5.5 * h gb 12.7 11.5 - 16.5 * h ct 37.5 35 - 55 * m cv 115.8 75 - 100 * m ch 39.4 25 - 35 * m chc 34.0 31 - 38 * p latlet 85 100 - 400 * Eloise Vallejo 03/10/2025 04: 40:30 PM > results reviewed w/ pt in office 2.?Acute diarrhea? Start Zithromax Z-Tevin Tablet, 250 MG, 2 pills first day then one daily for 4 days, orally, as directed, 5 days, 1, Refills 0.?? * Procedure Codes: 8 5025 CBC WITH AUTO DIFF, 76019 VENIPUNCT, ROUTINE*, 3074F SYST BP LT 130 MM HG, 3078F DIAST BP < 80 MM HG * Follow Up: v ia phone to report test results * Images: Billing Information: * Visit Code: 70593 Office Visit, Est Pt., Level 3. * Procedure Codes: 02250 CBC WITH AUTO DIFF. 88391 VENIPUNCT, ROUTINE*. 3074F SYST BP LT 130 MM HG. 3078F DIAST BP < 80 MM HG. * Electronic signature of YUNI Dill on 09/11/2025 at 10:36 PM EST Sign off status: Pending * Provider: YUNI Garcia Date: 0 03/10/2025 Generated for Clydei ng/Donag/eTransmitting on: 1 11/11/2024 10:36 PM EST History and Physical Notes * Examination Category Sub-Category Detail Notes Category Not es General Examination HEENT: sclera and c onjunctiva clear, PERRLA, TM's normal, translucent, nose congested Heart: RSR Lungs: clear to auscultatio n Abdomen: bowel sounds present , soft, diffuse tenderness General Appearance: NAD Neck: supple, no lymphaden opathy Oral cavity: minimal erythema Chest: normal shape and exp ansion
--- OUTSIDE RECORDS SUMMARY | 2025-03-12 05:30 | XMS_ITS ---
Author Organization [facility] Address [address] [facility] [address] [place] [id number] Care Team Providers Care Small Lot Operator Name Role Phone Lorenza Daniel Primary Care Provider [phone] Lashell Bowen Unavailable [phone] Allergies Allergen (clinical drug ingredient) Drug/Non Drug Allergy documented on EMR Reaction Allergy Type Onset Date Status methylprednisolone methylPREDNISolone facial flushing Drug Allergy Active codeine Codeine Unknown Drug Allergy Active ropinirole rOPINIRole insomnia Drug Allergy Active Results Component Value Reference Range Notes CBC Fingerstick (in house) Reviewed date:03/14/2025 11:23:03 PM Interpretation: Performing Lab: Notes/Report: wbc 5.2 3.5 - 10 lym 8.8 15 - 50 mid 16.4 2 - 15 gran 74.8 35 - 80 rbc 2.78 3.5 - 5.5 hgb 11.0 11.5 - 16.5 hct 32.3 35 - 55 mcv 116.3 75 - 100 mch 39.7 25 - 35 mchc 34.1 31 - 38 plat 127 100 - 400 TEN-stool panel Reviewed date:03/18/2025 12:12:41 PM Interpretation:Rotavirus A Performing Lab: Notes/Report: Rotavirus A REASON FOR VISIT stomach pain still sick Medications Medication SIG (Take, Route, Frequency, Duration) Notes Start Date End Date Status Vitamin D3 50 MCG (1999) 1/2 tab(s) orally once a day 03/24/2014 Active CareTouch CPAP & BIPAP Hose 1 DIRECTED 02/22/2023 Active ZyrTEC Allergy 10 MG 1 tab(s) orally onc e a day Active Zinc 50 MG 1 tablet Orally Once a day; Duration: 30 day(s) Active Doptelet 20 MG 1 cap(s) orally once a day Active Doptelet 20 MG 1 tablet Orally Active riTUXimab 500 MG/50ML as directed Intrav enous weekly Active Magnesium - as directed Orally Active Cefuroxime Axetil 500 MG 1 tablet Orally every 12 hrs; Duration: 5 day(s) 02/09/2025 Not-Taking Benzonatate 200 MG 1 capsule as needed Orally Three times a day prn 02/09/2025 Not-Taking Azelastine HCl 137 MCG/SPRAY 2 sprays in each nostril Nasally Twice a day Active Vitamin B-12 1000 MCG TAKE 1 TABLET BY M OUT EVERY DAY; Duration: 30 Active diphenhydrAMINE-Zinc Acetate 2-0.1 % 1 application as needed Externally Three times a day 01/22/2025 Active Triamcinolone Acetonide 0.1 % 1 application Externally Three times a day 09/18/2023 Active Zithromax Z-Tevin 250 MG 2 pills first day then one daily for 4 days orally as directed; Duration: 5 days 03/10/2025 Active Vital Signs Weight 190 lbs 03/12/2025 Blood pressure systolic 126 mm Hg 03/12/20 25 Blood pressure diastolic 72 mm Hg 025 Heart Rate 86 /min 03/12/2025 Height 62.50 in 03/12/2025 BMI 34.19 kg/m2 03/12/2025 Encounters Encounter Location Date Provider Diagnosis [facility] [address] [id number] 03/12/2025 Lashell Bowen Acute diarrhea R19.7 ; Epigastric pain R10.13 ; Nausea R11.0 and Elevated LFTs R79.89 Assessments Encounter Date Diagnosis (ICD Code) Assessment Notes Treatment Notes Treatment Clinical Notes Section Notes 03/12/2025 Acute diarrhea (ICD-10 - R19.7) 03/12/2025 Epigastric pain (ICD-10 - R10.13) 03/12/2025 Nausea (ICD-10 - R11.0) 03/12/2025 Elevated LFTs (ICD-10 - R79.89) Patient's LFT's were elevated. She is having these rechecked next week by Dr. Servin. Will get stool panel. Plan Of Treatment Treatment Notes Assessment Notes Elevated LFTs Patient's LFT's were elevated. She is having these rechecked next week by Dr. Servin. Will get stool panel. Next Appt Details Follow Up: via phone to repo rt test results, Reason: Progress Notes * Yi LIRADOB: 0 (45 yo F)Acc No.[id number]:03/12/2025 Progress Notes Patient: Yi WEIR Provider: YUNI Garcia :1980 A ge:44 Y S ex:Female Date:03/12/2025 Address: [address], [facility], [id number] Pcp:Lorenza Daniel Subjective: * Chief Complaints: * 1 . Stomach pain still sick. * HPI: G astroenterology: 44 year old female presents with c/o Abdominal Pain P t sts she is still having abdominal pain, pt sts she is still taking the antibiotics, but sts she is no longer wanting to take it as the diarrhea she has each time while taking it has gotten worse. Pt sts in the last 2 days she has had about 20 BMs. Pt sts she is now having cold chills. Pt sts she does not ever have a high temp and sts with her temp being 99.8 today she is worried and sts that is a high fever for her. * ROS: D ERMATOLOGY: no R christina. n o H sherin. G ASTROENTEROLOGY: no N ausea. n o V omiting. U ROLOGY: no D ifficulty urinating. n o B lood in urine. * Medical History: R estless legs syndrome, Vitamin D deficiency, Allergic rhinitis, Esophageal reflux, Pancytopenia - follows with Dr. Servin and [facility], Mammogram - 2020, Pancytopenia, s/p evaluation at [facility], Aplastic anemia, Restless legs syndrome - Dr. [...] Former Smoker: No. * Medications: T aking Doptelet 20 MG Tablet 1 tablet Orally , Taking riTUXimab 500 MG/50ML Solution as directed Intravenous [...] application Externally Three times a day , Taking Zithromax Z-Tevin 250 MG Tablet 2 pills first day then one daily for 4 days orally as directed , Not-Taking Cefuroxime Axetil 500 MG Tablet 1 tablet Orally every 12 hrs , Not-Taking Benzonatate 200 MG Capsule 1 capsule as needed Orally Three times a day prn , Medication List reviewed and reconciled with the patient * Allergies: C odeine, rOPINIRole: insomnia - Side Effects, methylPREDNISolone: facial flushing - Side Effects. Objective: * Vitals: W t: 190, Temp: 99.8, BP: 126/72, HR: 86, Nurse: cyn, Ht: 62.50, BMI:34.19. * Examination: G astroenterology: General Appearance: p leasant, NAD. O ral cavity: n ormal. S clera: a nicteric. H eart sounds: r egular, normal S1 S2, no murmurs. L ungs: c lear, no rales or wheezes. A bdomen: B S present, soft, nontender, no guarding or rigidity, no masses felt. H ernias: n one. Assessment: * Assessment: 1. A cute diarrhea - R19.7 (Primary) 2 . E pigastric pain - R10.13 ? 3 . N ausea - R11.0 4 . E levated LFTs - R79.89 Plan: * Treatment: Value Reference Range w bc 5.2 3.5 - 10 * l ym 8.8 15 - 50 * m id 16.4 2 - 15 * g ran 74.8 35 - 80 * r bc 2.78 3.5 - 5.5 * h gb 11.0 11.5 - 16.5 * h ct 32.3 35 - 55 * m cv 116.3 75 - 100 * m ch 39.7 25 - 35 * m chc 34.1 31 - 38 * p lat 127 100 - 400 * Elizabeth Foreman 03/12/2025 11:2 8:39 AM > Provider reviewed results while patient in office. ?LAB: TEN-stool panel (Collection Date & Time - 03/12/2025)?Rotavirus A* Eloise Vallejo 03/15/2025 03: 43:22 PM > pt has called for results.Judith Dea 03/16/2025 09:40:29 AM > called back for results again, also has diarrhea. went to the hospital last night and was told he had Noravirus, wondering if they have the same thing.Lashell Bowen 03/17/2025 10:24:53 PM > see TE 2.?Elevated LFTs? Notes: Patient's LFT's were elevated. She is having these rechecked next week by Dr. Servin. Will getstool panel.?? * Procedure Codes: 3 6416 CAPILLARY BLOOD DRAW, 29255 CBC WITH AUTO DIFF * Follow Up: v ia phone to report test results * Images: Billing Information: * Visit Code: 28628 Office Visit, Est Pt., Level 3. * Procedure Codes: 77030 CAPILLARY BLOOD DRAW. 67872 CBC WITH AUTO DIFF. * Electronic signature of YUNI Dill on 09/11/2025 at 10:44 PM EST Sign off status: Pending * Provider: YUNI Garcia Date: 0 03/12/2025 Generated for Clydei ng/Scot/eTransmitting on: 1 11/11/2024 10:44 PM EST History and Physical Notes * HPI (History of Present Illness) Category Sub-Category Detail Notes Category Not es Gastroenterology Abdominal Pain Pt sts she is s till having abdominal pain, pt sts she is still taking the antibiotics, but sts she is no longer wanting to take it as the diarrhea she has each time while taking it has gotten worse. Pt sts in the last 2 days she has had about 20 BMs. Pt sts she is now having cold chills. Pt sts she does not ever have a high temp and sts with her temp being 99.8 today she is worried and sts that is a high fever for her Examination Category Sub-Category Detail Notes Category Not es Gastroenterology Oral cavity: normal Sclera: anicteric Heart sounds: regular, normal S1 S 2, no murmurs Lungs: clear, no rales or w heezes Abdomen: BS present, soft, no ntender, no guarding or rigidity, no masses felt Hernias: none General Appearance: pleasant, NAD
--- OUTSIDE RECORDS SUMMARY | 2025-04-15 09:15 | XMS_ITS ---
Author Organization [facility] Address [address] [facility] [address] [place] [id number] Care Team Providers Care Pot Holder Binder Name Role Phone Lorenza Daniel Primary Care Provider Lashell Bowen Unavailable [phone] Allergies Allergen (clinical drug ingredient) Drug/Non Drug Allergy documented on EMR Reaction Allergy Type Onset Date Status methylprednisolone methylPREDNISolone facial flushing Drug Allergy Active codeine Codeine Unknown Drug Allergy Active ropinirole rOPINIRole insomnia Drug Allergy Active Results Component Value Reference Range Notes CBC Fingerstick (in house) Reviewed date:04/15/2025 03:54:22 PM Interpretation: Performing Lab: Notes/Report: wbc 4.2 3.5 - 10 lym 24.4% 15 - 50 mid 6.9% 2 - 15 gran 68.7% 35 - 80 rbc 2.47 3.5 - 5.5 hgb 9.7 11.5 - 16.5 hct 28.8 35 - 55 mcv 116.8 75 - 100 mch 39.5 25 - 35 mchc 33.8 31 - 38 plat 132 100 - 400 P-Comprehensive Metabolic Pa mna (CMP) Reviewed date:04/21/2025 01:28:17 PM Interpretation:glu 115, ALT 114, AST 61 Performing Lab: Notes/Report: Test performed by [facility], [employer] [address] [place] [address] , [address], [place] [address] Cornelio Caceres MD, Senior Cytogenetic Technologist CLIA: [id number] Sodium 139 135-145 mmol/L Potassium 3.8 3.5-5.3 mmol/L Chloride 104 97-108 mmol/L CO2 26 22-32 mmol/L Glucose 115 65-99 mg/dL BUN 18 6-20 mg/dL Creatinine 0.84 0.50-1.00 mg/dL Calcium 9.1 8.6-10.4 mg/dL eGFR by Creatinine 87 >59 mL/min/1.73m2 Protein 6.0 6.0-8.3 g/dL Albumin 4.1 3.5-5.3 g/dL Alkaline Phosphatase 117 35-121 IU/L ALT (SGPT) 114 <5-47 IU/L AST (SGOT) 61 <5-40 IU/L Bilirubin, Total 0.5 <0.2-1.2 mg/dL A/G Ratio 2.2 1.1-2.5 REASON FOR VISIT cough & congestion Medications Medication SIG (Take, Route, Frequency, Duration) Notes Start Date End Date Status ZyrTEC Allergy 10 MG 1 tab(s) orally onc e a day Active CareTouch CPAP & BIPAP Hose 1 DIRECTED 02/22/2023 Active Azelastine HCl 137 MCG/SPRAY 2 sprays in each nostril Nasally Twice a day Active Vitamin D3 50 MCG (1999 UT) 1/2 tab(s) orally once a day 03/24/2014 Active diphenhydrAMINE-Zinc Acetate 2-0.1 % 1 application as needed Externally Three times a day 01/22/2025 Active Zinc 50 MG 1 tablet Orally Once a day; Duration: 30 day(s) Active Magnesium - as directed Orally Active Doptelet 20 MG 1 cap(s) orally once a day Active riTUXimab 500 MG/50ML as directed Intrav enous weekly Active Doptelet 20 MG 1 tablet Orally Active Cefuroxime Axetil 500 MG 1 tablet Orally every 12 hrs; Duration: 5 day(s) 02/09/2025 Not-Taking Diflucan 150 MG 1 tablet Orally one time; Duration: 1 days 03/26/2025 Active Benzonatate 200 MG 1 capsule as needed Orally Three times a day, prn 04/15/2025 Active Benzonatate 200 MG 1 capsule as needed Orally Three times a day prn 02/09/2025 Not-Taking Vitamin B-12 1000 MCG TAKE 1 TABLET BY M OUTH EVERY DAY; Duration: 30 Active Triamcinolone Acetonide 0.1 % 1 application Externally Three times a day 09/18/2023 Active Zithromax Z-Tevin 250 MG 2 pills first day then one daily for 4 days orally as directed; Duration: 5 days 03/10/2025 Active Vital Signs Weight 192.2 lbs 04/15/2025 Blood pressure systolic 132 mm Hg 04/15/20 25 Blood pressure diastolic 72 mm Hg 025 Heart Rate 87 /min 04/15/2025 Height 62.50 in 04/15/2025 BMI 34.59 kg/m2 04/15/2025 Encounters Encounter Location Date Provider Diagnosis [facility] [address] [facility] [address], [place] [id number] 04/15/2025 Lashell Bowen Acute URI J06.9 and Elevated liver enzymes R74.8 Assessments Encounter Date Diagnosis (ICD Code) Assessment Notes Treatment Notes Treatment Clinical Notes Section Notes 04/15/2025 Acute URI (ICD-10 - J06.9) 04/15/2025 Elevated liver enzymes (ICD-10 - R74.8) Plan Of Treatment Medication Medication Name Sig Start Date Stop Date Notes Benzonatate 200 MG 1 capsule as needed Orally Three times a day, prn 04/15/2025 Next Appt Details Follow Up: via phone to repo rt test results, Reason: Progress Notes * Yi LIRADOB: 0 (45 yo F)Acc No.[id number]:04/15/2025 Progress Notes Patient: Yi WEIR Provider: YUNI Garcia :1980 A ge:44 Y S ex:Female Date:04/15/2025 Address: [address], [place], [id number] Pcp:Lorenza Daniel Subjective: * Chief Complaints: * 1 . Cough & congestion. * HPI: E NT/respiratory: 44 year old female presents with c/o cough P t complains of greenish yellow sputum production c ough for about 2 weeks. Associated with shortness of breath and chest tightness. Pt states she has been taking Tesslon perles and taking Delsym OTC but has not had any relief. Denies : Fever. D enies : body aches. * ROS: D ERMATOLOGY: no R christina. n o H sherin. G ASTROENTEROLOGY: no N ausea. n o V omiting. U ROLOGY: no D ifficulty urinating. n o B lood in urine. * Medical History: R estless legs syndrome, Vitamin D deficiency, Allergic rhinitis, Esophageal reflux, Pancytopenia - follows with Dr. Servin and [facility], Mammogram - 2020, Pancytopenia, s/p evaluation at [facility], Aplastic anemia, Restless legs syndrome - Dr. Alexandre. * Surgical History: T onsillectomy , Adenoidectomy , D&C , IUD 11/2022. * Hospitalization/Major Diagno stic Procedure: D enies Past Hospitalization. * Family History: F ather: alive. M other: alive. 1 brother(s) . . * Social History: C URRENT TOBACCO USE: No . C affeine: yes, frequency:. Marital Status: . Past smoking status: never smoked, Smoking status: Does not smoke, Former Smoker: [...] nostril Nasally Twice a day , Taking diphenhydrAMINE-Zinc Acetate 2-0.1 % Cream 1 application as needed Externally Three times a day , Taking Triamcinolone Acetonide 0.1 % Cream 1 application Externally Three times a day , Taking Zithromax Z-Tevin 250 MG Tablet 2 pills first day then one daily for 4 days orally as directed , Taking Vitamin B-12 1000 MCG Tablet TAKE 1 TABLET BY MOUTH EVERY DAY , Taking Diflucan 150 MG Tablet 1 tablet Orally one time , Not-Taking Cefuroxime Axetil 500 MG Tablet 1 tablet Orally every 12 hrs , Not-Taking Benzonatate 200 MG Capsule 1 capsule as needed Orally Three times a day prn , Medication List reviewed and reconciled with the patient * Allergies: C odeine, rOPINIRole: insomnia - Side Effects, methylPREDNISolone: facial flushing - Side Effects. Objective: * Vitals: W t: 192.2, Temp: 98.2, BP: 132/72, HR: 87, O2 Sat: 100% on RA, Nurse: zamzam, Ht: 62.50, BMI:34.59. * Examination: E NT/Respiratory: General Appearance: N AD. E ars: a uditory canals normal bilaterally, TM's WNL. N ose : t urbinates red, congested. S inuses : n on tender bilaterally. O ral cavity : n o erythema or exudate seen on pharynx, PND present. N david : n o cervical lymphadenopathy. H eart : R RR, normal S1 S2, no murmurs. L ungs:?clear to auscultation bilaterally. Assessment: * Assessment: 1. A cute URI - J06.9 (Primary) 2 . E levated liver enzymes - R74.8 ? Plan: * Treatment: Value Reference Range w bc 4.2 3.5 - 10 * l ym 24.4% 15 - 50 * m id 6.9% 2 - 15 * g ran 68.7% 35 - 80 * r bc 2.47 3.5 - 5.5 * h gb 9.7 11.5 - 16.5 * h ct 28.8 35 - 55 * m cv 116.8 75 - 100 * m ch 39.5 25 - 35 * m chc 33.8 31 - 38 * p lat 132 100 - 400 * Meaghan Garcia 04/15/2025 02:50: 17 PM EDT > Provider reviewed results while patient in office. 2.?Elevated liver enzymes?LAB: P-Comprehensive Metabolic Panel (CMP) (Collection Date & Time - 04/15/2025 01:45 PM)?glu 115, ALT 114, AST 61* Value Reference Range A /G Ratio 2.2 1.1-2.5 - * A lbumin 4.1 3.5-5.3 - g/dL * A lkaline Phosphatase 117 35-121 - IU/L * A LT (SGPT) 114 H <5-47 - IU/L * A ST (SGOT) 61 H <5-40 - IU/L * B ilirubin, Total 0.5 <0.2-1.2 - mg/dL * B UN 18 6-20 - mg/dL * C alcium 9.1 8.6-10.4 - mg/dL * C hloride 104 97-108 - mmol/L * C O2 26 22-32 - mmol/L * C reatinine 0.84 0.50-1.00 - mg/dL * G lucose 115 H 65-99 - mg/dL * P otassium 3.8 3.5-5.3 - mmol/L * S odium 139 135-145 - mmol/L * P rotein 6.0 6.0-8.3 - g/dL * e GFR by Creatinine 87 >59 - mL/min/1.73m2 * Lashell Bowen 04/15/2025 0 2:40:32 PM EDT >room 7 Genevieve Eloise 04/21/2025 01:28:11 PM EDT > See phone encounter * Procedure Codes: 3 6416 CAPILLARY BLOOD DRAW, 14144 CBC WITH AUTO DIFF, 1036F TOBACCO NON-USER, G8783 BP SCR PRFRM RCMDD DEFIND SCR INTVL, G8752 MOST RECENT SYSTOLIC BP < 140MM HG, G8754 MOST RECENT DIASTOLIC BP < 90MM HG * Follow Up: v ia phone to report test results * Images: Billing Information: * Visit Code: 73591 Office Visit, Est Pt., Level 3. * Procedure Codes: 17450 CAPILLARY BLOOD DRAW. 04631 CBC WITH AUTO DIFF. 1036F TOBACCO NON-USER. G8783 BP SCR PRFRM RCMDD DEFIND SCR INTVL. G8752 MOST RECENT SYSTOLIC BP < 140MM HG. G8754 MOST RECENT DIASTOLIC BP < 90MM HG. * Electronic signature of YUNI Dill on 09/11/2025 at 10:37 PM EST Sign off status: Pending * Provider: YUNI Garcia Date: 0 04/15/2025 Generated for Printi ng/Faxing/eTransmitting on: 1 11/11/2024 10:37 PM EST History and Physical Notes * HPI (History of Present Illness) Category Sub-Category Detail Notes Category Not es ENT/respiratory cough Pt complains of greenish yellow sputum production cough for about 2 weeks. Associated with shortness of breath and chest tightness. Pt states she has been taking Tesslon perles and taking Delsym OTC but has not had any relief Fever body aches Examination Category Sub-Category Detail Notes Category Not es ENT/Respiratory Oral cavity : no erythema or e xudate seen on pharynx, PND present Sinuses : non tender bilateral ly Ears: auditory canals norm al bilaterally, TM's WNL Neck : no cervical lymphade nopathy Heart : RRR, normal S1 S2, n o murmurs Lungs: clear to auscultatio n bilaterally General Appearance: NAD Nose : turbinates red, tanya ested
--- OUTSIDE RECORDS SUMMARY | 2025-06-03 06:00 | XMS_ITS ---
[facility] Address [address] [facility] [address] [id number] Care Team Providers Care Structural Steel Painter Name Role Phone Lorenza Daniel Primary Care Provider Allergies Allergen (clinical drug ingredient) Drug/Non Drug Allergy documented on EMR Reaction Allergy Type Onset Date Status methylprednisolone methylPREDNISolone facial flushing Drug Allergy Active codeine Codeine Unknown Drug Allergy Active ropinirole rOPINIRole insomnia Drug Allergy Active Results Component Value Reference Range Notes Covid test (in house) Reviewed date:06/03/2025 12:16:11 PM Interpretation:pos Performing Lab: Notes/Report: pos Result: pos REASON FOR VISIT covid test Medications Medication SIG (Take, Route, Frequency, Duration) Notes Start Date End Date Status Zithromax Z-Tevin 250 MG 2 pills first day then one daily for 4 days orally as directed; Duration: 5 days 03/10/2025 Not-Taking Diflucan 150 MG 1 tablet Orally one time; Duration: 1 days 03/26/2025 Active Benzonatate 200 MG 1 capsule as needed Orally Three times a day, prn 04/15/2025 Active diphenhydrAMINE-Zinc Acetate 2-0.1 % 1 application as needed Externally Three times a day 01/22/2025 Active Triamcinolone Acetonide 0.1 % 1 application Externally Three times a day 09/18/2023 Active Doptelet 20 MG 1 cap(s) orally once a day Active Vitamin D3 50 MCG (1999 UT) 1/2 tab(s) orally once a day 03/24/2014 Active CareTouch CPAP & BIPAP Hose 1 DIRECTED 02/22/2023 Active ZyrTEC Allergy 10 MG 1 tab(s) orally onc e a day Active Azelastine HCl 137 MCG/SPRAY 2 sprays in each nostril Nasally Twice a day Active Doptelet 20 MG 1 tablet Orally Active riTUXimab 500 MG/50ML as directed Intrav enous weekly Active Magnesium - as directed Orally Active Zinc 50 MG 1 tablet Orally Once a day; Duration: 30 day(s) Active Benzonatate 200 MG 1 capsule as needed Orally Three times a day prn 02/09/2025 Not-Taking Vitamin B-12 1000 MCG TAKE 1 TABLET BY M OUTH EVERY DAY; Duration: 60 Active Cefuroxime Axetil 500 MG 1 tablet Orally every 12 hrs; Duration: 5 day(s) 02/09/2025 Not-Taking Vital Signs Weight 189.6 lbs 06/03/2025 Blood pressure systolic 120 mm Hg 06/03/20 25 Blood pressure diastolic 70 mm Hg 025 Heart Rate 86 /min 06/03/2025 Height 62.50 in 06/03/2025 BMI 34.12 kg/m2 06/03/2025 Encounters Encounter Location Date Provider Diagnosis [facility] [address] [facility] [address] [place] [address], [place] [id number] 06/03/2025 Lorenza Daniel COVID-19 U07.1 Assessments Encounter Date Diagnosis (ICD Code) Assessment Notes Treatment Notes Treatment Clinical Notes Section Notes 06/03/2025 COVID-19 (ICD-10 - U07.1) Recommend symptomatic treatment but also suggest she contact her farrowing worker to see if she recommends Paxlovid which may require some adjustment in her Doptelet dosage. Plan Of Treatment Treatment Notes Assessment Notes COVID-19 Recommend symptomati c treatment but also suggest she contact her farrowing worker to see if she recommends Paxlovid which may require some adjustment in her Doptelet dosage. Next Appt Details Follow Up: prn, Reason: Progress Notes * Yi LIRADOB: 0 (45 yo F)Acc No.[id number]:06/03/2025 Progress Notes Patient: Yi WEIR Provider: Lorenza Daniel M.D. :1980 A ge:45 Y S ex:Female Date:06/03/2025 Address:[address], [place], [id number] Subjective: * Chief Complaints: * 1 . Covid test. * HPI: E NT/respiratory: 45 year old female presents with c/o sore throat. c/o cough. c/o nasal congestion. c/o Fever P t sts she started today with cold chills. Pt sts she was around her friend on Saturday who tested positive for covid. P t sts she has also been exposed to severe dust and possible mold as well. Denies : headache. D enies : body aches. Pt sts she did take 2 at home covid test this morning and sts they were both positive. * ROS: D ERMATOLOGY: no R christina. n o H sherin. G ASTROENTEROLOGY: no N ausea. n o V omiting. U ROLOGY: no D ifficulty urinating. n o B lood in urine. * Medical History: R estless legs syndrome, Vitamin D deficiency, Allergic rhinitis, Esophageal reflux, Pancytopenia - follows with Dr. Servin and [facility], Mammogram - 2020, Pancytopenia, s/p evaluation at [facility], Aplastic anemia, Restless legs syndrome - Dr. [...] Externally Three times a day , Taking Diflucan 150 MG Tablet 1 tablet Orally one time , Taking Benzonatate 200 MG Capsule 1 capsule as needed Orally Three times a day, prn , Taking Vitamin B-12 1000 MCG Tablet TAKE 1 TABLET BY MOUTH EVERY DAY , Not- Taking Zithromax Z-Tevin 250 MG Tablet 2 [...] Side Effects. Objective: * Vitals: W t: 189.6, Temp: 99.2, BP: 120/70, HR: 86, O2 Sat: 97% on RA, Nurse: harrison, Ht: 62.50, BMI:34.12. * Examination: E NT/Respiratory: General Appearance: S he is somewhat anxious.. E yes:?PERRLA, sclera clear. E ars: a uditory canals normal bilaterally, TM's WNL. N ose :?normal, no lesions, nares patent. O ral cavity : m ild erythema of throat. N david : no cervical lymphadenopathy. H eart : R RR, normal S1 S2, no murmurs. L ungs: c lear to auscultation bilaterally. Assessment: * Assessment: 1. C OVID-19 - U07.1 (Primary) Plan: * Treatment: Value Reference Range R esult: pos * Elizabeth Foreman 06/03/2025 11:21 :14 AM EDT > Provider reviewed results while patient in office. Notes: Recommend symptomatic treatment but also suggest she contact her farrowing worker to see if she recommends Paxlovid which may require some adjustment in her Doptelet dosage.?? * Procedure Codes: 8 7811 COVID TEST IN HOUSE, Modifiers: QW , 1036F TOBACCO NON-USER, G8783 BP SCR PRFRM RCMDD DEFIND SCR INTVL, G8752 MOST RECENT SYSTOLIC BP < 140MM HG, G8754 MOST RECENT DIASTOLIC BP < 90MM HG * Follow Up: p rn * Images: Billing Information: * Visit Code: 69300 Office Visit, Est Pt., Level 3. * Procedure Codes: 12911 COVID TEST IN HOUSE. Modifiers: QW 1036F TOBACCO NON-USER. G8783 BP SCR PRFRM RCMDD DEFIND SCR INTVL. G8752 MOST RECENT SYSTOLIC BP < 140MM HG. G8754 MOST RECENT DIASTOLIC BP < 90MM HG. * Electronic signature of Lorenza Daniel MD on 09/11/2025 at 10:38 PM EST Sign off status: Pending * Provider: Lorenza Daniel M.D. Date: 0 06/03/2025 Generated for Clydei ng/Scot/eTransmitting on: 1 11/11/2024 10:38 PM EST History and Physical Notes * HPI (History of Present Illness) Category Sub-Category Detail Notes Category Not es ENT/respiratory sore throat Pt sts she d id take 2 at home covid test this morning and sts they were both positive cough Fever Pt sts she started t derrick with cold chills. Pt sts she was around her friend on Saturday who tested positive for covid. Pt sts she has also been exposed to severe dust and possible mold as well headache nasal congestion body aches Examination Category Sub-Category Detail Notes Category Not es ENT/Respiratory Oral cavity : mild erythema of throat Ears: auditory canals norm al bilaterally, TM's WNL Neck : no cervical lymphade nopathy Heart : RRR, normal S1 S2, n o murmurs Lungs: clear to auscultatio n bilaterally General Appearance: She is somewhat anxi ous. Nose : normal, no lesions, nares patent Eyes: PERRLA, sclera clear
--- OUTSIDE RECORDS SUMMARY | 2025-06-15 05:45 | XMS_ITS ---
Author Organization [facility] Address [address] [place] [id number] Care Team Providers Care Chimney Supervisor Brick Name Role Phone Lorenza Daniel Primary Care Provider [phone] Erin Austin Unavailable [phone] Allergies Allergen (clinical drug ingredient) Drug/Non Drug Allergy documented on EMR Reaction Allergy Type Onset Date Status methylprednisolone methylPREDNISolone facial flushing Drug Allergy Active codeine Codeine Unknown Drug Allergy Active ropinirole rOPINIRole insomnia Drug Allergy Active Results Component Value Reference Range Notes Rapid Strep- Inhouse Reviewed date:06/15/2025 02:31:18 PM Interpretation:Negative Performing Lab: Notes/Report: Negative strep test Neg CBC Fingerstick (in house) Reviewed date:06/15/2025 02:31:29 PM Interpretation: Performing Lab: Notes/Report: wbc 3.5 3.5 - 10 lym 24.8% 15 - 50 mid 6.5% 2 - 15 gran 68.7% 35 - 80 rbc 2.55 3.5 - 5.5 hgb 10.1 11.5 - 16.5 hct 29.1 35 - 55 mcv 114.2 75 - 100 mch 39.7 25 - 35 mchc 34.8 31 - 38 plat 107 100 - 400 Covid test (in house) Reviewed date:06/15/2025 02:31:07 PM Interpretation:Negative Performing Lab: Notes/Report: Negative Result: Neg REASON FOR VISIT poss.sinus infection Medications Medication SIG (Take, Route, Frequency, Duration) Notes Start Date End Date Status Benzonatate 200 MG 1 capsule as needed Orally Three times a day, prn 04/15/2025 Active Triamcinolone Acetonide 0.1 % 1 application Externally Three times a day 09/18/2023 Active diphenhydrAMINE-Zinc Acetate 2-0.1 % 1 application as needed Externally Three times a day 01/22/2025 Active Azelastine HCl 137 MCG/SPRAY 2 sprays in each nostril Nasally Twice a day Active Zinc 50 MG 1 tablet Orally Once a day; Duration: 30 day(s) Active CareTouch CPAP & BIPAP Hose 1 DIRECTED 02/22/2023 Active Vitamin D3 50 MCG (2000 UT) 1/2 tab(s) orally once a day 03/24/2014 Active ZyrTEC Allergy 10 MG 1 tab(s) orally onc e a day Active Magnesium - as directed Orally Active riTUXimab 500 MG/50ML as directed Intrav enous weekly Not-Taking ZyrTEC-D Allergy & Congestion 5-120 MG 1 tablet Orally Once a day; Duration: 30 days 06/15/2025 Active Promethazine-DM 6.25-15 MG/5ML 5ml Orally every 6 hrs As needed 06/15/2025 Active Doptelet 20 MG 2 tablet Orally daily Active Zithromax Z-Tevin 250 MG 2 pills first day then one daily for 4 days orally as directed; Duration: 5 days 03/10/2025 Not-Taking Cefdinir 300 MG 1 capsule Orally twi ce a day; Duration: 10 days 06/15/2025 Active Albuterol Sulfate HFA 108 (90 Base) MCG/ACT 1 puff as needed Inhalation every 4 hrs As needed 06/15/2025 Active Cefuroxime Axetil 500 MG 1 tablet Orally every 12 hrs; Duration: 5 day(s) 02/09/2025 Not-Taking Vitamin B-12 1000 MCG TAKE 1 TABLET BY M OUT EVERY DAY; Duration: 60 Active Vital Signs Weight 188.2 lbs 06/15/2025 Blood pressure systolic 120 mm Hg 06/15/20 25 Blood pressure diastolic 74 mm Hg 025 Heart Rate 67 /min 06/15/2025 Height 62.50 in 06/15/2025 BMI 33.87 kg/m2 06/15/2025 Encounters Encounter Location Date Provider Diagnosis [facility] [address] [facility] [address] [place] [phone] 06/15/2025 Erin Austin Acute respiratory infection J22 and Sinusitis J32.9 Assessments Encounter Date Diagnosis (ICD Code) Assessment Notes Treatment Notes Treatment Clinical Notes Section Notes 06/15/2025 Acute respiratory infection (ICD-10 - J22) fluids, rest, supportive measures for fever/symptom relief 06/15/2025 Sinusitis (ICD-10 - J32.9) Plan Of Treatment Medication Medication Name Sig Start Date Stop Date Notes ZyrTEC-D Allergy & Congestio n 5-120 MG 1 tablet Orally Once a day; Duration: 30 days 06/15/2025 Promethazine-DM 6.25-15 MG/5ML 5ml Orally every 6 hrs 06/15/2025 Cefdinir 300 MG 1 capsule Orally twi ce a day; Duration: 10 days 06/15/2025 Albuterol Sulfate HFA 108 (9 0 Base) MCG/ACT 1 puff as needed Inhalation every 4 hrs 06/15/2025 Treatment Notes Assessment Notes Acute respiratory infection fluids, rest , supportive measures for fever/symptom relief Next Appt Details Follow Up: prn, Reason: Progress Notes * SORAYA YiDOB: 0 (45 yo F)Acc No.[id number]:06/15/2025 Progress Notes Patient: Yi WEIR Provider: MELONIE Blanc :1980 A ge:45 Y S ex:Female Date:06/15/2025 Address[address], [facility], [id number] Pcp:Lorenza Daniel Subjective: * Chief Complaints: * 1 . Poss.sinus infection. * HPI: E NT/respiratory: The pt is here today with c/o green sinus drainage and cough. Pt states she is also having sore throat and swelling in her throat. Pt tested positive for Covid on 06/03/25 and still has a bad cough; drinking and eating fine. 45 year old female presents with c/o sore throat s wallowing painful. c/o cough. c/o nasal congestion. c/o rhinorrhea. c/o post nasal drainage. c/o chest congestion s ome wheezing. Denies : Fever. D enies : ear pain. D enies : headache.?Denies : smoking. * ROS: D ERMATOLOGY: no R christina. n o H sherin. G ASTROENTEROLOGY: no N ausea. n o V omiting. n o D iarrhea.? U ROLOGY: no D ifficulty urinating. n o B lood in urine. * Medical History: R estless legs syndrome, Vitamin D deficiency, Allergic rhinitis, Esophageal reflux, Pancytopenia - follows with Dr. Servin and [facility], Mammogram - 2020, Pancytopenia, s/p evaluation at [facility], Aplastic anemia, Restless legs syndrome - Dr. [...] Medications: T aking Doptelet 20 MG Tablet 2 tablet Orally daily , Taking Magnesium - Capsule as directed Orally , Taking Zinc 50 MG Tablet 1 tablet Orally Once a day , Taking Vitamin D3 50 [...] Externally Three times a day , Taking Benzonatate 200 MG Capsule 1 capsule as needed Orally Three times a day, prn , Taking Vitamin B-12 1000 MCG Tablet TAKE 1 TABLET BY MOUTH EVERY DAY , Not- Taking riTUXimab 500 MG/50ML Solution as directed Intravenous weekly , Not-Taking Zithromax Z-Tevin 250 MG Tablet 2 pills first day then one daily for 4 days orally as directed , Not-Taking Cefuroxime Axetil 500 MG Tablet 1 tablet Orally every 12 hrs , Discontinued Doptelet 20 MG Tablet 1 cap(s) orally once a day , Discontinued Diflucan 150 MG Tablet 1 tablet Orally one time , Discontinued Benzonatate 200 MG Capsule 1 capsule as needed Orally Three times a day prn , Medication List reviewed and reconciled with the patient * Allergies: C odeine, rOPINIRole: insomnia - Side Effects, methylPREDNISolone: facial flushing - Side Effects. Objective: * Vitals: W t: 188.2, Temp: 98.0, BP: 120/74, HR: 67, O2 Sat: 99% on RA, Nurse: LUI, Ht: 62.50, BMI:33.87. * Examination: G eneral Examination: General Appearance: N AD, alert, pleasant, Color good; coughing frequently while in the office. H EENT: s clera and conjunctiva clear, PERRLA, TM's normal, translucent. O ral cavity: m ild OP erythema. N david: s upple, no lymphadenopathy. H eart: R RR. L ungs: C TAB A&P, good air entry bilaterally. N eurologic Exam: a lert and oriented. Assessment: * Assessment: 1. A cute respiratory infection - J22 (Primary) 2 . S inusitis - J32.9 Plan: * Treatment: Value Reference Range R esult: Neg * Raya Bloom 06/15/2025 11 :39:03 AM EDT > Provider reviewed results while patient in office.Erin Austin 06/15/2025 02:31:04 PM EDT > Notes: fluids, rest, supportive measures for fever/symptom relief??2.?Sinusitis? Start Cefdinir Capsule, 300 MG, 1 capsule, Orally, twice a day, 10 days, 20 Capsule;?Start Albuterol Sulfate HFA Aerosol Solution, 108 (90 Base) MCG/ACT, 1 puff as needed, Inhalation, every 4 hrs As needed, 1, Refills 1.?? * Labs: * L ab: CBC Fingerstick (in house) (Collection Date & Time - 06/15/2025) Value Reference Range w bc 3.5 3.5 - 10 * l ym 24.8% 15 - 50 * m id 6.5% 2 - 15 * g ran 68.7% 35 - 80 * r bc 2.55 3.5 - 5.5 * h gb 10.1 11.5 - 16.5 * h ct 29.1 35 - 55 * m cv 114.2 75 - 100 * m ch 39.7 25 - 35 * m chc 34.8 31 - 38 * p lat 107 100 - 400 * [place]reveportRaya Gisele 06/15/2025 10 :54:57 AM EDT > Provider reviewed results while patient in office.Erin Austin 06/15/2025 02:31:27 PM EDT > ?Lab: Rapid Strep- Inhouse (Collection Date & Time - 06/15/2025)?Negative* Value Reference Range s trep test Neg * Raya Bloom 06/15/2025 11 :04:00 AM EDT > Provider reviewed results while patient in office.Erin Austin 06/15/2025 02:31:16 PM EDT > * Procedure Codes: 3 6416 CAPILLARY BLOOD DRAW, 39068 CBC WITH AUTO DIFF, 43747 STREP A ASSAY W/OPTIC, Modifiers: QW , 94522 COVID TEST IN HOUSE, Modifiers: QW , 1036F TOBACCO NON- USER, 3074F SYST BP LT 130 MM HG, 3078F DIAST BP < 80 MM HG * Follow Up: p rn * Images: Billing Information: * Visit Code: 41889 Office Visit, Est Pt., Level 3. * Procedure Codes: 53698 CAPILLARY BLOOD DRAW. 11310 CBC WITH AUTO DIFF. 93107 STREP A ASSAY W/OPTIC. Modifiers: QW 19125 COVID TEST IN HOUSE. Modifiers: QW 1036F TOBACCO NON-USER. 3074F SYST BP LT 130 MM HG. 3078F DIAST BP < 80 MM HG. * Electronic signature of Bianca Austin APRN on 09/11/2025 at 10:45 PM EST Sign off status: Pending * Provider: MELONIE Blanc Date: 0 06/15/2025 Generated for Nati pena/Scot/Rogersitting on: 1 11/11/2024 10:45 PM EST History and Physical Notes * HPI (History of Present Illness) Category Sub-Category Detail Notes Category Not es ENT/respiratory sore throat swallowing painful ear pain cough Fever post nasal drainage headache chest congestion some wheezing rhinorrhea nasal congestion smoking Examination Category Sub-Category Detail Notes Category Not es General Examination HEENT: sclera and c onjunctiva clear, PERRLA, TM's normal, translucent Heart: RRR Lungs: CTAB A&P, good air e ntry bilaterally General Appearance: NAD, alert, pleasant , Color good; coughing frequently while in the office Neurologic Exam: alert and oriented Neck: supple, no lymphaden opathy Oral cavity: mild OP erythema
--- OUTSIDE RECORDS SUMMARY | 2025-07-05 11:15 | XMS_ITS ---
Author Organization [facility] Address [address] [facility] [address] [place] [id number] Care Team Providers Care Retread Supervisor Name Role Phone Lorenza Daniel Primary Care Provider Erin Austin Unavailable [phone] Allergies Allergen (clinical drug ingredient) Drug/Non Drug Allergy documented on EMR Reaction Allergy Type Onset Date Status methylprednisolone methylPREDNISolone facial flushing Drug Allergy Active codeine Codeine Unknown Drug Allergy Active ropinirole rOPINIRole insomnia Drug Allergy Active Results Component Value Reference Range Notes Rapid Strep- Inhouse Reviewed date:07/05/2025 06:33:29 PM Interpretation:Negative Performing Lab: Notes/Report: Negative strep test neg CBC Venipuncture (in house) Reviewed date:07/05/2025 06:33:48 PM Interpretation: Performing Lab: Notes/Report: wbc 3.7 3.5 - 10 lymph 29.9 15 - 50 mid 7.4 2 - 15 gran 62.7 35 - 80 rbc 2.37 3.5 - 5.5 hgb 9.6 11.5 - 16.5 hct 26.9 35 - 55 mcv 113.5 75 - 100 mch 40.5 25 - 35 mchc 35.7 31 - 38 platlet 118 100 - 400 P-Comprehensive Metabolic Pa man (CMP) Reviewed date:07/14/2025 03:21:58 PM Interpretation:SGPT 74 Performing Lab: Notes/Report: Test performed by [facility] , [address], [place] [address] Cornelio Caceres MD, Tar Roofer CLIA: [id number] Sodium 139 135-145 mmol/L Potassium 4.2 3.5-5.3 mmol/L Chloride 105 97-108 mmol/L CO2 26 20-32 mmol/L Glucose 87 65-99 mg/dL BUN 17 6-20 mg/dL Creatinine 0.87 0.50-1.00 mg/dL Calcium 9.0 8.6-10.4 mg/dL eGFR by Creatinine 84 >59 mL/min/1.73m2 Protein 6.3 6.0-8.3 g/dL Albumin 4.3 3.5-5.3 g/dL Alkaline Phosphatase 101 35-121 IU/L ALT (SGPT) 74 <5-47 IU/L AST (SGOT) 38 <5-40 IU/L Bilirubin, Total 0.6 <0.2-1.2 mg/dL A/G Ratio 2.1 1.1-2.5 REASON FOR VISIT sore throat Medications Medication SIG (Take, Route, Frequency, Duration) Notes Start Date End Date Status Promethazine-DM 6.25-15 MG/5ML 5ml Orally every 6 hrs As needed 06/15/2025 Active Albuterol Sulfate HFA 108 (90 Base) MCG/ACT 1 puff as needed Inhalation every 4 hrs As needed 06/15/2025 Active Vitamin B-12 1000 MCG TAKE 1 TABLET BY M OUTH EVERY DAY; Duration: 60 Active Benzonatate 200 MG 1 capsule as needed Orally Three times a day, prn 04/15/2025 Active Azelastine HCl 137 MCG/SPRAY 2 sprays in each nostril Nasally Twice a day Active ZyrTEC-D Allergy & Congestion 5-120 MG 1 tablet Orally Once a day 06/15/2025 Active Triamcinolone Acetonide 0.1 % 1 application Externally Three times a day 09/18/2023 Active ZyrTEC Allergy 10 MG 1 tab(s) orally onc e a day Active diphenhydrAMINE-Zinc Acetate 2-0.1 % 1 application as needed Externally Three times a day 01/22/2025 Active CareTouch CPAP & BIPAP Hose 1 DIRECTED 02/23/20 23 Active Vitamin D3 50 MCG (1999 UT) 1/2 tab(s) o rally once a day 03/24/2014 Active Doptelet 20 MG 2 tablet Orally daily Active Zinc 50 MG 1 tablet Orally Once a day; Duration: 30 day(s) Active Magnesium - as directed Orally Active Vital Signs Weight 186.8 lbs 07/05/2025 Blood pressure systolic 120 mm Hg 07/05/20 25 Blood pressure diastolic 70 mm Hg 025 Heart Rate 75 /min 07/05/2025 Height 62.50 in 07/05/2025 BMI 33.62 kg/m2 07/05/2025 Encounters Encounter Location Date Provider Diagnosis [facility] [address], [place] [phone] 07/05/2025 Erin Austin Acute sore throat J02.9 and Elevated LFTs R79.89 Assessments Encounter Date Diagnosis (ICD Code) Assessment Notes Treatment Notes Treatment Clinical Notes Section Notes 07/05/2025 Acute sore throat (ICD-10 - J02.9) reviewed CBC and previous CBC with pt; gargles q2h while awake with hot salt water fluids, rest, supportive measures for fever/symptom relief 07/05/2025 Elevated LFTs (ICD-10 - R79.89) discussed meds Plan Of Treatment Medication Medication Name Sig Start Date Stop Date Notes Benzonatate 200 MG 1 capsule as needed Orally Three times a day, prn 04/15/2025 Azelastine HCl 137 MCG/SPRAY 2 sprays in each nostril Nasally Twice a day ZyrTEC-D Allergy & Congestio n 5-120 MG 1 tablet Orally Once a day 06/15/2025 Treatment Notes Assessment Notes Acute sore throat reviewed CBC and previous CBC with pt; gargles q2h while awake with hot salt water fluids, rest, supportive measures for fever/symptom relief Elevated LFTs discussed meds Next Appt Details Follow Up: prn, Reason: Progress Notes * Yi LIRADOB: 0 (45 yo F)Acc No.[id number]:07/05/2025 Progress Notes Patient: Yi WEIR Provider: MELONIE [place] :1980 A ge:45 Y S ex:Female Date:07/05/2025 Address: [address], [place], [id number] Pcp:Lorenza Daniel Subjective: * Chief Complaints: * 1 . Sore throat. * HPI: E NT/respiratory: 45 year old female presents with c/o sore throat s wallowing painful, after cough. Pt states she had Covid the first of May and her sore throat been off and on since then . c/o post nasal drainage. c/o facial pain/pressure a lways has pressure. Denies : cough. D enies : nasal congestion. D enies : Fever. D enies : Chest Pain. D enies : Short of Breath. D enies : headache. D enies : chest congestion. D enies : smoking. D enies : dizziness. D enies : body aches. D enies : ear stopped up. D enies : ringing in ear. D enies : Ear Drainage. D enies : Ear Cleaning. H PI: Patient is here today for P t states she has some medication question from last time she was here . * ROS: D ERMATOLOGY: no R christina. n o H sherin. G ASTROENTEROLOGY: no N ausea. n o V omiting. n o D iarrhea.? U ROLOGY: no D ifficulty urinating. n o B lood in urine. * Medical History: R estless legs syndrome, Vitamin D deficiency, Allergic rhinitis, Esophageal reflux, Pancytopenia - follows with Dr. Servin and [facility], Mammogram - 2020, Pancytopenia, s/p evaluation at [facility], Aplastic anemia, Restless legs syndrome - Dr. [...] TABLET BY MOUTH EVERY DAY , Taking Albuterol Sulfate HFA 108 (90 Base) MCG/ACT Aerosol Solution 1 puff as needed Inhalation every 4 hrs As needed, Taking Promethazine-DM 6.25-15 MG/5ML Syrup 5ml Orally every 6 hrs As needed, Taking ZyrTEC-D Allergy & Congestion 5-120 MG Tablet Extended Release 12 Hour 1 tablet Orally Once a day , Discontinued Cefdinir 300 MG Capsule 1 capsule Orally twice a day , Discontinued riTUXimab 500 MG/50ML Solution as directed Intravenous weekly , Discontinued Zithromax Z-Tevin 250 MG Tablet 2 pills first day then one daily for 4 days orally as directed , Discontinued Cefuroxime Axetil 500 MG Tablet 1 tablet Orally every 12 hrs , Medication List reviewed and reconciled with the patient * Allergies: C odeine, rOPINIRole: insomnia - Side Effects, methylPREDNISolone: facial flushing - Side Effects. Objective: * Vitals: W t: 186.8, Temp: 98.1, BP: 120/70, HR: 75, Nurse: pe, Ht: 62.50, BMI:33.62. * Examination: G eneral Examination: General Appearance: N AD, appears healthy, alert, pleasant, Color good, well nourished and hydrated. H EENT: s clera and conjunctiva clear, PERRLA, TM's normal, translucent. O ral cavity: m ucosa moist and WNL, no erythema. N david: s upple, no lymphadenopathy. H eart: R RR. L ungs: C TAB A&P. N eurologic Exam:?alert and oriented. Assessment: * Assessment: 1. A cute sore throat - J02.9 (Primary) 2 . E levated LFTs - R79.89 ? Plan: * Treatment: Value Reference Range s trep test neg * Dayana Chouge 07/05/2025 04 :59:33 PM EDT > Provider reviewed results while patient in office.Jude Austinine 07/05/2025 06:33:22 PM EDT > ?LAB: CBC Venipuncture (in house) (Collection Date & Time - 07/05/2025)* Value Reference Range w bc 3.7 3.5 - 10 * l ymph 29.9 15 - 50 * m id 7.4 2 - 15 * g ran 62.7 35 - 80 * r bc 2.37 3.5 - 5.5 * h gb 9.6 11.5 - 16.5 * h ct 26.9 35 - 55 * m cv 113.5 75 - 100 * m ch 40.5 25 - 35 * m chc 35.7 31 - 38 * p latlet 118 100 - 400 * José Antonio Rosalia 07/05/2025 04 :59:07 PM EDT > Provider reviewed results while patient in office.Erin Austin 07/05/2025 06:33:44 PM EDT > Notes: reviewed CBC and previous CBC with pt; gargles q2h while awake with hot salt water fluids, rest, supportive measures for fever/symptom relief??2.?Elevated LFTs?LAB: P-Comprehensive Metabolic Panel (CMP) (Collection Date & Time - 07/05/2025 03:50 PM)?SGPT 74* Value Reference Range A /G Ratio 2.1 1.1-2.5 - * A lbumin 4.3 3.5-5.3 - g/dL * A lkaline Phosphatase 101 35-121 - IU/L * A LT (SGPT) 74 H <5-47 - IU/L * A ST (SGOT) 38 <5-40 - IU/L * B ilirubin, Total 0.6 <0.2-1.2 - mg/dL * B UN 17 6-20 - mg/dL * C alcium 9.0 8.6-10.4 - mg/dL * C hloride 105 97-108 - mmol/L * C O2 26 20-32 - mmol/L * C reatinine 0.87 0.50-1.00 - mg/dL * G lucose 87 65-99 - mg/dL * P otassium 4.2 3.5-5.3 - mmol/L * S odium 139 135-145 - mmol/L * P rotein 6.3 6.0-8.3 - g/dL * e GFR by Creatinine 84 >59 - mL/min/1.73m2 * NormanErin 07/07/2025 04:14:01 PM EDT >no answer when phonedHRae stilesharine 07/14/2025 03:21:40 PM EDT >I spoke with pt and discussed results Notes: discussed meds?? * Procedure Codes: 8 5025 CBC WITH AUTO DIFF, 85747 VENIPUNCT, ROUTINE*, 88914 STREP A ASSAY W/OPTIC, Modifiers: QW * Follow Up: p rn * Images: Billing Information: * Visit Code: 34877 Office Visit, Est Pt., Level 3. * Procedure Codes: 06900 CBC WITH AUTO DIFF. 48421 VENIPUNCT, ROUTINE*. 48977 STREP A ASSAY W/OPTIC. Modifiers: QW * Electronic signature of Bianca Austin APRN on 09/11/2025 at 10:42 PM EST Sign off status: Pending * Provider: MELONIE Blanc Date: 0 07/05/2025 Generated for Nati pena/Scot/Jovan on: 1 11/11/2024 10:42 PM EST History and Physical Notes * HPI (History of Present Illness) Category Sub-Category Detail Notes Category Not es ENT/respiratory sore throat swallowing painf ul, after cough. Pt states she had Covid the first of May and her sore throat been off and on since then facial pain/pressure always has pressure Short of Breath Chest Pain cough Fever post nasal drainage headache chest congestion nasal congestion smoking dizziness body aches ear stopped up ringing in ear Ear Drainage Ear Cleaning HPI Patient is here today for Pt sta theron she has some medication question from last time she was here Examination Category Sub-Category Detail Notes Category Not es General Examination HEENT: sclera and c onjunctiva clear, PERRLA, TM's normal, translucent Heart: RRR Lungs: CTAB A&P General Appearance: NAD, appears healthy , alert, pleasant, Color good, well nourished and hydrated Neurologic Exam: alert and oriented Neck: supple, no lymphaden opathy Oral cavity: mucosa moist and WNL , no erythema
--- OUTSIDE RECORDS SUMMARY | 2025-07-27 14:00 | XMS_ITS | Encounter Summary ---
Author Organization [place] [address] Care Team Providers Care Log Hauler Name Role Phone Fredy Lorenza Villavicencio Primary Care Provider [phone] Gabe Hanna MD Unavailable Unavailable Urszula Servin MD Unavailable [phone] Jeremy Nam MD Unavailable Unavailable Cody Modi MD Unavailable Encounter Details Date Type Department Care Team (Latest Contact Info) Description 07/27/2025 3:00 PM EDT - 07/27/2025 3:14 PM EDT Hospital Encounter [place] [address] Autoimmune pancytopenia (HCC); Elevated LFTs; Encounter for therapeutic drug monitoring Discharge Disposition: Home or Self Care Social History Tobacco Use Types Packs/Day Years [...] on file Sexual Orientation Not on file documented as of this encounter Functional Status * Is the person deaf or does he/she have serious difficulty hearing? Answer Date of Assessment Author No 01/28/2021 2:04 PM EDT Lorenza Hanson RN * Is the person blind or does he/she have serious difficulty seeing even when wearing glasses? Answer Date of Assessment Author No 01/28/2021 2:04 PM EDT Lorenza Hanson RN * Does this person have serious difficulty walking or climbing stairs? Answer Date of Assessment Author No 01/28/2021 2:04 PM EDT Lorenza Hanson RN * Does this person have difficulty dressing or bathing? Answer Date of Assessment Author No 01/28/2021 2:04 PM EDT Lorenza Hanson RN * Because of a physical, mental or emotional condition, does this person have difficulty doing errands alone such as visiting a doctor's office or shopping? Answer Date of Assessment Author No 01/28/2021 2:04 PM Lorenza Garsia RN documented as of this encounter Mental Status * Because of a physical, mental or emotional condition, does this person have serious difficulty concentrating, remembering or making decisions? Answer Entry Date Author No 01/28/2021 2:04 PM Lorenza Garsia RN documented in this encounter Medications at Time of Discharge albuterol (PROVENTIL HFA;VENTOLIN HFA) 90 mcg/actuation Inhl HFA Aerosol Inhaler Inhale 1 Puff into the lungs every 4 hours as needed. 06/15/2025 benzonatate (TESSALON) 200 mg Oral Capsule take 1 capsule by mouth three times a day as needed 12/09/2024 cholecalciferol, vitamin D3, (VITAMIN D3 ORAL) Take 3 Tablets by mouth daily. cyanocobalamin 1,000 mcg Oral Tablet Take 1,000 mcg by mouth daily. fluconazole (DIFLUCAN) 150 mg Oral Tablet TAKE 1 TABLET BY MOUTH ONE TIME FOR 1 DAY 03/26/2025 magnesium oxide (MAG-OX) 400 mg (241.3 mg magnesium) Oral Tablet Take 400 mg by mouth daily. Takes daily to every other day as tolerated triamcinolone (KENALOG) 0.1 % Top Lotion Apply topically 3 times daily. 1 Each 08/31/2023 zinc gluconate 50 mg Oral Tablet Take 1 Tablet by mouth daily. ALLERGY RELIEF-D, CETIRIZINE, 5-120 mg Oral Tablet Sustained Release 12 hr Take 1 Tablet by mouth daily. 06/15/2025 avatrombopag (DOPTELET, 30 TAB PACK,) 20 mg Oral Tablet Take 20 mg by mouth daily. 09/11/2022 azelastine (ASTELIN) 137 mcg (0.1 %) Nasl Aerosol, [place] 09/26/2023 cefdinir (OMNICEF) 300 mg Oral Capsule Take 300 mg by mouth 2 times daily. 06/15/2025 cetirizine HCl (ZYRTEC ORAL) Take 10 mg by mouth daily. cycloSPORINE modified (NEORAL) 100 mg Oral Capsule 07/12/2023 Omeprazole-Sodium Bicarbonate 20-1,680 mg Oral Packet Take 20 mg by mouth daily. ondansetron (ZOFRAN) 4 mg Oral TabletIndications :Influenza A Take 1 Tablet by mouth every 8 hours as needed for Nausea for up to 15 doses. 15 Tablet 12/23/2024 documented as of this encounter Discharge Disposition Disposition Code Departure Means Destination Home or Self Care documented in this encounter Plan of Treatment Upcoming Encounters Date Type Department Care Team (Late st Contact Info) Description 09/16/2025 3:00 PM EST Appointment [facility] [place], [place] [phone] 09/16/2025 3:20 PM EST [facility]ointment [facility] [place], [place] [phone] Urszula Servin MD [address] [place] [address] [place] [address] 10/05/2025 3:00 PM EST Appointment [place] [address] 10/05/2025 3:20 PM EST Appointment [facility] [place], [place] [phone] Urszula Servin MD [address] [place] [phone] documented as of this encounter Goals Goal [...] center) C. Review available resources through the [facility] cancer program and the community. 6. State objectives clearly and provide environment conducive to learning (PRN) documented as of this encounter Procedures Procedure Name Priority Date/Time Associated Diagnosis Comments CBC WITH DIFF Routine 07/27/2025 3:08 PM EDT Autoimmune pancytopenia (HCC) Elevated LFTs Encounter for therapeutic drug monitoring COMPREHENSIVE METABOLIC PANEL Routine 07/27/2025 3:08 PM EDT Autoimmune pancytopenia (HCC) Elevated LFTs Encounter for therapeutic drug monitoring documented in this encounter Results * (ABNORMAL) COMPREHENSIVE METABOLIC PANEL (07/27/2025 3:08 PM EDT) Sodium 139 136 - 145 mmol/L 07/27/2025 3:37 PM EDT [facility] Potassium 4.0 3.5 - 5.0 mmol/L 07/27/2025 3:37 PM EDT [facility] Chloride 104 98 - 107 mmol/L 07/27/2025 3:37 PM EDT [facility] Total CO2 24 22 - 29 mmol/L 07/27/2025 3:37 PM EDT [facility] Anion Gap 11 7 - 16 mmol/L 07/27/2025 3:37 PM EDT [facility] Calcium 9.3 8.6 - 10.4 mg/dL 07/27/2025 3:37 PM EDT [facility] Glucose Lvl 86 70 - 99 mg/dL 07/27/2025 3:37 PM EDT [facility] BUN 16 6 - 20 mg/dL 07/27/2025 3:37 PM EDT [facility] Creatinine 0.72 0.51 - 1.30 mg/dL 07/27/2025 3:37 PM EDT [facility] Albumin 4.2 3.5 - 5.2 gm/dL 07/27/2025 3:37 PM EDT [facility] Total Protein 6.5 6.4 - 8.3 gm/dL 07/27/2025 3:37 PM EDT [facility] Bili Total 0.6 0.2 - 1.3 mg/dL 07/27/2025 3:37 PM EDT [facility] ALT 69(H) <=41 U/L 07/27/2025 3:37 PM EDT [facility] AST 40 <=40 U/L 07/27/2025 3:37 PM T [facility] Alk Phos 109 36 - 123 U/L 07/27/2025 3:37 PM [facility] eGFR (CKD-EPIcr 2020) 104 >=60 mL/min/1.7 3 m2 07/27/2025 3:37 PM T [facility] Comment:Estimated GFR was ca lculated using the CKD-EPIcr (2020) equation refit without race. The equation is recommended by the National Kid[employer] - [place] [employer] of Nephrology Task Force. Blood VENOUS BLOOD / Unknown Venipuncture / Unknown 07/27/2025 3:08 PM EDT 07/27/2025 3:08 PM EDT us Urszula Servin MD CHEMISTRY ORDERABLES Final Res ult [facility] [address] [place] [address] * (ABNORMAL) CBC WITH DIFF (07/27/2025 3:08 PM EDT) WBC 4.0 3.7 - 10.3 x10(3)/mc L 07/27/2025 3:18 PM EDT [facility] RBC 2.33(L) 3.90 - 5.20 x10(6)/mc L 07/27/2025 3:18 PM EDT [facility] Hgb 9.5(L) 11.2 - 15.7 g/dL 07/27/2025 3:18 PM EDT [facility] Hct 27.8(L) 34.0 - 45.0 % 07/27/2025 3:18 PM EDT [facility] MCV 119.3(H) 80.0 - 100.0 fL 07/27/2025 3:18 PM EDT [facility] MCH 40.8(H) 26.0 - 34.0 pg 07/27/2025 3:18 PM EDT [facility] MCHC 34.2 30.7 - 35.5 g/dL 07/27/2025 3:18 PM EDT [facility] RDW 16.1(H) <=14.9 % 07/27/2025 3:18 PM EDT [facility] Platelet 91(L) 155 - 369 x10(3)/mc L 07/27/2025 3:18 PM EDT [facility] MPV 11.2 8.8 - 12.5 fL 07/27/2025 3:18 PM EDT [facility] Neut # Prelim 2.2 1.6 - 6.1 x10(3)/mc L 07/27/2025 3:18 PM EDT [facility] Comment:Preliminary automate d absolute neutrophil count. Value may change if manual differential is indicated. Neut Percent 55.3 % 07/27/2025 3:18 PM EDT [facility] Comment:Neutrophils equals s egs plus bands Imm Gran% 0.8 % 07/27/2025 3:18 PM EDT [facility] Comment:Automated count of m etamyelocytes, myelocytes and promyelocytes. Lymph Percent 32.0 % 07/27/2025 3:18 PM EDT [facility] Barron Percent 11.3 % 07/27/2025 3:18 PM EDT [facility] Eos Percent 0.3 % 07/27/2025 3:18 PM EDT [facility] Baso Percent 0.3 % 07/27/2025 3:18 PM EDT [facility] Neut # 2.2 1.6 - 6.1 x10(3)/mc L 07/27/2025 3:18 PM EDT [facility] Comment:Neutrophils equals s egs plus bands IMMGRAN# 0.0 0.0 - 0.1 x10(3)/mc L 07/27/2025 3:18 PM EDT [facility] Comment:Automated count of m etamyelocytes, myelocytes and promyelocytes. An absolute IG <0.1 is reported as 0.0. Lymph # 1.3 1.2 - 3.9 x10(3)/mc L 07/27/2025 3:18 PM EDT [facility] Barron # 0.5 0.3 - 0.9 x10(3)/mc L 07/27/2025 3:18 PM EDT [facility] Eos# 0.0 0.0 - 0.5 x10(3)/mc L 07/27/2025 3:18 PM EDT [facility] Baso # 0.0 0.0 - 0.1 x10(3)/mc L 07/27/2025 3:18 PM EDT [facility] Blood VENOUS BLOOD / Unknown Venipuncture / Unknown 07/27/2025 3:08 PM EDT 07/27/2025 3:08 PM EDT us Urszula Servin MD HEMATOLOGY ORDERABLES Final Re sult [facility] [address] [place] [phone] documented in this encounter Visit Diagnoses Diagnosis Autoimmune pancytopenia (HCC) Other pancytopenia Elevated LFTs Other abnormal blood chemistry Encounter for therapeutic drug monitoring documented in this encounter Care Teams Log Hauler Relationship Specialty Start Date End Date Lorenza Daniel Saud [address] [place] [place] [phone] PCP - General Family Medicine 10/20/12 Gabe Hanna MD [facility] [address] [place] [place] [address] Internal Medicine-Gastroenterolo gy 09/28/13 Urszula Servin MD [address] [facility] [address] Medical Oncologist Internal Medicine-Medical Oncology 01/27/21 Jeremy Nam MD [address] [address] Referring Physician Obstetrics & Gynecology-Obstetrics 09/03/23 Cody Modi MD [address] [address] Consulting Physician Obstetrics & Gynecology-Gynecologic Oncology 09/03/23 documented as of this encounter
--- OUTSIDE RECORDS SUMMARY | 2025-07-27 14:15 | XMS_ITS | Encounter Summary ---
Author Organization [facility] [place] [address] Care Team Providers Care Manager Marketing Communications Name Role Phone Lorenza Daniel Primary Care Provider [phone] Gabe Hanna MD Unavailable Unavailable Urszula Servin MD Unavailable [phone] Jeremy Nam MD Unavailable Unavailable Cody Modi MD Unavailable Reason for Visit * Reason Comments Follow-up pancytopenia Encounter Details Date Type Department Care Team (Latest Contact Info) Description 07/27/2025 3:15 PM EDT - 07/27/2025 11:59 PM EDT Hospital Encounter [facility] [place] [id number] Urszula Servin MD [address] [place] [address] Pancytopenia (HCC) (Primary Dx) Discharge Disposition: Home or Self Care Social History Tobacco Use Types Packs/Day Years Used Date Smoking Tobacco: Never Smokeless Tobacco: Never Tobacco Cessation:Counseling Given: Not Answered Alcohol Use Standard Drinks/Week Comments No 0 [...] on file documented as of this encounter Last Filed Vital Signs Vital Sign Reading Time Taken Comments Blood Pressure 122/45 07/27/2025 3:16 PM EDT Pulse 70 07/27/2025 3:16 PM EDT Temperature 36.4 C (97.5 F) 07/27/2025 3:16 PM EDT Respiratory Rate 14 07/27/2025 3:16 PM EDT Oxygen Saturation 100% 07/27/2025 3:16 PM EDT Inhaled Oxygen Concentration - - Weight 84.6 kg (186 lb 8 oz) 07/27/2025 3:16 PM EDT Height 160 cm (5' 3 ) 07/27/2025 3:16 PM EDT Body Mass Index 33.04 07/27/2025 3:16 PM EDT documented in this encounter Functional Status * Is the [...] 2:04 PM EDT Lorenza Hanson RN documented as of this encounter Mental Status * Because of a physical, mental or emotional condition, does this person have serious difficulty concentrating, remembering or making decisions? Answer Entry Date Author No 01/28/2021 2:04 PM EDT Lorenza Hanson RN documented in this encounter Medications at [...] MOUTH ONE TIME FOR 1 DAY 03/26/2025 Lactobacillus acidophilus (PROBIOTIC ORAL) Take by mouth. magnesium oxide (MAG-OX) 400 mg (241.3 mg [...] (ASTELIN) 137 mcg (0.1 %) Nasl Aerosol, [place] 09/26/2023 cefdinir (OMNICEF) 300 mg Oral Capsule [...] or Self Care documented in this encounter Progress Notes * Urszula Servin MD - 07/27/2025 3:20 PM EDT Images from the original note were not included. Patient: Yi Rousseau CSN: [id number] Date of : 1980 Age: 45 y.o. Date of Service: 07/27/2025 HEMATOLOGY/ONCOLOGY FOLLOW UP VISIT Primary Shipping Clerk & Oncologist: Urszula Servin MD DIAGNOSIS & TREATMENT HISTORY: Pancytopenia Bone marrow bx- hypocellular; no evidence of blasts,no lymphoma Followed by [facility] [facility] who is managing her care Iron overload- S/p ROBOTIC HYSTERECTOMY LEFT SALPINGECTOMY, LEFT OOPHORECTOMY 03/24/2024. Hemolytic anemia TREATMENT: IVIG (Octagam) , first dose 04/20/21 Repeat IVIG 05/17/2021 and 05/18/2021 PRBCs as needed for Hgb 7.5 or less Cyclosporine (150 mg twice daily) started 07/30/21 stopped 08/23/2023 Promacta (150 mg daily) started 08/12/21- stopped Would need prophy medications if ANC <500 Transferred care to [facility] Transferring care back to [facility] 07/2023 Cyclosporine (stopped 08/23/2023) doptlet per CC increased to 2 pills daily Exjade- stopped after 1-2 weeks due to rash on hands Rituxan week 1 10/04/2023 Completed 4 weekly cycles 10/25/2023 Rituxan weekly x 4 cycle 1 on 08/14/2024 completed 09/01/2024 Monthly rituxan started 11/2024 per [facility] recommendations Stopped 01/2025 per pt request INTERVAL HISTORY: Yi Rousseau presents today for management of pancytopenia. Holding rituxan. She stoppeddoptlet 2 weeks ago. She is feeling well. She met with [facility] (CC) and they recommended splenectomy, velcade or campath in the past. Pt had covid beginning of may. MEDICATIONS: Medication and allergy list reviewed PHYSICAL EXAM: LMP 03/13/2024 (Approximate) ECO Physical Exam Vitals reviewed. Constitutional: General: She is not in acute distress. Appearance: Normal appearance. She is not ill-appearing. HENT: Head: Atraumatic. Eyes: General: No scleral icterus. Cardiovascular: Rate and Rhythm: Normal rate. Pulmonary: Effort: Pulmonary effort is normal. No respiratory distress. Abdominal: General: There is no distension. Palpations: Abdomen is soft. Musculoskeletal: General: No swelling. Skin: Coloration: Skin is not jaundiced. Neurological: Mental Status: She is alert. Psychiatric: Mood and Affect: Mood and affect normal. MEDICAL DATA REVIEW: Latest Reference Range & Units 07/27/25 15:08 Sodium 136 - 145 mmol/L 139 Potassium 3.5 - 5.0 mmol/L 4.0 Chloride 98 - 107 mmol/L 104 CO2 22 - 29 mmol/L 24 Calcium 8.6 - 10.4 mg/dL 9.3 Glucose 70 - 99 mg/dL 86 BUN 6 - 20 mg/dL 16 Creatinine, Ser 0.51 - 1.30 mg/dL 0.72 eGFR (CKD-EPIcr 2020) >=60 mL/min/1.73 m2 104 Albumin 3.5 - 5.2 gm/dL 4.2 Alk Phos 36 - 123 U/L 109 Anion Gap 7 - 16 mmol/L 11 Total Protein 6.4 - 8.3 gm/dL 6.5 ALT <=41 U/L 69 (H) AST <=40 U/L 40 Bili Total 0.2 - 1.3 mg/dL 0.6 (H): Data is abnormally high Latest Reference Range & Units 07/27/25 15:08 WBC 3.7 - 10.3 x10(3)/mcL 4.0 RBC 3.90 - 5.20 x10(6)/mcL 2.33 (L) Hgb 11.2 - 15.7 g/dL 9.5 (L) Hct 34.0 - 45.0 % 27.8 (L) MCV 80.0 - 100.0 fL 119.3 (H) MCH 26.0 - 34.0 pg 40.8 (H) MCHC 30.7 - 35.5 g/dL 34.2 RDW <=14.9 % 16.1 (H) Platelets 155 - 369 x10(3)/mcL 91 (L) MPV 8.8 - 12.5 fL 11.2 (L): Data is abnormally low (H): Data is abnormally high ASSESSMENT & PLAN Pancytopenia - Thought to be autoimmune etiology/aplastic anemia - Bone marrow bx no blasts or evidence of malignancy - Benign RF, copper, zinc, HIV, and PNH testing - Patient being followed by Dr. Gaona at [facility] [place] [facility], who recommended IVIG given 05/17 and 05/18/21 -Bone marrow bx at [facility] mid June 2021 resulting in referral to Dr. Amaro - showed 10-20% marrow cellularity with no increase in blasts, dysplasia, or any other phenotypic or cytogenetic abnormalities - concern for evolving aplastic anemia versus hypocellular MDS. -Recommendation was for a course of promacta and cyclosporine - started in Jul 2021 - She has also met with Dr. Ceballos of BMT team and Genetics, Dr amaro at [facility] - MD previously reviewed bone marrow. Stable. Considering ATG before considering BMT - Follows with [facility]. Had appt with repeat bmbx early February - Recent consult with Dr Domínguez at [facility] for 2nd opinion. - F/U with Dr. Jackson at [facility] on 04/18/22. His plan stated continue with CsA 150 mg bid, magnesium 400 mg bid, promacta 150 mg daily. - off cyclosporine and Promacta now and follow up with Dr. Jackson. was on Doptlet 2 pills daily. Stopped doptelt mid jun 2025 In the past I have discussed case with Dr. Jackson and he suggested rheum referral for elevatedana and to consider splenectomy however pt does not want to do this due to the need for px vaccinations. She met with Dr. Hirsch and he suggested weekly rituxan x 4 and then consider monthly rituxan. Pt is agreeable. I discussed her care with Dr. Hirsch of and he recommended monthly rituxan. Started 11/2024. She has received 3 doses and does not want to continue. CC is now recommending splenectomy vs velcade vs campath. Pt wants to wait for now. Counts are improved/stable today. Encounter for medication monitoring - has been on Cyclosporine at 150 mg BID and doptelet per CC Off cyclosporine now Off doptlet now - Continue follow up with [facility]- Rituxan 375 mg/m2 Q 4 weeks #1- 12/04/24 #2- 01/01/25 #3- 01/29/25 Stopped at pt discretion Anemia - Transfuse for hemoglobin less than 7 or symptomatic - All products leukocyte reduced and irradiated (potential BMT candidate) - no need for transfusion today Last transfusion was mid July 2023. Thrombocytopenia - Transfuse for platelet count less than 10,000 or acute bleeding - All products leukocyte reduced and irradiated (potential BMT candidate) - Platelets remain stable Menorrhagia IUD placed per Dr. Maldonado and decreased menstrual cycle Ablation S/p ROBOTIC HYSTERECTOMY LEFT SALPINGECTOMY, LEFT OOPHORECTOMY 03/24/2024. Elevated ALT/ AST - First noted on 03/23/22 - RUQ US 02/28/22 with hepatic steatosis - AST and ALT with gradually progressive elevation. - CMP reviewed today LFTs improved. Following with gi. Considering a liver bx and following with cc in September. Iron overload - Did not tolerate exjade. Stopped. F/up 3 weeks Urszula Servin MD Hematology and Medical Oncology [facility] documented in this encounter Plan of Treatment Upcoming Encounters Date Type Department Care Team (Late st Contact Info) Description 09/16/2025 3:00 PM EST Appointment [facility] [place], [place] [phone] 09/16/2025 3:20 PM EST Appointment [facility] [place] [address] Urszula Servin MD [address] [facility] [place] [address] 10/05/2025 3:00 PM EST Appointment [facility] [place], [place] [phone] 10/05/2025 3:20 PM EST Appointment [facility] [place] [address] Urszula Servin MD [address] [facility] [place] [address] documented as of this encounter Goals Goal Patient Goal Type Associated Problems Recent Progress Patient-Stated? Author Knowledge Deficit General Pinky Galarza, RN Note: Knowledge Deficient Related to Disease [...] center) C. Review available resources through the [facility] cancer program and the community. 6. State objectives clearly and provide environment conducive to learning (PRN) documented as of this encounter Results * (ABNORMAL) COMPREHENSIVE METABOLIC PANEL (08/19/2025 3:07 PM EDT) Sodium 141 136 - 145 mmol/L 08/19/2025 3:28 PM EDT [facility] Potassium 4.1 3.5 - 5.0 mmol/L 08/19/2025 3:28 PM EDT [facility] Chloride 108(H) 98 - 107 mmol/L 08/19/2025 3:28 PM EDT [facility] Total CO2 23 22 - 29 mmol/L 08/19/2025 3:28 PM EDT [facility] Anion Gap 10 7 - 16 mmol/L 08/19/2025 3:28 PM EDT [facility] Calcium 9.1 8.6 - 10.4 mg/dL 08/19/2025 3:28 PM EDT [facility] Glucose Lvl 100(H) 70 - 99 mg/dL 08/19/2025 3:28 PM EDT [facility] BUN 19 6 - 20 mg/dL 08/19/2025 3:28 PM EDT [facility] Creatinine 0.71 0.51 - 1.30 mg/dL 08/19/2025 3:28 PM EDT [facility] Albumin 4.1 3.5 - 5.2 gm/dL 08/19/2025 3:28 PM EDT [facility] Total Protein 6.3(L) 6.4 - 8.3 gm/dL 08/19/2025 3:28 PM EDT [facility] Bili Total 0.4 0.2 - 1.3 mg/dL 08/19/2025 3:28 PM EDT [facility] ALT 55(H) <=41 U/L 08/19/2025 3:28 PM EDT [facility] AST 32 <=40 U/L 08/19/2025 3:28 PM EDT [facility] Alk Phos 104 36 - 123 U/L 08/19/2025 3:28 PM EDT [facility] eGFR (CKD-EPIcr 2020) 106 >=60 mL/min/1.7 3 m2 08/19/2025 3:28 PM EDT [facility] Comment:Estimated GFR was ca lculated using the CKD-EPIcr (2020) equation refit without race. The equation is recommended by the National Kid[employer] Foundation - [place] [employer] of Nephrology Task Force. Blood VENOUS BLOOD / Unknown Venipuncture / Unknown 08/19/2025 3:07 PM EDT 08/19/2025 3:07 PM EDT us Urszula Servin MD CHEMISTRY ORDERABLES Final Res ult [facility] [address] [place] [address] * (ABNORMAL) CBC WITH DIFF (08/19/2025 3:07 PM EDT) WBC 3.7 3.7 - 10.3 x10(3)/mc L 08/19/2025 3:14 PM EDT [facility] RBC 2.19(L) 3.90 - 5.20 x10(6)/mc L 08/19/2025 3:14 PM EDT [facility] Hgb 9.0(L) 11.2 - 15.7 g/dL 08/19/2025 3:14 PM EDT [facility] Hct 26.2(L) 34.0 - 45.0 % 08/19/2025 3:14 PM EDT [facility] MCV 119.6(H) 80.0 - 100.0 fL 08/19/2025 3:14 PM EDT [facility] MCH 41.1(H) 26.0 - 34.0 pg 08/19/2025 3:14 PM EDT [facility] MCHC 34.4 30.7 - 35.5 g/dL 08/19/2025 3:14 PM EDT [facility] RDW 15.9(H) <=14.9 % 08/19/2025 3:14 PM EDT [facility] Platelet 83(L) 155 - 369 x10(3)/mc L 08/19/2025 3:14 PM EDT [facility] MPV 11.0 8.8 - 12.5 fL 08/19/2025 3:14 PM EDT [facility] Neut # Prelim 2.0 1.6 - 6.1 x10(3)/mc L 08/19/2025 3:14 PM EDT [facility] Comment:Preliminary automate d absolute neutrophil count. Value may change if manual differential is indicated. Neut Percent 54.0 % 08/19/2025 3:14 PM EDT [facility] Comment:Neutrophils equals s egs plus bands Imm Gran% 0.5 % 08/19/2025 3:14 PM EDT [facility] Comment:Automated count of m etamyelocytes, myelocytes and promyelocytes. Lymph Percent 31.3 % 08/19/2025 3:14 PM EDT [facility] Cassia Percent 13.4 % 08/19/2025 3:14 PM EDT [facility] Eos Percent 0.5 % 08/19/2025 3:14 PM EDT [facility] Baso Percent 0.3 % 08/19/2025 3:14 PM EDT [facility] Neut # 2.0 1.6 - 6.1 x10(3)/mc L 08/19/2025 3:14 PM EDT [facility] Comment:Neutrophils equals s egs plus bands IMMGRAN# 0.0 0.0 - 0.1 x10(3)/mc L 08/19/2025 3:14 PM EDT [facility] Comment:Automated count of m etamyelocytes, myelocytes and promyelocytes. An absolute IG <0.1 is reported as 0.0. Lymph # 1.2 1.2 - 3.9 x10(3)/mc L 08/19/2025 3:14 PM EDT [facility] Cassia # 0.5 0.3 - 0.9 x10(3)/mc L 08/19/2025 3:14 PM EDT [facility] Eos# 0.0 0.0 - 0.5 x10(3)/mc L 08/19/2025 3:14 PM EDT [facility] Baso # 0.0 0.0 - 0.1 x10(3)/mc L 08/19/2025 3:14 PM EDT [facility] Blood VENOUS BLOOD / Unknown Venipuncture / Unknown 08/19/2025 3:07 PM EDT 08/19/2025 3:07 PM EDT us Urszula Servin MD HEMATOLOGY ORDERABLES Final Re sult [facility] [address] [place] [address] documented in this encounter Visit Diagnoses Diagnosis Pancytopenia (HCC)- Primary Other pancytopenia documented in this encounter Historical Medications * This list may reflect changes made after this encounter. Lactobacillus acidophilus (PROBIOTIC ORAL) Take by mouth. added in this encounter Care Teams Manager Marketing Communications Relationship Specialty Start Date End Date Lorenza Daniel [facility] [address] [place] [id number] PCP - General Family Medicine 10/20/12 Gabe Hanna MD [facility] [address] [place] [address] Internal Medicine-Gastroenterolo gy 09/28/13 Urszula Servin MD [address] [facility] [address] [place] [id number] Medical Oncologist Internal Medicine-Medical Oncology 01/27/21 Jeremy Nam MD [address] [facility] [address] [place] [address] Referring Physician Obstetrics & Gynecology-Obstetrics 09/03/23 Cody Modi MD [address] [facility] [address] [place] [address] Consulting Physician Obstetrics & Gynecology-Gynecologic Oncology 09/03/23 documented as of this encounter
--- OUTSIDE RECORDS SUMMARY | 2025-08-12 05:45 | XMS_ITS ---
Author Organization [facility] Address [address] [facility] [address] [place] [id number] Care Team Providers Care Secondary Market Manager Name Role Phone Lorenza Daniel Primary Care Provider [phone] Allergies Allergen (clinical drug ingredient) Drug/Non Drug Allergy documented on EMR Reaction Allergy Type Onset Date Status methylprednisolone methylPREDNISolone facial flushing Drug Allergy Active codeine Codeine Unknown Drug Allergy Active ropinirole rOPINIRole insomnia Drug Allergy Active Results Component Value Reference Range Notes Urinalysis - Inhouse Reviewed date:08/16/2025 06:15:19 PM Interpretation: Performing Lab: Notes/Report: Color/Clarity yellow/clear Leuk trace Nitrite neg Urobili 3.2 Protein neg pH 6.0 Blood neg Sp. Gr. 1.010 Ketone neg Bili neg Gluc neg CBC Venipuncture (in house) Reviewed date:08/16/2025 06:15:19 PM Interpretation:WBC 2.6; Hgb 9.4; plt 180,000 Performing Lab: Notes/Report: WBC 2.6; Hgb 9.4; plt 180,000 wbc 2.6 3.5 - 10 lymph 28.8 15 - 50 mid 6.1 2 - 15 gran 65.1 35 - 80 rbc 2.30 3.5 - 5.5 hgb 9.4 11.5 - 16.5 hct 26.6 35 - 55 mcv 115.9 75 - 100 mch 40.8 25 - 35 mchc 35.2 31 - 38 platlet 108 100 - 400 P-Comprehensive Metabolic Pa man (CMP) Reviewed date:08/16/2025 06:15:19 PM Interpretation:ALT 50 Performing Lab: Notes/Report: Test performed by [facility] [employer] [address] [place] [address] , [address], [place] [address] Cornelio Caceres MD, Compensation And Benefits Manager CLIA: [id number] Sodium 140 135-145 mmol/L Potassium 4.0 3.5-5.3 mmol/L Chloride 106 97-108 mmol/L CO2 26 20-32 mmol/L Glucose 94 65-99 mg/dL BUN 15 6-20 mg/dL Creatinine 0.70 0.50-1.00 mg/dL Calcium 9.2 8.6-10.4 mg/dL eGFR by Creatinine 108 >59 mL/min/1.73m2 Protein 5.9 6.0-8.3 g/dL Albumin 4.3 3.5-5.3 g/dL Alkaline Phosphatase 98 35-121 IU/L ALT (SGPT) 50 <5-47 IU/L AST (SGOT) 30 <5-40 IU/L Bilirubin, Total 0.5 <0.2-1.2 mg/dL A/G Ratio 2.7 1.1-2.5 REASON FOR VISIT poss. yeast infection Medications Medication SIG (Take, Route, Frequency, Duration) Notes Start Date End Date Status Doptelet 20 MG 2 tablet Orally daily Active Zinc 50 MG 1 tablet Orally Once a day; Duration: 30 day(s) Active Vitamin B-12 1000 MCG TAKE 1 TABLET BY M OUTH EVERY DAY; Duration: 60 Active Magnesium - as directed Orally Active ZyrTEC-D Allergy & Congestion 5-120 MG 1 tablet Orally Once a day 06/15/2025 Active Benzonatate 200 MG 1 capsule as needed Orally Three times a day, prn 04/15/2025 Not-Taking Azelastine HCl 137 MCG/SPRAY 2 sprays in each nostril Nasally Twice a day Active Diflucan 150 MG 1 tablet Orally; Duration: 10 day(s) 08/12/2025 Active Promethazine-DM 6.25-15 MG/5ML 5ml Orally every 6 hrs As needed 06/15/2025 Not-Taking Albuterol Sulfate HFA 108 (90 Base) MCG/ACT 1 puff as needed Inhalation every 4 hrs As needed 06/15/2025 Not-Taking Triamcinolone Acetonide 0.1 % 1 application Externally Three times a day 09/18/2023 Active CareTouch CPAP & BIPAP Hose 1 DIRECTED 02/22/2023 Active Vitamin D3 50 MCG (1999 UT) 1/2 tab(s) orally once a day 03/24/2014 Active diphenhydrAMINE-Zinc Acetate 2-0.1 % 1 application as needed Externally Three times a day 01/22/2025 Active ZyrTEC Allergy 10 MG 1 tab(s) orally onc e a day Active Vital Signs Weight 186.6 lbs 08/12/2025 Blood pressure systolic 120 mm Hg 08/12/20 25 Blood pressure diastolic 66 mm Hg 025 Heart Rate 76 /min 08/12/2025 Height 62.50 in 08/12/2025 BMI 33.58 kg/m2 08/12/2025 Encounters Encounter Location Date Provider Diagnosis [facility] [address] [place] [id number] 08/12/2025 Lorenza Daniel Spider bite T63.301A ; Vaginitis N76.0 ; Elevated liver enzymes R74.8 and Aplastic anemia D61.9 Assessments Encounter Date Diagnosis (ICD Code) Assessment Notes Treatment Notes Treatment Clinical Notes Section Notes 08/12/2025 Spider bite (ICD-10 - T63.301A) Discussed local wound care. Follow-up 1 week if no improvement. 08/12/2025 Vaginitis (ICD-10 - N76.0) 08/12/2025 Elevated liver enzymes (ICD-10 - R74.8) 08/12/2025 Aplastic anemia (ICD-10 - D61.9) Plan Of Treatment Medication Medication Name Sig Start Date Stop Date Notes Diflucan 150 MG 1 tablet Orally; Duration: 10 day(s) 08/12 Treatment Notes Assessment Notes Spider bite Discussed local woun d care. Follow-up 1 week if no improvement. Next Appt Details Follow Up: via phone to repo rt test results, Reason: Progress Notes * Yi LIRADOB: 0 (45 yo F)Acc No.[id number]:08/12/2025 Progress Notes Patient: iY WEIR Provider: Lorenza Daniel M.D. :1980 A ge:45 Y S ex:Female Date:08/12/2025 Address: [address], [place], [id number] Subjective: * Chief Complaints: * 1 . Poss. yeast infection. * HPI: D ermatology: 45 year old female presents with c/o redness P t sts she has a spot on her lt leg that she would like looked at today. Pt sts this spot on her leg has been there for about 5-6 days. Pt sts she is unsure if she got bit by something or if she may have scratched it. U rology: She has history of vaginal yeast infection and recently has been having some external burning and is seen a few small spots of blood vaginally. No dysuria or frequency. H ematology: She is requesting to have her counts and liver functions checked today to monitor her aplastic anemia. * ROS: D ERMATOLOGY: no R christina. n o H sherin. G ASTROENTEROLOGY: no N ausea. n o V omiting. n o D iarrhea.? U ROLOGY: no D ifficulty urinating. n o B lood in urine. * Medical History: R estless legs syndrome, Vitamin D deficiency, Allergic rhinitis, Esophageal reflux, Pancytopenia - follows with Dr. Servin and [facility], Mammogram - 2020, Pancytopenia, s/p evaluation at [facility], Aplastic anemia, Restless legs syndrome - [...] tab(s) orally once a day , Taking diphenhydrAMINE-Zinc Acetate 2-0.1 % Cream 1 application as needed Externally Three times a day , Taking Triamcinolone Acetonide 0.1 % Cream 1 application Externally Three times a day , Taking Azelastine HCl 137 MCG/SPRAY Solution 2 sprays in each nostril Nasally Twice a day , Taking ZyrTEC- D Allergy & Congestion 5-120 MG Tablet Extended Release 12 Hour 1 tablet Orally Once a day , Taking Vitamin B-12 1000 MCG Tablet TAKE 1 TABLET BY MOUTH EVERY DAY , Not-Taking Albuterol Sulfate HFA 108 (90 Base) MCG/ACT Aerosol Solution 1 puff as needed Inhalation every 4 hrs As needed, Not-Taking Promethazine-DM 6.25-15 MG/5ML Syrup 5ml Orally every 6 hrs As needed, Not-Taking Benzonatate 200 MG Capsule 1 capsule as needed Orally Three times a day, prn , Medication List reviewed and reconciled with the patient * Allergies: C odeine, rOPINIRole: insomnia - Side Effects, methylPREDNISolone: facial flushing - Side Effects. Objective: * Vitals: W t: 186.6, Temp: 98.4, BP: 120/66, HR: 76, O2 Sat: 98% on RA, Nurse: [facility], Ht: 62.50, BMI:33.58. * Examination: G eneral Examination: General Appearance: N AD. H eart: R SR. L ungs:?clear to auscultation. A bdomen: s oft and nontender. E xtremities: O n the left mid anterior driver, there is a 1 cm stage II skin ulcer with a centimeter of surrounding erythema. No purulent drainage.. Assessment: * Assessment: 1. V aginitis - N76.0 (Primary) 2 . S pider bite - T63.301A ?3. E levated liver enzymes - R74.8 4 . A plastic anemia - D61.9 Plan: * Treatment: 2. S pider bite Notes: Discussed local wound care. Follow-up 1 week if no improvement. 3. E levated liver enzymes L AB: P-Comprehensive Metabolic Panel (CMP) (Collection Date & Time - 08/12/2025 10:36 AM) A LT 50 Value Reference Range A /G Ratio 2.7 H 1.1-2.5 - * A lbumin 4.3 3.5-5.3 - g/dL * A lkaline Phosphatase 98 35-121 - IU/L * A LT (SGPT) 50 H <5-47 - IU/L * A ST (SGOT) 30 <5-40 - IU/L * B ilirubin, Total 0.5 <0.2-1.2 - mg/dL * B UN 15 6-20 - mg/dL * C alcium 9.2 8.6-10.4 - mg/dL * C hloride 106 97-108 - mmol/L * C O2 26 20-32 - mmol/L * C reatinine 0.70 0.50-1.00 - mg/dL * G lucose 94 65-99 - mg/dL * P otassium 4.0 3.5-5.3 - mmol/L * S odium 140 135-145 - mmol/L * P rotein 5.9 L 6.0-8.3 - g/dL * e GFR by Creatinine 108 >59 - mL/min/1.73m2 * Lorenza Daniel 08/16/2025 06:15:08 PM EDT > See phone encounter ?LAB: CBC Venipuncture (in house) (Collection Date & Time - 08/12/2025)?WBC 2.6; Hgb 9.4; plt 180,000* Value Reference Range w bc 2.6 3.5 - 10 * l ymph 28.8 15 - 50 * m id 6.1 2 - 15 * g ran 65.1 35 - 80 * r bc 2.30 3.5 - 5.5 * h gb 9.4 11.5 - 16.5 * h ct 26.6 35 - 55 * m cv 115.9 75 - 100 * m ch 40.8 25 - 35 * m chc 35.2 31 - 38 * p latlet 108 100 - 400 * Elizabeth Foreman 08/12/2025 02: 57:43 PM EDT > Lorenza Daniel 08/16/2025 06:15:08 PM EDT > See phone encounter * Labs: * L ab: Urinalysis - Inhouse (Collection Date & Time - 08/12/2025) Value Reference Range C olor/Clarity yellow/clear * L euk trace * N itrite neg * U robili 3.2 * P rotein neg * p H 6.0 * B lood neg * S p. Gr. 1.010 * K etone neg * B osmani neg * G lesa neg * Elizabeth Foreman 08/12/2025 11: 37:12 AM EDT > Provider reviewed results while patient in office. Lorenza Daniel 08/16/2025 06:15:08 PM EDT > See phone encounter * Procedure Codes: 8 5025 CBC WITH AUTO DIFF, 03391 VENIPUNCT, ROUTINE*, 50370 Urinalysis, no micro, 1036F TOBACCO NON-USER, 3074F SYST BP LT 130 MM HG, 3078F DIAST BP < 80 MM HG * Follow Up: v ia phone to report test results * Images: Billing Information: * Visit Code: 00721 Office Visit, Est Pt., Level 4. * Procedure Codes: 93476 CBC WITH AUTO DIFF. 81274 VENIPUNCT, ROUTINE*. 49168 Urinalysis, no micro. 1036F TOBACCO NON-USER. 3074F SYST BP LT 130 MM HG. 3078F DIAST BP < 80 MM HG. * Electronic signature of Lorenza Daniel MD on 09/11/2025 at 10:31 PM EST Sign off status: Pending * Provider: Lorenza Daniel M.D. Date: Generated for Nati pena/Scot/eTransmitting on: 11/11/2024 10:31 PM EST History and Physical Notes * HPI (History of Present Illness) Category Sub-Category Detail Notes Category Not es Dermatology redness Pt sts she has a spot on her lt leg that she would like looked at today. Pt sts this spot on her leg has been there for about 5-6 days. Pt sts she is unsure if she got bit by something or if she may have scratched it Urology She has history of vaginal yeast infection and recently has been having some external burning and is seen a few small spots of blood vaginally. No dysuria or frequency. Examination Category Sub-Category Detail Notes Category Not es General Examination Heart: RSR Lungs: clear to auscultatio n Abdomen: soft and nontender Extremities: On the left mid ante rior driver, there is a 1 cm stage II skin ulcer with a centimeter of surrounding erythema. No purulent drainage. General Appearance: NAD
--- OUTSIDE RECORDS SUMMARY | 2025-08-19 14:00 | XMS_ITS | Encounter Summary ---
Author Organization [place] [address] Care Team Providers Care Manager Nuclear Name Role Phone Lorenza Daniel Primary Care Provider [phone] Gabe Hanna MD Unavailable Unavailable Urszula Servin MD Unavailable [phone] Jeremy Nam MD Unavailable Unavailable Cody Modi MD Unavailable Encounter Details Date Type Department Care Team (Latest Contact Info) Description 08/19/2025 3:00 PM EDT - 08/19/2025 3:07 PM EDT Hospital Encounter [place] [address] Pancytopenia (HCC); Bilateral leg cramps Discharge Disposition: Home or Self Care Social [...] (ASTELIN) 137 mcg (0.1 %) Nasl Aerosol, [place] 09/26/2023 cefdinir (OMNICEF) 300 mg Oral Capsule [...] PM EST Appointment [facility] [place], [place] [phone] 09/16/2025 3:20 PM EST Appointment [facility] [place], [place] [phone] Urszula Servin MD [address] [place] [address] [place], [place] [id number] 10/05/2025 3:00 PM EST Appointment [place] [address] 10/05/2025 3:20 PM EST Appointment [facility] [place], [place] [phone] Urszula Servin MD [address] [place] [phone] documented as of this encounter Goals Goal [...] center) C. Review available resources through the [facility] cancer program and the community. 6. State objectives clearly and provide environment conducive to learning (PRN) documented as of this encounter Procedures Procedure Name Priority Date/Time Associated Diagnosis Comments CBC WITH DIFF Routine 08/19/2025 3:07 PM EDT Pancytopenia (HCC) MAGNESIUM LEVEL Routine 08/19/2025 3:07 PM EDT Bilateral leg cramps COMPREHENSIVE METABOLIC PANEL Routine 08/19/2025 3:07 PM EDT Pancytopenia (HCC) documented in this encounter Results * MAGNESIUM LEVEL (08/19/2025 3:07 PM EDT) Magnesium 2.1 1.6 - 2.4 mg/dL 08/19/2025 7:29 PM EDT [facility] [employer] [facility] Blood VENOUS BLOOD / Unknown Venipuncture / Unknown 08/19/2025 3:07 PM EDT 08/19/2025 3:07 PM EDT us Urszula Servin MD CHEMISTRY ORDERABLES Final Res ult [facility] [address] [facility] [place] [address] PREFERRED LAB [employer] [address] [facility], [place] [address] * (ABNORMAL) COMPREHENSIVE METABOLIC PANEL (08/19/2025 3:07 PM EDT) Sodium 141 136 - 145 mmol/L 08/19/2025 3:28 PM EDT [facility] Potassium 4.1 3.5 - 5.0 mmol/L 08/19/2025 3:28 PM EDT [facility] Chloride 108(H) 98 - 107 mmol/L 08/19/2025 3:28 PM EDT [facility] Total CO2 23 22 - 29 mmol/L 08/19/2025 3:28 PM EDT [facility] Anion Gap 10 7 - 16 mmol/L 08/19/2025 3:28 PM EDT [facility] Calcium 9.1 8.6 - 10.4 mg/dL 08/19/2025 3:28 PM EDT [facility] Glucose Lvl 100(H) 70 - 99 mg/dL 08/19/2025 3:28 PM EDT [facility] BUN 19 6 - 20 mg/dL 08/19/2025 3:28 PM EDT [facility] Creatinine 0.71 0.51 - 1.30 mg/dL 08/19/2025 3:28 PM EDT [facility] Albumin 4.1 3.5 - 5.2 gm/dL 08/19/2025 3:28 PM EDT [facility] Total Protein 6.3(L) 6.4 - 8.3 gm/dL 08/19/2025 3:28 PM EDT [facility] Bili Total 0.4 0.2 - 1.3 mg/dL 08/19/2025 3:28 PM EDT [facility] ALT 55(H) <=41 U/L 08/19/2025 3:28 PM EDT [facility] AST 32 <=40 U/L 08/19/2025 3:28 PM EDT [facility] Alk Phos 104 36 - 123 U/L 08/19/2025 3:28 PM EDT [facility] eGFR (CKD-EPIcr 2020) 106 >=60 mL/min/1.7 3 m2 08/19/2025 3:28 PM EDT [facility] Comment:Estimated GFR was ca lculated using the CKD-EPIcr (2020) equation refit without race. The equation is recommended by the National Kidney Foundation - [place] [employer] of Neph[employer] Task Force. Blood VENOUS BLOOD / Unknown Venipuncture / Unknown 08/19/2025 3:07 PM EDT 08/19/2025 3:07 PM EDT us Urszula Servin MD CHEMISTRY ORDERABLES Final Res ult [place] [phone] * (ABNORMAL) CBC WITH DIFF (08/19/2025 3:07 PM EDT) WBC 3.7 3.7 - 10.3 x10(3)/mc L 08/19/2025 3:14 PM EDT [facility] RBC 2.19(L) 3.90 - 5.20 x10(6)/mc L 08/19/2025 3:14 PM EDT [facility] Hgb 9.0(L) 11.2 - 15.7 g/dL 08/19/2025 3:14 PM EDT [facility] Hct 26.2(L) 34.0 - 45.0 % 08/19/2025 3:14 PM EDT [facility] MCV 119.6(H) 80.0 - 100.0 fL 08/19/2025 3:14 PM EDT [facility] MCH 41.1(H) 26.0 - 34.0 pg 08/19/2025 3:14 PM EDT [facility] MCHC 34.4 30.7 - 35.5 g/dL 08/19/2025 3:14 PM EDT [facility] RDW 15.9(H) <=14.9 % 08/19/2025 3:14 PM EDT [facility] Platelet 83(L) 155 - 369 x10(3)/mc L 08/19/2025 3:14 PM EDT [facility] MPV 11.0 8.8 - 12.5 fL 08/19/2025 3:14 PM EDT [facility] Neut # Prelim 2.0 1.6 - 6.1 x10(3)/mc L 08/19/2025 3:14 PM EDT [facility] Comment:Preliminary automate d absolute neutrophil count. Value may change if manual differential is indicated. Neut Percent 54.0 % 08/19/2025 3:14 PM EDT [facility] Comment:Neutrophils equals s egs plus bands Imm Gran% 0.5 % 08/19/2025 3:14 PM EDT [facility] Comment:Automated count of m etamyelocytes, myelocytes and promyelocytes. Lymph Percent 31.3 % 08/19/2025 3:14 PM EDT [facility] [place]aton Percent 13.4 % 08/19/2025 3:14 PM EDT [facility] Eos Percent 0.5 % 08/19/2025 3:14 PM EDT [facility] Baso Percent 0.3 % 08/19/2025 3:14 PM EDT [facility] Neut # 2.0 1.6 - 6.1 x10(3)/mc L 08/19/2025 3:14 PM EDT [facility] Comment:Neutrophils equals s egs plus bands IMMGRAN# 0.0 0.0 - 0.1 x10(3)/mc L 08/19/2025 3:14 PM EDT [facility] Comment:Automated count of m etamyelocytes, myelocytes and promyelocytes. An absolute IG <0.1 is reported as 0.0. Lymph # 1.2 1.2 - 3.9 x10(3)/mc L 08/19/2025 3:14 PM EDT [facility] [place] # 0.5 0.3 - 0.9 x10(3)/mc L 08/19/2025 3:14 PM EDT [facility] Eos# 0.0 0.0 - 0.5 x10(3)/mc L 08/19/2025 3:14 PM EDT [facility] Baso # 0.0 0.0 - 0.1 x10(3)/mc L 08/19/2025 3:14 PM EDT [facility] Blood VENOUS BLOOD / Unknown Venipuncture / Unknown 08/19/2025 3:07 PM EDT 08/19/2025 3:07 PM EDT us Urszula Servin MD HEMATOLOGY ORDERABLES Final Re sult [facility] [address] [place] [address] documented in this encounter Visit Diagnoses Diagnosis Pancytopenia (HCC) Other pancytopenia Bilateral leg cramps documented in this encounter Care Teams Manager Nuclear Relationship Specialty Start Date End Date Lorenza Daniel [facility] [address] [place] [address] PCP - General Family Medicine 10/20/12 Gabe Hanna MD [facility] [address] [place] [address] Internal Medicine-Gastroenterolo gy 09/28/13 Urszula Servin MD [address] [facility] [address] [place] [address] Medical Oncologist Internal Medicine-Medical Oncology 01/27/21 Jeremy Nam MD [address] [facility] [address] [place] [address] Referring Physician Obstetrics & Gynecology-Obstetrics 09/03/23 Cody Modi MD [address] [facility] [address] [place] [address] Consulting Physician Obstetrics & Gynecology-Gynecologic Oncology 09/03/23 documented as of this encounter
--- OUTSIDE RECORDS SUMMARY | 2025-08-19 14:08 | XMS_ITS | Encounter Summary ---
Author Organization [place] [address] Care Team Providers Care Automobile Service Writer Name Role Phone Lorenza Daniel Primary Care Provider [phone] Gabe Hanna MD Unavailable Unavailable Urszula Servin MD Unavailable [phone] Jeremy Nam MD Unavailable Unavailable Cody Modi MD Unavailable Reason for Visit * Reason Comments Follow-up Anemia Encounter Details Date Type Department Care Team (Latest Contact Info) Description 08/19/2025 3:08 PM EDT - 08/19/2025 11:59 PM EDT Hospital Encounter [facility] [place] [address] Urszula Servin MD [address] [place], [place] [id number] Bilateral leg cramps (Primary Dx); Autoimmune pancytopenia (HCC); Elevated LFTs; Encounter for [...] Sign Reading Time Taken Comments Blood Pressure 113/55 08/19/2025 3:12 PM EDT Pulse 78 08/19/2025 3:12 PM EDT Temperature 36.8 C (98.2 F) 08/19/2025 3:12 PM EDT Respiratory Rate 14 08/19/2025 3:12 PM EDT Oxygen Saturation 98% 08/19/2025 3:12 PM EDT Inhaled Oxygen Concentration - - Weight 85 kg (187 lb 6.4 oz) 08/19/2025 3:12 PM EDT Height 160 cm (5' 3 ) 08/19/2025 3:12 PM EDT Body Mass Index 33.2 08/19/2025 3:12 PM EDT documented in this encounter Functional [...] (ASTELIN) 137 mcg (0.1 %) Nasl Aerosol, [place] 09/26/2023 cefdinir (OMNICEF) 300 mg Oral Capsule Take 300 mg by mouth 2 times daily. 06/15/2025 cetirizine HCl (ZYRTEC ORAL) Take 10 mg by mouth daily. cycloSPORINE modified (NEORAL) 100 mg Oral Capsule 07/12/2023 magnesium glycinate 11 mg magnesium Oral Tablet, Chewable as directed Orally Omeprazole-Sodium Bicarbonate 20-1,680 mg Oral Packet Take 20 mg by mouth daily. ondansetron (ZOFRAN) 4 mg Oral TabletIndications :Influenza A Take 1 Tablet by mouth every 8 hours as needed for Nausea for up to 15 doses. 15 Tablet 12/23/2024 documented as of this encounter Discharge Disposition Disposition Code Departure Means Destination Home or Self Care documented in this encounter Progress Notes * Gareth, Urszula M, MD - 08/19/2025 3:20 PM EDT Images from the original note were not included. Patient: Yi Rousseau CSN: [id number] Date of : 1980 Age: 45 y.o. Date of Service: 08/19/2025 HEMATOLOGY/ONCOLOGY FOLLOW UP VISIT Primary Lithographed Plate Inspector & Oncologist: Urszula Servin MD DIAGNOSIS & TREATMENT HISTORY: Pancytopenia Bone marrow bx- hypocellular; no evidence of blasts,no lymphoma Followed by [facility] who is managing her care Iron [...] medications if ANC <500 Transferred care to [facility] Transferring care back to [facility] 07/2023 Cyclosporine (stopped 08/23/2023) doptlet per [facility] increased to 2 pills daily Exjade- stopped after 1-2 weeks due to rash on hands Rituxan week 1 10/04/2023 Completed 4 weekly cycles 10/25/2023 Rituxan weekly x 4 cycle 1 on 08/14/2024 completed 09/01/2024 Monthly rituxan started 11/2024 per [facility] recommendations Stopped 01/2025 per pt request INTERVAL HISTORY: Yi Rousseau presents today for management of pancytopenia. Holding rituxan. Holding doptlet. She is feeling ok. MEDICATIONS: Medication and allergy list reviewed PHYSICAL EXAM: BP 113/55 (BP Location: Left arm, Patient Position: Sitting) Pulse 78 Temp 98.2 ??F (36.8 ??C) (Oral) Resp 14 Ht 5' 3 (1.6 m) Wt 187 lb 6.4 oz (85 kg) LMP 03/13/2024 (Approximate) [id number]% BMI 33.20 kg/m?? ECO Physical Exam Vitals reviewed. Constitutional: General: [...] DATA REVIEW: Latest Reference Range & Units 08/19/25 15:07 Sodium 136 - 145 mmol/L 141 Potassium 3.5 - 5.0 mmol/L 4.1 Chloride 98 - 107 mmol/L 108 (H) CO2 22 - 29 mmol/L 23 Calcium 8.6 - 10.4 mg/dL 9.1 Glucose 70 - 99 mg/dL 100 (H) BUN 6 - 20 mg/dL 19 Creatinine, Ser 0.51 - 1.30 mg/dL 0.71 eGFR (CKD-EPIcr 2020) >=60 mL/min/1.73 m2 106 Albumin 3.5 - 5.2 gm/dL 4.1 Alk Phos 36 - 123 U/L 104 Anion Gap 7 - 16 mmol/L 10 Total Protein 6.4 - 8.3 gm/dL 6.3 (L) ALT <=41 U/L 55 (H) AST <=40 U/L 32 Bili Total 0.2 - 1.3 mg/dL 0.4 (H): Data is abnormally high (L): Data is abnormally low Latest Reference Range & Units 08/19/25 15:07 WBC 3.7 - 10.3 x10(3)/mcL 3.7 RBC 3.90 - 5.20 x10(6)/mcL 2.19 (L) Hgb 11.2 - 15.7 g/dL 9.0 (L) Hct 34.0 - 45.0 % 26.2 (L) MCV 80.0 - 100.0 fL 119.6 (H) MCH 26.0 - 34.0 pg 41.1 (H) MCHC 30.7 - 35.5 g/dL 34.4 RDW <=14.9 % 15.9 (H) Platelets 155 - 369 x10(3)/mcL 83 (L) (L): Data is abnormally low (H): Data is abnormally high ASSESSMENT & PLAN Pancytopenia - Thought to be autoimmune etiology/aplastic anemia - Bone marrow bx no blasts or evidence of malignancy - Benign RF, copper, zinc, HIV, and PNH testing - Patient being followed by Dr. Gaona at [facility], who recommended IVIG given 05/17 and 05/18/21 -Bone marrow bx at [facility] mid June 2021 resulting in referral [...] BMT team and Genetics, Dr amaro at [facility] - MD previously reviewed bone marrow. Stable. Considering ATG before considering BMT - Follows with [facility]. Had appt with repeat bmbx early February - Recent consult with Dr Domínguez at [facility] for 2nd opinion. - F/U with Dr. Jackson at [facility] on 04/18/22. His plan stated continue [...] discussed her care with Dr. Hirsch of [facility] and he recommended monthly rituxan. Started 11/2024. She has received 3 doses and does not want to continue. [facility] is now recommending splenectomy vs velcade vs campath. Pt wants to wait for now. Counts are stable today. Encounter for medication monitoring - has been on Cyclosporine at 150 mg BID and doptelet per [facility] Off cyclosporine now Off doptlet now - Continue follow up with [facility]- Rituxan 375 mg/m2 Q 4 weeks #1- 2 #2- 3 #3- 01/29/25 Stopped at pt discretion Anemia - Transfuse for hemoglobin less than 7 or symptomatic - All products leukocyte reduced and irradiated (potential BMT candidate) - no need for transfusion today Last transfusion was mid July 2023. Thrombocytopenia - Transfuse for platelet count less than 10,000 or acute bleeding - All products leukocyte reduced and irradiated (potential BMT candidate) - Platelets slightly lower. Menorrhagia IUD placed per Dr. Maldonado and [...] overload - Did not tolerate exjade. Stopped. Bilateral leg cramps- check mag level F/up 3-4 weeks Urszula Servin MD Hematology and Medical Oncology [facility] documented in this encounter Plan of Treatment Upcoming Encounters Date Type Department Care Team (Late st Contact Info) Description 09/16/2025 3:00 PM EST Appointment [facility] [place] [address] 09/16/2025 3:20 PM EST [facility]ointment [facility] [place] [address] Urszula Servin MD [address] [place] [address] [place] [address] 10/05/2025 3:00 PM EST Appointment [facility] [place], [place] [id number] 10/05/2025 3:20 PM EST Appointment [facility] [place] [address] Urszula Servin MD [address] [place] [address] [place] [address] Scheduled Orders Name Type Priority Associated Diagnoses Orde r Schedule CBC WITH DIFF Lab Routine Bilateral leg cramps Autoimmune pancytopenia (HCC) Elevated LFTs Encounter for therapeutic drug monitoring 1 Occurrences starting 09/05/2025 until 09/05/2026 COMPREHENSIVE METABOLIC PANEL Lab Routine Bilateral leg cramps Autoimmune pancytopenia (HCC) Elevated LFTs Encounter for therapeutic drug monitoring 1 Occurrences starting 09/05/2025 until 09/05/2026 documented as of this encounter Goals Goal [...] center) C. Review available resources through the [facility] program and the community. 6. State objectives clearly and provide environment conducive to learning (PRN) documented as of this encounter Results * MAGNESIUM LEVEL (08/19/2025 3:07 PM EDT) Magnesium 2.1 1.6 - 2.4 mg/dL 08/19/2025 7:29 PM EDT [facility] [place] [facility] Blood VENOUS BLOOD / Unknown Venipuncture / Unknown 08/19/2025 3:07 PM EDT 08/19/2025 3:07 PM EDT us Urszula Servin MD CHEMISTRY ORDERABLES Final Res ult [facility] [address] [place] [address] Offline Media 1 [facility] [place] [address] documented in this encounter Visit Diagnoses Diagnosis Bilateral leg cramps- Primary Autoimmune pancytopenia (HCC) Other pancytopenia Elevated LFTs Other abnormal blood chemistry Encounter for therapeutic drug monitoring documented in this encounter Historical Medications * This list may reflect changes made after this encounter. magnesium glycinate 11 mg magnesium Oral Tablet, Chewable as directed Orally added in this encounter Care Teams Automobile Service Writer Relationship Specialty Start Date End Date Lorenza Daniel [facility] [address] [place], [place] [id number] PCP - General Family Medicine 10/20/12 Gabe Hanna MD [address] [place] [address] [address] [place] [address] Internal Medicine-Gastroenterolo gy 09/28/13 Urszula Serivn MD [address] [facility] [place] [address] Medical Oncologist Internal Medicine-Medical Oncology 01/27/21 Jeremy Nam MD [address] [facility] [place] [address] Referring Physician Obstetrics & Gynecology-Obstetrics 09/03/23 Cody Modi MD [address] [facility] [place] [address] Consulting Physician Obstetrics & Gynecology-Gynecologic Oncology 09/03/23 documented as of this encounter
--- OUTSIDE RECORDS SUMMARY | 2025-08-30 05:30 | XMS_ITS ---
Author Organization [facility] Address [address] [facility] [address] [place] [id number] Care Team Providers Care [employer] Certified Network Professional Name Role Phone Lorenza Daniel Primary Care Provider [phone] Erin Austin Unavailable [phone] Allergies Allergen (clinical drug ingredient) Drug/Non Drug Allergy documented on EMR Reaction Allergy Type Onset Date Status methylprednisolone methylPREDNISolone facial flushing Drug Allergy Active codeine Codeine Unknown Drug Allergy Active ropinirole rOPINIRole insomnia Drug Allergy Active Results Component Value Reference Range Notes CBC Fingerstick (in house) Reviewed date:08/30/2025 12:07:57 PM Interpretation: Performing Lab: Notes/Report: wbc 4.1 3.5 - 10 lym 32.1 15 - 50 mid 6.7 2 - 15 gran 61.2 35 - 80 rbc 2.61 3.5 - 5.5 hgb 10.5 11.5 - 16.5 hct 30.2 35 - 55 mcv 115.7 75 - 100 mch 40.4 25 - 35 mchc 34.9 31 - 38 plat 73 100 - 400 REASON FOR VISIT Poss sinus infection Medications Medication SIG (Take, Route, Frequency, Duration) Notes Start Date End Date Status CareTouch CPAP & BIPAP Hose 1 DIRECTED 02/22/2023 Active Vitamin D3 50 MCG (1999 UT) 1/2 tab(s) orally once a day 03/24/2014 Active diphenhydrAMINE-Zinc Acetate 2-0.1 % 1 application as needed Externally Three times a day 01/22/2025 Active ZyrTEC Allergy 10 MG 1 tab(s) orally once a day Active Zinc 50 MG 1 tablet Orally Once a day; Duration: 30 day(s) Active Benzonatate 200 MG 1 capsule as needed Orally 3 times a day As needed 08/30/2025 Active Magnesium - as directed Orally Active Zithromax Z-Tevin 250 MG 2 pills first day then one daily for 4 days orally as directed; Duration: 5 days 08/30/2025 Activ e Doptelet 20 MG 2 tablet Orally daily Active Albuterol Sulfate HFA 108 (90 Base) MCG/ACT 1 puff as needed Inhalation every 4 hrs As needed 06/15/2025 Active Diflucan 150 MG 1 tablet Orally; Dur ation: 10 day(s) 08/12/2025 Active Vitamin B-12 1000 MCG TAKE 1 TABLET BY M OUTH EVERY DAY; Duration: 60 Active ZyrTEC-D Allergy & Congestion 5-120 MG 1 tablet Orally Once a day 06/15/2025 Active Vital Signs Weight 188.8 lbs 08/30/2025 Blood pressure systolic 122 mm Hg 08/30/20 25 Blood pressure diastolic 60 mm Hg 025 Heart Rate 77 /min 08/30/2025 Height 62.50 in 08/30/2025 BMI 33.98 kg/m2 08/30/2025 Encounters Encounter Location Date Provider Diagnosis [facility] [address] [facility] [address] [place], [place] [id number] 08/30/2025 Erin Austin Acute upper respiratory infection 465.9 Assessments Encounter Date Diagnosis (ICD Code) Assessment Notes Treatment Notes Treatment Clinical Notes Section Notes 08/30/2025 Acute upper respiratory infection (ICD-10 - 465.9) fluids, rest, supportive measures for fever/symptom relief; facial heat pacs prn; for the drainage pt will start Zyrtec D Plan Of Treatment Medication Medication Name Sig Start Date Stop Date Notes Benzonatate 200 MG 1 capsule as needed Orally 3 times a day 08/30/2025 Zithromax Z-Tevin 250 MG 2 pills first day then one daily for 4 days orally as directed; Duration: 5 days 08/30/2025 Treatment Notes Assessment Notes Acute upper respiratory infection fluids , rest, supportive measures for fever/symptom relief; facial heat pacs prn; for the drainage pt will start Zyrtec D Next Appt Details Follow Up: prn, Reason: Progress Notes * Luana LIRA: 0 (45 yo F)Acc No.[id number]:08/30/2025 Progress Notes Patient: Yi WEIR Provider: MELONIE Blanc :1980 A ge:45 Y S ex:Female Date:08/30/2025 Address: [address], [place], [place] Pcp:Lorenza Daniel Subjective: * Chief Complaints: * 1 . Poss sinus infection. * HPI: E NT/respiratory: Pt states these symptoms started over 2 weeks ago and not getting no better; eating and drinking OK. 45 year old female presents with c/o sore throat s wallowing painful. c/o cough g reenish yellow sputum production, small amount of white sputum. c/o nasal congestion y ellow drainage, sneezing, worse at night, stuffy in am and at night, all the time. c/o ear pain b ilateral, right more than left. c/o rhinorrhea. c/o post nasal drainage. c/o headache. Denies : Fever. D enies : Chest Pain. D enies : Short of Breath. D enies : chest congestion. D enies : smoking. D enies : dizziness. D enies : body aches. * ROS: D ERMATOLOGY: no R christina. n o H sherin. G ASTROENTEROLOGY: no N ausea. n o V omiting. n o D iarrhea.? U ROLOGY: no B lood in urine. n o F requent urination. ? * Medical History: R estless legs syndrome, Vitamin D deficiency, Allergic rhinitis, Esophageal reflux, Pancytopenia - follows with Dr. Servin and [facility], Mammogram - 2020, Pancytopenia, s/p evaluation at [facility], Aplastic anemia, Restless legs syndrome - Dr. [...] Externally Three times a day , Taking ZyrTEC-D Allergy & Congestion 5-120 MG Tablet Extended Release 12 Hour 1 tablet Orally Once a day , Taking Vitamin B-12 1000 MCG Tablet TAKE 1 TABLET BY MOUTH EVERY DAY , Taking Diflucan 150 MG Tablet 1 tablet Orally , Taking Albuterol Sulfate HFA 108 (90 Base) MCG/ACT Aerosol Solution 1 puff as needed Inhalation every 4 hrs As needed, Discontinued Triamcinolone Acetonide 0.1 % Cream 1 application Externally Three times a day , Discontinued Azelastine HCl 137 MCG/SPRAY Solution 2 sprays in each nostril Nasally Twice a day , Discontinued Promethazine-DM 6.25-15 MG/5ML Syrup 5ml Orally every 6 hrs As needed, Discontinued Benzonatate 200 MG Capsule 1 capsule as needed Orally Three times a day, prn , Medication List reviewed and reconciled with the patient * Allergies: C odeine, rOPINIRole: insomnia - Side Effects, methylPREDNISolone: facial flushing - Side Effects. Objective: * Vitals: W t: 188.8, Temp: 98.3, BP: 122/60, HR: 77, Nurse: pe, Ht: 62.50, BMI:33.98. * Examination: G eneral Examination: General Appearance: N AD, appears healthy, well nourished and hydrated. H EENT: s clera and conjunctiva clear, PERRLA, TM's normal, translucent. O ral cavity: m ucosa moist and WNL, no erythema. N david: s upple, no lymphadenopathy. Heart: R RR. L ungs: C TAB A&P. N eurologic Exam: a lert and oriented.? Assessment: * Assessment: 1. A cute upper respiratory infection - 465.9 (Primary) Plan: * Treatment: * Labs: * L ab: CBC Fingerstick (in house) (Collection Date & Time - 08/30/2025) Value Reference Range w bc 4.1 3.5 - 10 * l ym 32.1 15 - 50 * m id 6.7 2 - 15 * g ran 61.2 35 - 80 * r bc 2.61 3.5 - 5.5 * h gb 10.5 11.5 - 16.5 * h ct 30.2 35 - 55 * m cv 115.7 75 - 100 * m ch 40.4 25 - 35 * m chc 34.9 31 - 38 * p lat 73 100 - 400 * Rosalia Chou 08/30/2025 1 1:25:20 AM EST > Provider reviewed results while patient in office.Erin Austin 08/30/2025 12:07:54 PM EST > * Procedure Codes: 3 6416 CAPILLARY BLOOD DRAW, 27832 CBC WITH AUTO DIFF * Follow Up: p rn * Images: Billing Information: * Visit Code: 59549 Office Visit, Est Pt., Level 3. * Procedure Codes: 27198 CAPILLARY BLOOD DRAW. 14058 CBC WITH AUTO DIFF. * Electronic signature of Bianca Austin APRN on 09/11/2025 at 10:37 PM EST Sign off status: Pending * Provider: MELONIE Blanc Date: 10/30/2024 Generated for Nati pena/Scot/Jovan on: 11/11/2024 10:37 PM EST History and Physical Notes * HPI (History of Present Illness) Category Sub-Category Detail Notes Category Not es ENT/respiratory sore throat swallowing painful ear pain bilateral, right mor e than left Short of Breath Chest Pain cough greenish yellow sput um production, small amount of white sputum Fever post nasal drainage headache chest congestion rhinorrhea nasal congestion yellow drainage, sne ezing, worse at night, stuffy in am and at night, all the time smoking dizziness body aches Examination Category Sub-Category Detail Notes Category Not es General Examination HEENT: sclera and c onjunctiva clear, PERRLA, TM's normal, translucent Heart: RRR Lungs: CTAB A&P General Appearance: NAD, appears healthy , well nourished and hydrated Neurologic Exam: alert and oriented Neck: supple, no lymphaden opathy Oral cavity: mucosa moist and WNL , no erythema
[2025-09-11 22:03] VITALS: BP 150/61; PULSE 81; RESP 18; TEMP 36.8; O2SAT 100; BMI 32.5
--- NOTE | 2025-09-11 22:23 | XR_ITS ---
PROCEDURE INFORMATION: Exam: XR Right Ankle Exam date and time: 09/11/2025 10:28 PM Age: 45 years old Clinical indication: Injury or trauma; Other: Twisiting injury; Additional info: Ankle injury TECHNIQUE: Imaging protocol: Radiologic exam of the right ankle. Views: 3 or more views. Total images: 3 COMPARISON: CR XR ANKLE RT MIN 3V 09/11/2025 10:28 PM FINDINGS: Bones/joints: No acute fracture, joint dislocation, or joint effusion. Unremarkable joint spaces. Ankle mortise is maintained. No concerning bone lesions. Soft tissues: Mild anterolateral soft tissue swelling. IMPRESSION: 1. No acute osseous abnormality. 2. Mild anterolateral soft tissue swelling.
--- NOTE | 2025-09-11 22:23 | XR_ITS ---
PROCEDURE INFORMATION: Exam: XR Right Foot Exam date and time: 09/11/2025 10:28 PM Age: 45 years old Clinical indication: Injury or trauma; Other: Twisting injury; Additional info: Ankle injury TECHNIQUE: Imaging protocol: Radiologic exam of the right foot. Views: 1 or 2 views. Total images: 2 COMPARISON: CR XR FOOT RT 2V 09/11/2025 10:28 PM FINDINGS: Bones/joints: No acute fracture or joint dislocation. No concerning bone lesions. Unremarkable joint spaces. Soft tissues: Unremarkable soft tissues. IMPRESSION: Negative right foot.
--- OUTSIDE RECORDS SUMMARY | 2025-09-11 22:31 | XMS_ITS | Encounter Summary ---
Author Organization [place] [address] Care Team Providers Care Customs House Broker Name Role Phone Lorenza Daniel Primary Care Provider [phone] Gabe Hanna MD Unavailable Unavailable Urszula Servin MD Unavailable [phone] Pinky Avina RN Unavailable Unavailable Jeremy Nam MD Unavailable Unavailable Cody Modi MD Unavailable Luisa Carcamo RN Unavailable Unavailable Sonal Gonzalez RN Unavailable Unavaila Sanju Koo RN Unavailable Unavailable Santa Jasso RN Unavailable Unavailable Jaleesa Stone RN Unavailable Unavailable Luisa Pepe Clerical Staff Unavailable Caitlin Lomeli RN Unavailable Unavailable Encounter Details Date Type Department Care Team (Late st Contact Info) Description 02/22/2021 Lab Requisition [facility] [place] [address] Brittany Lyon MD [address] [place] [address] [place] [address] Other pancytopenia (HCC) Social History Tobacco Use Types Packs/Day Years Used Date Smoking Tobacco: Never Smokeless Tobacco: Never Alcohol Use Standard Drinks/Week Comments No 0 (1 standard drink = 0.6 oz pur e alcohol) Comments No Sex and Gender Information Value Date Recorded Sex Assigned at Not on file Legal Sex Female 3:50 AM EDT Gender Identity Not on file Sexual Orientation Not on file COVID-19 Exposure Response Date Recorded In the last month, have you been in contact with someone who was confirmed or suspected to have Coronavirus / COVID-19? No / Unsure 02/21/2021 12:30 PM EDT documented as of this encounter [...] PM EST Appoint[place] [address] 09/16/2025 3:20 PM EST [facility]ointment [facility] [place] [address] Urszula Servin MD [address] [place], [place] [id number] 10/05/2025 3:00 PM EST Appointment [facility] [place], [place] [id number] 10/05/2025 3:20 PM EST Appointment [facility] [place], [place] [id number] Urszula Servin MD [address] [place] [address] documented as of this encounter Procedures Procedure Name Priority Date/Time Associated Diagnosis Comments MISC AP TEST Routine 02/22/2021 2:33 PM EDT Other pancytopenia (HCC) documented in this encounter Results * MISC AP TEST (02/22/2021 2:33 PM EDT) CASE REPORT Surgical Pathology Report Case: [id number] Authorizing Provider: Brittany Lyon, Collected: 02/22/2021 Deyanira JACKSON Ordering Location: [facility] Received: 02/22/2021 1433 Pathologist: Brittany Lyon MD Specimen: Iliac Crest,Left, Request for case [id number] slides for [facility] Pathology 03/17/2021 6:34 AM EDT [facility] FINAL DIAGNOSIS Results will be scanned in this case as an addendum. 03/17/2021 6:34 AM EDT [facility] at 1439 EDT [facility] 03/17/2021 6:34 AM EDT [facility] ADDENDUM Refer to scanned [facility] consult report. 03/17/2021 6:34 AM EDT [facility] Addendum electronically signed by Brittany Lyon MD on 03/17/2021 at 0634 EDT Tissue LEFT POSTERIOR ILIAC CREST MARROW STRUCTURE / Unknown 02/22/2021 2:33 PM EDT 02/22/2021 2:33 PM EDT us Brittany Lyon MD PATHOLOGY ORDERABLES Edited Result - Final [facility] [address] [place] [id number] documented in this encounter Visit Diagnoses Diagnosis Other pancytopenia (HCC) Other pancytopenia documented in this encounter Additional Health Concerns Infection Onset Date Last Indicated Resolved Time R/O COVID-19 08/06/2024 08/06/2024 08/06/2024 4:39 PM EDT R/O COVID-19 12/23/2024 12/23/2024 12/23/2024 4:31 PM EST INFLUENZA 12/23/2024 12/23/2024 01/06/2025 10:1 2 PM EDT documented as of this encounter Care Teams Customs House Broker Relationship Specialty Start Date End Date Lorenza Daniel [address] [place] [address] PCP - General Family Medicine 10/20/12 Gabe Hanna MD [facility] [address] [place] [address] Internal Medicine-Gastroenterol ogy 09/28/13 Urszula Servin MD [address] [place] [address] Medical Oncologist Internal Medicine-Medical Oncology 01/27/21 Pinky Avina, RN Registered Nurse Internal Medicine-Hematology and Oncology 02/26/22 07/30/22 Jeremy Nam MD Referring Physician Obstetrics & Gynecology-Obstetrics 09/03/23 Cody Modi MD Consulting Physician Obstetrics & Gynecology-Gynecologic Oncology 09/03/23 Luisa Carcamo, GABRIELE Registered Nurse 08/14/24 08/14/24 Sonal Gonzalez, GABRIELE Registered Nurse Infusion Therapy 08/21/24 08/21/24 Sanju Bansal, RN Registered Nurse Infusion Therapy 08/28/24 08/28/24 Santa Jasso, RN Registered Nurse Infusion Therapy 09/03/24 09/04/24 Jaleesa Stone, RN Registered Nurse 12/04/24 12/04/24 Luisa Pepe, Clerical Staff Financial Counselor 12/11/24 01/26/25 Caitlin Lomeli, GABRIELE Registered Nurse Infusion Therapy 01/29/25 01/29/25 documented as of this encounter
--- OUTSIDE RECORDS SUMMARY | 2025-09-11 22:32 | XMS_ITS | Patient Health Record ---
Author Organization [facility] Address [address] [place] [address] Care Team Providers Care Mold Preparer Name Role Phone Jeremy Nam Unavailable [phone] Allergies Allergen (clinical drug ingredient) Drug/Non Drug Allergy documented on EMR Reaction Allergy Type Onset Date Status codeine Codeine Unknown Drug Allergy Active Dust Mites Unknown Allergy Active hydrocodone HYDROcodone Unknown Drug Allergy Act chiqui Mold Unknown Allergy Active oxycodone oxyCODONE Unknown Drug Allergy Active Reason For Referral No Information Medications Medication SIG (Take, Route, Frequency, Duration) Notes Start Date End Date Status ZyrTEC Allergy oral Activ e Vitamin D3 25 MCG (1000 UT) Tablet 1 tablet Orally Once a day A ctive Doptelet 20 MG Tablet 1 tablet Orally Active Social History Tobacco Use: Social History Observation [...] [place]: Travel History: Uses seat belts Vital Signs Blood pressure diastolic 76 mm Hg 10/15/2024 Height 5 ft 3 in in 10/15/2024 Blood pressure systolic 130 mm Hg 10/15/2024 Weight 200 lbs 10/15/2024 BMI 35.42 kg/m2 10/15/2024 Encounters Encounter Location Date Provider Diagnosis [place] [address] [place] [address] [place] [id number] 10/13/2024 Jeremy Nam Screening mammogram for breast cancer Z12.31 [place] Srik[facility] Whyte L [address] [facility] [place] [address] 10/15/2024 Jeremy Nam Nurse exam without abnormal findings Z01.419 and Encounter for screening mammogram for malignant neoplasm of breast Z12.31 Mammography Richard Whyte [facility] [address] [facility] [place] [address] 10/08/2024 Jeremy Nam Assessments Encounter Date Diagnosis (ICD Code) Assessment Notes Treatment Notes Treatment Clinical Notes Section Notes 10/15/2024 Nurse exam without abnormal findings (ICD-10 - Z01.419) 10/13/2024 Screening mammogram for breast cancer (ICD-10 - Z12.31) 10/15/2024 Encounter for screening mammogram for malignant neoplasm of breast (ICD-10 - Z12.31) Plan Of Treatment Future Test Test Name Order Date *Screen Mammo b/l w/ Howie per protocol 1 12/16/2023 Insurance Providers Payer Name Payer Address Payer Phone Subscriber Number Group Number Insured Name Patient Relationship to Insured Coverage Start Date Coverage End Date [facility]io [facility] [address] [place] [address] [phone] [id number] Yi Ayala Self - patient is the insured Medical (General) History Medical History History ICD Code Aplastic Anemia Pneumonia: as a child Infertility Endometriosis Surgical History Surgery Date(Month/Year) Dx Hysteroscopy with D&C Dil ation for cervical stenosis Class I 10/24/12 Tonsils and Adenoids 1999 RATH, LSO February 2024 Right Salpingectomy March 2023
--- OUTSIDE RECORDS SUMMARY | 2025-09-11 22:32 | XMS_ITS | Encounter Summary ---
Author Organization [place] [address] Care Team Providers Care Skip Miner Name Role Phone Lorenza Daniel Primary Care Provider [phone] Gabe Hanna MD Unavailable Unavailable Urszula Servin MD Unavailable [phone] Pinky Avina RN Unavailable Unavailable Jeremy Nam MD Unavailable Unavailable Cody Modi MD Unavailable Luisa Carcamo RN Unavailable Unavailable Sonal Gonzalez RN Unavailable Unavaila Sanuj Koo RN Unavailable Unavailable Santa Jasso RN Unavailable Unavailable Jaleesa Stone RN Unavailable Unavailable Luisa Pepe Clerical Staff Unavailable Caitlin Lomeli RN Unavailable Unavailable Encounter Details Date Type Department Care Team (Late st Contact Info) Description 01/27/2021 Orders Only [facility] One [facility] [place] [address] Brittany Lyon MD 1 [facility] [place] [address] Social History Tobacco Use Types Packs/Day Years [...] have Coronavirus / COVID-19? No / Unsure 01/30/2021 12:17 PM EDT documented as of this encounter Functional Status * Cognitive and Functional Status Question Answer Date of Assessment Author Is the person deaf or does he/she have serious difficulty hearing? No 01/28/2021 2:04 PM EDT Radha Hanson RN Is the person blind or does he/she have serious difficulty seeing even when wearing glasses? No 01/28/2021 2:04 PM EDT Radha Hanson RN Does this person have serious difficulty walking or climbing stairs? No 01/28/2021 2:04 PM EDT Radha Hanson RN Does this person have difficulty dressing or bathing? No 01/28/2021 2:04 PM EDT Radha Hanson RN documented as of this encounter Mental Status * Cognitive and Functional Status Question Answer Entry Date Author Because of a physical, menta l or emotional condition, does this person have difficulty doing errands alone such as visiting a doctor's office or shopping? No 01/28/2021 2:04 PM EDT Radha Hanson RN Because of a physical, menta l or emotional condition, does this person have serious difficulty concentrating, remembering or making decisions? No 01/28/2021 2:04 PM EDT Radha Hanson RN documented in this encounter Plan of Treatment Upcoming Encounters Date Type Department Care Team (Late st Contact Info) Description 09/16/2025 3:00 PM EST Appointment [place] [address] 09/16/2025 3:20 PM EST [facility]ment [facility] [place] [address] Urszula Servin MD [address] [place] [address] 10/05/2025 3:00 PM EST Appointment [facility] [place], [place] [id number] 10/05/2025 3:20 PM EST Appointment [facility] [place], [place] [address] Urszula Servin MD [address] [place] [address] [place], [place] [id number] documented as of this encounter Procedures Procedure Name Priority Date/Time Associated Diagnosis Comments NEOGENOMICS STANDARD LEUKEMIA/LYMPHOMA PANEL Routine 01/27/2021 2:10 PM EDT documented in this encounter Results * NEOGENOMICS STANDARD LEUKEMIA/LYMPHOMA PANEL (01/27/2021 2:10 PM EDT) Pathologist [facility] Result Diagnosis = No diagnostic immunophenotypic abnormalities detected. Comments = No immunophenotypic evidence of a lymphoproliferative disorder, acute leukemia, increase in blasts, or plasma cell neoplasm is identified. Myeloproliferative neoplasms and myelodysplastic syndromes may not show antigenic abnormalities on myeloid cells and cannot be ruled out by flow cytometry. Please correlate the result with morphological findings, other pertinent laboratory data and clinical information. Lymphocytes = T-cells (95% of lymphoid cells) show a CD4/CD8 ratio of about 1.3 without overt phenotypic abnormality. NK-cells (1% of lymphoid cells) are unremarkable. Mature B-cells (4% of lymphoid cells) are polyclonal (kappa:lambda 3.6). Monocytes = Monocytes show phenotypic evidence of maturation without dysmaturation. Granulocytes = Granulocytes show phenotypic evidence of maturation without dysmaturation. CD45 Dim = CD34+ events (0.6% of total cells) are not increased. CD45 Neg = Erythroids and cell debris, unremarkable. Plasma Cells = Plasma cells are not increased and show unremarkable surface marker expression. [facility] 01/27/2021 2:10 PM EDT Narrative [facility] - 01/30/2021 11:22 AM EDT Requesting Provider: Hussain Xiejuan Specimen = [id number] us Brittany Lyon MD PATHOLOGY ORDERABLES Final Result [facility] 1 [place], [place] [id number] documented in this encounter Visit Diagnoses Not on filedocumented in this encounter Additional Health Concerns Infection Onset Date Last Indicated Resolved Time R/O COVID-19 08/06/2024 08/06/2024 08/06/2024 4:39 PM EDT R/O COVID-19 12/23/2024 12/23/2024 12/23/2024 4:31 PM EST INFLUENZA 12/23/2024 12/23/2024 01/06/2025 10:1 2 PM EDT documented as of this encounter Care Teams Skip Miner Relationship Specialty Start Date End Date Lorenza Daniel [address] [place] [address] PCP - General Family Medicine 10/20/12 Gabe Hanna MD [facility] [address] [place] [address] Internal Medicine-Gastroenterol ogy 09/28/13 Urszula Servin MD [address] [place] [address] [place] [address] Medical Oncologist Internal Medicine-Medical Oncology 01/27/21 Pinky Avina, RN Registered Nurse Internal Medicine-Hematology and Oncology 02/26/22 07/30/22 Jeremy Nam MD Referring Physician Obstetrics & Gynecology-Obstetrics 09/03/23 Cody Modi MD Consulting Physician Obstetrics & Gynecology-Gynecologic Oncology 09/03/23 Luisa Carcamo, RN Registered Nurse 08/14/24 08/14/24 Sonal Gonzalez, RN Registered Nurse Infusion Therapy 08/21/24 08/21/24 Sanju Bansal, GABRIELE Registered Nurse Infusion Therapy 08/28/24 08/28/24 Santa Jasso, GABRIELE Registered Nurse Infusion Therapy 09/03/24 09/04/24 Jaleesa Stone RN Registered Nurse 12/04/24 12/04/24 Luisa Pepe, Clerical Staff Financial Counselor 12/11/24 01/26/25 Caitlin Lomeli, GABRIELE Registered Nurse Infusion Therapy 01/29/25 01/29/25 documented as of this encounter
--- OUTSIDE RECORDS SUMMARY | 2025-09-11 22:33 | XMS_ITS | Encounter Summary ---
Author Organization [place] [address] Care Team Providers Care Insert Cutter Name Role Phone Lorenza Daniel Primary Care Provider [phone] Gabe Hanna MD Unavailable Unavailable Urszula Servin MD Unavailable [phone] Pinky Avina RN Unavailable Unavailable Jeremy [...] Description 01/27/2021 Orders Only [facility] LAB[facility] One [facility] [place] [address] Brittany Lyon MD [address] [facility] [place] [address] Social History Tobacco Use Types Packs/Day Years [...] PM EST Appointment [place] [address] 09/16/2025 3:20 PM EST [facility]ointment [facility] [place] [address] Urszula Servin MD [address] [place] [address] 10/05/2025 3:00 PM EST Appointment [place] [address] 10/05/2025 3:20 PM EST Appointment [facility] [place], [place] [phone] Urszula Servin MD [address] [place] [address] [place], [place] [phone] documented as of this encounter Procedures Procedure Name Priority Date/Time Associated Diagnosis Comments NEOGENOMICS MDS EXTENDED Routine 01/27/2021 2:10 PM EDT documented in this encounter Results * NEOGENOMICS MDS EXTENDED (01/27/2021 2:10 PM EDT) Pathologist [facility] Result Results = Normal +19 (Result) = Not Detected p53 (17p13.1)/ NF1 (17q11) (Result) = Not Detected ETV6 (12p13) (Result) = Not Detected RPN1/MECOM (3q) (Result) = Not Detected Nuclei Scored = 200 Billing Results (CPT Code: 17484) = Probe Set: +19, p53 (17p13.1)/ NF1 (17q11), ETV6 (12p13), RPN1/MECOM (3q) Scoring Method: Computer Assisted Technology CPT Code: 40570 # of Units: 4 [facility] 01/27/2021 2:10 PM EDT Narrative [facility] - 02/04/2021 11:22 AM EDT Requesting Provider: Hussain Fontana Specimen = [id number] us Brittany Lyon MD PATHOLOGY ORDERABLES Final Result [facility] 1 [place], [place] [id number] documented in this encounter Visit Diagnoses Not on filedocumented in this encounter Additional Health Concerns Infection Onset Date Last Indicated Resolved Time R/O COVID-19 08/06/2024 08/06/2024 08/06/2024 4:39 PM EDT R/O COVID-19 12/23/2024 12/23/2024 12/23/2024 4:31 PM EST INFLUENZA 12/23/2024 12/23/2024 01/06/2025 10:1 2 PM EDT documented as of this encounter Care Teams Insert Cutter Relationship Specialty Start Date End Date Lorenza Daniel [address] [place] [address] PCP - General Family Medicine 10/20/12 Gabe Hanna MD [address] [place] [address] Internal Medicine-Gastroenterol ogy 09/28/13 Urszual Servin MD [address] [place] [address] [address] [place], [place] [phone] Medical Oncologist Internal Medicine-Medical Oncology 01/27/21 Pinky Avina RN Registered Nurse Internal Medicine-Hematology and Oncology [...]
--- OUTSIDE RECORDS SUMMARY | 2025-09-11 22:34 | XMS_ITS | Encounter Summary ---
Author Organization [place] [address] Care Team Providers Care Schedule Clerk Name Role Phone Lorenza Daniel Primary Care Provider [phone] Gabe Hanna MD Unavailable Unavailable Urszula Servin MD Unavailable [phone] Pinky Avina RN Unavailable Unavailable Jeremy [...] Description 01/27/2021 Orders Only [facility] One [facility] [address] Brittany Lyon MD [address] [facility] [place] [address] Social History Tobacco Use Types Packs/Day Years [...] PM EST Appointment [place] [address] 09/16/2025 3:20 PM EST [facility]ointment [facility] [place] [address] Urszula Servin MD [address] [place] [address] 10/05/2025 3:00 PM EST Appointment [place] [address] 10/05/2025 3:20 PM EST Appointment [facility] [place], [place] [address] Urszula Servin MD [address] [place] [address] [place], [place] [address] documented as of this encounter Procedures Procedure Name Priority Date/Time Associated Diagnosis Comments NEOGENOMICS MDS STANDARD Routine 01/27/2021 2:10 PM EDT documented in this encounter Results * NEOGENOMICS MDS STANDARD (01/27/2021 2:10 PM EDT) Pathologist [facility] Result Results = Normal Chromosome 8 (Result) = Not Detected Chromosome 20 (Result) = Not Detected 5q-/-5/+5 tricolor (Result) = Not Detected 7q-/-7 tri (Result) = Not Detected KMT2A (MLL) (11q23)* (Result) = Not Detected Nuclei Scored = 200 Billing Results (CPT Code: 41551) = Probe Set: +8/20q-/-20, +8/20q-/-20, 5q-/-5/+5 tricolor, 7q-/-7 tri, KMT2A (MLL) (11q23)* Scoring Method: Manual CPT Code: 20575 # of Units: 4 [facility] 01/27/2021 2:10 PM EDT Narrative [facility] - 02/04/2021 11:22 AM EDT Requesting Provider: Hussain Fontana Specimen = [id number] us Brittany Lyon MD PATHOLOGY ORDERABLES Final Result [facility] 1 [place], [place] [id number] documented in this encounter Visit Diagnoses Not on filedocumented in this encounter Additional Health Concerns Infection Onset Date Last Indicated Resolved Time R/O COVID-19 08/06/2024 08/06/2024 08/06/2024 4:39 PM EDT R/O COVID-19 12/23/2024 12/23/2024 12/23/2024 4:31 PM EST INFLUENZA 12/23/2024 12/23/2024 01/06/2025 10:1 2 PM EDT documented as of this encounter Care Teams Schedule Clerk Relationship Specialty Start Date End Date Lorenza Daniel [address] [place] [address] PCP - General Family Medicine 10/20/12 Gabe Hanna MD [facility] [address] [place] [address] Internal Medicine-Gastroenterol ogy 09/28/13 Urszula Servin MD [address] [place] [address] [place] [address] Medical Oncologist Internal Medicine-Medical Oncology 01/27/21 Pinky [...]
--- OUTSIDE RECORDS SUMMARY | 2025-09-11 22:34 | XMS_ITS | Encounter Summary ---
Author Organization [place] [address] Care Team Providers Care Art Gallery Director Name Role Phone Lorenza Daniel Primary Care Provider [phone] Gabe Hanna MD Unavailable Unavailable Urszula Servin MD Unavailable [phone] Pinky Avina RN Unavailable Unavailable Jeremy [...] Description 01/27/2021 Orders Only [facility] One [facility] [place] [address] Brittany Lyon MD [address] [facility] [place] [address] Social History Tobacco Use Types Packs/Day Years [...] PM EST Appointment [place] [address] 09/16/2025 3:20 PM EST Appointment [facility] [place] [address] Urszula Servin MD [address] [place] [address] 10/05/2025 3:00 PM EST Appointment [facility] [place], [place] [address] 10/05/2025 3:20 PM EST Appointment [facility] [place], [place] [address] Urszula Servin MD 1 [facility] [place], [place] [address] documented as of this encounter Procedures Procedure Name Priority Date/Time Associated Diagnosis Comments NEOGENOMICS ONCOLOGY CHROMOSOME ANALYSIS Routine 01/27/2021 2:10 PM EDT documented in this encounter Results * NEOGENOMICS ONCOLOGY CHROMOSOME ANALYSIS (01/27/2021 2:10 PM EDT) Pathologist [facility] Result Metaphases Counted (Test Detail) = 20 Metaphases Analyzed (Test Detail) = 20 Metaphases Karyotyped (Test Detail) = 2 Band Resolution (Test Detail) = 400 Banding Technique (Test Detail) = GTG Culture Type (Test Detail) = 24EB, 48EB Results = Normal Karyotype = 46,XX[20] Interpretation = NORMAL FEMALE KARYOTYPE Cytogenetic analysis shows a normal female karyotype in all cells analyzed. [facility] 01/27/2021 2:10 PM EDT Narrative [facility] - 02/03/2021 3:23 PM EDT Requesting Provider: Hussain Fontana Specimen = [id number] us Brittany Lyon MD PATHOLOGY ORDERABLES Final Result Performing Organization Address City/State/[facility] Co de Phone Number [facility] 1 [place] [address] documented in this encounter Visit Diagnoses Not on filedocumented in this encounter Additional Health Concerns Infection Onset Date Last Indicated Resolved Time R/O COVID-19 08/06/2024 08/06/2024 08/06/2024 4:39 PM EDT R/O COVID-19 12/23/2024 12/23/2024 12/23/2024 4:31 PM EST INFLUENZA 12/23/2024 12/23/2024 01/06/2025 10:1 2 PM EDT documented as of this encounter Care Teams Art Gallery Director Relationship Specialty Start Date End Date Fredy, R Saud [address] [facility] [address] [place] [address] PCP - General Family Medicine 10/20/12 Gabe Hanna MD [address] [facility] [address] [place] [address] Internal Medicine-Gastroenterol ogy 09/28/13 Urszula Servin MD [address] [facility] [address] [place] [address] Medical Oncologist Internal Medicine-Medical Oncology 01/27/21 Pinky [...]
--- OUTSIDE RECORDS SUMMARY | 2025-09-11 22:35 | XMS_ITS | Encounter Summary ---
Author Organization [place] [address] Care Team Providers Care Global Chief Creative Officer Name Role Phone Lorenza Daniel Primary Care Provider [phone] Gabe Hanna MD Unavailable Unavailable Urszula Servin MD Unavailable [phone] Pinky Avina RN Unavailable Unavailable Jeremy Nam MD Unavailable Unavailable Cody Modi MD Unavailable Luisa Carcamo RN Unavailable Unavailable Sonal Gonzalez RN Unavailable Unavaila Sanju Koo RN Unavailable Unavailable Santa Jasso RN Unavailable Unavailable Jaleesa Stone RN Unavailable Unavailable Luisa Pepe Clerical Staff Unavailable Caitlin Lomeli RN Unavailable Unavailable Encounter Details Date Type Department Care Team (Late st Contact Info) Description 10/01/2013 Orders Only [facility] Gastro [facility] [address] [facility] [address] [place] [phone] Gabe Hanna MD Social History Tobacco Use Types Packs/Day Years [...] on file documented as of this encounter Plan of Treatment Upcoming Encounters Date Type Department Care Team (Late st Contact Info) Description 09/16/2025 3:00 PM EST Appointment [place] [address] 09/16/2025 3:20 PM EST Appointment [facility] [place] [address] Urszula Servin MD 1 [facility] [address] 10/05/2025 3:00 PM EST Appointment [place] [address] 10/05/2025 3:20 PM EST Appointment [facility] [place] [address] Urszula Servin MD 1 [facility] [place] [address] documented as of this encounter Procedures Procedure Name Priority Date/Time Associated Diagnosis Comments GMED COLONOSCOPY Routine 10/01/2013 2:30 PM EST documented in this encounter Results * GMED COLONOSCOPY (10/01/2013 2:30 PM EST) 10/01/2013 2:30 PM EST Impressions [facility] - 10/01/2013 3:37 PM EST Normal mucosa in the whole colon. Internal hemorrhoids. In the absence of any other plausible explanation, the patient's bleeding is in all likelihood hemorrhoidal. The hemorrhoids, if needed, should be amenable to endoscopic treatment obviating need for surgery. Plan: Follow-up office visit at patient's convenience This section is an excerpt of the full report, which can be found by clicking the hyperlink. us Gabe Hanna MD GI PROCEDURE ORDERABLES Final R esult [facility] 1 [place] [address] documented in this encounter Visit Diagnoses Not on filedocumented in this encounter Additional Health Concerns Infection Onset Date Last Indicated Resolved Time R/O COVID-19 08/06/2024 08/06/202408/06/2024 4:39 PM EDT R/O COVID-19 12/23/2024 12/23/2024 12/23/2024 4:31 PM EST INFLUENZA 12/23/2024 12/23/2024 01/06/2025 10:1 2 PM EDT documented as of this encounter Care Teams Global Chief Creative Officer Relationship Specialty Start Date End Date Lorenza Daniel [facility] [address] [place] [address] PCP - General Family Medicine 10/20/12 Gabe Hanna MD [facility] [address] [place], [place] [address] Internal Medicine-Gastroenterol ogy 09/28/13 Urszula Servin MD [address] [place] [address] [place] [address] Medical Oncologist Internal Medicine-Medical Oncology 01/27/21 Pinky [...]
--- OUTSIDE RECORDS SUMMARY | 2025-09-11 22:36 | XMS_ITS | Referral Summary ---
Author Organization [employer] ([place], [place], [place], [place], [place]) Address [address] [place] [address] Care Team Providers Care Sleeve Setter Name Role Phone Jeremy Daniel MD Primary Care Provider [phone]- [phone] Allergies Active Allergy Reactions Criticality Noted Date Comments Aspartame 04/21/2021 Other reaction(s): Myalgia Codeine Itching 10/22/2012 Cold sweats Cold sweats Headache, shakes Headache, shakes Corticosteroids (Glucocorticoids) Itching,Rash Medium 09/19/2022 Other reaction(s): Other (See Comments) Shaking; Only steroid packs Latex Hives High 01/26/2021 Medications cyanocobalamin (VITAMIN B-12) 100 MCG tabletIndication s:Aplastic anemia (HCC) Take 100 mcg by mouth daily. Active ergocalciferol, vitamin D2, (VITAMIN D2 ORAL)Indications :Aplastic anemia (HCC) Take by mouth. Active omega-3 fatty acids (FISH OIL CONCENTRATE ORAL)Indications :Aplastic anemia (HCC) Take by mouth. Active cetirizine 10 mg CapIndications:A plastic anemia (HCC) Take by mouth. Active cycloSPORINE modified (NEORAL) 25 MG capsule Take 2 capsules (50 mg total) by mouth in the morning and 2 capsules (50 mg total) before bedtime. Active avatrombopag maleate (DOPTELET ORAL) Take by mouth 20 mg daily. Active Active Problems No known active problems Social History Tobacco Use Types Packs/Day Years Used Date Smoking Tobacco: Never Smokeless Tobacco: Never Alcohol Use Standard Drinks/Week Comments Not Currently 0 (1 standard drink = 0.6 oz pur e alcohol) Food Insecurity Answer Date Recorded Food run out past 12 months Not on file 10/29 Food did not last past 12 months Not on file 11/16/2023 Employment Answer Date Recorded Help finding and keeping a job Not on file 0 11/16/2023 Family and Community Support Answer Al e Recorded Help with Day to Day Activities Not on file 11/16/2023 Feeling Lonely or Isolated Not on file 11/16 Educational Attainment Answer Date Hernandez rded Speak language other than Portuguese at home Not on file 11/16/2023 Want help with school or training Not on file 11/16/2023 Substance Use Answer Date Recorded Used prescription meds for non-medical reasons N ot on file 11/16/2023 Used illegal drugs past 12 months Not on file 11/16/2023 Comments Unknown Sex and Gender Information Value Date Recorded Sex Assigned at Not on file Legal Sex Female 1:25 PM CDT Gender Identity Not on file Sexual Orientation Not on file 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 Not on file Not on file N ot on file Last Filed Vital Signs Vital Sign Reading Time Taken Comments Blood Pressure 135/70 01/21/2023 3:37 PM EDT Pulse 73 01/21/2023 3:37 PM EDT Temperature - - Respiratory Rate - - Oxygen Saturation - - Inhaled Oxygen Concentration - - Weight 94.5 kg (208 lb 6.4 oz) 01/21/2023 3:37 P M EDT Height 160 cm (5' 3 ) 01/21/2023 3:37 PM EDT Body Mass Index 36.92 01/21/2023 3:37 PM EDT Plan of Treatment Not on file Insurance BLUE CROSS/BLUE SHIELD Care Teams Sleeve Setter Relationship Specialty Start Date End Date Jeremy Daniel MD [address] [place] [id number] PCP - General Family Medicine 08/27/22
--- OUTSIDE RECORDS SUMMARY | 2025-09-11 22:38 | XMS_ITS | Clinical Summary ---
Author Organization [facility] Address 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 Role Phone Jeremy Daniel MD Primary Care Provider [phone]- [phone] Allergies Active Allergy Reactions Criticality Noted Date Comments Aspartame Other - please docum ent in the comment field Low 04/21/2021 Migraines, Myalgia Carisoprodol Unknown - Patient st ates they do not know rxn details Low 04/19/2023 Codeine Shortness of breath,Itching,Swelling, Other - please document in the comment field High 10/22/2012 Cold sweats, Headache, shakes Latex Hives High 01/26/2021 Molds & Smuts Other - please docum ent in the comment field Low 08/02/2021 Oxycodone Shortness of breath,Swelling,Other - please document in the comment field High 04/10/2023 Swelling in throat Tacrolimus Other - please docum ent in the comment field Low 04/10/2023 Palpitations, hair loss Medications acetaminophen (Tylenol) 500 MG tablet Take 1 tablet (500 mg) by mouth every 4 (four) hours if needed. Active cetirizine (ZyrTEC) 10 MG tablet Take 1 tablet (10 mg) by mouth 1 (one) time each day. Active cholecalciferol (Vitamin D-3) 50 MCG (2000 UT) capsule Take 2 capsules (100 mcg) by mouth 1 (one) time each day. Active cyanocobalamin (Vitamin B-12) 500 MCG tablet Take 1 tablet (500 mcg) by mouth 1 (one) time each day. Active magnesium oxide (Mag-Ox) 400 MG tablet Take 1 tablet (400 mg) by mouth 1 (one) time each day. Active Zinc 50 MG tablet Take 1 tablet by mouth 1 (one) time each day. Active cycloSPORINE modified (Gengraf) 25 MG capsule Take 1 capsule (25 mg) by mouth twice a day. 3 Active cycloSPORINE modified (Gengraf) 100 MG capsule Take 1 capsule (100 mg) by mouth 2 (two) times a day. 3 Active triamcinolone (Kenalog) 0.1 % cream Apply 1 Application topically 2 (two) times a day. 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 Aplastic anemia 09/16/2023 Abnormal uterine and vaginal bleeding, unspecifi ed 11/28/2022 09/16/2023 Gastroesophageal reflux disease 06/04/2022 09/16/2023 Overview (09/16/2023): Added automatically from request for surgery [id number] History of COVID-19 11/27/2021 09/16/2023 Family History Medical History Relation Name Comments Heart Problem Father Parkinson Disease Father Hernia Mother Relation Name Status Comments Father Mother Social History Tobacco Use Types Packs/Day Years Used Date Smoking Tobacco: Never Smokeless Tobacco: Never Alcohol Use Standard Drinks/Week Comments Never 0 (1 standard drink = 0.6 oz pur e alcohol) PHQ-2 Answer Date Recorded Patient Health Questionnaire-2 Score 2 09/09/2023 PHQ-2A Answer Date Recorded Patient Health Questionnaire-2 Score 2 09/09/2023 Comments Unknown Sex and Gender Information Value Date Recorded Sex Assigned at Not on file Legal Sex Female 1:27 PM EDT Gender Identity Not on file Sexual Orientation Not on file Last Filed Vital Signs Vital Sign Reading Time Taken Comments Blood Pressure 138/77 09/09/2023 9:44 AM EST Pulse 70 09/09/2023 9:44 AM EST Temperature 36.6 C (97.9 F) 09/09/2023 9:44 AM EST Respiratory Rate - - Oxygen Saturation 99% 09/09/2023 9:44 AM EST Inhaled Oxygen Concentration - - Weight 93.1 kg (205 lb 4 oz) 09/09/2023 9:44 AM EST Height 160 cm (5' 3 ) 09/09/2023 9:44 AM EST Body Mass Index 36.36 09/09/2023 9:44 AM EST Plan of Treatment Health Maintenance Due Date Last Done Comments [facility]-Depression Screening 1980 [facility]-/Child/Adol SDOH Screenings 1980 [facility]-Varicella Vaccines (1 of 2 - 13+ 2-dose series) 1993 [facility]- SDOH Screenings 1998 [facility]-Adult SDOH Screenings 1998 [facility]-DTaP,Tdap,and Td Vaccine s (1 - Tdap) 1999 [facility]-Hepatitis B Vaccines (1 of 3 - 19+ 3-dose series) 1999 [facility]-Pap Smear 2001 HPV Vaccines (1 - 3-dose SCD M series) 2007 [facility]-Cervical Cancer Screening 2010 [facility]-HPV/Cotest 2010 CT Colonography 2025 Colonoscopy 2025 FIT-DNA 2025 FIT 2025 FOBT 2025 Sigmoidoscopy 2025 [facility]-Colorectal Cancer Screening 2025 [id number] Vaccine ( season) 2025 12/14/2020, 11/17/2020 [facility]-Influenza Vaccine (#1) 2025 [facility]-Zoster Vaccines (1 of 2) 2030 [facility]-HIB Vaccines Aged Out No longer e ligible based on patient's age to complete this topic [facility]-Hepatitis A Vaccines Aged Out No longer eligible based on patient's age to complete this topic [facility]-IPV Vaccines Aged Out No longer e ligible based on patient's age to complete this topic [facility]-Pneumococcal Vaccine: Pediatrics (0 to 5 Years) and At-Risk Patients (6 to 49 Years) Aged Out No longer eligible b ased on patient's age to complete this topic [facility]-Rotavirus Vaccines Aged Out No lo nger eligible based on patient's age to complete this topic Insurance ORAL Care Teams Pig Machine Operator Helper Relationship Specialty Start Date End Date Jeremy Daniel MD [address] [place] [id number] PCP - General 07/29/23
--- OUTSIDE RECORDS SUMMARY | 2025-09-11 22:39 | XMS_ITS | Patient Health Record ---
Author Organization [facility] Address [address] [place] [id number] Care Team Providers Care Patient Observation Assistant Name Role Phone Lorenza Daniel Primary Care Provider [phone] Mandeep Urias Unavailable [phone] Erin Austin Unavailable [phone] Lashell Bowen Unavailable [phone] Allergies Allergen (clinical drug ingredient) Drug/Non Drug [...] Normal Performing Lab: Notes/Report: Test performed by [facility] [address] [place] [address] , [address], [place] [address] Cornelio Caceres MD, Theatrical Agent CLIA: [id number] Amylase 76 28-100 U/L P-Comprehensive Metabolic Pa man (CMP) Reviewed date:03/11/2025 03:28:39 PM Interpretation:ALT 168, AST 76 Performing Lab: Notes/Report: Test performed by [facility] [address] [place] [address] , [address], [place] [address] Cornelio Caceres MD, Theatrical Agent CLIA: [id number] Sodium 138 135-145 mmol/L Potassium 4.1 3.5-5.3 [...] Normal Performing Lab: Notes/Report: Test performed by [facility] [address] [place] [address] , [address], [place] [address] Cornelio Caceres MD, Theatrical Agent CLIA: [id number] Lipase 35.3 13.0-60.0 u/L CBC Fingerstick (in house) Reviewed date:04/15/2025 03:54:22 [...] 132 100 - 400 P-Comprehensive Metabolic Pa man (CMP) Reviewed date:04/21/2025 01:28:17 PM Interpretation:glu 115, ALT 114, AST 61 Performing Lab: Notes/Report: Test performed by [facility] [address] [place] [address] , [address], [place] [address] Cornelio Caceres MD, Theatrical Agent CLIA: [id number] Sodium 139 135-145 mmol/L Potassium 3.8 3.5-5.3 [...] 0.5 <0.2-1.2 mg/dL A/G Ratio 2.2 1.1-2.5 Covid test (in house) Reviewed date:06/03/2025 12:16:11 PM Interpretation:pos Performing Lab: Notes/Report: pos Result: pos Urinalysis - Inhouse Reviewed date:08/16/2025 06:15:19 PM [...] 50 Performing Lab: Notes/Report: Test performed by [facility], [facility] [address] [place] [address] , [address], [place] [address] Cornelio Caceres MD, Theatrical Agent CLIA: [id number] Sodium 140 135-145 mmol/L Potassium 4.0 3.5-5.3 [...] 0.5 <0.2-1.2 mg/dL A/G Ratio 2.7 1.1-2.5 CBC Fingerstick (in house) Reviewed date:08/30/2025 12:07:57 [...] - 38 plat 73 100 - 400 CBC Fingerstick (in house) Reviewed date:12/02/2024 10:01:55 AM Interpretation: Performing Lab: Notes/Report: wbc 3.9 3.5 - 10 lym 26.9 15 - 50 mid 6.5 2 - 15 gran 66.6 35 - 80 rbc 2.24 3.5 - 5.5 hgb 8.9 11.5 - 16.5 hct 25.7 35 - 55 mcv 114.7 75 - 100 mch 39.8 25 - 35 mchc 34.7 31 - 38 plat 96 100 - 400 Rapid Strep- Inhouse Reviewed date:12/02/2024 10:01:55 AM Interpretation:neg Performing Lab: Notes/Report: neg strep test neg Influenza Screen (in house) Reviewed date:12/02/2024 10:01:55 AM Interpretation:neg Performing Lab: Notes/Report: neg results neg CBC Fingerstick (in house) Reviewed date:03/14/2025 11:23:03 [...] - 38 plat 127 100 - 400 Covid test (in house) Reviewed date:06/15/2025 02:31:07 PM Interpretation:Negative Performing Lab: Notes/Report: Negative Result: Neg CBC Fingerstick (in house) Reviewed date:06/15/2025 [...] - 38 plat 107 100 - 400 Rapid Strep- Inhouse Reviewed date:07/05/2025 06:33:29 PM Interpretation:Negative Performing Lab: Notes/Report: Negative strep test neg H-CBC Reviewed date:02/02/2025 01:03:53 PM Interpretation: Performing [...] 0.0 0.0-0.4 K/mm3 BA# 0.0 0-0.2 K/mm3 CBC Venipuncture (in house) Reviewed date:07/05/2025 06:33:48 [...] 74 Performing Lab: Notes/Report: Test performed by [facility], [facility] [address] [place] [address] , [address], [place] [address] Cornelio Caceres MD, Theatrical Agent CLIA: [id number] Sodium 139 135-145 mmol/L Potassium 4.2 3.5-5.3 [...] 0.6 <0.2-1.2 mg/dL A/G Ratio 2.1 1.1-2.5 CBC Fingerstick (in house) Reviewed date:02/09/2025 11:57:54 [...] - 38 plat 112 100 - 400 Urinalysis - Inhouse Reviewed date:01/22/2025 05:19:17 PM Interpretation: Performing Lab: Notes/Report: Color/Clarity yellow/clear Leuk Neg Nitrite Neg Urobili 3.2 Protein Neg pH 6.0 Blood Neg Sp. Gr. 1.025 Ketone Neg Bili Neg Gluc Neg Influenza Screen (in house) Reviewed date:12/09/2024 03:50:35 PM Interpretation: Performing Lab: Notes/Report: results Neg CBC Fingerstick (in house) Reviewed date:12/09/2024 03:50:43 PM Interpretation: Performing Lab: Notes/Report: wbc 3.6 3.5 - 10 lym 26.1% 15 - 50 mid 4.8% 2 - 15 gran 69.1% 35 - 80 rbc 2.40 3.5 - 5.5 hgb 9.5 11.5 - 16.5 hct 27.7 35 - 55 mcv 115.4 75 - 100 mch 39.6 25 - 35 mchc 34.3 31 - 38 plat 98 100 - 400 Covid test (in house) Reviewed date:12/09/2024 03:50:26 PM Interpretation: Performing Lab: Notes/Report: Result: Neg Covid test (in house) Reviewed date:12/02/2024 10:01:55 AM Interpretation:neg Performing Lab: Notes/Report: neg Result: neg Influenza Screen (in house) Reviewed date:09/21/2024 02:19:33 PM Interpretation:neg Performing Lab: Notes/Report: neg results neg Rapid Strep- Inhouse Reviewed date:09/21/2024 02:19:18 PM Interpretation:neg Performing Lab: Notes/Report: neg strep test neg CBC Fingerstick (in house) Reviewed date:09/21/2024 02:17:34 PM Interpretation: Performing Lab: Notes/Report: wbc 5.2 3.5 - 10 lym 15.9 15 - 50 mid 4.0 2 - 15 gran 80.1 35 - 80 rbc 2.34 3.5 - 5.5 hgb 9.1 11.5 - 16.5 hct 27.5 35 - 55 mcv 17.4 75 - 100 mch 39.2 25 - 35 mchc 33.4 31 - 38 plat 96 100 - 400 Covid test (in house) Reviewed date:09/21/2024 02:18:42 PM Interpretation:neg Performing Lab: Notes/Report: neg Result: neg Rapid Strep- Inhouse Reviewed date:06/15/2025 02:31:18 PM Interpretation:Negative Performing Lab: Notes/Report: Negative strep test Neg TEN-stool panel Reviewed date:03/18/2025 12:12:41 PM Interpretation:Rotavirus A Performing Lab: Notes/Report: Rotavirus A P-Vitamin D 25-Hydroxy Reviewed date:09/23/2024 07:14:17 AM Interpretation:67.1 (30-100) Performing Lab: Notes/Report: Test performed by [facility], [facility] [address] [place] [address] , [address] , [place] [address] Cornelio Caceres MD, Theatrical Agent CLIA: [id number] Vitamin D 25-Hydroxy 67.1 30.0-100.0 ng/mL Interpretation of Vitamin D 25 OH: < 20 ng/mL - Deficiency 20 - 29 ng/mL - Insufficiency 30 - 100 ng/mL - Sufficiency > 100 ng/mL - Super-therapeutic- toxicity may occur above this level. Clinical correlation required. Medications Medication SIG (Take, Route, Frequency, Duration) Notes Start Date End Date Status CareTouch CPAP & BIPAP Hose 1 DIRECTED 02/22/2023 Active Vitamin D3 50 MCG (1999 UT) 1/2 tab(s) orally once a day 03/24/2014 Active diphenhydrAMINE-Zinc Acetate 2-0.1 % 1 application as needed Externally Three times a day 01/22/2025 Active ZyrTEC Allergy 10 MG 1 tab(s) orally once a day Active Benzonatate 200 MG 1 capsule as needed Orally 3 times a day As needed 08/30/2025 Active Magnesium - as directed Orally Active Albuterol Sulfate HFA 108 (90 Base) MCG/ACT 1 puff as needed Inhalation every 4 hrs As needed 06/15/2025 Active Zithromax Z-Tevin 250 MG 2 pills first day then one daily for 4 days orally as directed; Duration: 5 days 08/30/2025 Activ e Doptelet 20 MG 2 tablet Orally daily Active Diflucan 150 MG 1 tablet Orally; Dur ation: 10 day(s) 08/12/2025 Active Vitamin B-12 1000 MCG TAKE 1 TABLET BY M OUTH EVERY DAY; Duration: 60 Active ZyrTEC-D Allergy & Congestion 5-120 MG 1 tablet Orally Once a day 06/15/2025 Active Zinc 50 MG 1 tablet Orally Once a day; Duration: 30 day(s) Active Immunizations Vaccine Route Administration Date Status Comme nts COVID 19 Moderna Unknown 11/17/2020 Administered COVID 19 Moderna Unknown 12/14/2020 Administered Problems Problem Type SNOMED Code ICD Code Onset Dates Problem Status W/U Status Risk Notes Problem Sinusitis (18780627) Sinusitis (J32.9) Active confirmed Problem Vitamin D deficiency (68352315) Vitamin D deficiency (E55.9) Active confirmed Problem Vitamin B12 deficiency (786709359) Vitamin B12 deficiency (E53.8) Active confirmed Problem Otitis externa (6437828) Otitis externa (H60.90) Active confirmed Problem Pancytopenia (424067069) Pancytopenia (D61.818) Active confirmed Problem Paresthesia (58397253) Paresthesia (R20.2) Active confirmed Problem Restless legs syndrome (96695137) Restless leg syndrome (G25.81) Active confirmed Problem Hypocalcemia (6438132) Hypocalcemia (E83.51) Active confirmed Problem Cramp in lower leg associated with rest (077641565) Nocturnal leg cramps (G47.62) Active confirmed Problem Seasonal allergic rhinitis (519198556) Other seasonal allergic rhinitis (J30.2) Active confirmed Problem Restless legs syndrome (40388641) Restless legs syndrome (G25.81) Active confirmed Problem Degeneration of lumbar intervertebral disc (39444934) Lumbar degenerative disc disease (M51.36) Active confirmed Problem Restless legs (39695621) Restless leg (G25.81) Active confirmed Problem Acute upper respiratory infection (28193563) Acute upper respiratory infection (J06.9) Active confirmed Problem Obstructive sleep apnea syndrome (32744972) Obstructive sleep apnea syndrome (G47.33) Active confirmed Problem Hyperlipidaemia (81321381) Hyperlipidemia, unspecified hyperlipidemia type (E78.5) Active confirmed Problem Seasonal allergic rhinitis (442611343) Seasonal rhinitis (J30.2) Active confirmed Problem Dysfunction of both eustachian tubes (6640207709421168) Dysfunction of both eustachian tubes (H69.83) Active confirmed Problem Hypersomnia (99981857) Hypersomnia (G47.10) Active confirmed Problem Hypophosphatemia (7844300) Hypophosphatemia (E83.39) Active confirmed Problem Benign neoplasm of skin of lower limb (25931734) Dermatofibroma of right lower leg (D23.71) Active confirmed Problem Adjustment disorder with mixed emotional features (12150074) Situational mixed anxiety and depressive disorder (F43.23) Active confirmed Problem Allergic rhinitis (90497443) Allergic rhinitis, unspecified allergic rhinitis trigger, unspecified rhinitis seasonality (J30.9) Active confirmed Problem Sciatica (11573784) Right-sided low back pain with right-sided sciatica, unspecified chronicity (M54.41) Active confirmed Problem Skin sensation disturbance (72009661) Arm paresthesia, left (R20.2) Active confirmed Problem Allergic rhinitis caused by pollen (67757888) Acute seasonal allergic rhinitis due to pollen (J30.1) Active confirmed Problem Skin sensation disturbance (48311055) Arm paresthesia, right (R20.2) Active confirmed Problem Obesity (074277735) Non morbid o besity (E66.9) Active confirmed Problem Allergic rhinitis (08827830) Allergic rhinitis, unspecified seasonality, unspecified trigger (J30.9) Active confirmed Problem Hyperphosphatemia (30493660) Hyperphosphatemia (E83.39) Active confirmed Problem Aplastic anemia (172368647) Aplastic anemia (D61.9) Active confirmed Vital Signs Heart Rate 77 /min 08/30/2025 Blood pressure diastolic 60 mm Hg 08/30/2025 Height 62.50 in 08/30/2025 Blood pressure systolic 122 mm Hg 08/30/2025 Weight 188.8 lbs 08/30/2025 BMI 33.98 kg/m2 08/30/2025 Encounters Encounter Location Date Provider Diagnosis [facility] [address] [facility] [address] [place], [place] [id number] 09/21/2024 Erin Austin URI (upper respirato ry infection) J06.9 ; Vitamin D deficiency E55.9 ; Pancytopenia D61.818 and Aplastic anemia D61.9 [facility] [address] [facility] [address] [place], [place] [id number] 10/19/2024 Mandeep Odell Otalgia, left ear H92.02 [facility] [address] [facility] [address] [place], [place] [id number] 12/01/2024 R Saud Fredy Seasonal rhinitis J30.2 and Aplastic anemia D61.9 [facility] [address] [facility] [address] [place], [place] [id number] 12/09/2024 Lashell Crowdy Acute URI J06.9 [facility] [address] [facility] [address] [place], [place] [id number] 01/22/2025 Mandeep Odell Acute vaginitis N76. 0 [facility] [address] [facility] [address] [place] [id number] 02/02/2025 Mandeep Odell Acute URI J06.9 [facility] [address] [facility] [address] [place], [place] [id number] 02/09/2025 Erin Austin URI (upper respirato ry infection) J06.9 and Pancytopenia D61.818 [facility] [address] [facility] [address] [place] [id number] 03/10/2025 Lashell Crowdy Epigastric pain R10. 13 ; Nausea R11.0 and Acute diarrhea R19.7 [facility] [address] [facility] [address] [place] [id number] 03/12/2025 Lashell Crowdy Acute diarrhea R19.7 ; Epigastric pain R10.13 ; Nausea R11.0 and Elevated LFTs R79.89 [facility] [address] [place], [place] [id number] 04/15/2025 Lashell Crowdy Acute URI J06.9 and Elevated liver enzymes R74.8 [facility] [address] [place] [id number] 06/03/2025 R Saud Stewartt COVID-19 U07.1 [facility] [address] [place], [place] [id number] 06/15/2025 Erin Austin Acute respiratory infection J22 and Sinusitis J32.9 [facility] [address] [place], [place] [id number] 07/05/2025 Erin Austin Acute sore throat J02.9 and Elevated LFTs R79.89 [facility] [address] [place], [place] [id number] 08/12/2025 R Saud Fredy Spider bite T63.301A ; Vaginitis N76.0 ; Elevated liver enzymes R74.8 and Aplastic anemia D61.9 [facility] [address] [place] [id number] 08/30/2025 Erin Austin Acute upper respiratory infection 465.9 [facility] [address] [place] [id number] 08/31/2025 R Saud Fredy [facility] [address] [place] [id number] 09/23/2024 Erin Austin [facility] [address] [place] [id number] 02/02/2025 Mandeep Odell [facility] [address] [place] [id number] 03/11/2025 Lashell Crowdy [facility] [address] [place] [id number] 03/17/2025 Lashell Crowdy [facility] [address] [place] [id number] 03/18/2025 Lashell Bowen [facility] [address] [place] [id number] 03/26/2025 R Saud Fredy [facility] [address] [place] [id number] 04/21/2025 Lashell Bowen [facility] [address] [place] [id number] 04/26/2025 R Saud Fredy [facility] [address] [place] [id number] 06/11/2025 R Saud Fredy URI (upper respirato ry infection) J06.9 [facility] [address] [place], [place] [id number] 06/22/2025 R Saud Fredy [facility] [address] [place] [id number] 07/01/2025 R Saud Fredy [facility] [address] [place] [id number] 08/16/2025 R Saud Fredy Assessments Encounter Date Diagnosis (ICD Code) Assessment Notes Treatment Notes Treatment Clinical Notes Section Notes 12/01/2024 Seasonal rhinitis (ICD-10 - J30.2) 12/01/2024 Aplastic anemia (ICD-10 - D61.9) Continue f/u with hematology 06/15/2025 Sinusitis (ICD-10 - J32.9) 06/15/2025 Acute respiratory infection (ICD-10 - J22) fluids, rest, supportive measures for fever/symptom relief 06/11/2025 URI (upper respiratory infection) (ICD-10 - J06.9) 06/03/2025 COVID-19 (ICD-10 - U07.1) Recommend symptomatic treatment but also 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 04/15/2025 Elevated liver enzymes (ICD-10 - R74.8) 04/15/2025 Acute URI (ICD-10 - J06.9) 03/10/2025 Epigastric pain (ICD-10 - R10.13) 03/10/2025 Nausea (ICD-10 - R11.0) 08/30/2025 Acute upper respiratory infection (ICD-10 - 465.9) fluids, rest, supportive measures for fever/symptom relief; facial heat pacs prn; for the drainage pt will start Zyrtec D 08/12/2025 Vaginitis (ICD-10 - N76.0) 08/12/2025 Spider bite (ICD-10 - T63.301A) Discussed local wound care. Follow-up 1 week if no improvement. 07/05/2025 Elevated LFTs (ICD-10 - R79.89) discussed meds 07/05/2025 Acute sore throat (ICD-10 - J02.9) reviewed CBC and previous CBC with pt; gargles q2h while awake with hot salt water fluids, rest, supportive measures for fever/symptom relief 03/12/2025 Epigastric pain (ICD-10 - R10.13) 03/12/2025 Acute diarrhea (ICD-10 - R19.7) 02/09/2025 URI (upper respiratory infection) (ICD-10 - J06.9) will add Ceftin; zithromax still in her system, fluids, rest, supportive measures for fever/symptom relief 02/09/2025 Pancytopenia (ICD-10 - D61.818) 02/02/2025 Acute URI (ICD-10 - J06.9) 01/22/2025 Acute vaginitis (ICD-10 - N76.0) 12/09/2024 Acute URI (ICD-10 - J06.9) 10/19/2024 Otalgia, left ear (ICD-10 - H92.02) Patient seems to have eustachian tube dysfunction 09/21/2024 URI (upper respiratory infection) (ICD-10 - J06.9) 09/21/2024 Vitamin D deficiency (ICD-10 - E55.9) 09/21/2024 Pancytopenia (ICD-10 - D61.818) 03/12/2025 Nausea (ICD-10 - R11.0) 08/12/2025 Elevated liver enzymes (ICD-10 - R74.8) 03/10/2025 Acute diarrhea (ICD-10 - R19.7) 08/12/2025 Aplastic anemia (ICD-10 - D61.9) 03/12/2025 Elevated LFTs (ICD-10 - R79.89) Patient's LFT's were elevated. She is having these rechecked next week by Dr. Servin. Will get stool panel. 09/21/2024 Aplastic anemia (ICD-10 - D61.9) Plan Of Treatment Pending Test Test Name Order Date Zinc 03/19/2022 Diarrhea Panel ([facility]) 03/19/2022 Insurance Providers Payer Name Payer Address Payer Phone Subscriber Number Group Number Insured Name Patient Relationship to Insured Coverage Start Date Coverage End Date [employer] [id number] [place] [address] [id number] Yi Moss Self - patient is the insured Medications Administered Medication Instructions Date of Administration Dosage Notes Dexamethasone 02/06/2013 1.0 mL Medical (General) History Medical History History ICD Code Restless legs syndrome Vitamin D deficiency allergic rhinitis Esophageal reflux Pancytopenia - follows with Dr. Servin and [facility] mammogram - 2020 Pancytopenia, s/p evaluation at [facility] Aplastic anemia Restless legs syndrome - Dr. Alexandre Surgical History Surgery Date(Month/Year) Tonsillectomy Adenoidectomy D&C IUD 11/2022
--- OUTSIDE RECORDS SUMMARY | 2025-09-11 22:40 | XMS_ITS | Clinical Summary ---
Author Organization [facility] Address [address] [place] [address] Phone Care Team Providers Care Surface Ship Usw Supervisor Name Role Phone Lorenza Daniel Primary Care Provider [phone] Gabe Hanna MD Unavailable Unavailable Urszula Servin MD Unavailable [phone] Jeremy Nam MD Unavailable Unavailable Cody Modi MD Unavailable Allergies Active Allergy Reactions Criticality Noted Date Comments Adhesive Hives High 09/30/2023 Aspartame Myalgia 04/21/2021 Codeine Itching,Swelling 10/22/2012 ANY CODEINE MEDS - Headache, shakes Corticosteroids (Glucocorticoids) Itching,Rash,Other (See Comments) Medium 09/19/2022 Shaking; Only steroid packs Gabapentin Other (See Comments) Low 09/30/2023 WT GAIN House Dust Mite Other (See Comments) 08/02/2021 05/02/2021 - 01/30/2021 - 08/17/2020 - 05/13/2018 - 02/18/2018 - 10/08/2016 - 09/27/2015 - Hydrocodone Shortness Of Breath,Swelling High 03/02/2024 Latex Hives High 01/26/2021 Molds Extract Other (See Comments) 08/02/2021 05/02/2021 - 01/30/2021 - 08/17/2020 - 05/13/2018 - 02/18/2018 - 10/08/2016 - 09/27/2015 - Oxycodone Swelling Medium 08/03/2023 Swelling in throat Unclassified Drug Other (See Comments) Medium 03/24/2024 Carisprdol-- given for restless leg. Patient was dizzy, headache, and confusion Medications cetirizine HCl (ZYRTEC ORAL) Take 10 mg by mouth daily. Active cholecalciferol, vitamin D3, (VITAMIN D3 ORAL) Take 3 Tablets by mouth daily. Active magnesium oxide (MAG-OX) 400 mg (241.3 mg magnesium) Oral Tablet Take 400 mg by mouth daily. Takes daily to every other day as tolerated Active cyanocobalamin 1,000 mcg Oral Tablet Take 1,000 mcg by mouth daily. Active avatrombopag (DOPTELET, 30 TAB PACK,) 20 mg Oral Tablet Take 20 mg by mouth daily. 2 Active cycloSPORINE modified (NEORAL) 100 mg Oral Capsule 3 Active triamcinolone (KENALOG) 0.1 % Top Lotion Apply topically 3 times daily. 1 Each 3 Active azelastine (ASTELIN) 137 mcg (0.1 %) Nasl Aerosol, [place] 3 Active zinc gluconate 50 mg Oral Tablet Take 1 Tablet by mouth daily. Active ondansetron (ZOFRAN) 4 mg Oral TabletIndication s:Influenza A Take 1 Tablet by mouth every 8 hours as needed for Nausea for up to 15 doses. 15 Tablet 5 Active Additional Information Patient not taking.Reason: Therapy Completed, Reported on 08/19/2025 benzonatate (TESSALON) 200 mg Oral Capsule take 1 capsule by mouth three times a day as needed 5 Active fluconazole (DIFLUCAN) 150 mg Oral Tablet TAKE 1 TABLET BY MOUTH ONE TIME FOR 1 DAY 5 Active Omeprazole-Sodiu m Bicarbonate 20-1,680 mg Oral Packet Take 20 mg by mouth daily. Active albuterol (PROVENTIL HFA;VENTOLIN HFA) 90 mcg/actuation Inhl HFA Aerosol Inhaler Inhale 1 Puff into the lungs every 4 hours as needed. 5 Active cefdinir (OMNICEF) 300 mg Oral Capsule Take 300 mg by mouth 2 times daily. Active ALLERGY RELIEF-D, CETIRIZINE, 5-120 mg Oral Tablet Sustained Release 12 hr Take 1 Tablet by mouth daily. Active Lactobacillus acidophilus (PROBIOTIC ORAL) Take by mouth. 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 Menorrhagia with regular cycle 01/27/2021 Pancytopenia 01/26/2021 Encounters Date Type Department Care Team Description 08/24/2025 Patient Outreach [facility] [place], [place] [id number] Luisa Pepe, Clerical Staff 08/23/2025 Results Follow-Up [facility] [place], [place] [id number] Urszula Servin MD CBC WITH DIFF, COMPREHENSIVE METABOLIC PANEL, MAGNESIUM LEVEL 08/19/2025 3:08 PM EDT - 08/19/2025 11:59 PM EDT Hospital Encounter [facility] [place] [address] Urszula Servin MD Bilateral leg cramps (Primary Dx); Autoimmune pancytopenia (HCC); Elevated LFTs; Encounter for therapeutic drug monitoring Discharge Disposition: Home or Self Care 08/19/2025 3:00 PM EDT - 08/19/2025 3:07 PM EDT Hospital Encounter [facility] [place], [place] [id number] Pancytopenia (HCC); Bilateral leg cramps Discharge Disposition: Home or Self Care 08/19/2025 Telephone [facility] [place] [address] Urszula Servin MD Other (child may be at appointment ) 07/27/2025 3:15 PM EDT - 07/27/2025 11:59 PM EDT Hospital Encounter [facility] [place] [address] Urszula Servin MD Pancytopenia (HCC) (Primary Dx) Discharge Disposition: Home or Self Care 07/27/2025 3:00 PM EDT - 07/27/2025 3:14 PM EDT Hospital Encounter [place] [address] Autoimmune pancytopenia (HCC); Elevated LFTs; Encounter for therapeutic drug monitoring Discharge Disposition: Home or Self Care 06/25/2025 Telephone [facility] [place] [address] Urszula Serivn MD Paperwork/forms (FMLA) 06/24/2025 3:08 PM EDT - 06/24/2025 11:59 PM EDT Hospital Encounter [facility] [place] [address] Urszula Servin MD Autoimmune pancytopenia (HCC) (Primary Dx); Elevated LFTs; Encounter for therapeutic drug monitoring Discharge Disposition: Home or Self Care 06/24/2025 3:00 PM EDT - 06/24/2025 3:07 PM EDT Hospital Encounter [place] [address] Autoimmune pancytopenia (HCC); Elevated LFTs Discharge Disposition: Home or Self Care from Last 3 Months Immunizations Immunization Administration Dates Next Due Moderna SARS-CoV-2 Vaccine 12+ Yrs (Light blue b order) 12/14/2020,11/17/2020 Surgical History Surgery Date Site/Laterality Comments TONSILLECTOMY WISDOM TOOTH EXTRACTION DILATION AND CURETTAGE OF UTERUS 10/24/2012 N/A DILATION & HYSTEROSCOPY ; Surgeon: Jeremy Nam MD; Location: [facility]; Service: Gynecology CT NEEDLE BIOPSY BONE 01/27/2021 CT NEEDLE BIOPSY BONE 01/27/[address] COLONOSCOPY 09/24/2022 N/A Esophagogastroduodenoscopy with biopsies Colonoscopy ; Surgeon: Vladimir Quijano MD PHD; Location: [facility]; Service: Endoscopy UPPER GASTROINTESTINAL ENDOSCOPY 09/24/2022 N/A Surgeon: Vladimir Quijano MD PHD; Location: [facility]; Service: Endoscopy ENDOMETRIAL ABLATION Medical History Medical History Date Comments Hypoplastic anemia Anemia Aplastic anemia Heartburn Sleep apnea CPAP Encounter for blood transfusion Family History Medical History Relation Name Comments Colon Polyps Brother Heart Failure Father High Blood Pressure Father Breast Cancer Maternal Aunt Colon Polyps Mother Heart Attack Paternal Grandfather Heart Attack Paternal Grandmother Anesth Problems Neg Hx Relation Name Status Comments Brother Father Maternal Aunt Mother Alive Paternal Grandfather Paternal Grandmother Social History Tobacco Use Types Packs/Day Years [...] on file Sexual Orientation Not on file Obstetrics History Para Term AB IAB SAB Ectopic Multiple Livin g Live Births 0 0 0 0 0 0 0 0 0 0 0 Comments Age of menarche :11 Last Filed Vital Signs Vital Sign Reading [...] Mass Index 33.2 08/19/2025 3:12 PM EDT Plan of Treatment Upcoming Encounters Date Type Department Care Team (Late st Contact Info) Description 09/16/2025 3:00 PM EST Appointment [place] [address] 09/16/2025 3:20 PM EST Appointment [facility] [place] [address] Urszula Servin MD [address] [facility] [address] 10/05/2025 3:00 PM EST Appointment [place] [address] 10/05/2025 3:20 PM EST Appointment [facility] [place] [address] Urszula Servin MD [address] [facility] [address] Health Maintenance Due Date Last Done Comments Annual Wellness Exam 1983 DTaP/TDaP/Td (1 - Tdap) 1999 Hepatitis B Vaccine (1 of 3 - 19+ 3-dose series) 1999 Pneumococcal Vaccine 0-49 (1 of 2 - PCV) 1999 COVID-19 Vaccine (3 - Modern a risk series) 01/11/2021 12/14/2020, 11/17/2020 Breast Cancer Screening 09/14/2024 09/14/20, 07/05/2021 Cologuard 2025 FIT 2025 Sigmoidoscopy 2025 Virtual Colonography 2025 Influenza Vaccine (#1) 2025 Colon Cancer Screening 09/24/2032 Colonoscopy 09/24/2032 09/24/2022, 10/01/2013 Meningococcal B Vaccine Aged Out No l onger eligible based on patient's age to complete this topic Goals Goal Patient Goal Type Associated Problems [...] center) C. Review available resources through the [facility] cancer program and the community. 6. State objectives clearly and provide environment conducive to learning (PRN) Procedures Procedure Name Priority Date/Time Associated Diagnosis Comments MAGNESIUM LEVEL Routine 08/19/2025 3:07 PM EDT Bilateral leg cramps COMPREHENSIVE METABOLIC PANEL Routine 08/19/2025 3:07 PM EDT Pancytopenia (HCC) CBC WITH DIFF Routine 08/19/2025 3:07 PM EDT Pancytopenia (HCC) COMPREHENSIVE METABOLIC PANEL Routine 07/27/2025 3:08 PM EDT Autoimmune pancytopenia (HCC) Elevated LFTs Encounter for therapeutic drug monitoring CBC WITH DIFF Routine 07/27/2025 3:08 PM EDT Autoimmune pancytopenia (HCC) Elevated LFTs Encounter for therapeutic drug monitoring COMPREHENSIVE METABOLIC PANEL Routine 06/24/2025 3:07 PM EDT Elevated LFTs CBC WITH DIFF Routine 06/24/2025 3:07 PM EDT Autoimmune pancytopenia (HCC) GMED EGD-COLONOSCOPY Routine 09/24/2022 8:00 AM EST from Last 3 Months or Most Recently Relevant to Health Maintenance Results * (ABNORMAL) CBC WITH DIFF (08/19/2025 3:07 PM EDT) Only the most recent of3 resultswithin the time period is included. WBC 3.7 3.7 - 10.3 x10(3)/mc L 08/19/2025 3:14 PM EDT [facility] RBC 2.19(L) 3.90 - 5.20 x10(6)/mc L 08/19/2025 3:14 PM EDT [facility] Hgb 9.0(L) 11.2 - 15.7 g/dL 08/19/2025 3:14 PM EDT [facility] Hct 26.2(L) 34.0 - 45.0 % 08/19/2025 3:14 PM EDT [facility] MCV 119.6(H) 80.0 - 100.0 fL 08/19/2025 3:14 PM EDT [facility] MCH 41.1(H) 26.0 - 34.0 pg 08/19/2025 3:14 PM EDT [facility] MCHC 34.4 30.7 - 35.5 g/dL 08/19/2025 3:14 PM EDT [facility] RDW 15.9(H) <=14.9 % 08/19/2025 3:14 PM EDT [facility] Platelet 83(L) 155 - 369 x10(3)/mc L 08/19/2025 3:14 PM EDT [facility] MPV 11.0 8.8 - 12.5 fL 08/19/2025 3:14 PM EDT [facility] Neut # Prelim 2.0 1.6 - 6.1 x10(3)/mc L 08/19/2025 3:14 PM EDT [facility] Comment:Preliminary automate d absolute neutrophil count. Value may change if manual differential is indicated. Neut Percent 54.0 % 08/19/2025 3:14 PM EDT [facility] Comment:Neutrophils equals s egs plus bands Imm Gran% 0.5 % 08/19/2025 3:14 PM EDT [facility] Comment:Automated count of m etamyelocytes, myelocytes and promyelocytes. Lymph Percent 31.3 % 08/19/2025 3:14 PM EDT [facility] Warrick Percent 13.4 % 08/19/2025 3:14 PM EDT [facility] Eos Percent 0.5 % 08/19/2025 3:14 PM EDT [facility] Baso Percent 0.3 % 08/19/2025 3:14 PM EDT [facility] Neut # 2.0 1.6 - 6.1 x10(3)/mc L 08/19/2025 3:14 PM EDT [facility] Comment:Neutrophils equals s egs plus bands IMMGRAN# 0.0 0.0 - 0.1 x10(3)/mc L 08/19/2025 3:14 PM EDT [facility] Comment:Automated count of m etamyelocytes, myelocytes and promyelocytes. An absolute IG <0.1 is reported as 0.0. Lymph # 1.2 1.2 - 3.9 x10(3)/mc L 08/19/2025 3:14 PM EDT [facility] Warrick # 0.5 0.3 - 0.9 x10(3)/mc L 08/19/2025 3:14 PM EDT [facility] Eos# 0.0 0.0 - 0.5 x10(3)/mc L 08/19/2025 3:14 PM EDT [facility] Baso # 0.0 0.0 - 0.1 x10(3)/mc L 08/19/2025 3:14 PM EDT [facility] Blood VENOUS BLOOD / Unknown Venipuncture / Unknown 08/19/2025 3:07 PM EDT 08/19/2025 3:07 PM EDT us Urszula Servin MD HEMATOLOGY ORDERABLES Final Re sult [facility] [address] [place] [address] * MAGNESIUM LEVEL (08/19/2025 3:07 PM EDT) Magnesium 2.1 1.6 - 2.4 mg/dL 08/19/2025 7:29 PM EDT [employer] Blood VENOUS BLOOD / Unknown Venipuncture / Unknown 08/19/2025 3:07 PM EDT 08/19/2025 3:07 PM EDT us Urszula Servin MD CHEMISTRY ORDERABLES Final Res ult [facility] [address] [facility] [address] [place] [address] [employer] [address] [place] [id number] * (ABNORMAL) COMPREHENSIVE METABOLIC PANEL (08/19/2025 3:07 PM EDT) Only the most recent of3 resultswithin the time period is included. Sodium 141 136 - 145 mmol/L 08/19/2025 3:28 PM EDT [facility] Potassium 4.1 3.5 - 5.0 mmol/L 08/19/2025 3:28 PM EDT [facility] Chloride 108(H) 98 - 107 mmol/L 08/19/2025 3:28 PM EDT [facility] Total CO2 23 22 - 29 mmol/L 08/19/2025 3:28 PM EDT [facility] Anion Gap 10 7 - 16 mmol/L 08/19/2025 3:28 PM EDT [facility] Calcium 9.1 8.6 - 10.4 mg/dL 08/19/2025 3:28 PM EDT [facility] Glucose Lvl 100(H) 70 - 99 mg/dL 08/19/2025 3:28 PM EDT [facility] BUN 19 6 - 20 mg/dL 08/19/2025 3:28 PM EDT [facility] Creatinine 0.71 0.51 - 1.30 mg/dL 08/19/2025 3:28 PM EDT [facility] Albumin 4.1 3.5 - 5.2 gm/dL 08/19/2025 3:28 PM EDT [facility] Total Protein 6.3(L) 6.4 - 8.3 gm/dL 08/19/2025 3:28 PM EDT [facility] Bili Total 0.4 0.2 - 1.3 mg/dL 08/19/2025 3:28 PM EDT [facility] ALT 55(H) <=41 U/L 08/19/2025 3:28 PM EDT [facility] AST 32 <=40 U/L 08/19/2025 3:28 PM EDT [facility] Alk Phos 104 36 - 123 U/L 08/19/2025 3:28 PM EDT [facility] eGFR (CKD-EPIcr 2020) 106 >=60 mL/min/1.7 3 m2 08/19/2025 3:28 PM EDT [facility] Comment:Estimated GFR was ca lculated using the CKD-EPIcr (2020) equation refit without race. The equation is recommended by the National Kidney Foundation - [place] Society of Nephrology Task Force. Blood VENOUS BLOOD / Unknown Venipuncture / Unknown 08/19/2025 3:07 PM EDT 08/19/2025 3:07 PM EDT us Urszula Servin MD CHEMISTRY ORDERABLES Final Res ult [facility] [address] [place] [id number] * [facility] EGD-COLONOSCOPY (09/24/2022 8:00 AM EST) 09/24/2022 8:00 AM EST Impressions [facility] - 10/04/2022 6:55 PM EST Erythema in the duodenal bulb compatible with mild duodenitis. (Biopsy). Normal mucosa in the second part of the duodenum. (Biopsy). Normal mucosa in the whole esophagus. (Biopsy). Normal mucosa in the whole stomach. (Biopsy). Normal mucosa in the terminal ileum. Normal mucosa in the whole colon. Internal hemorrhoids. No polyps were seen. Plan: Follow up pathology results. If you do not receive pathology results within a couple weeks, please call our office for findings and final recommendations. GERD lifestyle modifications. Screening Colonoscopy in 10 years. This section is an excerpt of the full report. us Vladimir Quijano MD PHD GI PROCEDURE ORDERABLES Fernando latham Result - Final [facility] [address] [place] [id number] from Last 3 Months or Most Recently Relevant to Health Maintenance Insurance ORAL PPO Member Subscriber Plan / Payer (Ef fective 2021-Present) Name:Jamie Yi Relation to Subscriber:Self Name:Jamie Yi Payer ID:[id number] (NAIC) Type:Not on file Address: [address] [employer] PPO Advance Directives For more information, please contact: [phone] * Full Code (Latest Code Status on File) Date Activated Date Inactivated Comments 03/24/2024 10:30 AM 03/24/2024 11:06 PM * Full Code Date Activated Date Inactivated Comments 01/26/2021 12:29 PM 01/28/2021 6:35 PM Care Teams Surface Ship Usw Supervisor Relationship Specialty Start Date End Date Lorenza Daniel [address] [place] [address] PCP - General Family Medicine 10/20/12 Gabe Hanna MD [address] [place] [address] Internal Medicine-Gastroenterolo gy 09/28/13 Urszula Servin MD [address] [place] [address] Medical Oncologist Internal Medicine-Medical Oncology 01/27/21 Jeremy Nam MD [address] [place] [address] Referring Physician Obstetrics & Gynecology-Obstetrics 09/03/23 Cody Modi MD [address] [place] [address] Consulting Physician Obstetrics & Gynecology-Gynecologic Oncology 09/03/23
--- OUTSIDE RECORDS SUMMARY | 2025-09-11 22:40 | XMS_ITS | Encounter Summary ---
Author Organization [facility] [place] [address] Care Team Providers Care Plugging Machine Operator Name Role Phone Lorenza Daniel Primary Care Provider [phone] Gabe Hanna MD Unavailable Unavailable Urszula Servin MD Unavailable [phone] Pinky Avina RN Unavailable Unavailable Jeremy Nam MD Unavailable Unavailable Cody Modi MD Unavailable Luisa Carcamo RN Unavailable Unavailable Sonal Gonzalez RN Unavailable Unavaila Sanju Koo RN Unavailable Unavailable Santa Jasso RN Unavailable Unavailable Jaleesa Stone RN Unavailable Unavailable Luisa Pepe Clerical Staff Unavailable Caitlin Lomeli RN Unavailable Unavailable Encounter Details Date Type Department Care Team (Late st Contact Info) Description 02/06/2022 Lab Requisition [facility] [place] [address] Brittany Lyon MD [address] [place] [address] [place] [address] Other pancytopenia (HCC) Social History Tobacco Use [...] have Coronavirus / COVID-19? No / Unsure 02/08/2022 4:03 PM EDT documented as of this encounter [...] PM EST Appointment [place] [address] 09/16/2025 3:20 PM EST [facility]ment [facility] [place] [address] Urszula Servin MD [address] [place], [place] [id number] 10/05/2025 3:00 PM EST Appointment [facility] [place], [place] [id number] 10/05/2025 3:20 PM EST [facility]ointment [facility] [place], [place] [id number] Urszula Servin MD [address] [place] [address] documented as of this encounter Goals Goal [...] center) C. Review available resources through the [facility] cancer program and the community. 6. State objectives clearly and provide environment conducive to learning (PRN) documented as of this encounter Procedures Procedure Name Priority Date/Time Associated Diagnosis Comments MISC AP TEST Routine 02/06/2022 8:16 AM EDT Other pancytopenia (HCC) documented in this encounter Results * MISC AP TEST (02/06/2022 8:16 AM EDT) CASE REPORT Surgical Pathology Report Case: [id number] Authorizing Provider: Brittany Lyon, Collected: 02/06/2022 0816 Ordering Location: [facility] Received: 02/06/2022 0816 Pathologist: Brittany Lyon MD Specimen: Iliac Crest,Left, Request for case [id number] slides [facility] Bone Marrow Transplant. 03/08/2022 3:33 PM EDT [facility] FINAL DIAGNOSIS Results will be scanned in this case as an addendum. 03/08/2022 3:33 PM EDT [facility] at 0818 EDT [facility] 03/08/2022 3:33 PM EDT [facility] ADDENDUM Refer to scanned [facility] Pathology Consult Report 03/08/2022 3:33 PM EDT [facility] Addendum electronically signed by Brittany Lyon MD on 03/08/2022 at 1533 EDT Tissue LEFT POSTERIOR ILIAC CREST MARROW STRUCTURE / Unknown 02/06/2022 8:16 AM EDT 02/06/2022 8:16 AM EDT Brittany Lyon MD PATHOLOGY ORDERABLES Edited Result - Final [facility] [address] [place] [id number] documented in this encounter Visit Diagnoses Diagnosis Other pancytopenia (HCC) Other pancytopenia documented in this encounter Additional Health Concerns Infection Onset Date Last Indicated Resolved Time R/O COVID-19 08/06/2024 08/06/2024 08/06/2024 4:39 PM EDT R/O COVID-19 12/23/2024 12/23/2024 12/23/2024 4:31 PM EST INFLUENZA 12/23/2024 12/23/2024 01/06/2025 10:1 2 PM EDT documented as of this encounter Care Teams Plugging Machine Operator Relationship Specialty Start Date End Date Lorenza Daniel [address] [facility] [address] [place] [address] PCP - General Family Medicine 10/20/12 Gabe Hanna MD [address] [facility] [address] [place] [address] Internal Medicine-Gastroenterol ogy 09/28/13 Urszula Servin MD [address] [facility] [address] [address] Medical Oncologist Internal Medicine-Medical Oncology 01/27/21 Pinky [...]
--- OUTSIDE RECORDS SUMMARY | 2025-09-11 22:40 | XMS_ITS | Clinical Summary ---
Author Organization [facility] ([place], [place], [place], [place], [place]) Address [address] [place] [address] Care Team Providers Care Clerical Order Filler Name Role Phone Jeremy Daniel MD Primary Care Provider [phone] Allergies Active Allergy Reactions Criticality Noted Date [...] 2 capsules (50 mg total) before bedtime. 3 Active avatrombopag maleate (DOPTELET ORAL) Take by mouth 20 mg daily. 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 Not on file [...] 01/21/2023 3:37 PM EDT Plan of Treatment Health Maintenance Due Date Last Done Comments CT Colonography 1980 Colonoscopy 1980 Colorectal Cancer Screening 1980 FOBT/FIT 1980 Fit-DNA (Cologuard) 1980 Sigmoidoscopy 1980 Depression Screening (12+) 1992 HIV Screening 1995 Hepatitis C Screening 1998 DTAP/TDAP/TD VACCINES (1 - Tdap) 1999 Pneumococcal Vaccine: 0-49 Y ears (1 of 2 - PCV) 1999 Pap Smear 2001 Breast Cancer Screening 2020 COVID-19 VACCINE (3 - Moderna risk series) 01/11/2021 12/14/2020, 11/17/2020 Tobacco Cessation Counseling and Screening (12+) 01/22/2024 01/21/2023 Lipid Panel 2025 Influenza Vaccine (#1) 2025 Insurance BLUE CROSS/BLUE SHIELD Care Teams Clerical Order Filler Relationship Specialty Start Date End Date Jeremy Daniel MD [address] [place] [address] PCP - General Family Medicine 08/27/22
--- OUTSIDE RECORDS SUMMARY | 2025-09-11 22:41 | XMS_ITS | Clinical Summary ---
Author Organization [facility] Address [address] [place] [address] Care Team Providers Care Director Global Market Research Name Role Phone Pcp, No Primary Care Provider [phone] Source Comments This information has been disclosed to you from confidential records protectedfrom disclosure by state law. You shall make no further disclosure of thisinformation without the specific, written, and informed release of theindividual to whom it pertains, or as otherwise permitted by law. A generalauthorization for the release of medical or other information is not sufficientfor the purposes of therelease of HIV test results or diagnoses. [id number] Social History Tobacco Use Types Packs/Day Years Used Date Smoking Tobacco: Never Assessed Comments Unknown Sex and Gender Information Value Date Recorded Sex Assigned at Not on file Legal Sex Female 12:12 PM EDT Gender Identity Not on file Sexual Orientation Not on file Last Filed Vital Signs Vital Sign Reading Time Taken Comments Blood Pressure 129/68 02/19/2022 4:14 PM EDT Pulse 88 02/19/2022 4:14 PM EDT Temperature 36.7 C (98 F) 02/19/2022 4:14 PM EDT Respiratory Rate 18 02/19/2022 4:14 PM EDT Oxygen Saturation 98% 02/19/2022 4:14 PM EDT Inhaled Oxygen Concentration 98% 02/19/2022 4 :14 PM EDT Weight 93 kg (205 lb) 02/19/2022 4:14 PM EDT Height 160 cm (5' 3 ) 02/19/2022 4:14 PM EDT Body Mass Index 36.31 02/19/2022 4:14 PM EDT Plan of Treatment Not on file Insurance BLUE [employer]ESS Care Teams Director Global Market Research Relationship Specialty Start Date End Date Pcp, No [address] [place], [place] [id number] PCP - General 02/19/22
--- OUTSIDE RECORDS SUMMARY | 2025-09-11 22:44 | XMS_ITS | Encounter Summary ---
Author Organization [place] [address] Care Team Providers Care Manager Talent Name Role Phone Lorenza Daniel Primary Care Provider [phone] Gabe Hanna MD Unavailable Unavailable Urszula Servin MD Unavailable [phone] Jeremy Nam MD Unavailable Unavailable Cody Modi MD Unavailable Reason for Visit * Reason Onset Date Comments Other 06/04/2025 +covid Encounter Details Date Type Department Care Team (Late st Contact Info) Description 06/04/2025 Telephone [facility] [address], [address] [place] [address] Vladimir Quijano MD [facility] [address] [place] [id number] Other (+covid) Social History Tobacco Use Types Packs/Day Years [...] Lorenza Hanson RN documented in this encounter Miscellaneous Notes * Telephone Encounter - Jana Palma, Clerical Staff - 06/04/2025 9:39 AM EDT Spoke to pt. Appt changed to VV * Telephone Encounter - Pinky Will LPN - 06/04/2025 9:33 AM EDT Change to VV * Telephone Encounter - Joleen Leon - 06/04/2025 9:12 AM EDT Called to confirm patient appt for Saturday. Pt states she tested +covid yesterday (06/03). Is she ok to come in the office on Saturday or should appt be switched to a VV? Please advise. documented in this encounter Plan of Treatment Upcoming Encounters Date Type Department Care Team (Late st Contact Info) Description 09/16/2025 3:00 PM EST Appointment [place] [address] 09/16/2025 3:20 PM EST [facility]ointment [facility] [place] [address] Urszula Servin MD [address] [place] [address] [place] [address] 10/05/2025 3:00 PM EST Appointment [facility] [place], [place] [id number] 10/05/2025 3:20 PM EST [facility]ointment [facility] [place] [address] Urszula Servin MD [address] [place] [address] [place] [address] documented as of this encounter Goals Goal [...] center) C. Review available resources through the [facility] cancer program and the community. 6. State objectives clearly and provide environment conducive to learning (PRN) documented as of this encounter Visit Diagnoses Not on filedocumented in this encounter Care Teams Manager Talent Relationship Specialty Start Date End Date Fredy Lorenza Saud [id number] [address] [place] [address] PCP - General Family Medicine 10/20/12 Gabe Hanna MD [address] [place] [address] [address] [place] [address] Internal Medicine-Gastroenterolo gy 09/28/13 Urszula Servin MD [address] [facility] [address] [place] [address] Medical Oncologist Internal Medicine-Medical Oncology 01/27/21 Jeremy Nam MD [address] [facility] [place] [address] Referring Physician Obstetrics & Gynecology-Obstetrics 09/03/23 Cody Modi MD [address] [facility] [address] [place] [address] Consulting Physician Obstetrics & Gynecology-Gynecologic Oncology 09/03/23 documented as of this encounter
--- OUTSIDE RECORDS SUMMARY | 2025-09-11 22:44 | XMS_ITS | Encounter Summary ---
Author Organization [facility] [place] [address] Care Team Providers Care Credit Card Control Clerk Name Role Phone Lorenza Daniel Primary Care Provider [phone] Gabe Hanna MD Unavailable Unavailable Urszula Servin MD Unavailable [phone] Jeremy Nam MD Unavailable Unavailable Cody Modi MD Unavailable Encounter Details Date Type Department Care Team (Late st Contact Info) Description 08/24/2025 Patient Outreach [facility] [place] [id number] Luisa Pepe, Clerical Staff Social History Tobacco Use Types Packs/Day Years [...] Lorenza Hanson RN documented in this encounter Progress Notes * Luisa Pepe, Clerical Staff - 08/24/2025 1:29 PM EDT Pt is no longer on Rituxan. She will not need copay assistance. documented in this encounter Plan of Treatment Upcoming Encounters Date Type Department Care Team (Late st Contact Info) Description 09/16/2025 3:00 PM EST Appointment [facility] [place] [address] 09/16/2025 3:20 PM EST Appointment [facility] [place] [address] Urszula Servin MD [address] [place] [address] [place] [address] 10/05/2025 3:00 PM EST Appointment [facility] [place] [address] 10/05/2025 3:20 PM EST Appointment [facility] Medical On[facility] [place] [phone] Urszula Servin MD [address] [place] [address] [place] [id number] documented as of this encounter Goals Goal Patient Goal Type Associated Problems Recent Progress Patient-Stated? Author Knowledge Deficit General Pinky Galarza RN Note: Knowledge Deficient Related to Disease [...] center) C. Review available resources through the [facility] cancer program and the community. 6. State objectives clearly and provide environment conducive to learning (PRN) documented as of this encounter Visit Diagnoses Not on filedocumented in this encounter Care Teams Credit Card Control Clerk Relationship Specialty Start Date End Date Lorenza Daniel [facility] [place] [address] [place] [address] PCP - General Family Medicine 10/20/12 Gabe Hanna MD [facility] [place] [address] [place] [address] Internal Medicine-Gastroenterolo gy 09/28/13 Urszula Servin MD [address] [facility] [place] [address] Medical Oncologist Internal Medicine-Medical Oncology 01/27/21 Jeremy Nam MD [address] [facility] [place] [address] Referring Physician Obstetrics & Gynecology-Obstetrics 09/03/23 Cody Modi MD 1 [facility] [place] [address] Consulting Physician Obstetrics & Gynecology-Gynecologic Oncology 09/03/23 documented as of this encounter
--- OUTSIDE RECORDS SUMMARY | 2025-09-11 22:44 | XMS_ITS | Encounter Summary ---
Author Organization [facility] [place] [address] Care Team Providers Care Panel Sewer Name Role Phone Lorenza Daniel Primary Care Provider [phone] Gabe Hanna MD Unavailable Unavailable Urszula Servin MD Unavailable [phone] Jeremy Nam MD Unavailable Unavailable Cody Modi MD Unavailable Reason for Visit * Reason Onset Date Comments Other 08/19/2025 child may be at appointment Encounter Details Date Type Department Care Team (Late st Contact Info) Description 08/19/2025 Telephone [facility] [place] [address] Urszula Servin MD [address] [place] [address] Other (child may be at appointment ) Social History Tobacco Use Types Packs/Day Years [...] encounter Miscellaneous Notes * Telephone Encounter - Pinky Avina RN - 08/19/2025 2:03 PM EDT Will route message to notify Dr. Servin / AMADOR Arredondo. 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 Did remind her that children under 14 were not permitted in the cancer center. Got very upset and said she brought her in before and they okd it with Dr. Servin and that she knew this would happen from time to time. Let her know I would inform clinic that child might be with her and that Dr. Servin approved. Preferred call back number: [phone] documented in this encounter Plan of Treatment Upcoming Encounters Date Type Department Care Team (Late st Contact Info) Description 09/16/2025 3:00 PM EST Appointment [place] [address] 09/16/2025 3:20 PM EST Appointment [facility] [place] [address] Urszula Servin MD [address] [place] [address] [place] [address] 10/05/2025 3:00 PM EST Appointment [place] [address] 10/05/2025 3:20 PM EST Appointment [facility] [place] [address] Urszula Servin MD [address] [place] [address] documented as of this encounter Goals Goal Patient Goal Type Associated Problems Recent Progress Patient-Stated? Author Knowledge Deficit General Pinky Gaalrza, RN Note: Knowledge Deficient Related to Disease [...] center) C. Review available resources through the [facility] cancer program and the community. 6. State objectives clearly and provide environment conducive to learning (PRN) documented as of this encounter Visit Diagnoses Not on filedocumented in this encounter Care Teams Panel Sewer Relationship Specialty Start Date End Date Lorenza Daniel [address] [place] [address] [address] [place] [address] PCP - General Family Medicine 10/20/12 Gabe Hanna MD [address] [place] [address] [address] [place] [address] Internal Medicine-Gastroenterolo gy 09/28/13 Urszula Servin MD [address] [facility] [address] [place] [address] Medical Oncologist Internal Medicine-Medical Oncology 01/27/21 Jeremy Nam MD [address] [place] [address] Referring Physician Obstetrics & Gynecology-Obstetrics 09/03/23 Cody Modi MD [address] [place] [address] Consulting Physician Obstetrics & Gynecology-Gynecologic Oncology 09/03/23 documented as of this encounter
--- OUTSIDE RECORDS SUMMARY | 2025-09-11 22:44 | XMS_ITS | Encounter Summary ---
Author Organization [facility] [place] [address] Care Team Providers Care Level Vial Inspector And Tester Name Role Phone Lorenza Daniel Saud Primary Care Provider [phone] Gabe Hanna MD Unavailable Unavailable Urszula Servin MD Unavailable [phone] Jeremy Nam MD Unavailable Unavailable Cody Modi MD Unavailable Encounter Details Date Type Department Care Team (Latest Contact Info) Description 08/23/2025 Results Follow-Up Cancer Care Medical Oncology [place] [id number] Urszula Servin MD [address] [place], [place] [phone] CBC WITH DIFF, COMPREHENSIVE METABOLIC PANEL, MAGNESIUM LEVEL Social History Tobacco Use Types Packs/Day Years [...] Lorenza Garsia RN documented in this encounter Plan of Treatment Upcoming Encounters Date Type Department Care Team (Late st Contact Info) Description 09/16/2025 3:00 PM EST Appointment [place] [address] 09/16/2025 3:20 PM EST Appointment [facility] [place] [address] Urszula Servin MD [address] [place] [address] [place] [address] 10/05/2025 3:00 PM EST Appointment [facility] [place], [place] [id number] 10/05/2025 3:20 PM EST Appointment [facility] [place] [address] Urszula Servin MD [address] [facility] [place] [address] documented as of this encounter Goals Goal [...] center) C. Review available resources through the [facility] cancer program and the community. 6. State objectives clearly and provide environment conducive to learning (PRN) documented as of this encounter Visit Diagnoses Not on filedocumented in this encounter Care Teams Level Vial Inspector And Tester Relationship Specialty Start Date End Date Lorenza Daniel [facility] [address] [place] [address] PCP - General Family Medicine 10/20/12 Gabe Hanna MD [facility] [address] [place] [address] Internal Medicine-Gastroenterolo gy 09/28/13 Urszula Servin MD [address] [place] [address] [place] [address] Medical Oncologist Internal Medicine-Medical Oncology 01/27/21 Jeremy Nam MD [address] [facility] [place] [address] Referring Physician Obstetrics & Gynecology-Obstetrics 09/03/23 Cody Modi MD [address] [facility] [place] [address] Consulting Physician Obstetrics & Gynecology-Gynecologic Oncology 09/03/23 documented as of this encounter
[2025-09-11 22:55] LABS: Albumin Level 4.1 g/dl (3.5-5.0)
[2025-09-11 22:58] LABS: Bilirubin,Unconjugated 0.5 mg/dL (0.0-1.1); Total Protein,Serum 6.2 g/dl (6.3-8.2)
[2025-09-11 22:59] LABS: Alanine Aminotransferase 63 U/L (12-78); Alkaline Phosphatase 125 U/L (38-126); Aspartate Amino Transferase 41 U/L (14-36); Bilirubin,Direct 0.0 mg/dl (0.0-0.4); Bilirubin,Indirect 0.4 mg/dL (0.0-0.9); Bilirubin,Total 0.4 mg/dl (0.2-1.3)
[2025-09-11 23:01] VITALS: BP 117/55; PULSE 77; O2SAT 98
--- NOTE | 2025-09-11 23:18 | HMH.EDGENADL ---
Discharge Plan Disposition Patient Disposition: Home, Self-Care Condition: Good Prescriptions Prescriptions: No Action cyanocobalamin (vitamin B-12) 1,000 mcg tablet 1,000 mcg PO DAILY Patient Comments: TAKE 1 TABLET BY MOUTH EVERY DAY Doptelet (30 tab pack) 20 mg tablet 20 mg PO .COMPLEX Rx Instructions: 20 mg orally; Twice a day cholecalciferol (vitamin D3) 125 mcg (5,000 unit) capsule 125 mcg PO DAILY azelastine 137 mcg (0.1 %) aerosol,spray 1 spray intranasal PRN Patient Comments: INSTILL 2 SPRAYS IN EACH NOSTRIL TWICE A DAY cetirizine [Zyrtec] 10 mg tablet 10 mg PO DAILY PRN zinc sulfate [Orazinc] 50 mg zinc (220 mg) capsule 50 mg PO DAILY magnesium oxide 500 mg capsule 500 mg PO DAILY Referrals Follow up/Referrals: Mandeep Urias MD [Primary Care Provider, Medical] - See instructions Activity Restrictions/Add. Instructions Additional Instructions/Restrictions: You may wear the Gokul wrap for comfort. You can weight-bear as tolerated. Given your underlying liver dysfunction you can consider taking less than 2 g of Tylenol daily. If you have any new or worsening symptoms please return to the emergency department. Otherwise follow-up with your primary care physician to ensure resolution of symptoms Clinical Impressions Clinical Impression: Injury of ankle, right Qualifiers: Encounter type: initial encounter Qualified Code(s): S99.911A - Unspecified injury of right ankle, initial encounter Print Language Print Language: Tamazight Discharge ED Provider: Jasson Pruitt Adult HPI General Chief complaint: PAIN Stated complaint: AO 11- fell and twisted both ankles Time Seen by Provider: 09/11/25 22:14 Mode of Arrival: Ambulatory Source of Information: Patient and Spouse Description of Symptoms (Recalled from ER Triage Doc. by RN): patient presents to the ED for bilateral ankle injury. jazmine was stepping out on her concrete porch when she twisted her left ankle, she tried to catch herself with her right ankle but half way slipped on a walking stick laying on her porch and twisted her right ankle even more than the left. she stated he pain is 1/10 in the left and 8/10 in the right. she also desires to have labwork done before being medicated with tylenol/ibuprofen. History of Present Illness HPI narrative: Is a 45-year-old female patient, with past medical history of pancytopenia as well as chronically elevated liver enzymes, who is presenting to the emergency department today for evaluation of right ankle injury. Patient states that she was walking down the steps of the home when she twisted her ankle and fell onto her knee. She states that she has had swelling and pain in the ankle since that time. This is along the lateral aspect of the ankle and she believes that she suffered an inversion injury. She has attempted bear weight since the injury and has been able to do so minimally. She is not experiencing any numbness or tingling. She is not experiencing any knee pain or limitation in range of motion of the knee. No pain in the proximal lower leg. Related Data Home Medications ?Medication ?Instructions ?Recorded ?Confirmed cyanocobalamin (vitamin B-12) 1,000 mcg PO DAILY Diet supplement 06/21/22 05/13/25 1,000 mcg tablet cholecalciferol (vitamin D3) 125 125 mcg PO DAILY 05/01/23 05/13/25 mcg (5,000 unit) capsule magnesium oxide 500 mg capsule 500 mg PO DAILY 05/21/23 05/13/25 zinc sulfate 50 mg zinc (220 mg) 50 mg PO DAILY 05/21/23 05/13/25 capsule (Orazinc) azelastine 137 mcg (0.1 %) nasal 1 spray intranasal PRN 03/03/24 05/13/25 spray cetirizine 10 mg tablet (Zyrtec) 10 mg PO DAILY PRN 03/03/24 05/13/25 avatrombopag 20 mg tablet 20 mg PO .COMPLEX thrombocytopenia 05/13/25 05/13/25 (Doptelet (30 tab pack)) Allergies Allergy/AdvReac Type Severity Reaction Status Date / Time aspartame Allergy Verified 05/13/25 07:35 codeine Allergy Verified 05/13/25 07:35 latex Allergy Verified 05/13/25 07:35 Androgenic Anabolic Steroid AdvReac Verified 05/13/25 07:35 carisoprodol (From Soma) AdvReac Verified 05/13/25 07:35 [facility] Disclaimer: The information contained in this section may have been updated after the patient was seen, as this information can be updated by other users. Medical History Aplastic anemia Hx of abnormality of cervix cervical surgery for infertility History of infertility Restless leg syndrome Asymptomatic Anxiety Anemia Surgical History H/O adenoidectomy History of tonsillectomy and adenoidectomy Family History Other Family history non-contributory No significant family history Social History Smoking Status: Never smoker second hand exposure: No alcohol intake: never counseling given: No substance use type: denies use counseling given: No current occupational status: employed Travel in the last 8 weeks?: Inside the [place] adopted: No caregiver/support person: No foster care: No household members: spouse, family and children lives independently: Yes marital status: number of children: 1 education level: master's degree 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 [employer] caffeine: Yes malika/mormonism: Confucianist special malika needs: No working smoke detector in home: Yes fire extinguisher in home: No carbon monox detector in home: No firearms in home: No do you feel safe at home: Yes victim of physical abuse: No victim of emotional abuse: No victim of sexual abuse: No would you like helpful sources: No Have you lived/traveled outside US in past 30 days?: No Contact w/someone who lives/traveled outside US past 30 days?: No Exposure to someone with infectious disease in past 14 days?: No Do you have a fever (greater than 100.4 F or 38 C)?: No Have you tested positive for COVID-19?: No Exposed to someone with COVID-19 in past 14 days?: No Do you have a sore throat?: No Do you have a cough?: No Do you have any weakness?: No Do you have any diarrhea?: No Are you experiencing any unusual bleeding?: No Do you have any muscle aches/pain?: No Do you have any abdominal pain?: No Are you experiencing loss of taste or smell?: No Other Medical History Have you received the Flu Vaccine for this season: No Have you received the Pneumonia Vaccine: No ROS Obtained: Yes Systems reviewed as appropriate & no additional complaints except as documented Physical Exam General General appearance: other (See MDM) Respiratory Respiratory exam: Present other (See MDM) Cardiovascular Cardiovascular exam: Present other (See MDM) Neurological Exam Neurological exam: Present other (See MDM) Medical Decision Making Medical Records Medical records reviewed: Yes I reviewed the patient's medical records. Screening: Per USPSTF and CDC recommendations, given the prevalence of disease in our region, it is our hospital?s policy to screen for HIV and viral Hepatitis for all patients aged 18 and over and those with ongoing risk factors. Jaren Inquiry Pt receiving controlled substance: No Jaren was queried for this patient: No Vital Signs: 09/11/25 22:03 09/11/25 23:01 Temperature 98.2 F Temperature Source Oral Pulse Rate 77 Pulse Rate [Right Radial] 81 Respiratory Rate 18 Blood Pressure 117/55 L Blood Pressure [Right Arm] 150/61 H Blood Pressure Mean 70 Blood Pressure Mean [Right Arm] 90 Blood Pressure Source [Right Arm] Automatic Cuff Blood Pressure Position [Right Arm] Sitting 02 Sat by Pulse Oximetry 100 98 Oxygen Delivery Method Room Air Lab Data Lab Results 09/11/25 22:27: Total Bilirubin 0.4, Direct Bilirubin 0.0, Conjugated Bilirubin 0.0, Indirect Bilirubin 0.4, Unconjugated Bilirubin 0.5, AST 41 H, ALT 63, Alkaline Phosphatase 125, Total Protein 6.2 L, Albumin 4.1 Orders (Tests/Meds): ORDERS Category Date Time Status Ankle XR -Right minimum 3 Views [XR ankle RT min 3V] Exams 09/11/25 22:23 Completed Stat Foot XR right 2 views [XR foot RT 2V] Stat Exams 09/11/25 22:23 Completed Liver Panel Stat Lab 09/11/25 22:27 Completed Medical Decision Narrative: In summary this is a 45-year-old female patient who is presenting to the emergency department today for evaluation of a right ankle injury after an inversion injury while walking down some steps at home. Her comorbidities include pancytopenia as well as chronically elevated liver enzymes. On initial evaluation of the patient they were resting comfortably in no acute distress and nontoxic in appearance. They are hemodynamically stable, saturating well room air, and are neurologically intact. On physical examination the patient has mild edema to the lateral aspect of the right ankle. Normal sensation in all terminal nerve distributions of the right lower extremity. DP and PT pulses are intact. Differential diagnosis includes lateral malleolus fracture, medial malleolus fracture, foot fracture, among others. Low suspicion for Maisonneuve injury given that she has no tenderness to the proximal fibula. Low suspicion for tibial plateau injury given that she has full range of motion of the knee that is painless and no tenderness palpation about the proximal tibia Workup is initiated with an x-ray of the right ankle and right foot. Patient states that she feels that she will necessitate Tylenol over the next few days for pain control. However, due to her chronically elevated liver enzymes she would like for us to draw an LFT panel today so that when she follows up with her primary care provider after she has taken Tylenol she will now if the Tylenol has precipitated further elevation of her liver enzymes. Therefore we will perform a straight stick to obtain an LFTs, these were personally interpreted by me and demonstrate an AST that is mildly elevated at 41, remainder of liver function test are normal. X-ray of the right ankle and right foot was first interpreted by me and demonstrates no bony fracture or malalignment. Official radiology read is in agreement states there is no acute abnormality. Patient was treated with 500 mg of Tylenol here in the emergency department. We have wrapped her ankle in an Gokul wrap. I have asked her to follow-up with her primary care physician to ensure resolution of symptoms. At this time all questions have been answered and all parties are agreeable with the decision to discharge home Critical Care Critical Care Time Critical Care Time: No
[2025-09-11 23:30] VITALS: BP 117/89; PULSE 78; RESP 18; TEMP 37; O2SAT 99
[2025-09-11] MEDS: ACETAMINOPHEN 500MG TAB 500 MG PO (23:34)
== END 2025-09-11 23:37 | disposition home or self-care (01) ==
PROVIDERS: Emergency Provider Student in an Organized Health Care Education/Training Program; PCP Family Medicine
DX: S99.911A Unspecified injury of right ankle, initial encounter (principal)
CPT/HCPCS: 73610; 73620; 80076; 99283